=== PATIENT | female | born 1935 | race Caucasian/White ===

== ENCOUNTER → 2016-12-11 | Outpatient (CLI) | payer OTHER ==
[~2016-12-11] MED LIST: ASPI81TA28 PO; AZIT-57 PO; CALCCAP7 PO; CHOL100010 PO; CLOB-65 TOP; DTRSR2 PO; LACTCAP3 PO; LSN20 PO; OMEG10007 PO; PRT40 PO; RIVA1TAB4 PO; XRL15 PO
--- NOTE | 2016-12-11 14:43 | MAMMOGRAPHY REPORT ---
BILATERAL DIGITAL SCREENING MAMMOGRAM WITH CAD: 12/11/2016 CLINICAL HISTORY: Routine screening. Patient has no complaints. TECHNIQUE: Bilateral CC, MLO and left cleavage views were obtained. Current study was also evaluated with a Computer Aided Detection (CAD) system. COMPARISON: Comparison is made to exams dated: 12/09/2015 mammogram, 12/08/2014 mammogram, 12/07/2013 ma mmogram, 12/04/2011 mammogram, 11/22/2010 mammogram, and 11/21/2009 mammogram - [facility]. BREAST COMPOSITION: There are scattered areas of fibroglandular density in both breasts. FINDINGS: There are new patchy and vague asymmetries in each upper outer posterior breast, for which additional spot compression tomosynthesis views and possibly ultrasound are recommended. There are bilateral rodlike secretory calcifications and benign rim calcifications. No other suspici ous mass, architectural distortion or cluster of microcalcifications is seen. IMPRESSION: ACR BI-RADS CATEGORY 0: INCOMPLETE EVALUATION: NEED ADDITIONAL IMAGING EVALUATION The new patchy and vague asymmetries in each upper outer posterior breast need additional imaging ray luation. The patient will be called to schedule an appointment. Approximately 10% of breast cancers are not detected with mammography. A negative mammographic report should not delay biopsy if a clinically suggestive mass is present. Suzie Bai M.D. ay/:12/11/2016 11:15:52 Operator Maintainer: Lizeth DOE)(Sina), [facility] letter sent: Addl Imaging 0 BI-RADS Code: ACR BI-RADS Category 0: Incomplete Evaluation: Need Additional Imaging Evaluation
== END | disposition home or self-care (01) ==
LOC: C.MAMM 10:26
PROVIDERS: ATTEND Family Medicine
DX: Z12.31 Encounter for screening mammogram for malignant neoplasm of breast (principal); N64.89 Other specified disorders of breast

== ENCOUNTER → 2016-12-19 | Outpatient (CLI) | payer OTHER ==
--- NOTE | 2016-12-20 09:08 | MAMMOGRAPHY REPORT ---
BILATERAL DIGITAL DIAGNOSTIC MAMMOGRAM TOMOSYNTHESIS AND TARGETED BILATERAL ULTRASOUND: 12/19/2016 CLINICAL HISTORY: Callback from screening mammogram for bilateral asymmetries. The patient reports s he bruises easily as she has on Xarelto. She also reports she scratches her breasts routinely due to chronic itchiness from dry skin. TECHNIQUE: Breast tomosynthesis in addition to standard 2D mammography was performed. Spot compress ion bilateral CC and MLO 2-D and tomosynthesis images were obtained. COMPARISON: Comparison is made to exams dated: 12/11/2016 mammogram, 12/09/2015 mammogram, 12/08/2014 m ammogram, 12/07/2013 mammogram, 12/04/2012 mammogram, and 12/04/2011 mammogram - [facility]. BREAST COMPOSITION: There are scattered areas of fibroglandular density in both breasts. FINDINGS: Spot compression views demonstrate multiple new ill-defined patchy asymmetries seen within bilateral upper outer quadrants. The most prominent is an ovoid 15 mm asymmetry seen within the lef t upper outer quadrant. Targeted ultrasound was performed of bilateral upper outer quadrants in the region of the mammographi c asymmetries. There are multiple ill-defined mixed echogenicity masses seen within the left 1:00 br east, 14-15 cm from the nipple, which are predominantly hypoechoic centrally and have vague surroundi ng hyperechogenicity. One ovoid hypoechoic 8 x 5 mm mass is seen within the left 1:00 breast, 15 cm from the nipple, which likely corresponds with the ovoid asymmetry mammographically. There is also a similar mixed echogenicity mass in the right low axillary region, measuring 1.5 x 0.7 x 2.0 cm. The se areas correspond with the mammographic asymmetries and have mammographic and sonographic features of probable fat necrosis. The patient denies any known trauma to the area but does bruise easily as she is on Xarelto and does chronically scratch her breasts. IMPRESSION: ACR-BI-RADS CATEGORY 3: PROBABLY BENIGN, TARGETED ULTRASOUND ACR-BI-RADS CATEGORY 3: PRO BABLY BENIGN Patchy ill-defined asymmetries within bilateral upper outer quadrants, with corresponding mixed echog enicity ill-defined masses on ultrasound. Findings are probably benign and likely represent fat necr osis; the patient denies any known trauma to the area but does bruise easily as she is Xarelto and do es chronically scratch her breasts. Recommend short interval follow-up bilateral diagnostic tomosynt hesis mammograms and possible ultrasound in 6 months to ensure resolution. The patient has been verbally notified of the results. Approximately 10% of breast cancers are not detected with mammography. A negative mammographic report should not delay biopsy if a clinically suggestive mass is present. Padmini Wade M.D. ah/:12/19/2016 15:12:26 Traffic Recorder: Keyla HARRINGTON(Dayana)(M), [facility] letter sent: Follow Up Recommended 3 BI-RADS Code: ACR-BI-RADS Category 3: Probably Benign Ultrasound BI-RADS: ACR-BI-RADS Category 3: Pr obably Benign
== END | disposition home or self-care (01) ==
LOC: C.MAMM 13:49
PROVIDERS: ATTEND Family Medicine
DX: N64.89 Other specified disorders of breast (principal)

== ENCOUNTER → 2017-06-06 | Outpatient (CLI) | payer OTHER ==
--- NOTE | 2017-06-06 14:04 | DIAGNOSTIC IMAGING REPORT ---
PELVIS WITHOUT CONTRAST (MRI) CLINICAL HISTORY: LEFT COMPLEX LABIAL CYST COMPARISON STUDY: No previous studies for comparison. FINDINGS: The patient was very uncomfortable during the examination due to right hip and low back pain. The patient was unable to continue the examination, and no contrast images were acquired. There are no suspicious areas of marrow replacement. There is no pathologic adenopathy. There are multiple uterine fibroids, the largest of which measures 27 mm and is located within the left fundal portion of the uterus. Both ovaries appear normal. There is a complex multiloculated left labial cystic lesion containing multiple fluid fluid levels. The cyst measures 7 x 5 x 4 cm. A few tiny right labial cysts are also visualized. IMPRESSION: 1. Unusual complex multi loculated left labial cystic mass measuring 7 x 5 x 4 cm. This contains multiple septations and multiple fluid fluid levels. The appearance is atypical for a typical Bartholin's gland cyst. This could represent the sequela of prior infection, or could represent a different pathologic entity (labial hemangioma/lymphangioma, or cystic neoplasm). 2. Subcentimeter complex right labial cystic lesions with air-fluid levels are also visualized 3. Multiple uterine fibroids 4. No evidence of pathologic adenopathy 5. No evidence of pathologic marrow replacement Electronically signed by: Micah Mendez M.D. 06/06/2017 2:03 PM Dictated Date/Time: 06/06/2017 1:38 PM
== END | disposition home or self-care (01) ==
LOC: C.MRI 12:12
PROVIDERS: ATTEND Obstetrics & Gynecology Obstetrics
DX: N90.7 Vulvar cyst (principal); N90.89 Other specified noninflammatory disorders of vulva and perineum; D25.9 Leiomyoma of uterus, unspecified

== ENCOUNTER → 2017-06-20 | Outpatient (CLI) | payer OTHER ==
--- NOTE | 2017-06-20 15:16 | MAMMOGRAPHY REPORT ---
BILATERAL DIGITAL DIAGNOSTIC MAMMOGRAM TOMOSYNTHESIS WITH CAD AND TARGETED BILATERAL ULTRASOUND: 06/01 CLINICAL HISTORY: Short interval follow-up of bilateral breast findings. The patient denies any lump s or other breast complaints. TECHNIQUE: Breast tomosynthesis in addition to standard 2D mammography was performed. Current study was also evaluated with a Computer Aided Detection (CAD) system. Bilateral CC and MLO 2-D and tomosy nthesis images and bilateral XCCL 2-D views were obtained. COMPARISON: Comparison is made to exams dated: 12/19/2016 ultrasound, 12/19/2016 mammogram, 12/11/2016 mammogram, 12/09/2015 mammogram, 12/08/2014 mammogram, and 12/07/2013 mammogram - [facility]. BREAST COMPOSITION: There are scattered areas of fibroglandular density in both breasts. FINDINGS: Again noted are patchy ill-defined asymmetries within bilateral upper outer quadrants, not significantly changed on the left side but slightly more prominent on the right side. The asymmetri es are bilaterally symmetric. The remainder of both breasts are stable compared to prior exams, with out suspicious masses, calcifications, or areas of architectural distortion noted. Bilateral benign appearing calcifications are not significantly changed. Targeted ultrasound was performed of bilateral upper outer quadrants in the region of the patchy asym metries. There are numerous patchy ill-defined areas within the left upper outer quadrant on ultraso und. In the low left axilla, there is a hypoechoic 5 x 7 mm non-circumscribed mass with surrounding ill-defined hyperechoic tissue. Another hypoechoic 5 x 4 mm mass with surrounding hyperechoic tissue is seen within the left breast at 2:30 far laterally. Another patchy ill-defined 10 mm area of mixe d echogenicity tissue is seen within the left breast at 2:00, 12 m from the nipple. Other patchy ill -defined hyperechoic and hypoechoic areas are seen throughout the left upper outer quadrant, includin g a subtle area of hyperechoic tissue with central hypoechoic portion measuring 13 mm in the left red ast at 1:00, approximately 14 cm from the nipple. In the right lower axillary region, there is a mixed echogenicity mass which consist of a central ill -defined hypoechoic mass measuring 1.4 x 0.9 cm with surrounding hyperechoic tissue with the total ex tent of the finding measuring 1.9 x 2 cm. Another small hypoechoic 4 x 5 mm mass with surrounding hy perechoic tissue is seen within the right breast at 10:00 far laterally. Another mixed echogenicity mass is seen within the right breast at 9:00 far laterally approximately 15 cm from the nipple, with a central ill-defined hypoechoic 10 x 9 mm mass and surrounding hyperechoic tissue with total extent of the finding measuring 2.4 x 1.8 cm. Other ill-defined hyperechoic and mixed echogenicity areas ar e seen within the right upper outer quadrant, including ill-defined hyperechoic tissue measuring 11 m m in the right breast at 9:00, 12 cm from the nipple, and a 10 mm area of mixed echogenicity, predomi nantly hyperechoic, tissue measuring 10 mm in the right 9 o'clock far laterally. These areas correspond with the mammographic densities. Given that the densities have not resolved o n follow-up, they are indeterminate and ultrasound-guided core needle biopsy of one of the findings i s recommended for further evaluation. Given the bilaterally symmetric nature of the findings, breast cancer is felt to be unlikely. Considerations include an inflammatory process versus malignancy suc h as lymphoma. IMPRESSION: ACR BI-RADS CATEGORY 4: SUSPICIOUS, TARGETED ULTRASOUND ACR BI-RADS CATEGORY 4: SUSPICIO US Persistent ill-defined patchy asymmetries in bilateral upper outer quadrants mammographically, with c orresponding mixed echogenicity masses seen on ultrasound. Given the bilaterally symmetric nature of the findings, breast cancer is felt to be unlikely. However, the findings are indeterminant and ult rasound guided core needle biopsy is recommended for further evaluation. Considerations include an i nflammatory process versus malignancy such as lymphoma/metastases. A phone call was made to the physician's office to confirm faxed results were received. The patient has been verbally notified of the results. She tentatively scheduled the biopsy for 06/21/2017. Approximately 10% of breast cancers are not detected with mammography. A negative mammographic report should not delay biopsy if a clinically suggestive mass is present. Padmini Wade M.D. ah/:06/20/2017 14:44:27 Mainframe Systems Administrator: Afia HARRINGTON(Dayana)(Sina), [facility] letter sent: Abnormal 4/5 BI-RADS Code: ACR BI-RADS Category 4: Suspicious Ultrasound BI-RADS: ACR BI-RADS Category 4: Suspici ous
== END | disposition home or self-care (01) ==
LOC: C.MAMM 13:31
PROVIDERS: ATTEND Family Medicine
DX: N63.23 Unspecified lump in the left breast, lower outer quadrant (principal); N63.21 Unspecified lump in the left breast, upper outer quadrant

== ENCOUNTER → 2017-06-21 | Outpatient (CLI) | payer OTHER ==
--- NOTE | 2017-06-21 14:17 | Discharge Instructions ---
Discharge Instructions Procedure Procedure Date: Jun 21, 2017. Reason for visit: Right Mass. Discharge Discharge Date: Jun 21, 2017. Discharge Diagnosis: status post breast biopsy Instructions Activity Recommendations: Additional Limitations (see below) Return to School/Work: no limitations Recommended Home Diet: No Limitations Provider Instructions: ACTIVITY RECOMMENDATIONS: * No lifting, pushing, pulling or exercising the affected side for three days. RETURN TO SCHOOL/WORK: * You may return to work/school after the procedure, but do not perform any strenuous activities for 24 to 48 hours. MEDICATIONS: * Tylenol (two 325 mg) every four to six hours if needed for mild pain (if not allergic to Tylenol). DIET: * Resume previous diet. SPECIAL CARE INSTRUCTIONS: * Keep biopsy site dry for 24 hours. May shower after 24 hours, but do not soak (bathe) incision. * May remove Tegaderm (plastic patch) tomorrow AFTER showering. * Leave the steri-strips on for one week. Allow the steri-strips to fall off by themselves. If not off after one week, you may remove them. You may place a Bandaid crosswise over the strips, if desired. * Apply ice 10 minutes on and 10 minutes off as needed. * Wear a bra at bedtime to sleep more comfortably for 2-3 days. * Your referring physician should have the results after approximately 5 to 7 business days. * Call for unusual bleeding, fever, drainage, etc or if you have any questions call during normal business hours or after hours call Dr Wade, . FOLLOW UP VISIT: Follow-up with Referring Physician as scheduled. Allergies Coded Allergies: Morphine (Verified Adverse Reaction, Mild, N/V, 08/08/15) No Known Allergies (Verified , 07/16/12) Dominik Gilmore Recommendations: Call your doctor if: * Temperature above 101 degrees * Pain not relieved by pain medicine ordered * There is increased drainage or redness from any incision * You have any unanswered questions or concerns. Your Doctors Instructions noted above were prepared by provider Padmini Wade. Patient Signature Section: Patient Instructions Signature Page Tory Sagastume Patient (or Guardian) Signature/Date: I have read and understand the instructions given to me by my caregivers. Caregiver/RN/Doctor Signature/Date: The above-named patient and/or guardian has received patient instructions on this date. + Original Patient Signature Page (only) stays with chart. Please make copy for patient.
--- NOTE | 2017-06-21 15:32 | MAMMOGRAPHY REPORT ---
ULTRASOUND GUIDED BIOPSY RIGHT BREAST: 06/21/2017 CLINICAL HISTORY: Bilateral ill-defined masses in bilateral upper outer quadrant/axillary regions. D ominant mass is seen within the right axillary region. PATIENT CONSENT: The procedure, risks and benefits were discussed with the patient and informed writt en consent was obtained. A timeout was performed immediately prior to the procedure. PROCEDURE DESCRIPTION: With ultrasound guidance, aseptic technique, and lidocaine as the local anesth etic (1% lidocaine to anesthetize the skin and 1% lidocaine with epinephrine to anesthetize the deepe r tissues), one of the masses of concern in the right axillary region was sampled 5 times with a 14-g auge Achieve biopsy needle. Immediately thereafter, with ultrasound guidance, aseptic technique, an d lidocaine as the local anesthetic, a metallic localizer clip was placed centrally in the mass. Dir ect pressure was applied to the site immediately post procedure and hemostasis was achieved. Postpro cedure unilateral mammograms were performed to confirm clip placement. The patient tolerated the pr ocedure without complication. She was given wound care instructions. The specimens were sent in [facility] to pathology for analysis; the samples were placed in saline in case any additional tests such as flow cytometry needed to be performed. COMPARISON: Comparison is made to exams dated: 06/20/2017 ultrasound, 06/20/2017 mammogram, 7 ultrasound, 12/19/2016 mammogram, 12/11/2016 mammogram, and 12/09/2015 mammogram - [facility]. IMPRESSION: ULTRASOUND GUIDED BIOPSY Ultrasound-guided core needle biopsy of the mixed echogenicity mass in the right axillary region, wit h clip placement. The patient will receive pathology results from her referring provider. Padmini Wade M.D. ah/:06/21/2017 14:21:29 Attending Technologist: Miriam Tan, [facility] Account Executive Software Sales: Padmini Wade MD, [facility]
--- NOTE | 2017-06-21 15:34 | MAMMOGRAPHY REPORT ---
UNILATERAL RIGHT DIGITAL DIAGNOSTIC MAMMOGRAM TOMOSYNTHESIS: 06/21/2017 CLINICAL HISTORY: Status post right breast biopsy. TECHNIQUE: Breast tomosynthesis in addition to standard 2D mammography was performed. Postprocedura l right CC and MLO tomosynthesis images were obtained. COMPARISON: Comparison is made to exams dated: 06/20/2017 ultrasound, 06/20/2017 mammogram, 7 ultrasound, 12/19/2016 mammogram, 12/11/2016 mammogram, and 12/09/2015 mammogram - [facility]. BREAST COMPOSITION: There are scattered areas of fibroglandular density in the right breast. FINDINGS: A new ribbon-shaped biopsy marker clip is seen within the right axillary region at the sit e of the biopsied mass. No significant postbiopsy hematoma is seen. IMPRESSION: POST PROCEDURE IMAGING FOR MARKER PLACEMENT New biopsy marker clip status post biopsy of a right axillary region mass. Pathology results are pen ding. Approximately 10% of breast cancers are not detected with mammography. A negative mammographic report should not delay biopsy if a clinically suggestive mass is present. Padmini Wade M.D. /:06/21/2017 14:33:54 Last Code Striper: Miriam Tan, [facility] BI-RADS Code: Post Procedure Imaging For Marker Placement
== END | disposition home or self-care (01) ==
LOC: C.MAMM 13:39
PROVIDERS: ATTEND Family Medicine
DX: L98.6 Other infiltrative disorders of the skin and subcutaneous tissue (principal); N63.10 Unspecified lump in the right breast, unspecified quadrant

== ENCOUNTER → 2018-01-29 | Outpatient (CLI) | payer OTHER ==
[~2018-01-29] MED LIST changes: -ASPI81TA28 PO; +ATOR10TA82 PO; -AZIT-57 PO; -CLOB-65 TOP; +CYAN100020 PO; -DTRSR2 PO; +FOLI1TAB8 PO; -LACTCAP3 PO; +LISI-726 PO; -LSN20 PO; +LVQ750 PO; -OMEG10007 PO; -PRT40 PO; -RIVA1TAB4 PO; +SERT25TA PO; +TOLT4CAP PO; -XRL15 PO
--- NOTE | 2018-01-30 14:55 | MAMMOGRAPHY REPORT ---
BILATERAL DIGITAL DIAGNOSTIC MAMMOGRAM TOMOSYNTHESIS WITH CAD AND LEFT ULTRASOUND: 01/29/2018 CLINICAL HISTORY: 82-year-old woman with bilateral breast masses most numerous in the upper outer davida drant and axillary regions for which ultrasound-guided core biopsy performed June 21, 2017 yielde d pathology results suspicious for lymphoma. At that time the pathology report recommended a surgical excision of the biopsied mass for definitive characterization. The patient now presents for follow-u p in both breasts, and is unsure if she has met with an oncologist. She has not undergone surgical ex cisional biopsy. TECHNIQUE: Bilateral CC and MLO 2D and tomosynthesis images were obtained. Current study was also ev aluated with a Computer Aided Detection (CAD) system. COMPARISON: Comparison is made to exams dated: 06/21/2017 mammogram, 06/20/2017 mammogram, 12/19/2016 mammogram, 12/11/2016 mammogram, 12/09/2015 mammogram, and 12/08/2014 mammogram - [facility]. BREAST COMPOSITION: There are scattered areas of fibroglandular density in both breasts. FINDINGS: There are multiple bilateral irregular and ill-defined masses in the upper outer breasts an d axillary regions. A ribbon-shaped biopsy marker clip is seen within the biopsied mass in the super ior right axilla, representing the lesion suspicious for lymphoma. The masses appear increased in nu mber and some are increasingly prominent in size comparing to the mammograms performed on 06/20/2017. There is also a new large focal area of asymmetry versus trabecular density in the slightly lateral , middle to posterior left breast measuring 10 x 8 x 8 cm. Further evaluation with ultrasound was pe rformed for this new asymmetry. Otherwise there are stable benign rodlike secretory calcifications i n the breasts. Targeted ultrasound was performed in the lateral left breast to assess for the trabecular density. N o focal skin thickening or definitive abnormality is seen in the lateral left breast to explain the d ensity. Multiple ill-defined hypoechoic solid vascular masses are seen, the most prominent is in the left 1:00 axis, 11 cm from the nipple, measuring 6.2 x 5.0 x 7.7 mm. Another possible enlarged lymp h node measuring 1.5 cm is identified in the left axilla. IMPRESSION: ACR BI-RADS CATEGORY 4: SUSPICIOUS, ULTRASOUND ACR BI-RADS CATEGORY 4: SUSPICIOUS 1. There are multiple bilateral irregular and ill-defined masses in the upper outer quadrants of the breasts posteriorly, and both axillary regions, that are increased in number and increasingly promin ent comparing to prior mammograms. One event marketing representative biopsied mass in the right axilla yielded path ologic findings suspicious for lymphoma and surgical excision was recommended. Overall, the mammogra phic appearance is also suspicious for lymphoma and surgical excisional biopsy should be considered. 2. These results and recommendations were discussed with the patient's provider, Afia Baldwin, at 3:30 PM on 01/29/2018. She reported the patient is traveling to [place] in [place] for other proced ures and she will relay this information to the additional providers. Ultimately, excision of one re presentative mass for definitive characterization and oncologic consultation is recommended. Some breast cancers are not detected with mammography. A negative mammographic report should not prasad y biopsy if a clinically suggestive mass is present. Suzie Bai M.D. ay/:01/29/2018 15:46:47 Realty Specialist: RT Tatianna(Dayana)(M), [facility] letter sent: Abnormal 4/5 OVERALL STUDY BIRADS: 4 Suspicious abnormality
== END | disposition home or self-care (01) ==
LOC: C.MAMM 13:15
PROVIDERS: ATTEND Family Medicine
DX: N63.11 Unspecified lump in the right breast, upper outer quadrant (principal); N63.21 Unspecified lump in the left breast, upper outer quadrant; Z98.890 Other specified postprocedural states

== ENCOUNTER 2019-03-31 16:05 | Inpatient (IN) ==
--- OUTSIDE RECORDS SUMMARY | 2019-03-31 16:09 | External Medical Summary | Continuity of Care Document ---
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) Chronic kidney disease, stage III (moderate) (585.3) (N18.3) Hyperlipidemia (272.4) (E78.5) Osteoporosis (733.00) (M81.0) HTN (hypertension) (401.9) (I10) Esophageal reflux (530.81) (K21.9) Uterine leiomyoma (218.9) (D25.9) Cervical spondylosis (721.0) (M47.812) Allergies and Adverse Reactions No Known Drug Allergies (Allergy) Medications Glucosamine 750 MG Oral Tablet Start: Refills: 0 Calcium 500 + D3 500-600 MG-UNIT Oral Tablet; Take 1 tablet daily Start: 18-Apr-2018 Refills: 0 Vitamin D 2000 UNIT Oral Capsule; Take 1 tablet daily Start: 18-Apr-2018 Refills: 0 CVS B-12 1000 MCG TBCR; TAKE 1 TABLET DAILY DIRECTED. Start: 18-Apr-2018 Refills: 0 Sertraline HCl - 25 MG Oral Tablet; TAKE 1 TABLET DAILY. Start: 18-Apr-2018 Refills: 0 Tolterodine Tartrate ER 4 MG Oral Capsul e Extended Release 24 Hour; TAKE 1 CAPSULE Daily Start: 18-Apr-2018 Refills: 3 Folic Acid 1 MG Oral Tablet; TAKE 1 TABLET DAILY. Start: 18-Apr-2018 Refills: 0 Aspirin 81 MG Oral Tablet Delayed Release; TAKE 1 TABLET CONSTANTINE LY. Start: 18-Apr-2018 Refills: 0 Atorvastatin Calcium 10 MG Oral Tablet; TAKE 1 TABLET DAILY. Start: 18-Apr-2018 Refills: 0 90 Tablet Bottle Stevens-3 1000 MG Oral Capsule; TAKE 2 CAPSULES DAILY Start: 18-Apr-2018 Refills: 0 Lisinopril 20 MG Oral Tablet; TAKE 1 TABLET DAILY DIRECTE D. Start: 18-Apr-2018 Refills: 0 15 Tablet Bottle Procedures Procedures not documented Immunizations Immunizations not documented Family History Mother Family history of malignant neoplasm of breast (V16.3) (Z80. 3) Status: Active Social History - Smoking Status Never smoker Plan of Treatment Planned Observations Planned Goals not documented Results No Known Results Results not documented Encounters Appointment; Shankar Perez M.D. 12-May-2018 10:15 Encounter Diagnosis: Problem not documented Appointment; Shankar Perez M.D. 02-May-2018 13:15 Encounter Diagnosis: Problem not documented Appointment; Shankar Perez M.D. 21-Apr-2018 11:30 Encounter Diagnosis: Problem not documented
[2019-03-31] MEDS ORDERED: SODIUM CHLORIDE 0.9% 500 ML IV SCH (16:45)
--- NOTE | 2019-03-31 17:14 | XRay Report ---
XR chest 1V portable CLINICAL HISTORY: 83 years-old Female presenting with Chest Pain. TECHNIQUE: Portable upright AP view of the chest was obtained. COMPARISON: 05/02/2018. FINDINGS: Cardiac silhouette moderately enlarged. Minimal bibasilar opacities stable to slightly decreased from prior. No pleural effusion or pneumothorax. Degenerative changes of the thoracic spine. Upper abdome n normal. IMPRESSION: 1. Minimal bibasilar opacities, stable slightly decreased from prior, possibly atelectasis or focal infiltrate. 2. Cardiomegaly. Electronically signed by: Rodger Echeverria M.D. 03/31/2019 5:12 PM
[2019-03-31 17:23] LABS: Basophils # (auto) 0.03 K/uL (0-0.2); Basophils % (auto) 0.2 %; Eosinophils # (auto) 0.08 K/uL (0-0.5); Eosinophils % (auto) 0.5 %; Hematocrit (blood only) 29.6 % (37-47); Hemoglobin 9.6 g/dL (12.0-16.0); Immature Granulocytes # (auto) 0.05 K/uL (0.00-0.02); Immature Granulocytes % (auto) 0.3 %; Lymphocytes # (auto) 4.98 K/uL (1.2-3.4); Lymphocytes % (auto) 33.8 %; Mean Corpuscular Hgb Conc 32.4 g/dL (32-36); Mean Corpuscular Volume 83.1 fL (80-100); Mean Platelet Volume 8.8 fL (7.4-10.4); Monocytes # (auto) 1.39 K/uL (0.11-0.59); Monocytes % (auto) 9.4 %; Neutrophils # (auto) 8.22 K/uL (1.4-6.5); Neutrophils % (auto) 55.8 %; Platelet Count 509 K/uL (130-400); RDW Coefficient of Variation 16.1 % (11.5-14.5); RDW Standard Deviation 49.6 fL (36.4-46.3); Red Blood Count 3.56 M/uL (4.2-5.4); White Blood Count 14.75 K/uL (4.8-10.8)
[2019-03-31] MEDS ORDERED: OPTIRAY 320 125ml IV PRN (17:28)
[2019-03-31 17:33] LABS: Alanine Aminotransferase 12 U/L (12-78); Albumin Level 1.7 gm/dl (3.4-5.0); Aspartate Aminotransferase 17 U/L (15-37); BUN Creatinine Ratio 16.1 (10-20); Bilirubin Direct 0.2 mg/dl (0-0.2); Blood Urea Nitrogen 16 mg/dl (7-18); Calcium 9.2 mg/dl (8.5-10.1); Carbon Dioxide 24 mmol/L (21-32); Chloride 101 mmol/L (98-107); Creatinine Clr Calc Pharmacy 44.3 ml/min; Est GFR (African American) 60.8; Est GFR (Non-African American) 52.4; Glucose 89 mg/dl (70-99); Lipase 107 U/L (73-393); Magnesium 1.8 mg/dl (1.8-2.4); Potassium 3.5 mmol/L (3.5-5.1); Sodium 134 mmol/L (136-145)
[2019-03-31 17:42] LABS: Albumin Globulin Ratio 0.2 (0.9-2); Alkaline Phosphatase 97 U/L (45-117); Bilirubin,Total 0.5 mg/dl (0.2-1); Globulin 7.1 gm/dl (2.5-4.0); Phosphorus 2.3 mg/dl (2.5-4.9); Total Protein 8.8 gm/dl (6.4-8.2); Troponin I < 0.015 ng/ml (0-0.045)
--- NOTE | 2019-03-31 17:51 | CT Scan Report ---
CT abd pelvis IV con only CLINICAL HISTORY: 83 years-old Female presenting with Upper abd pain, nausea, h/o Lymphoma. TECHNIQUE: Multidetector CT of the abdomen and pelvis was performed after the administration of intra venous contrast. IV contrast: 119 mL of Optiray 320. One or more dose lowering techniques were used c onsistent with the principles of ALARA (as low as reasonably achievable), including automatic exposur e control, mA or kV adjustment to individual patient size, and/or use of iterative reconstruction. COMPARISON: 07/14/2018. CT DOSE (mGy.cm): The estimated cumulative dose is 1069.52 mGy.cm. FINDINGS: Grain Combiner topogram: Unremarkable. Lung bases: Normal heart size. No pericardial or pleural effusion. Redemonstration of the left lower lobe mass like consolidation in the medial basal segment. Underlying bronchiectasis and multiple cyst s. The appearance of cysts may relate to underlying emphysema. Extensive bibasilar reticular and grou ndglass opacities. Liver: Normal morphology. Vague hypoattenuation along the fissure for the ligamentum teres likely per fusional variation or focal fat. Patent hepatic vasculature. Biliary: No intrahepatic or extrahepatic biliary ductal dilatation. Normal gallbladder. Pancreas: Mild parenchymal atrophy. Spleen: Normal. Adrenal glands: Normal. Kidneys and ureters: Normal. No hydronephrosis. Bladder: Incompletely evaluated secondary to underdistention. Pelvic organs: Degenerated fibroid in the uterus. Endovascular coils along the course of the left jose orquidea vein. Soft tissue fullness in the region of the vulva stable to slight increased from prior exam . Bowel: Moderate stool burden in the mildly distended rectum. Diverticulosis of the proximal to mid si gmoid colon and distal descending colon without wall thickening or pericolonic inflammatory change. T he appendix is normal. No bowel obstruction. Peritoneal cavity: No free fluid or gas in the abdomen. Multifocal peritoneal nodules as well as retr operitoneal nodules have slightly increased in size from prior. An index nodule in the left posterior perirenal space measures 21 mm, previously 11 mm. Lymph nodes: No discrete pathologically enlarged lymph nodes. Vasculature: Atherosclerosis of the normal caliber abdominal aorta. IVC patent. Abdominal wall: Multifocal subcutaneous nodules, which are enhancing and have overall increased in si ze from prior exam. Musculoskeletal: Degenerative changes of the spine. No destructive osseous lesion. Advanced degenerat kaya changes of the right hip. Degenerative changes of the pubic symphysis and sacroiliac joints. IMPRESSION: 1. Interval increase in size of the numerous subcutaneous, peritoneal, retroperitoneal nodules shantelle rning for progression of known extranodal lymphoma. 2. Persistent left lower lobe mass and chronic changes at the lung bases. 3. No acute intra-abdominal pathology. 4. Diverticulosis coli. No diverticulitis. Electronically signed by: Rodger Echeverria M.D. 03/31/2019 5:50 PM
--- NOTE | 2019-03-31 17:54 | CT Scan Report ---
CT ANGIOGRAPHY OF THE CHEST, PULMONARY EMBOLUS PROTOCOL CLINICAL HISTORY: Chest pain. Lymphoma. COMPARISON STUDY: Chest CT July 14, 2018. TECHNIQUE: Following IV administration of 119 mL of Optiray-320, helical axial images of the chest we re obtained utilizing the pulmonary embolus protocol. Maximal intensity projections and sagittal and coronal reformats were viewed on an independent 3D workstation. IV contrast was administered withou t complication. Automated exposure control was utilized for the study. A dose lowering technique wa s utilized adhering to the principles of ALARA. FINDINGS: No pulmonary emboli are identified. The heart is moderately enlarged. There is no thoracic aortic dissection. There is no pericardial effusion. A mildly enlarged right lower paratracheal lymp h node measures 1.3 cm in short axis diameter. On CT of July 14, 2018, it measured 1 cm. Mildly en larged left axillary lymph nodes have increased in size since prior CT. Innumerable subcutaneous nodu les within the chest wall and breasts have mildly increased in size and number since CT of November. The central airways are patent. Cysts within the lungs are noted. There is no pneumothorax or pleural effusion. The dominant 4.1 x 3.8 cm left lower lobe mass has mildly decreased in size since C T of July 14, 2018 when it measured 4.8 x 3.8 cm. An additional 2.5 cm left lower lobe nodule on i mage 135 of 261 has significantly increased in size. Multiple additional ill-defined pulmonary nodule s have slightly decreased since prior CT. Ground glass opacities within the lungs are noted. No suspi cious osseous lesions are noted. The abdomen and pelvis will be reported separately. IMPRESSION: 1. No pulmonary emboli identified. 2. Findings suggestive of a mixed treatment response since CT of July 14, 2018 with regards to lym phoma. The dominant left lower lobe mass has mildly decreased in size while an additional 2.5 cm left lower lobe nodule has significantly increased in size. Innumerable subcutaneous nodules within the c hest wall and breasts have increased in size and number since prior exam. Lymphadenopathy has mildly progressed. 3. Moderate cardiomegaly. Electronically signed by: Greg Brush M.D. 03/31/2019 5:52 PM
[2019-03-31 18:57] LABS: Appearance Urine Turbid (Clear); Bacteria Urine Automated 4+ (Negative); Bilirubin Urine Negative (Negative); Blood Urine 1+ (Negative); Color Urine Yellow; Epithelial Cell Urine Auto >30 /lpf (0-5); Glucose Urine UA Negative (Negative); Ketones Urine Negative (Negative); Leukocyte Esterase Urine 2+ (Negative); Nitrite Urine Positive (Negative); Protein Urine 1+ (Negative); Specific Gravity Urine > 1.045 (1.000-1.030); Urobilinogen Urine Negative (Negative); WBC Urine Automated >30 /hpf (0-5)
[2019-03-31] MEDS ORDERED: cefTRIAXone SODIUM 2,000 MG/70 ML BAG IV STA (19:14)
--- NOTE | 2019-03-31 20:01 | Emergency Department Note ---
Entered by Driss Jernigan acting as a scribe for Wild Modi MD History of Present Illness General Chief complaint: Arrhythmia/Palpitations Stated complaint: SOB, CHEST PALPITATIONS, WEAKNESS Time Seen by Provider: 03/31/19 16:29 Source: patient History of Present Illness Provider complaint: heart fluttering Onset (ago): day(s) 1 Location: chest Radiation: non-radiation Pain Consistency: + intermittent Maximum Pain Intensity: 0 Quality: + other (fluttering) Associated symptoms: + denies other symptoms, + nausea/vomiting (no vomiting), + shortness of breath, + weakness and + other (dizziness); no cough The patient is an 83 y/o female who presents to the emergency department for evaluation of intermittent heart fluttering that began yesterday. The patients daughter states that they were at the doctors prior to arrival and came to ED because of dizziness and weakness that has been going on for months. She notes that the patients shortness of breath has gotten worse, which the patient says she has currently and it is leading to greater weakness. The patient notes she has also been nauseous. The daughter notes that there is a history of blood clots. The patient denies vomiting, cough, and any other symptoms. Home Medications Home Medications Medication Instructions Recorded Confirmed Type aspirin [Aspirin Low Dose] 81 mg PO QPM 04/25/18 03/31/19 History calcium carbonate [Calcium 600] 600 mg PO QPM 04/25/18 03/31/19 History cholecalciferol (vitamin D3) 1,000 unit PO QPM 04/25/18 03/31/19 History [Vitamin D3] omega [id number] oil [Fish Oil] 2 tab PO QPM 04/25/18 03/31/19 History tolterodine 4 mg PO QPM 04/25/18 03/31/19 History folic acid 1 mg PO QPM 03/31/19 03/31/19 History lisinopril 10 mg PO DAILY 03/31/19 03/31/19 History sertraline 100 mg PO QPM 03/31/19 03/31/19 History tramadol 50 mg PO Q8H PRN 03/31/19 03/31/19 History Allergies Allergy/AdvReac Type Severity Reaction Status Date / Time No Known Allergies Allergy Verified 03/31/19 16:47 Past Med/Surg History Medical History 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) Lupus anticoagulant disorder (Chronic) B-cell lymphoma (Chronic) Osteoarthritis (Chronic) Uterine leiomyoma (Chronic) 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) HLD (hyperlipidemia) (Chronic) GERD (gastroesophageal reflux disease) (Chronic) Anxiety (Chronic) CKD (chronic kidney disease), stage III (Chronic) Exertional dyspnea (Chronic) Chronic hip pain (Chronic) RIGHT Depression (Chronic) Hypertension (Chronic) Surgical History History of total knee arthroplasty (Chronic) x 3; Right x 2; L x 1 History of incision and drainage (Chronic) Tubal ligation status (Chronic) H/O colonoscopy (Chronic) "Diverticulosis 2010, repeat in 5 years " Hx of tooth extraction (Chronic) History of colonoscopy (Chronic) History of tonsillectomy (Chronic) History of cataract surgery (Chronic) LEFT Family History Father , 52 Pulmonary embolism Mother Breast cancer Social History Preferred Language: Surinamese Communication Ability: Effective Sample Book Maker Required: No Beliefs That Will Affect Care: None Current Living Situation: Spouse Other Information That Helps Us Care for You: No Feels Safe at Home: Yes Safety Concerns: Feels Safe At This Time Smoking Status: Never smoker Hx Alcohol Use: No Hx Substance Use: No Review of Systems See HPI for pertinent positives & negatives. and A total of 10 systems reviewed and were otherwise negative Physical Exam Vital Signs Vital Signs - 24 hr 03/31/19 16:12 03/31/19 16:32 03/31/19 16:39 Temperature 36.5 C Temperature Source Oral Sepsis Recent Fever Within 48 Hours No Sepsis Action Taken by Nursing No Action Required Pulse Rate 75 64 Pulse Rate [Finger] Pulse Rate from SpO2 Sensor Respiratory Rate 18 31 H Respiratory Effort / Characteristics Non-Labored Spontaneous Labored Respiratory Depth Normal Deep Respiratory Pattern Regular Regular Blood Pressure 103/63 Blood Pressure [Left Arm] Blood Pressure Mean 76 Blood Pressure Mean [Left Arm] Blood Pressure Position Sitting Pulse Oximetry 93 Oxygen Delivery Method Room Air Room Air Room Air 03/31/19 16:40 03/31/19 16:46 03/31/19 16:49 Temperature Temperature Source Sepsis Recent Fever Within 48 Hours Sepsis Action Taken by Nursing Pulse Rate 61 65 Pulse Rate [Finger] Pulse Rate from SpO2 Sensor 64 Respiratory Rate 30 H 22 Respiratory Effort / Characteristics Respiratory Depth Respiratory Pattern Blood Pressure 106/54 L Blood Pressure [Left Arm] Blood Pressure Mean 71 Blood Pressure Mean [Left Arm] Blood Pressure Position Pulse Oximetry 98 Oxygen Delivery Method Room Air Room Air Room Air 03/31/19 16:50 03/31/19 16:51 03/31/19 17:00 Temperature Temperature Source Sepsis Recent Fever Within 48 Hours Sepsis Action Taken by Nursing Pulse Rate 67 Pulse Rate [Finger] 62 Pulse Rate from SpO2 Sensor 64 70 Respiratory Rate 22 37 H 24 Respiratory Effort / Characteristics Respiratory Depth Respiratory Pattern Blood Pressure 113/65 Blood Pressure [Left Arm] 106/54 L Blood Pressure Mean 81 Blood Pressure Mean [Left Arm] 71 Blood Pressure Position Pulse Oximetry 98 96 97 Oxygen Delivery Method Room Air Room Air Room Air 03/31/19 17:10 03/31/19 17:20 03/31/19 17:37 Temperature Temperature Source Sepsis Recent Fever Within 48 Hours Sepsis Action Taken by Nursing Pulse Rate 66 67 Pulse Rate [Finger] Pulse Rate from SpO2 Sensor 66 70 Respiratory Rate 13 32 H 35 H Respiratory Effort / Characteristics Respiratory Depth Respiratory Pattern Blood Pressure Blood Pressure [Left Arm] Blood Pressure Mean Blood Pressure Mean [Left Arm] Blood Pressure Position Pulse Oximetry 97 Oxygen Delivery Method Room Air Room Air Room Air 03/31/19 17:40 03/31/19 17:50 03/31/19 18:00 Temperature Temperature Source Sepsis Recent Fever Within 48 Hours Sepsis Action Taken by Nursing Pulse Rate 74 72 75 Pulse Rate [Finger] Pulse Rate from SpO2 Sensor 74 72 75 Respiratory Rate 18 20 21 Respiratory Effort / Characteristics Respiratory Depth Respiratory Pattern Blood Pressure 125/62 Blood Pressure [Left Arm] Blood Pressure Mean 83 Blood Pressure Mean [Left Arm] Blood Pressure Position Pulse Oximetry 99 97 94 Oxygen Delivery Method Room Air Room Air Room Air 03/31/19 18:02 03/31/19 18:10 03/31/19 18:20 Temperature Temperature Source Sepsis Recent Fever Within 48 Hours Sepsis Action Taken by Nursing Pulse Rate 74 75 Pulse Rate [Finger] 74 Pulse Rate from SpO2 Sensor 74 74 Respiratory Rate 23 18 19 Respiratory Effort / Characteristics Respiratory Depth Respiratory Pattern Blood Pressure Blood Pressure [Left Arm] 125/62 Blood Pressure Mean Blood Pressure Mean [Left Arm] 83 Blood Pressure Position Pulse Oximetry 94 92 90 Oxygen Delivery Method Room Air Room Air Room Air 03/31/19 18:30 03/31/19 18:42 03/31/19 18:50 Temperature Temperature Source Sepsis Recent Fever Within 48 Hours Sepsis Action Taken by Nursing Pulse Rate 76 74 Pulse Rate [Finger] Pulse Rate from SpO2 Sensor 75 80 Respiratory Rate 30 H 12 28 H Respiratory Effort / Characteristics Respiratory Depth Respiratory Pattern Blood Pressure 113/68 Blood Pressure [Left Arm] Blood Pressure Mean 83 Blood Pressure Mean [Left Arm] Blood Pressure Position Pulse Oximetry 91 93 Oxygen Delivery Method Room Air Room Air Room Air 03/31/19 19:00 03/31/19 19:10 03/31/19 19:20 Temperature Temperature Source Sepsis Recent Fever Within 48 Hours Sepsis Action Taken by Nursing Pulse Rate 74 73 77 Pulse Rate [Finger] Pulse Rate from SpO2 Sensor 74 75 76 Respiratory Rate 26 H 29 H 25 H Respiratory Effort / Characteristics Respiratory Depth Respiratory Pattern Blood Pressure Blood Pressure [Left Arm] Blood Pressure Mean Blood Pressure Mean [Left Arm] Blood Pressure Position Pulse Oximetry 94 93 95 Oxygen Delivery Method Room Air Room Air Room Air 03/31/19 19:30 03/31/19 19:40 03/31/19 19:50 Temperature Temperature Source Sepsis Recent Fever Within 48 Hours Sepsis Action Taken by Nursing Pulse Rate 76 80 81 Pulse Rate [Finger] 74 Pulse Rate from SpO2 Sensor 77 78 88 Respiratory Rate 20 27 H 28 H Respiratory Effort / Characteristics Respiratory Depth Respiratory Pattern Blood Pressure Blood Pressure [Left Arm] 113/68 Blood Pressure Mean Blood Pressure Mean [Left Arm] 83 Blood Pressure Position Pulse Oximetry 96 94 94 Oxygen Delivery Method Room Air Room Air Room Air 03/31/19 20:00 Temperature Temperature Source Sepsis Recent Fever Within 48 Hours Sepsis Action Taken by Nursing Pulse Rate 76 Pulse Rate [Finger] Pulse Rate from SpO2 Sensor 77 Respiratory Rate 23 Respiratory Effort / Characteristics Respiratory Depth Respiratory Pattern Blood Pressure Blood Pressure [Left Arm] Blood Pressure Mean Blood Pressure Mean [Left Arm] Blood Pressure Position Pulse Oximetry 95 Oxygen Delivery Method Room Air GENERAL: Awake, alert, fatigued-appearing, in no distress HENT: Normocephalic, atraumatic. Oropharynx with dry mucous membranes and otherwise unremarkable. EYES: Normal conjunctiva. Sclera non-icteric. NECK: Supple. No nuchal rigidity. FROM. No JVD. RESPIRATORY: Clear to auscultation bilaterally CARDIAC: Regular rate, normal rhythm. Extremities warm and well perfused. Pulses equal. ABDOMEN: Soft, non-distended. No tenderness to palpation. No rebound or guarding. No masses. RECTAL: Deferred. MUSCULOSKELETAL: Chest examination reveals no tenderness. The back is symmetrical on inspection without obvious abnormality. There is no CVA tenderness to palpation. No joint edema. LOWER EXTREMITIES: Calves are equal size bilaterally and non-tender. No edema. No discoloration. NEURO: Normal sensorium. No sensory or motor deficits noted. Intact finger to nose. 5/5 strength and SILT x4 extremities. SKIN: No rash or jaundice noted. Course 1631: Past medical records reviewed. The patient was evaluated in room C07. A complete history and physical exam was performed. 1830: I checked on the patient and updated her on her results. Administered Medications Aspirin (Ecotrin Ectab) 81 mg PO QPM KALEN Stop: 04/30/19 21:59 Last Admin: 03/31/19 21:58 Dose: 81 mg Documented by: [id number] Fish Oil ([place]-3 (Purified Fish Oil)) 2 gm PO QPM KALEN Stop: 04/30/19 22:59 Last Admin: 03/31/19 21:58 Dose: 2 gm Documented by: [id number] Folic Acid (Folvite) 1 mg PO QPM KALEN Stop: 04/30/19 21:59 Last Admin: 03/31/19 21:57 Dose: 1 mg Documented by: [id number] Sodium Chloride (Nss 1000ml) 1,000 mls @ 60 mls/hr IV .[id number] KALEN Stop: 04/01/19 14:11 Last Admin: 03/31/19 21:33 Dose: 60 mls/hr Documented by: [id number] Sertraline HCl (Zoloft) 100 mg PO QPM KALEN Stop: 04/30/19 21:59 Last Admin: 03/31/19 21:58 Dose: 100 mg Documented by: [id number] Tolterodine Tartrate (Detrol La) 4 mg PO QPM KALEN Stop: 04/30/19 21:59 Last Admin: 03/31/19 21:58 Dose: 4 mg Documented by: [id number] Vitamin D (Vitamin D3) 1,000 units PO QPM KALEN Stop: 04/30/19 21:59 Last Admin: 03/31/19 21:57 Dose: 1,000 units Documented by: [id number] Discontinued Medications Sodium Chloride (Nss) 500 mls @ 999 mls/hr IV .[id number] KALEN Stop: 03/31/19 17:15 Last Infusion: 03/31/19 17:22 Dose: 0 mls/hr Documented by: [id number] Admin: 03/31/19 16:51 Dose: 999 mls/hr Documented by: [id number] Ceftriaxone Sodium (Rocephin) 2,000 mg in 70 mls @ 140 mls/hr IV NOW STA Stop: 03/31/19 19:43 Last Infusion: 03/31/19 20:03 Dose: 0 mls/hr Documented by: [id number] Admin: 03/31/19 19:28 Dose: 140 mls/hr Documented by: [id number] Ioversol (Optiray 320 125ml) 117 ml IV ONCE PRN PRN Reason: Interaction Checking Stop: 04/04/19 17:27 Last Admin: 03/31/19 17:28 Dose: 117 ml Documented by: [id number] Medical Decision Making Differential Diagnosis Differential diagnosis: Etiologies such as infections, reactive airway disease, COPD, pneumonia, pleural effusion, pulmonary edema, ARDS, pneumothorax, CHF, cardiac ischemia, cardiac tamponade, dysrhythmia, anemia, pulmonary embolism, musculoskeletal, gastrointestinal process, as well as others were entertained. Medical Records Attestation: I reviewed the patient's medical records. Home Medications Current Medication List: was personally reviewed by me Laboratory Data Attestation: I reviewed the patient's lab results. Result diagrams: 03/31/19 16:34 03/31/19 16:34 Lab Results 03/31/19 03/31/19 03/31/19 Range/Units 16:34 16:34 18:40 WBC 14.75 H (4.8-10.8) K/uL RBC 3.56 L (4.2-5.4) M/uL Hgb 9.6 L (12.0-16.0) g/dL Hct 29.6 L (37-47) % MCV 83.1 (80-100) fL MCH 27.0 (25-34) pg MCHC 32.4 (32-36) g/dL RDW Std Deviation 49.6 H (36.4-46.3) fL RDW Coeff of Marycruz 16.1 H (11.5-14.5) % Plt Count 509 H (130-400) K/uL MPV 8.8 (7.4-10.4) fL Immature Gran % (Auto) 0.3 % Neut % (Auto) 55.8 % Lymph % (Auto) 33.8 % [place] % (Auto) 9.4 % Eos % (Auto) 0.5 % Baso % (Auto) 0.2 % Immature Gran # (Auto) 0.05 H (0.00-0.02) K/uL Neut # (Auto) 8.22 H (1.4-6.5) K/uL Lymph # (Auto) 4.98 H (1.2-3.4) K/uL [place] # (Auto) 1.39 H (0.11-0.59) K/uL Eos # (Auto) 0.08 (0-0.5) K/uL Baso # (Auto) 0.03 (0-0.2) K/uL Sodium 134 L (136-145) mmol/L Potassium 3.5 (3.5-5.1) mmol/L Chloride 101 (98-107) mmol/L Carbon Dioxide 24 (21-32) mmol/L Anion Gap 9.0 (3-11) BUN 16 (7-18) mg/dl Creatinine 1.00 (0.6-1.2) mg/dl Est Cr Clr Drug Dosing 44.3 ml/min Est GFR ( Amer) 60.8 Est GFR (Non-Af Amer) 52.4 BUN/Creatinine Ratio 16.1 (10-20) Glucose 89 (70-99) mg/dl Calcium 9.2 (8.5-10.1) mg/dl Phosphorus 2.3 L (2.5-4.9) mg/dl Magnesium 1.8 (1.8-2.4) mg/dl Total Bilirubin 0.5 (0.2-1) mg/dl Direct Bilirubin 0.2 (0-0.2) mg/dl AST 17 (15-37) U/L ALT 12 (12-78) U/L Alkaline Phosphatase 97 (45-117) U/L Troponin I < 0.015 (0-0.045) ng/ml Total Protein 8.8 H (6.4-8.2) gm/dl Albumin 1.7 L (3.4-5.0) gm/dl Globulin 7.1 H (2.5-4.0) gm/dl Albumin/Globulin Ratio 0.2 L (0.9-2) Lipase 107 (73-393) U/L TSH 3.770 (0.300-4.500) uIu/ml Urine Color Yellow Urine Appearance Turbid A (Clear) Urine pH 7.0 (4.5-7.5) Ur Specific [place] > 1.045 H (1.000-1.030) Urine Protein 1+ H (Negative) Urine Glucose (UA) Negative (Negative) Urine Ketones Negative (Negative) Urine Blood 1+ H (Negative) Urine Nitrite Positive A (Negative) Urine Bilirubin Negative (Negative) Urine Urobilinogen Negative (Negative) Ur Leukocyte Esterase 2+ H (Negative) Urine WBC (Auto) >30 H (0-5) /hpf Urine RBC (Auto) 5-10 H (0-4) /hpf U Hyaline Cast (Auto) 1-5 (0-5) /lpf U Epithel Cells (Auto) >30 H (0-5) /lpf Urine Bacteria (Auto) 4+ H (Negative) Urine Yeast Not Reportable Imaging Data Radiologist's Impression: Radiology results as stated below per my review and the radiologist's interpretation: XR chest 1V portable CLINICAL HISTORY: 83 years-old Female presenting with Chest Pain. TECHNIQUE: Portable upright AP view of the chest was obtained. COMPARISON: 05/02/2018. FINDINGS: Cardiac silhouette moderately enlarged. Minimal bibasilar opacities stable to slightly decreased from prior. No pleural effusion or pneumothorax. Degenerative changes of the thoracic spine. Upper abdomen normal. IMPRESSION: 1. Minimal bibasilar opacities, stable slightly decreased from prior, possibly atelectasis or focal infiltrate. 2. Cardiomegaly. Electronically signed by: Rodger Echeverria M.D. 03/31/2019 5:12 PM ADDENDUM Additional impression: 5. Soft tissue fullness in the region of the vulva. Correlate with clinical exam as neoplasm in this region cannot be excluded. Electronically signed by: Rodger Echeverria M.D. 03/31/2019 5:[address] abd pelvis IV con only CLINICAL HISTORY: 83 years-old Female presenting with Upper abd pain, nausea, h/o Lymphoma. TECHNIQUE: Multidetector CT of the abdomen and pelvis was performed after the administration of intravenous contrast. IV contrast: 119 mL of Optiray 320. One or more dose lowering techniques were used consistent with the principles of ALARA (as low as reasonably achievable), including automatic exposure control, mA or kV adjustment to individual patient size, and/or use of iterative reconstruction. COMPARISON: 07/14/2018. CT DOSE (mGy.cm): The estimated cumulative dose is 1069.52 mGy.cm. FINDINGS: Salon/Spa Manager topogram: Unremarkable. Lung bases: Normal heart size. No pericardial or pleural effusion. Redemonstration of the left lower lobe mass like consolidation in the medial basal segment. Underlying bronchiectasis and multiple cysts. The appearance of cysts may relate to underlying emphysema. Extensive bibasilar reticular and groundglass opacities. Liver: Normal morphology. Vague hypoattenuation along the fissure for the ligamentum teres likely perfusional variation or focal fat. Patent hepatic vasculature. Biliary: No intrahepatic or extrahepatic biliary ductal dilatation. Normal gallbladder. Pancreas: Mild parenchymal atrophy. Spleen: Normal. Adrenal glands: Normal. Kidneys and ureters: Normal. No hydronephrosis. Bladder: Incompletely evaluated secondary to underdistention. Pelvic organs: Degenerated fibroid in the uterus. Endovascular coils along the course of the left gonadal vein. Soft tissue fullness in the region of the vulva stable to slight increased from prior exam. Bowel: Moderate stool burden in the mildly distended rectum. Diverticulosis of the proximal to mid sigmoid colon and distal descending colon without wall thickening or pericolonic inflammatory change. The appendix is normal. No bowel obstruction. Peritoneal cavity: No free fluid or gas in the abdomen. Multifocal peritoneal nodules as well as retroperitoneal nodules have slightly increased in size from prior. An index nodule in the left posterior perirenal space measures 21 mm, previously 11 mm. Lymph nodes: No discrete pathologically enlarged lymph nodes. Vasculature: Atherosclerosis of the normal caliber abdominal aorta. IVC patent. Abdominal wall: Multifocal subcutaneous nodules, which are enhancing and have overall increased in size from prior exam. Musculoskeletal: Degenerative changes of the spine. No destructive osseous lesion. Advanced degenerative changes of the right hip. Degenerative changes of the pubic symphysis and sacroiliac joints. IMPRESSION: 1. Interval increase in size of the numerous subcutaneous, peritoneal, retroperitoneal nodules concerning for progression of known extranodal lymphoma. 2. Persistent left lower lobe mass and chronic changes at the lung bases. 3. No acute intra-abdominal pathology. 4. Diverticulosis coli. No diverticulitis. Electronically signed by: Rodger Echeverria M.D. 03/31/2019 5:[address] ANGIOGRAPHY OF THE CHEST, PULMONARY EMBOLUS PROTOCOL CLINICAL HISTORY: Chest pain. Lymphoma. COMPARISON STUDY: Chest CT July 14, 2018. TECHNIQUE: Following IV administration of 119 mL of Optiray-320, helical axial images of the chest were obtained utilizing the pulmonary embolus protocol. Maximal intensity projections and sagittal and coronal reformats were viewed on an independent 3D workstation. IV contrast was administered without com plication. Automated exposure control was utilized for the study. A dose lowering technique was utilized adhering to the principles of ALARA. FINDINGS: No pulmonary emboli are identified. The heart is moderately enlarged. There is no thoracic aortic dissection. There is no pericardial effusion. A mildly enlarged right lower paratracheal lymph node measures 1.3 cm in short axis diameter. On CT of July 14, 2018, it measured 1 cm. Mildly enlarged left axillary lymph nodes have increased in size since prior CT. Innumerable subcutaneous nodules within the chest wall and breasts have mildly increased in size and number since CT of November. The central airways are patent. Cysts within the lungs are noted. There is no pneumothorax or pleural effusion. The dominant 4.1 x 3.8 cm left lower lobe mass has mildly decreased in size since CT of July 14, 2018 when it measured 4.8 x 3.8 cm. An additional 2.5 cm left lower lobe nodule on image 135 of 261 has significantly increased in size. Multiple additional ill-defined pulmonary nodules have slightly decreased since prior CT. Ground glass opacities within the lungs are noted. No suspicious osseous lesions are noted. The abdomen and pelvis will be reported separately. IMPRESSION: 1. No pulmonary emboli identified. 2. Findings suggestive of a mixed treatment response since CT of July 14, 2018 with regards to lymphoma. The dominant left lower lobe mass has mildly decreased in size while an additional 2.5 cm left lower lobe nodule has significantly increased in size. Innumerable subcutaneous nodules within the chest wall and breasts have increased in size and number since prior exam. Lymphadenopathy has mildly progressed. 3. Moderate cardiomegaly. Electronically signed by: Greg Brush M.D. 03/31/2019 5:52 PM ECG Data Attestation: I personally reviewed and interpreted this ECG as follows: Indication: palpitations Rate (beats per minute): 73 Rhythm: normal sinus Findings: no acute ischemic change and no ectopy Blood Pressure Blood Pressure Findings: Elevated blood pressure Blood Pressure Disposition: Referred to patients primary care provider MDM Narrative The patient is a pleasant 83-year-old woman with a past medical history of B- cell lymphoma, CKD, hypertension who presents emergency department with generalized weakness and shortness of breath over the past several weeks with decreased appetite per hpi. On arrival patient is fatigued appearing but no acute distress, afebrile stable vital signs. Patient appears clinically dry. She has no focal focal neuro deficits. EKG without overt acute ischemia. Chest x-ray demonstrates likely progressive pulmonary nodules which are further clarified on CT of the chest. WBC 14.7 possibly related to patient's UTI as well as component of lymphoma. H/H 9.6/29.6 approximate 2 prior range of values. Platelets 509, nonspecific. Chemistry without acidosis. LFTs unremarkable. Troponin negative. Albumin 1.7 suggestive of component failure to thrive. UA with nitrite positive and 2+ LE with WBCs > 30, and 4+ bacteria, albeit with epithelial cells> 30. CTA of chest and CT abd/pelvis performed. No PE. Over with "mixed treatment response" with some improved LAD but progressive areas as well. Patient was ambulated by the nurse and was unable to walk independently due to generalized weakness. Therefore reasonable to admit the patient for the management of UTI, dehydration and failure to thrive. Case was discussed with Norm Martin PA-C, who evaluate the patient for admission. Impression & Plan Acute UTI, Dehydration, Failure to thrive, Hypoalbuminemia, Lymphoma Discharge Plan Visit Data *Final* Discharge Date/Time: 03/31/19 21:02 Chief Complaint: Arrhythmia/Palpitations Stated Complaint: SOB, CHEST PALPITATIONS, WEAKNESS ED Provider: Wild Modi Discharge Problem: Acute UTI, Dehydration, Failure to thrive, Hypoalbuminemia, Lymphoma Patient Disposition: Admitted As Inpatient Discharge Instructions Interventions: ED Discharge Assessment Last Done: 03/31/19 21:02 The scribe's documentation has been prepared under my direction and personally reviewed by me in its entirety. I confirm that the note above accurately reflects all work, treatment, procedures, and medical decision making performed by me.
--- NOTE | 2019-03-31 20:38 | History & Physical Report ---
Date of Service March 31, 2019 Assessment & Plan (1) Generalized weakness: (2) UTI (urinary tract infection): This is an 83-year-old female who has significant past medical history of low- grade B-cell lymphoma, HTN, HLD, homozygous MTHFR gene mutation, lupus anticoagulant, CKD stage III, pulmonary hypertension, depression, chronic anemia who presents to [facility] ED secondary to weakness x4 weeks. In ED patient remained hemodynamically stable. Work-up revealed leukocytosis 14.75, chronic anemia stable at 9.6/29.6, platelet 509, sodium 134, BUN 16, creatinine 1.00, corrected calcium 11.2, albumin 1.7, TSH 2.77. Urinalysis consistent with infection, positive blood, nitrites, leukoesterase, WBC and bacteria. Chest CTA was negative for PE, Moderate cardiomegaly, findings suggestive of mixed treatment response with regards to lymphoma, dominant left lower lobe mass has mildly decreased in size while an additional 2.5 cm left lower lobe nodule is significantly increased in size. Lymphadenopathy has mildly progressed. Chest x-ray negative for acute abnormality. CT scan abdomen pelvis negative for acute abnormality, but does show interval increase in size of numerous subcutaneous, peritoneal intraperitoneal nodules concerning for progression of known extra nodular lymphoma. Received IV ceftriaxone and IVF in ED admit to telemetry continue IV ceftriaxone urine culture pending continue IVF 60cc/hr x 1 L PT/OT consulted echocardiogram ordered ionized ca, pth, vit d level repeat labs in am (3) Hypoalbuminemia: alb 1.7 obtain prealbumin in a.m. nutrition consult placed encourage ensure supplements (4) Exertional dyspnea: Patient reports exertional dyspnea, which is not new for her Appears to be progressing previous echo 2018, EF 60%, no audible murmur given c/o palpitations and ROWE obtain repeat echo to r/o valvular heart disease (5) Hypercalcemia: Corrected Ca 11.2 order ionized ca, PTH, vit D level hold calcium carb supplements for now repeat in a.m. (6) B-cell lymphoma: Follows Dr. Osorio oncology active surveillance, no current treatment CT scan chest abdomen pelvis revealed mild progression of disease May be related to increased generalized weakness Will need to follow-up with oncology as outpatient (7) Hypertension: blood pressure on lower side hold lisinopril for now, resume when able (8) Depression: continue zoloft mood stable (9) Osteoarthritis: tramadol prn (10) DVT prophylaxis: Lovenox, SCD/TEDS pt with hx of homozygous MTHFR gene mutation, lupus anticoagulant Disposition: admit to telemetry Follow up: PCP Dr. Baldwin upon discharge Patient was seen and examined in collaboration with Dr. Maharaj, please see addendum History of Present Illness Chief Complaint: Weakness x 4 weeks. Primary Care Provider: Afia Baldwin, This is an 83-year-old female who has significant past medical history of low- grade B-cell lymphoma, HTN, HLD, homozygous MTHFR gene mutation, lupus anticoagulant, CKD stage III, pulmonary hypertension, depression, chronic anemia who presents to [facility] ED secondary to weakness x4 weeks. Daughter is at bedside. She was seen by PCP today for regular follow-up. Due to concern for increasing generalized weakness and poor p.o. intake she was referred to ED. At baseline patient is mostly sedentary but is able to ambulate with cane. She has been becoming increasingly weak doing daily activities and ADLs, fatigue and malaise. Further complains of dysuria and increased frequency with urination. Over the past 2 days she has noticed dizziness, described as a spinning sensation with standing. Further complains of intermittent palpitations for the past 2 days, occurs at rest, last seconds to minutes. Over the past 4 weeks she has been also intermittently nauseated, decreased appetite and overall poor p.o. intake. Over the past 1 year she has had approximately 60 pound weight loss, since the diagnosis of B-cell lymphoma. She follows with [facility] oncology and is currently under surveillance, but no active treatment for B-cell lymphoma. She does use Ensure nutrition shakes daily. She denies any fever or sweats but is always cold. Denies any lightheadedness, syncope, change in hearing or vision, chest pain, shortness breath at rest, hemoptysis, cough, emesis, abdominal pain, diarrhea, hematuria, melena, hematochezia. In ED patient remained hemodynamically stable. Work-up revealed leukocytosis 14.75, chronic anemia stable at 9.6/29.6, platelet 509, sodium 134, BUN 16, creatinine 1.00, corrected calcium 11.2, albumin 1.7, T SH 2.77. Urinalysis consistent with infection, positive blood, nitrites, leukoesterase, WBC and bacteria. Chest CTA was negative for PE, Moderate cardiomegaly, findings suggestive of mixed treatment response with regards to lymphoma, dominant left lower lobe mass has mildly decreased in size while an additional 2.5 cm left lower lobe nodule is significantly increased in size. Lymphadenopathy has mildly progressed. Chest x-ray negative for acute abnormality. CT scan abdomen pelvis negative for acute abnormality, but does show interval increase in size of numerous subcutaneous, peritoneal intraperitoneal nodules concerning for progression of known extra nodular lymphoma. Allergies Allergy/AdvReac Type Severity Reaction Status Date / Time No Known Allergies Allergy Verified 03/31/19 16:47 Home Medications Home Medications Medication Instructions Recorded Confirmed Type aspirin [Aspirin Low Dose] 81 mg PO QPM 04/25/18 03/31/19 History calcium carbonate [Calcium 600] 600 mg PO QPM 04/25/18 03/31/19 History cholecalciferol (vitamin D3) 1,000 unit PO QPM 04/25/18 03/31/19 History [Vitamin D3] omega 4-[id number]-[id number]-fish oil [Fish Oil] 2 tab PO QPM 04/25/18 03/31/19 History tolterodine 4 mg PO QPM 04/25/18 03/31/19 History folic acid 1 mg PO QPM 03/31/19 03/31/19 History lisinopril 10 mg PO DAILY 03/31/19 03/31/19 History sertraline 100 mg PO QPM 03/31/19 03/31/19 History tramadol 50 mg PO Q8H PRN 03/31/19 03/31/19 History Past Med/Surg History Medical History 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) Lupus anticoagulant disorder (Chronic) B-cell lymphoma (Chronic) Osteoarthritis (Chronic) Uterine leiomyoma (Chronic) 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) HLD (hyperlipidemia) (Chronic) GERD (gastroesophageal reflux disease) (Chronic) Exertional dyspnea (Chronic) Chronic hip pain (Chronic) RIGHT Depression (Chronic) Hypertension (Chronic) Surgical History History of total knee arthroplasty (Chronic) x 3; Right x 2; L x 1 History of incision and drainage (Chronic) Tubal ligation status (Chronic) H/O colonoscopy (Chronic) "Diverticulosis 2010, repeat in 5 years " Hx of tooth extraction (Chronic) History of colonoscopy (Chronic) History of tonsillectomy (Chronic) History of cataract surgery (Chronic) LEFT Family History Father , 52 Pulmonary embolism Mother Breast cancer Social History Preferred Language: Slovenian Communication Ability: Effective Beliefs That Will Affect Care: None Current Living Situation: Spouse Feels Safe at Home: Yes Smoking Status: Never smoker Hx Alcohol Use: No Hx Substance Use: No Review of Systems Review of Systems: All systems reviewed & are unremarkable except as noted in HPI & below Physical Exam Physical Exam: Constitutional: WD/WN, elderly F, vitals as above, NAD, sitting up in bed, pleasant, conversing easily Head: Normocephalic, Atraumatic Eyes: PERRL, conjunctivae normal, anicteric sclerae ENMT: external ear and nose normal, oropharynx normal Neck: trachea midline, no thyromegaly normal visual inspection Respiratory: normal respiratory effort, lungs clear to auscultation, no wheeze, rales, rhonchi. Normal insp/exp effort, no accessory muscle use Cardiovascular: RRR, occasional ectopy, no murmur, no edema Vessels: no JVD or carotid bruit Chest: normal inspection of chest Abdomen: normal bowel sounds, soft, nontender, no hepatosplenomegaly Musculoskeletal: no cyanosis or clubbing, extremities motor strength 5/5 Skin: no rashes, warm and dry normal turgor Neurologic: PERRL, EOMI, accommodation nl, no face palsy, no dysarthria CN's II-XI intact bilaterally and moves all extremities Psychiatric: A+Ox3, euthymic affect Lymphatic: no cervical or axillary lymphadenopathy : deferred Results & Data Vital Signs (Past 12 Hours) Vital Signs Temp Pulse Pulse Resp BP BP Pulse Ox 03/31/19 20:00 76 23 95 03/31/19 19:50 81 28 H 94 03/31/19 19:40 80 27 H 94 03/31/19 19:30 76 74 20 113/68 96 03/31/19 19:20 77 25 H 95 03/31/19 19:10 73 29 H 93 03/31/19 19:00 74 26 H 94 03/31/19 18:50 74 28 H 93 03/31/19 18:42 12 03/31/19 18:30 76 30 H 113/68 91 03/31/19 18:20 75 19 90 03/31/19 18:10 74 18 92 03/31/19 18:02 74 23 125/62 94 03/31/19 18:00 75 21 125/62 94 03/31/19 17:50 72 20 97 03/31/19 17:40 74 18 99 03/31/19 17:37 35 H 03/31/19 17:20 67 32 H 03/31/19 17:10 66 13 97 03/31/19 17:00 67 24 113/65 97 03/31/19 16:51 37 H 96 03/31/19 16:50 62 22 106/54 L 98 03/31/19 16:49 65 22 106/54 L 98 03/31/19 16:40 61 30 H 03/31/19 16:32 64 31 H 03/31/19 16:12 36.5 C 75 18 103/63 93 Laboratory Results Short CBC 03/31/19 03/31/19 Range/Units 16:34 16:34 WBC 14.75 H (4.8-10.8) K/uL Hgb 9.6 L (12.0-16.0) g/dL Hct 29.6 L (37-47) % Plt Count 509 H (130-400) K/uL Creatinine 1.00 (0.6-1.2) mg/dl BMP 03/31/19 16:34 Sodium 134 L Potassium 3.5 Chloride 101 Carbon Dioxide 24 BUN 16 Creatinine 1.00 Glucose 89 Calcium 9.2 Cardiac Enzymes 03/31/19 Range/Units 16:34 Troponin I < 0.015 (0-0.045) ng/ml Liver Function 03/31/19 Range/Units 16:34 Total Bilirubin 0.5 (0.2-1) mg/dl Direct Bilirubin 0.2 (0-0.2) mg/dl AST 17 (15-37) U/L ALT 12 (12-78) U/L Alkaline Phosphatase 97 (45-117) U/L Albumin 1.7 L (3.4-5.0) gm/dl Urine 03/31/19 Range/Units 18:40 Urine Color Yellow Urine Appearance Turbid A (Clear) Urine pH 7.0 (4.5-7.5) Ur Specific [place] > 1.045 H (1.000-1.030) Urine Protein 1+ H (Negative) Urine Glucose (UA) Negative (Negative) Diagnostic Findings Chest CTA; IMPRESSION: 1. No pulmonary emboli identified. 2. Findings suggestive of a mixed treatment response since CT of July 14, 2018 with regards to lymphoma. The dominant left lower lobe mass has mildly decreased in size while an additional 2.5 cm left lower lobe nodule has significantly increased in size. Innumerable subcutaneous nodules within the chest wall and breasts have increased in size and number since prior exam. Lymphadenopathy has mildly progressed. 3. Moderate cardiomegaly Abd/Pelvis CT: 1. Interval increase in size of the numerous subcutaneous, peritoneal, retroperitoneal nodules concerning for progression of known extranodal lymphoma. 2. Persistent left lower lobe mass and chronic changes at the lung bases. 3. No acute intra-abdominal pathology. 4. Diverticulosis coli. No diverticulitis. CXR IMPRESSION: 1. Minimal bibasilar opacities, stable slightly decreased from prior, possibly atelectasis or focal infiltrate. 2. Cardiomegaly. Medications Administered Ioversol (Optiray 320 125ml) 117 ml IV ONCE PRN PRN Reason: Interaction Checking Stop: 04/04/19 17:27 Last Admin: 03/31/19 17:28 Dose: 117 ml Documented by: [id number] Discontinued Medications Sodium Chloride (Nss) 500 mls @ 999 mls/hr IV .Q31M KALEN Stop: 03/31/19 17:15 Last Infusion: 03/31/19 17:22 Dose: 0 mls/hr Documented by: [id number] Admin: 03/31/19 16:51 Dose: 999 mls/hr Documented by: [id number] Ceftriaxone Sodium (Rocephin) 2,000 mg in 70 mls @ 140 mls/hr IV NOW STA Stop: 03/31/19 19:43 Last Infusion: 03/31/19 20:03 Dose: 0 mls/hr Documented by: [id number] Admin: 03/31/19 19:28 Dose: 140 mls/hr Documented by: [id number] Code Status & VTE Plan Code Status Full Code VTE Prophylaxis Plan VTE Prophylaxis will be ordered: Yes Supervising Physician Co-Signing Physician Notes I, Dr. Jose De Jesus Maharaj, have seen and examined the physician operations and intelligence assistant and comment that This is a 83 year old female with B cell lymphoma with sedentary activity at home, who reports of dyspnea on exertion and generalized weakness On exam General: no acute distress Psych: alert and oriented to person, time, and place Heart: regular rate, regular rhythm Lungs: clear to auscultation bilaterally Abdomen: soft, nontender, positive bowel sounds Skin/Extremities: no acute findings B cell lymphoma -agree that radiology impressions shows some progression of disease -has outpatient follow with oncology with [facility] Hypoalbuminemia Hypercalcemia -corrected calcium is elevated when calculating in context to low albumin -give IV fluids, nutrition consult, check ionized calcium, vitamin D levels, PTH -monitor on telemetry Dyspnea on exertion -CT lung imaging reviewed -obtain echocardiogram Urinary tract infection _Iv antibiotics agree with other assessment and plans as documented by physician operations and intelligence assistant My colleague Dr. Woo will be taking the patient as hospitalist starting on 04/01/19
[2019-03-31] MEDS ORDERED: POLYETHYLENE (MIRALAX) 17 GM PACK PO PRN (21:32)
[2019-03-31] MEDS ORDERED: ONDANSETRON INJ 2 MG/ML 2 ML VIAL IV PRN (21:32)
[2019-03-31] MEDS ORDERED: SODIUM CHLORIDE 0.9% 1000ML 1,000 ML IV SCH (21:32)
[2019-03-31] MEDS ORDERED: ACETAMINOPHEN 325 MG TAB PO PRN (21:32)
[2019-03-31] MEDS ORDERED: MAGNESIUM HYDROXIDE SUSP 30 ML UDC PO PRN (21:32)
[2019-03-31] MEDS ORDERED: ALUMINUM/MAGNESIUM SUSP 30 ML UDC PO PRN (21:32)
[2019-03-31] MEDS: FOLIC ACID 1 MG TAB PO SCH (21:57)
[2019-03-31] MEDS: CHOLECALCIFEROL 1,000 UNITS TAB PO SCH (21:57)
[2019-03-31] MEDS: OMEGA-3 (PURIFIED FISH OIL) 1 GM CAP PO SCH (21:58)
[2019-03-31] MEDS: TOLTERODINE TARTRATE LA 4 MG CAPCR PO SCH (21:58)
[2019-03-31] MEDS: SERTRALINE HCL 100 MG TABLET PO SCH (21:58)
[2019-03-31] MEDS: ASPIRIN 81 MG ECTAB PO SCH (21:58)
[2019-04-01 08:03] LABS: Hematocrit (blood only) 26.3 % (37-47); Hemoglobin 8.2 g/dL (12.0-16.0); Mean Corpuscular Hgb Conc 31.2 g/dL (32-36); Mean Corpuscular Volume 83.5 fL (80-100); Mean Platelet Volume 8.7 fL (7.4-10.4); Platelet Count 391 K/uL (130-400); RDW Coefficient of Variation 16.3 % (11.5-14.5); RDW Standard Deviation 49.1 fL (36.4-46.3); Red Blood Count 3.15 M/uL (4.2-5.4); White Blood Count 8.46 K/uL (4.8-10.8)
[2019-04-01] MEDS: ENOXAPARIN INJ 40 MG/0.4 ML SYR SQ SCH (08:31)
[2019-04-01] MEDS: cefTRIAXone SODIUM 1,000 MG in DEXTROSE 5% 50 ML IV SCH (08:34)
[2019-04-01 08:35] LABS: BUN Creatinine Ratio 16.2 (10-20); Calcium 8.3 mg/dl (8.5-10.1); Creatinine Clr Calc Pharmacy 52.9 ml/min; Est GFR (Non-African American) 64.7; Potassium 3.7 mmol/L (3.5-5.1)
[2019-04-01 08:39] LABS: Prealbumin 7.7 mg/dl (20-40)
[2019-04-01 08:58] LABS: iSTAT Creatinine 0.9 mg/dl (0.6-1.3); iSTAT Hemoglobin 10.5 g/dl (12.0-16.0); iSTAT Ionized Calcium 1.09 mmol/l (1.12-1.32); iSTAT Potassium 3.5 mEq/L (3.3-5.0)
[2019-04-01] MEDS: ASPIRIN 81 MG ECTAB PO SCH (20:45)
[2019-04-01] MEDS: TOLTERODINE TARTRATE LA 4 MG CAPCR PO SCH (20:47)
[2019-04-01] MEDS: FOLIC ACID 1 MG TAB PO SCH (20:47)
[2019-04-01] MEDS: SERTRALINE HCL 100 MG TABLET PO SCH (20:48)
[2019-04-01] MEDS: OMEGA-3 (PURIFIED FISH OIL) 1 GM CAP PO SCH (20:50)
--- NOTE | 2019-04-01 23:37 | Hospitalist Progress Note ---
Date of Service delayed entry date of service noted above April 01, 2019 Assessment & Plan (1) Generalized weakness: (2) UTI (urinary tract infection): per admitting team: This is an 83-year-old female who has significant past medical history of low- grade B-cell lymphoma, HTN, HLD, homozygous MTHFR gene mutation, lupus anticoagulant, CKD stage III, pulmonary hypertension, depression, chronic anemia who presents to [facility] ED secondary to weakness x4 weeks. In ED patient remained hemodynamically stable. Work-up revealed leukocytosis 14.75, chronic anemia stable at 9.6/29.6, platelet 509, sodium 134, BUN 16, creatinine 1.00, corrected calcium 11.2, albumin 1.7, TSH 2.77. Urinalysis consistent with infection, positive blood, nitrites, leukoesterase, WBC and bacteria. Chest CTA was negative for PE, Moderate cardiomegaly, findings suggestive of mixed treatment response with regards to lymphoma, dominant left lower lobe mass has mildly decreased in size while an additional 2.5 cm left lower lobe nodule is significantly increased in size. Lymphadenopathy has mildly progressed. Chest x-ray negative for acute abnormality. CT scan abdomen pelvis negative for acute abnormality, but does show interval increase in size of numerous subcutaneous, peritoneal intraperitoneal nodules concerning for progression of known extra nodular lymphoma. afebrile, oriented x 3 WBC improved cultures pending continue Ceftri IV PT/OT eval (3) Hypoalbuminemia: nutrition consult placed encourage ensure supplements (4) Exertional dyspnea: per admit team: Patient reports exertional dyspnea, which is not new for her Appears to be progressing previous echo 2018, EF 60%, no audible murmur given c/o palpitations and ROWE -- ff up echo consider two step exercise test (5) Hypercalcemia: Corrected Ca 11.2 PTH, Vit D normal monitor (6) B-cell lymphoma: Follows Dr. Osorio oncology active surveillance, no current treatment CT scan chest abdomen pelvis revealed increase in size of nodule, lymph nodes May be related to increased generalized weakness -- discussed with Dr. Osroio- needs to ff up in his office next week, please schedule appointment (7) Hypertension: blood pressure on lower side hold lisinopril for now monitor (8) Depression: continue zoloft mood stable (9) Osteoarthritis: tramadol prn (10) DVT prophylaxis: Lovenox, SCD/TEDS pt with hx of homozygous MTHFR gene mutation, lupus anticoagulant Disposition: admit to telemetry Follow up: PCP Dr. Baldwin upon discharge lives with PT/OT eval, may need short stay at Rehab/SNF Subjective ff up for UTI, weaknes for the past few weeksn seen resting in bed, comfortable states she feels improved compared to previous day no urinary symptoms, abdominal pain, nausea, fever/chills denies cough, shortness of breath, sputum/hemoptysis no other symptoms Review of Systems Review of Systems: All systems reviewed & are unremarkable except as noted in HPI & below Physical Exam Physical Exam: General- oriented x 3, not in distress, speaks in sentences with no effort or accessory muscle use Head- atraumatic Eyes- PERRL, EOMI, anicteric ENT- oropharynx clear Neck- supple, no JVD, no adenopathy, no thyromegaly; carotids +2/2, no bruits appreciated Lungs- clear to auscultation bilaterally, no rales/wheezes Heart- normal rate, regular rhythm; no murmur, no gallop, no rub appreciated Abdomen- normal bowel sounds, nondistended, soft, nontender, no masses or hepatosplenomegaly Extremities- no pretibial edema, no calf tenderness; peripheral pulses intact Neuro- alert, oriented x 3; CN 2-12 grossly intact; motor 5/5 bilaterally;sensation 100% on all extremities; no other gross focal neurologic deficits Skin- warm & dry Results & Data Vital Signs (Past 12 Hours) Vital Signs Temp Pulse Pulse Resp BP Pulse Ox 04/01/19 23:28 36.4 C L 78 20 114/72 93 04/01/19 19:35 36.8 C 72 18 108/67 96 04/01/19 15:44 95 04/01/19 15:40 65 04/01/19 15:27 36.3 C L 67 18 111/74 93 Laboratory Results all noted and reviewed
[2019-04-02] MEDS: TRAMADOL HCL 50 MG TABLET PO PRN ×2 (00:17→21:40)
[2019-04-02 08:24] LABS: Basophils # (auto) 0.01 K/uL (0-0.2); Basophils % (auto) 0.1 %; Eosinophils # (auto) 0.26 K/uL (0-0.5); Eosinophils % (auto) 2.6 %; Hematocrit (blood only) 26.6 % (37-47); Hemoglobin 8.3 g/dL (12.0-16.0); Immature Granulocytes # (auto) 0.02 K/uL (0.00-0.02); Immature Granulocytes % (auto) 0.2 %; Lymphocytes # (auto) 3.07 K/uL (1.2-3.4); Lymphocytes % (auto) 30.4 %; Mean Corpuscular Hemoglobin 26.3 pg (25-34); Mean Corpuscular Hgb Conc 31.2 g/dL (32-36); Mean Corpuscular Volume 84.4 fL (80-100); Mean Platelet Volume 8.7 fL (7.4-10.4); Monocytes # (auto) 1.09 K/uL (0.11-0.59); Monocytes % (auto) 10.8 %; Neutrophils # (auto) 5.65 K/uL (1.4-6.5); Neutrophils % (auto) 55.9 %; Platelet Count 393 K/uL (130-400); RDW Coefficient of Variation 16.3 % (11.5-14.5); RDW Standard Deviation 50.4 fL (36.4-46.3); Red Blood Count 3.15 M/uL (4.2-5.4)
[2019-04-02] MEDS: cefTRIAXone SODIUM 1,000 MG in DEXTROSE 5% 50 ML IV SCH (08:33)
[2019-04-02] MEDS: ENOXAPARIN INJ 40 MG/0.4 ML SYR SQ SCH (08:33)
[2019-04-02 08:38] LABS: BUN Creatinine Ratio 12.1 (10-20); Calcium 8.2 mg/dl (8.5-10.1); Creatinine Clr Calc Pharmacy 54.9 ml/min; Est GFR (African American) 78.4; Est GFR (Non-African American) 67.6; Potassium 3.6 mmol/L (3.5-5.1)
--- NOTE | 2019-04-02 16:08 | Hospitalist Progress Note ---
Date of Service April 02, 2019 Assessment & Plan (1) Generalized weakness: (2) UTI (urinary tract infection): per admitting team: This is an 83-year-old female who has significant past medical history of low- grade B-cell lymphoma, HTN, HLD, homozygous MTHFR gene mutation, lupus anticoagulant, CKD stage III, pulmonary hypertension, depression, chronic anemia who presents to [facility] ED secondary to weakness x4 weeks. Urine culture: Enterobacter /antibiotic adjusted to p.o. ciprofloxacin as per sensitivity Chest CTA was negative for PE, Moderate cardiomegaly, findings suggestive of mixed treatment response with regards to lymphoma, dominant left lower lobe mass has mildly decreased in size while an additional 2.5 cm left lower lobe nodule is significantly increased in size. Lymphadenopathy has mildly progressed. Chest x-ray negative for acute abnormality. CT scan abdomen pelvis negative for acute abnormality, but does show interval increase in size of numerous subcutaneous, peritoneal intraperitoneal nodules concerning for progression of known extra nodular lymphoma. Continue outpatient follow-up with hematology oncology for B-cell lymphoma (3) Hypoalbuminemia: nutrition consult placed encourage ensure supplements (4) Exertional dyspnea: per admit team: Patient reports exertional dyspnea, which is not new for her Appears to be progressing previous echo 2018, EF 60%, no audible murmur given c/o palpitations and ROWE Symptom has improved so far, Will have a two-step exercise prior to discharge (5) Hypercalcemia: Corrected Ca 11.2 PTH, Vit D normal monitor (6) B-cell lymphoma: Follows Dr. Osorio oncology active surveillance, no current treatment CT scan chest abdomen pelvis revealed increase in size of nodule, lymph nodes May be related to increased generalized weakness --Patient was discussed with Dr. Osorio- needs to ff up in his office next week, please schedule appointment (7) Hypertension: Blood pressure remains stable, resume lisinopril (8) Depression: continue zoloft mood stable (9) Osteoarthritis: tramadol prn (10) DVT prophylaxis: Lovenox pt with hx of homozygous MTHFR gene mutation, lupus anticoagulant-high risk for DVT Disposition: PT OT evaluation appreciated, patient will need rehab/SNF Referral made for SNF, awaiting insurance authorization Follow up: PCP Dr. Baldwin Subjective Appears to be comfortable, no complaint of pain or discomfort afebrile vital stable Complaint of shortness of breath, no cough no, no fever or chills Physical Exam Constitutional: WD/WN, vitals as above no acute distress Eyes: PERRL, conjunctivae normal, anicteric sclerae ENMT: external ear and nose normal, oropharynx normal Neck: trachea midline, no thyromegaly Respiratory: + prolonged expiratory phase; no respiratory distress and no cough Auscultation: + crackles and + wheezes Cardiovascular: RRR, no murmur, no edema Gastrointestinal (Abdomen): normal bowel sounds, soft, nontender, no hepatosplenomegaly Neurologic: PERRL, EOMI, accommodation nl, no face palsy, no dysarthria Psychiatric: A+Ox3, euthymic affect Results & Data Vital Signs (Past 12 Hours) Vital Signs Temp Pulse Pulse Resp BP Pulse Ox 04/02/19 15:39 71 04/02/19 15:21 36.7 C 88 19 103/71 93 04/02/19 11:15 36.4 C L 76 18 109/55 L 93 04/02/19 08:00 86 04/02/19 06:54 36.5 C 66 16 107/70 96
[2019-04-02] MEDS: FOLIC ACID 1 MG TAB PO SCH (20:28)
[2019-04-02] MEDS: ASPIRIN 81 MG ECTAB PO SCH (20:28)
[2019-04-02] MEDS: OMEGA-3 (PURIFIED FISH OIL) 1 GM CAP PO SCH (20:28)
[2019-04-02] MEDS: TOLTERODINE TARTRATE LA 4 MG CAPCR PO SCH (20:28)
[2019-04-02] MEDS: SERTRALINE HCL 100 MG TABLET PO SCH (20:28)
[2019-04-02] MEDS: CIPROFLOXACIN 250 MG TAB PO SCH (20:29)
[2019-04-02] MEDS ORDERED: CALCIUM 600MG + VIT D 400 IU TAB PO SCH ×2 (21:00→22:00)
[2019-04-02] MEDS ORDERED: cephALEXin 250 MG CAP PO SCH (21:00)
[2019-04-02] MEDS: CHOLECALCIFEROL 1,000 UNITS TAB PO SCH (21:09)
[2019-04-03 07:08] VITALS: BP 108/66; PULSE 89; TEMP 97.7; O2SAT 95
[2019-04-03] MEDS: ENOXAPARIN INJ 40 MG/0.4 ML SYR SQ SCH (08:25)
[2019-04-03] MEDS: CIPROFLOXACIN 250 MG TAB PO SCH (08:28)
[2019-04-03] MEDS ORDERED: lisinopriL 10 MG TAB PO SCH (09:00)
--- NOTE | 2019-04-03 16:53 | Discharge Summary ---
Date of Service April 03, 2019 Admission HPI Per Admitting Provider This is an 83-year-old female who has significant past medical history of low- grade B-cell lymphoma, HTN, HLD, homozygous MTHFR gene mutation, lupus anticoagulant, CKD stage III, pulmonary hypertension, depression, chronic anemia who presents to [facility] ED secondary to weakness x4 weeks. Daughter is at bedside. She was seen by PCP today for regular follow-up. Due to concern for increasing generalized weakness and poor p.o. intake she was referred to ED. At baseline patient is mostly sedentary but is able to ambulate with cane. She has been becoming increasingly weak doing daily activities and ADLs, fatigue and malaise. Further complains of dysuria and increased frequency with urination. Over the past 2 days she has noticed dizziness, described as a spinning sensation with standing. Further complains of intermittent palpitations for the past 2 days, occurs at rest, last seconds to minutes. Over the past 4 weeks she has been also intermittently nauseated, decreased appetite and overall poor p.o. intake. Over the past 1 year she has had approximately 60 pound weight loss, since the diagnosis of B-cell lymphoma. She follows with [facility] oncology and is currently under surveillance, but no active treatment for B-cell lymphoma. She does use Ensure nutrition shakes daily. She denies any fever or sweats but is always cold. Denies any lightheadedness, syncope, change in hearing or vision, chest pain, shortness breath at rest, hemoptysis, cough, emesis, abdominal pain, diarrhea, hematuria, melena, hematochezia. In ED patient remained hemodynamically stable. Work-up revealed leukocytosis 14.75, chronic anemia stable at 9.6/29.6, platelet 509, sodium 134, BUN 16, creatinine 1.00, corrected calcium 11.2, albumin 1.7, TSH 2.77. Urinalysis consistent with infection, positive blood, nitrites, leukoesterase, WBC and bacteria. Chest CTA was negative for PE, Moderate cardiomegaly, findings suggestive of mixed treatment response with regards to lymphoma, dominant left lower lobe mass has mildly decreased in size while an additional 2.5 cm left lower lobe nodule is significantly increased in size. Lymphadenopathy has mildly progressed. Chest x-ray negative for acute abnormality. CT scan abdomen pelvis negative for acute abnormality, but does show interval increase in size of numerous subcutaneous, peritoneal intraperitoneal nodules concerning for progression of known extra nodular lymphoma. Principal Diagnosis URINARY TRACT INFECTION /GENERALIZED WEAKNESS / B CELL LYMPHOMA Discharge Exam Constitutional WD/WN, vitals as above no acute distress Eyes PERRL, conjunctivae normal, anicteric sclerae ENMT external ear and nose normal, oropharynx normal Neck trachea midline, no thyromegaly Respiratory normal respiratory effort, lungs clear to auscultation Cardiovascular RRR, no murmur, no edema Gastrointestinal (Abdomen) normal bowel sounds, soft, nontender, no hepatosplenomegaly Musculoskeletal no cyanosis or clubbing, extremities motor strength 5/5 Skin no rashes, warm and dry Neurologic PERRL, EOMI, accommodation nl, no face palsy, no dysarthria Psychiatric A+Ox3, euthymic affect Discharge Data Allergies Allergy/AdvReac Type Severity Reaction Status Date / Time No Known Allergies Allergy Verified 03/31/19 16:47 Consultations 03/31/19 19:14 ED Decision to Admit Stat 03/31/19 21:32 Consult Case Management - Discharge Planning Routine Ordered Studies 03/31/19 16:43 CT abd pelvis IV con only Stat CT angio chest PE protocol Stat Hospital Course (1) Generalized weakness: (2) UTI (urinary tract infection): per admitting team: This is an 83-year-old female who has significant past medical history of low- grade B-cell lymphoma, HTN, HLD, homozygous MTHFR gene mutation, lupus anticoagulant, CKD stage III, pulmonary hypertension, depression, chronic anemia who presents to [facility] ED secondary to weakness x4 weeks. Urine culture: Enterobacter /antibiotic adjusted to p.o. ciprofloxacin as per sensitivity Will need 3 more days of treatment, Clinically much improved no complaint of urinary symptoms no increased frequency of dysuria no fever Chest CTA was negative for PE, Moderate cardiomegaly, findings suggestive of mixed treatment response with regards to lymphoma, dominant left lower lobe mass has mildly decreased in size while an additional 2.5 cm left lower lobe nodule is significantly increased in size. Lymphadenopathy has mildly progressed. She will continue to follow-up with outpatient medical hematology oncology in clinic Chest x-ray negative for acute abnormality. CT scan abdomen pelvis negative for acute abnormality, but does show interval increase in size of numerous subcutaneous, peritoneal intraperitoneal nodules concerning for progression of known extra nodular lymphoma. Continue outpatient follow-up with hematology oncology for B-cell lymphoma (3) Hypoalbuminemia: nutrition consult placed encourage ensure supplements (4) Exertional dyspnea: Symptom has completely resolved today Hypoxia, ambulated on the hallway with physical therapy 160 feet with no hypoxia noted per admit team: Patient reports exertional dyspnea, which is not new for her Appears to be progressing previous echo 2018, EF 60%, no audible murmur (5) Hypercalcemia: Corrected Ca 11.2 PTH, Vit D normal monitor (6) B-cell lymphoma: Follows Dr. Osorio oncology active surveillance, no current treatment CT scan chest abdomen pelvis revealed increase in size of nodule, lymph nodes May be related to increased generalized weakness --Patient was discussed with Dr. Osorio- needs to ff up in his office next week, please schedule appointment (7) Hypertension: Blood pressure remains stable, resume lisinopril (8) Depression: continue zoloft mood stable (9) Osteoarthritis: tramadol prn (10) DVT prophylaxis: Lovenox pt with hx of homozygous MTHFR gene mutation, lupus anticoagulant-high risk for DVT Disposition: PT OT evaluation appreciated, patient will need rehab/SNF Referral made for SNF, awaiting insurance authorization Per case management, no available skilled rehab bed till end of next week Patient does not want to wait in the hospital for that long Patient present at bedside, feels she is almost back to her baseline Willing for home physical therapy referral Discussed with case management, home physical therapy [facility] referral made, but physical therapist will see patient over the weekend Stable to be discharged home today Hospital follow up scheduled: PCP Dr. Baldwin on 04/08/2019 Total Time Total Time Spent Total Time Spent (In Minutes): Proximate 40 minutes Total Time Includes: Examination of the Patient, Discharge Planning and Medication Reconciliation Discharge Plan Discharge Items Patient Disposition: Home - Home Health Services Reason For Visit: UTI,WEAKNESS,AFTT Discharge Diagnosis: URINARY TRACT INFECTION /GENERALIZED WEAKNESS / B CELL LYMPHOMA Activity: Resume your previous activity Non-emergency contact: Primary Care Provider Call non-emergency contact if: you have any medication questions Follow-up/Referrals: Afia Baldwin DO [Primary Care Provider] - 04/08/19 12:45 pm Diet: Heart Healthy Addtl Attending Provider Instructions: Follow-up with Dr. Afia De Luna check on 04/08/2019 at 12:45 PM You are set up with HOME physical therapy with [facility], home physical therapy will start on Saturday04/05/2019 Pending Studies at Discharge: No Stand-Alone Forms: My [facility] Medications and DC Order Prescriptions: New ciprofloxacin HCl 250 mg Tablet 250 mg PO BID 3 Days Qty: 6 RF: 0 Continued aspirin [Aspirin Low Dose] 81 mg Tablet,Delayed Release (Dr/Ec) 81 mg PO QPM RF: 0 calcium carbonate [Calcium 600] 600 mg calcium (1,500 mg) Tablet 600 mg PO QPM RF: 0 cholecalciferol (vitamin D3) [Vitamin D3] 1,000 unit Capsule 1,000 unit PO QPM RF: 0 omega 8-tob-jdx-fish oil [Fish Oil] 1,000 mg (120 mg-180 mg) Capsule 2 tab PO QPM RF: 0 tolterodine 4 mg Capsule,Extended Release 24hr 4 mg PO QPM RF: 0 sertraline 100 mg tablet 100 mg PO QPM RF: 0 tramadol 50 mg tablet 50 mg PO Q8H PRN (Reason: Pain) RF: 0 folic acid 1 mg tablet 1 mg PO QPM RF: 0 lisinopril 10 mg tablet 10 mg PO DAILY RF: 0 Discharge Orders: Discharge Order (Routine); Ordered 04/03/19 Ordered By: Mariah Hawk Admission Data Admit Date/Time: 04/02/19 17:23 Attending Provider: Mariah Hawk Admit Provider: Jose De Jesus Maharaj Primary Care Provider: Afia Baldwin Other Providers: Kan Woo ; Jose De Jesus Maharaj ; [employer] Other Interventions: Discharge Summary Assessment (RN) Last Done: 04/03/19 15:17 DC Date/Time DO NOT enter until pt leaves facility: 04/03/19 16:15
== END 2019-04-03 16:15 | disposition home health service (06) | DRG 690 ==
LOC: 2W 16:05 → ED 16:05 → SUATTDRO 20:18 → 2W 21:02

== ENCOUNTER 2019-04-08 14:34 | Inpatient (IN) ==
[2019-04-08] MEDS ORDERED: SODIUM CHLORIDE 0.9% 1000ML 1,000 ML IV SCH (15:30)
--- NOTE | 2019-04-08 15:57 | XRay Report ---
XR chest 1V portable HISTORY: 83 years-old Female weakness acute weakness COMPARISON: Chest radiograph and CT chest, abdomen and pelvis 03/31/2019 TECHNIQUE: Portable AP view of the chest FINDINGS: Cardiomediastinal and hilar silhouettes are unchanged. Persistent patchy bibasilar opacities with pre viously described left lung base mass better seen on comparison CT study. No pneumothorax, large pleu ral effusion or overt pulmonary edema. Degenerative changes of the shoulders and spine. IMPRESSION: 1. Cardiomegaly without acute process. 2. Chronic findings of the lung bases, better described and evaluated on comparison CTA of the chest from 03/31/2019. The above report was generated using voice recognition software. It may contain grammatical, syntax o r spelling errors. Electronically signed by: Hermann Gurrola M.D. 04/08/2019 3:55 PM
[2019-04-08 16:15] LABS: Basophils # (auto) 0.01 K/uL (0-0.2); Basophils % (auto) 0.1 %; Eosinophils # (auto) 0.12 K/uL (0-0.5); Eosinophils % (auto) 0.8 %; Hematocrit (blood only) 30.5 % (37-47); Hemoglobin 9.9 g/dL (12.0-16.0); Immature Granulocytes # (auto) 0.07 K/uL (0.00-0.02); Immature Granulocytes % (auto) 0.5 %; Lymphocytes # (auto) 4.97 K/uL (1.2-3.4); Lymphocytes % (auto) 34.2 %; Mean Corpuscular Hgb Conc 32.5 g/dL (32-36); Mean Corpuscular Volume 83.1 fL (80-100); Mean Platelet Volume 8.8 fL (7.4-10.4); Monocytes # (auto) 1.26 K/uL (0.11-0.59); Monocytes % (auto) 8.7 %; Neutrophils # (auto) 8.11 K/uL (1.4-6.5); Neutrophils % (auto) 55.7 %; Platelet Count 463 K/uL (130-400); RDW Coefficient of Variation 16.3 % (11.5-14.5); Red Blood Count 3.67 M/uL (4.2-5.4); White Blood Count 14.54 K/uL (4.8-10.8)
[2019-04-08 16:31] LABS: Appearance Urine Cloudy (Clear); Bacteria Urine Automated Negative (Negative); Bilirubin Urine Negative (Negative); Blood Urine Negative (Negative); Color Urine Dark Yellow; Epithelial Cell Urine Auto >30 /lpf (0-5); Glucose Urine UA Negative (Negative); Ketones Urine Negative (Negative); Leukocyte Esterase Urine Negative (Negative); Nitrite Urine Negative (Negative); Protein Urine 2+ (Negative); RBC Urine Automated 0-4 /hpf (0-4); Specific Gravity Urine 1.018 (1.000-1.030); Urobilinogen Urine Negative (Negative); pH Urine 8.5 (4.5-7.5)
[2019-04-08 16:33] LABS: Sulfosalicylic Acid Urine Positive (Negative)
[2019-04-08 16:35] LABS: Alanine Aminotransferase 25 U/L (12-78); Albumin Level 1.7 gm/dl (3.4-5.0); Aspartate Aminotransferase 29 U/L (15-37); BUN Creatinine Ratio 14.2 (10-20); Blood Urea Nitrogen 15 mg/dl (7-18); Calcium 8.9 mg/dl (8.5-10.1); Carbon Dioxide 25 mmol/L (21-32); Chloride 99 mmol/L (98-107); Est GFR (African American) 56.6; Est GFR (Non-African American) 48.9; Glucose 87 mg/dl (70-99); Magnesium 1.9 mg/dl (1.8-2.4); Potassium 3.7 mmol/L (3.5-5.1); Sodium 134 mmol/L (136-145)
[2019-04-08] MEDS ORDERED: IOVERSOL 100ml IV PRN (16:41)
[2019-04-08 16:46] LABS: Albumin Globulin Ratio 0.2 (0.9-2); Alkaline Phosphatase 92 U/L (45-117); Bilirubin,Total 0.5 mg/dl (0.2-1); Globulin 7.4 gm/dl (2.5-4.0); Total Protein 9.1 gm/dl (6.4-8.2); Troponin I < 0.015 ng/ml (0-0.045)
[2019-04-08 16:59] LABS: T4 Free Thyroxine 1.44 ng/dl (0.8-1.6)
--- NOTE | 2019-04-08 17:08 | CT Scan Report ---
CT head/brain wo/w con HISTORY: dizziness, headache, lymphoma TECHNIQUE: Multiaxial CT images of the head were performed both before and after the intravenous admi nistration of contrast. COMPARISON STUDY: None. FINDINGS: There is no mass, hematoma, midline shift, acute infarct. The calvarium and skull base are intact. Paranasal sinuses and mastoid air cells are clear. Mild atrophy and microvascular ischemic ch anges are noted. No abnormal enhancement. IMPRESSION: No acute intracranial abnormality. No abnormal enhancement. Electronically signed by: Nickolas Barfield M.D. 04/08/2019 5:06 PM
--- NOTE | 2019-04-08 19:31 | History & Physical Report ---
Date of Service April 08, 2019 Assessment & Plan (1) Failure to thrive: (2) Generalized weakness: -Admit to [facility] with telemetry -Patient presenting from home with reports of generalized weakness, dizziness, poor appetite and nausea -Recently admitted to [facility] 03/31 - 04/03 for Enterobacter UTI; will take last dose of Cipro this evening; SNF was recommended however there was no bed availability and patient preferred to go home rather than wait -WBC 14K; no signs of infection -Noted to have low albumin at 1.7, dietitian consulted -Other labs and imaging unremarkable -Recheck urine culture -BP borderline low at times, will hold lisinopril -Monitor orthostatic BPs -Supportive care with IVF -PT/OT, case management evaluations (3) Junctional rhythm: -Seems to be paroxysmal, accelerated at times -Monitor in telemetry -If persistent, consider cardiology consult (4) Hypertension: -Holding lisinopril as above (5) B-cell lymphoma: -Low-grade, currently under surveillance only, no active treatment (6) HLD (hyperlipidemia): -Continue statin (7) Depression: (8) Anxiety: -Continue sertraline (9) DVT prophylaxis: -SQ Lovenox History of Present Illness Chief Complaint: Generalized weakness Primary Care Provider: Afia Baldwin, 83-year-old female who presents to the ED with generalized weakness. Patient was recently admitted to [facility] 03/31 through 04/03 for generalized weakness and was found to have Enterobacter UTI. Patient was discharged on Cipro and she is finishing her last dose today. PT/OT evaluated patient and SNF was recommended however there was no bed availability therefore patient was discharged home with home health services. Patient reports she has been doing well up until today. She reports today she felt very weak, dizzy, and lightheaded with standing. No syncopal event. She continues to have poor appetite and nausea. Denies vomi ting, abdominal pain, diarrhea. No fevers or chills. Denies chest pain and shortness of breath. Denies urinary symptoms. Patient was seen by her PCP today for follow-up and given these complaints and hypotension, she was sent back to the ER for further evaluation. In the ED, patient seems to have a paroxysmal junctional tachycardia. BPs have been borderline low/stable. Labs show leukocytosis with WBC 14 K, otherwise unremarkable. She was given IVF. Allergies Allergy/AdvReac Type Severity Reaction Status Date / Time No Known Allergies Allergy Verified 04/08/19 16:11 Home Medications Home Medications Medication Instructions Recorded Confirmed Type aspirin [Aspirin Low Dose] 81 mg PO QPM 04/25/18 04/08/19 History calcium carbonate [Calcium 600] 600 mg PO QPM 04/25/18 04/08/19 History cholecalciferol (vitamin D3) 1,000 unit PO QPM 04/25/18 04/08/19 History [Vitamin D3] omega 4-haf-tja-fish oil [Fish Oil] 2 tab PO QPM 04/25/18 04/08/19 History tolterodine 4 mg PO QPM 04/25/18 04/08/19 History folic acid 1 mg PO QPM 03/31/19 04/08/19 History lisinopril 10 mg PO DAILY 03/31/19 04/08/19 History sertraline 100 mg PO QPM 03/31/19 04/08/19 History tramadol 50 mg PO Q8H PRN 03/31/19 04/08/19 History ciprofloxacin HCl 250 mg PO BID 04/08/19 04/08/19 History Past Med/Surg History Medical History 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) Lupus anticoagulant disorder (Chronic) B-cell lymphoma (Chronic) Osteoarthritis (Chronic) Uterine leiomyoma (Chronic) 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) HLD (hyperlipidemia) (Chronic) GERD (gastroesophageal reflux disease) (Chronic) Anxiety (Chronic) CKD (chronic kidney disease), stage III (Chronic) Exertional dyspnea (Chronic) Chronic hip pain (Chronic) RIGHT Depression (Chronic) Hypertension (Chronic) Surgical History History of total knee arthroplasty (Chronic) x 3; Right x 2; L x 1 History of incision and drainage (Chronic) Tubal ligation status (Chronic) H/O colonoscopy (Chronic) "Diverticulosis 2010, repeat in 5 years " S/P cataract surgery (Chronic) Hx of tooth extraction (Chronic) History of colonoscopy (Chronic) History of tonsillectomy (Chronic) History of cataract surgery (Chronic) LEFT Family History Father , 52 Pulmonary embolism Mother Breast cancer Social History Preferred Language: Grenadian Communication Ability: Effective Vocational Rehabilitation Consultant Required: No Beliefs That Will Affect Care: None marital status: Current Living Situation: Spouse Feels Safe at Home: Yes Smoking Status: Never smoker Hx Alcohol Use: No Hx Substance Use: No Review of Systems Review of Systems: ROS per HPI, all other systems reviewed and negative Physical Exam Constitutional: WD/WN, vitals as above Eyes: PERRL, conjunctivae normal, anicteric sclerae ENMT: external ear and nose normal, oropharynx normal Respiratory: normal respiratory effort, lungs clear to auscultation Cardiovascular: Rate/Rhythm: regular rate and regular rhythm Vessels: normal peripheral pulses Extremities: no edema Gastrointestinal (Abdomen): normal bowel sounds, soft, nontender, no hepatosplenomegaly Musculoskeletal: no cyanosis or clubbing, extremities motor strength 5/5 Skin: no rashes, warm and dry Neurologic: PERRL, EOMI, accommodation nl, no face palsy, no dysarthria Psychiatric: A+Ox3, euthymic affect Results & Data Vital Signs (Past 12 Hours) Vital Signs Temp Pulse Pulse Resp BP BP Pulse Ox 04/08/19 19:12 119 H 18 107/41 L 95 04/08/19 18:30 77 13 91/54 L 04/08/19 18:26 18 96 04/08/19 18:00 81 21 118/55 L 04/08/19 17:30 74 16 121/57 L 04/08/19 17:00 101 H 21 91/44 L 04/08/19 16:54 74 18 98 04/08/19 16:32 20 102/76 04/08/19 16:12 97 04/08/19 16:11 97 04/08/19 14:41 36.5 C 108 H 22 100/66 94 Laboratory Results Short CBC 04/08/19 Range/Units 15:55 WBC 14.54 H (4.8-10.8) K/uL Hgb 9.9 L (12.0-16.0) g/dL Hct 30.5 L (37-47) % Plt Count 463 H (130-400) K/uL BMP 04/08/19 15:55 Sodium 134 L Potassium 3.7 Chloride 99 Carbon Dioxide 25 BUN 15 Creatinine 1.06 Glucose 87 Calcium 8.9 Cardiac Enzymes 04/08/19 Range/Units 15:55 Troponin I < 0.015 (0-0.045) ng/ml Liver Function 04/08/19 Range/Units 15:55 Total Bilirubin 0.5 (0.2-1) mg/dl AST 29 (15-37) U/L ALT 25 (12-78) U/L Alkaline Phosphatase 92 (45-117) U/L Albumin 1.7 L (3.4-5.0) gm/dl Urine 04/08/19 Range/Units 16:15 Urine Color Dark Yellow Urine Appearance Cloudy A (Clear) Urine pH 8.5 H (4.5-7.5) Ur Specific [place] 1.018 (1.000-1.030) Urine Protein 2+ H (Negative) Urine Glucose (UA) Negative (Negative) Diagnostic Findings CXR IMPRESSION: 1. Cardiomegaly without acute process. 2. Chronic findings of the lung bases, better described and evaluated on comparison CTA of the chest from 03/31/2019. HEAD CT IMPRESSION: No acute intracranial abnormality. No abnormal enhancement. Code Status & VTE Plan Code Status Patient is a full code as per my discussion with her. VTE Prophylaxis Plan VTE Prophylaxis will be ordered: Yes Supervising Physician Co-Signing Physician Notes Attending addendum The patient was seen and examined in emergency room She was just recently discharged from the hospital following attack of Enterobacter UTI and she has been still taking the antibiotic with Cipro Has been complaining of more weakness, tiredness and dizziness when ambulate He denies any fever and/or chills or any problem with urine and about Noted to have elevated white count in the emergency room and otherwise hemodynamically stable On examination No apparent distress at rest Chest-clear to auscultate bilateral Heart-S1, S2, no murmur Abdomen-benign Extremities-negative for any edema 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
[2019-04-08] MEDS ORDERED: ACETAMINOPHEN 325 MG TAB PO PRN (19:58)
[2019-04-08] MEDS ORDERED: TRAMADOL HCL 50 MG TABLET PO PRN (19:58)
[2019-04-08] MEDS: TOLTERODINE TARTRATE LA 4 MG CAPCR PO SCH (20:57)
[2019-04-08] MEDS: SERTRALINE HCL 100 MG TABLET PO SCH (20:57)
[2019-04-08] MEDS: SODIUM CHLORIDE 0.9% 1000ML 1,000 ML IV SCH (20:57)
[2019-04-08] MEDS: ENOXAPARIN INJ 40 MG/0.4 ML SYR SQ SCH (20:57)
[2019-04-08] MEDS: OMEGA-3 (PURIFIED FISH OIL) 1 GM CAP PO SCH (20:58)
[2019-04-08] MEDS: CHOLECALCIFEROL 1,000 UNITS TAB PO SCH (20:58)
[2019-04-08] MEDS: FOLIC ACID 1 MG TAB PO SCH (20:58)
[2019-04-08] MEDS: CALCIUM CARBONATE 1250MG TAB PO SCH (20:58)
[2019-04-08] MEDS: ASPIRIN 81 MG ECTAB PO SCH (20:58)
[2019-04-08] MEDS ORDERED: CIPROFLOXACIN 250 MG TAB PO SCH (21:00)
[2019-04-08] MEDS ORDERED: CALCIUM CARBONATE 500 MG CHEWABLE TAB PO PRN (22:14)
--- NOTE | 2019-04-08 23:00 | Emergency Department Note ---
Entered by Maria Elena Matta acting as a scribe for Catrachito June MD ED Provider Note CHIEF COMPLAINT: Dizziness HISTORY OF PRESENT ILLNESS: The patient is a 83 year old female presenting to the Emergency Department complaining of constant dizziness starting 3 days ago. The patient reports that she is dizzy and short of breath. She states that she is weak and has no appetite. She explains that she has experienced these symptoms before as she was recently admitted to the hospital for these symptoms. She notes that she was referred to the ED from her PCP who stated that he thought the patient wasnt doing well and needed to come back into the hospital. She adds that when she was last discharged from the hospital she was feeling okay. The patient reports that she experiences intermittent neck pain. Pt denies LOC, fevers, chills, diaphoresis, visual changes, chest pain, nausea, vomiting, abdominal pain, back pain, melena, hematochezia, lymphadenopathy, rash, or other complaints. REVIEW OF SYSTEMS: See HPI for pertinent positives and negatives. A total of ten systems were reviewed and were otherwise negative. PMHx/PSHx: See past medical and surgical history lists. SOCIAL HISTORY: Patient lives at home. Lives at home with spouse. Never a smoker. PHYSICAL EXAM: GENERAL: Awake, alert, tired-appearing, in no distress HENT: Normocephalic, atraumatic. Oropharynx unremarkable. EYES: PERRL. Normal conjunctiva. Sclera non-icteric. NECK: Inspection normal. Non-tender. Supple. No nuchal rigidity. FROM. No masses. RESPIRATORY: Clear to auscultation. No wheezes. No rales. Normal respiratory effort. CARDIAC: Borderline tachycardic rate. Normal rhythm. No murmurs. No rubs. Extremities warm and well perfused. Pulses equal. No JVD. GI: Soft, non-distended. No tenderness to palpation. No rebound or guarding. No masses. RECTAL: Deferred. MUSCULOSKELETAL: Atraumatic. Chest examination reveals no tenderness. The back is symmetrical on inspection without obvious abnormality. There is no CVA tenderness to palpation. No joint edema. LOWER EXTREMITIES: Trace lower extremity edema. Calves are equal size bilaterally and non-tender. No discoloration. NEURO: Normal sensorium. No sensory or motor deficits noted. SKIN: No rash or jaundice noted. EMERGENCY DEPARTMENT COURSE: 110: Past medical records reviewed. The patient was evaluated in room B5, and a complete history and physical examination were performed. 1548: EMR reviewed. Norm discharged the patient on April 03. She was slightly anemia and was thought to have a urinary infection. She has lymphoma. Her urine culture grew out an enterobacter. 174: I reevaluated the patient at this time. I updated her on her results. 175: I discussed the patients case with Roya AN. Dr. Joaquim Zheng hospitalist will evaluate the patient for further management. 1821: I reevaluated the patient at this time who reports that she feels better. MEDICAL DECISION MAKING: Prior records/ancillary studies reviewed. Nursing notes reviewed and agree them. Additional history obtained from patient's .. The patient's history was concerning for weakness. Differential diagnosis: Etiologies such as metabolic, infection, hypo/hyperglycemia, electrolyte abnormalities, cardiac sources, intracerebral event, toxicologic, neurologic, as well as others were entertained. Physical examination: As above. ER treatment provided: IV Lock Normal saline hydration On reassessment the patient felt about the same. Diagnostics interpretation by me: ECG: Concerning for an accelerated junctional rhythm. The labs revealed an unremarkable urinalysis, chemistry panel, LFTs, troponin. Mild anemia on CBC. White count of 14.5. The patient does have lymphoma. Not significantly different from the prior. Imaging studies: CT negative. Patient has episodes of mild tachycardia which appeared to be junctional type rhythm on the monitor as well as occasional periods of sinus rhythm given the symptoms and difficulty functioning at home she will need further management in the hospital. Consultation: A consultation was placed with the hospitalist. The case was discussed and diagnostics were reviewed. The patient was evaluated in the ER for further treatment. IMPRESSION: Weakness, Dizziness, Junctional tachycardia, Leukocytosis PLAN: Being Evaluated by Hospitalist The scribe's documentation has been prepared under my direction and personally reviewed by me in its entirety. I confirm that the note above accurately reflects all work, treatment, procedures, and medical decision making performed by me. 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) HLD (hyperlipidemia) (Chronic) GERD (gastroesophageal reflux disease) (Chronic) Anxiety (Chronic) CKD (chronic kidney disease), stage III (Chronic) Exertional dyspnea (Chronic) Chronic hip pain (Chronic) RIGHT Depression (Chronic) Hypertension (Chronic) Surgical History History of total knee arthroplasty (Chronic) x 3; Right x 2; L x 1 History of incision and drainage (Chronic) Tubal ligation status (Chronic) H/O colonoscopy (Chronic) "Diverticulosis 2010, repeat in 5 years " S/P cataract surgery (Chronic) Hx of tooth extraction (Chronic) History of colonoscopy (Chronic) History of tonsillectomy (Chronic) History of cataract surgery (Chronic) LEFT Family History Father , 52 Pulmonary embolism Mother Breast cancer Social History Preferred Language: Icelandic Communication Ability: Effective 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 Beliefs That Will Affect Care: None marital status: Current Living Situation: Spouse Other Information That Helps Us Care for You: No Feels Safe at Home: Yes Safety Concerns: Feels Safe At This Time Smoking Status: Never smoker Hx Alcohol Use: No Hx Substance Use: No Results & Data Vital Signs Vital Signs - 24 hr 04/08/19 14:41 04/08/19 16:07 04/08/19 16:11 Temperature 36.5 C Temperature Source Oral Sepsis Recent Fever Within 48 Hours No Sepsis New/Unexplained Change in Mental Status No Sepsis Action Taken by Nursing No Action Required Pulse Rate - Lying 105 H Pulse Rate - Sitting 99 H Pulse Rate - Standing 120 H Pulse Rate 108 H Pulse Rate [Apical] Pulse Rhythm [Apical] Respiratory Rate 22 Respiratory Effort / Characteristics Non-Labored Respiratory Depth Normal Blood Pressure - Lying 139/81 Blood Pressure - Sitting 113/70 Blood Pressure- Standing 105/59 L Blood Pressure 100/66 Blood Pressure Mean 77 Pulse Oximetry 94 97 Oxygen Delivery Method Room Air Room Air 04/08/19 16:12 04/08/19 16:32 04/08/19 16:54 Temperature Temperature Source Sepsis Recent Fever Within 48 Hours Sepsis New/Unexplained Change in Mental Status Sepsis Action Taken by Nursing Pulse Rate - Lying Pulse Rate - Sitting Pulse Rate - Standing Pulse Rate Pulse Rate [Apical] 74 Pulse Rhythm [Apical] Irregular Respiratory Rate 20 18 Respiratory Effort / Characteristics Respiratory Depth Blood Pressure - Lying Blood Pressure - Sitting Blood Pressure- Standing Blood Pressure 102/76 Blood Pressure Mean 84 Pulse Oximetry 97 98 Oxygen Delivery Method Room Air Room Air 04/08/19 17:00 04/08/19 17:30 04/08/19 18:00 Temperature Temperature Source Sepsis Recent Fever Within 48 Hours Sepsis New/Unexplained Change in Mental Status Sepsis Action Taken by Nursing Pulse Rate - Lying Pulse Rate - Sitting Pulse Rate - Standing Pulse Rate 101 H 74 81 Pulse Rate [Apical] Pulse Rhythm [Apical] Respiratory Rate 21 16 21 Respiratory Effort / Characteristics Respiratory Depth Blood Pressure - Lying Blood Pressure - Sitting Blood Pressure- Standing Blood Pressure 91/44 L 121/57 L 118/55 L Blood Pressure Mean 59 78 76 Pulse Oximetry Oxygen Delivery Method Home Medications Current Medication List: was personally reviewed by me Laboratory Data Attestation: I reviewed the patient's lab results. Result diagrams: 04/08/19 15:55 04/08/19 15:55 Lab Results 04/08/19 04/08/19 04/08/19 Range/Units 15:55 15:55 16:15 WBC 14.54 H (4.8-10.8) K/uL RBC 3.67 L (4.2-5.4) M/uL Hgb 9.9 L (12.0-16.0) g/dL Hct 30.5 L (37-47) % MCV 83.1 (80-100) fL MCH 27.0 (25-34) pg MCHC 32.5 (32-36) g/dL RDW Std Deviation 50.0 H (36.4-46.3) fL RDW Coeff of Marycruz 16.3 H (11.5-14.5) % Plt Count 463 H (130-400) K/uL MPV 8.8 (7.4-10.4) fL Immature Gran % (Auto) 0.5 % Neut % (Auto) 55.7 % Lymph % (Auto) 34.2 % [place] % (Auto) 8.7 % Eos % (Auto) 0.8 % Baso % (Auto) 0.1 % Immature Gran # (Auto) 0.07 H (0.00-0.02) K/uL Neut # (Auto) 8.11 H (1.4-6.5) K/uL Lymph # (Auto) 4.97 H (1.2-3.4) K/uL [place] # (Auto) 1.26 H (0.11-0.59) K/uL Eos # (Auto) 0.12 (0-0.5) K/uL Baso # (Auto) 0.01 (0-0.2) K/uL Sodium 134 L (136-145) mmol/L Potassium 3.7 (3.5-5.1) mmol/L Chloride 99 (98-107) mmol/L Carbon Dioxide 25 (21-32) mmol/L Anion Gap 10.0 (3-11) BUN 15 (7-18) mg/dl Creatinine 1.06 (0.6-1.2) mg/dl Est Cr Clr Drug Dosing Not Reportable Est GFR ( Amer) 56.6 Est GFR (Non-Af Amer) 48.9 BUN/Creatinine Ratio 14.2 (10-20) Glucose 87 (70-99) mg/dl Calcium 8.9 (8.5-10.1) mg/dl Magnesium 1.9 (1.8-2.4) mg/dl Total Bilirubin 0.5 (0.2-1) mg/dl AST 29 (15-37) U/L ALT 25 (12-78) U/L Alkaline Phosphatase 92 (45-117) U/L Troponin I < 0.015 (0-0.045) ng/ml Total Protein 9.1 H (6.4-8.2) gm/dl Albumin 1.7 L (3.4-5.0) gm/dl Globulin 7.4 H (2.5-4.0) gm/dl Albumin/Globulin Ratio 0.2 L (0.9-2) TSH 6.200 H (0.300-4.500) uIu/ml Free T4 1.44 (0.8-1.6) ng/dl Urine Color Dark Yellow Urine Appearance Cloudy A (Clear) Urine pH 8.5 H (4.5-7.5) Ur Specific [place] 1.018 (1.000-1.030) Urine Protein 2+ H (Negative) Urine Glucose (UA) Negative (Negative) Urine Ketones Negative (Negative) Urine Blood Negative (Negative) Urine Nitrite Negative (Negative) Urine Bilirubin Negative (Negative) Urine Urobilinogen Negative (Negative) Ur Leukocyte Esterase Negative (Negative) Urine WBC (Auto) 5-10 H (0-5) /hpf Urine RBC (Auto) 0-4 (0-4) /hpf U Hyaline Cast (Auto) 10-30 H (0-5) /lpf U Epithel Cells (Auto) >30 H (0-5) /lpf Urine Bacteria (Auto) Negative (Negative) Ur Renal Epithelial Cell 5-10 H (0-5) /lpf Granular Casts 1-5 H (0) /lpf Administered Medications Aspirin (Ecotrin Ectab) 81 mg PO QPM KALEN Stop: 05/08/19 20:59 Last Admin: 04/08/19 20:58 Dose: 81 mg Documented by: [id number] Calcium Carbonate (Os-Kristopher 500) 1,250 mg PO QPM KALEN Stop: 05/08/19 20:59 Last Admin: 04/08/19 20:58 Dose: 1,250 mg Documented by: [id number] Enoxaparin Sodium (Lovenox) 40 mg SQ QPM KALEN Stop: 05/08/19 20:59 Last Admin: 04/08/19 20:57 Dose: 40 mg Documented by: [id number] Fish Oil ([place]-3 (Purified Fish Oil)) 2 gm PO QPM KALEN Stop: 05/08/19 20:59 Last Admin: 04/08/19 20:58 Dose: 2 gm Documented by: [id number] Folic Acid (Folvite) 1 mg PO QPM KALEN Stop: 05/08/19 20:59 Last Admin: 04/08/19 20:58 Dose: 1 mg Documented by: [id number] Sodium Chloride (Nss 1000ml) 1,000 mls @ 80 mls/hr IV .[id number] KALEN Stop: 05/08/19 19:57 Last Admin: 04/08/19 20:57 Dose: 80 mls/hr Documented by: [id number] Sertraline HCl (Zoloft) 100 mg PO QPM KALEN Stop: 05/08/19 20:59 Last Admin: 04/08/19 20:57 Dose: 100 mg Documented by: [id number] Tolterodine Tartrate (Detrol La) 4 mg PO QPM KALEN Stop: 05/08/19 20:59 Last Admin: 04/08/19 20:57 Dose: 4 mg Documented by: [id number] Vitamin D (Vitamin D3) 1,000 units PO QPM KALEN Stop: 05/08/19 20:59 Last Admin: 04/08/19 20:58 Dose: 1,000 units Documented by: [id number] Discontinued Medications Ciprofloxacin (Cipro) 250 mg PO BID KALEN Stop: 04/08/19 21:01 Last Admin: 04/08/19 20:57 Dose: 250 mg Documented by: [id number] Sodium Chloride (Nss 1000ml) 1,000 mls @ 125 mls/hr IV .Q8H KALEN Stop: 04/08/19 23:29 Last Infusion: 04/08/19 19:59 Dose: 0 mls/hr Documented by: [id number] Admin: 04/08/19 16:13 Dose: 125 mls/hr Documented by: [id number] Ioversol (Optiray 320 100ml) 94 ml IV ONCE PRN PRN Reason: Interaction Checking Stop: 04/12/19 16:40 Last Admin: 04/08/19 16:42 Dose: 94 ml Documented by: [id number] Imaging Data Radiologist's Impression: Radiology results as stated below per my review and the radiologist's interpretation: CT head/brain wo/w con HISTORY: dizziness, headache, lymphoma TECHNIQUE: Multiaxial CT images of the head were performed both before and after the intravenous administration of contrast. COMPARISON STUDY: None. FINDINGS: There is no mass, hematoma, midline shift, acute infarct. The calv arium and skull base are intact. Paranasal sinuses and mastoid air cells are clear. Mild atrophy and microvascular ischemic changes are noted. No abnormal enhancement. IMPRESSION: No acute intracranial abnormality. No abnormal enhancement. Electronically signed by: Nickolas Barfield M.D. 04/08/2019 5:06 PM XR chest 1V portable HISTORY: 83 years-old Female weakness acute weakness COMPARISON: Chest radiograph and CT chest, abdomen and pelvis 03/31/2019 TECHNIQUE: Portable AP view of the chest FINDINGS: Cardiomediastinal and hilar silhouettes are unchanged. Persistent patchy bibasilar opacities with previously described left lung base mass better seen on comparison CT study. No pneumothorax, large pleural effusion or overt pulmonary edema. Degenerative changes of the shoulders and spine. IMPRESSION: 1. Cardiomegaly without acute process. 2. Chronic findings of the lung bases, better described and evaluated on comparison CTA of the chest from 03/31/2019. The above report was generated using voice recognition software. It may contain grammatical, syntax or spelling errors. Electronically signed by: Hermann Gurrola M.D. 04/08/2019 3:55 PM ECG Data Attestation: I personally reviewed and interpreted this ECG as follows: Indication: SOB/dyspnea Rate (beats per minute): 125 Rhythm: junctional (Accelerated junctional rhythm. ) Findings: + other (Low voltage QRS. QRS normal. ), + nonspecific-ST abn and + left axis deviation; no ST elevation Blood Pressure Blood Pressure Findings: Normal blood pressure Blood Pressure Disposition: further management by hospitalist The scribe's documentation has been prepared under my direction and personally reviewed by me in its entirety. I confirm that the note above accurately reflects all work, treatment, procedures, and medical decision making performed by me.
[2019-04-09 04:03] LABS: Appearance Urine Clear (Clear); Bacteria Urine Automated Negative (Negative); Bilirubin Urine Negative (Negative); Blood Urine Trace (Negative); Color Urine Yellow; Epithelial Cell Urine Auto >30 /lpf (0-5); Glucose Urine UA Negative (Negative); Ketones Urine Negative (Negative); Leukocyte Esterase Urine Negative (Negative); Nitrite Urine Negative (Negative); Protein Urine 2+ (Negative); RBC Urine Automated 0-4 /hpf (0-4); Specific Gravity Urine > 1.045 (1.000-1.030); Urobilinogen Urine Negative (Negative)
[2019-04-09 07:03] LABS: Hematocrit (blood only) 24.5 % (37-47); Hemoglobin 7.7 g/dL (12.0-16.0); Mean Corpuscular Hemoglobin 25.8 pg (25-34); Mean Corpuscular Hgb Conc 31.4 g/dL (32-36); Mean Corpuscular Volume 82.2 fL (80-100); Mean Platelet Volume 8.3 fL (7.4-10.4); Platelet Count 349 K/uL (130-400); RDW Coefficient of Variation 16.4 % (11.5-14.5); RDW Standard Deviation 49.3 fL (36.4-46.3); Red Blood Count 2.98 M/uL (4.2-5.4); White Blood Count 7.81 K/uL (4.8-10.8)
[2019-04-09 07:43] LABS: BUN Creatinine Ratio 17.6 (10-20); Calcium 8.1 mg/dl (8.5-10.1); Creatinine Clr Calc Pharmacy 52.9 ml/min; Est GFR (Non-African American) 63.8; Potassium 3.9 mmol/L (3.5-5.1)
[2019-04-09] MEDS: SODIUM CHLORIDE 0.9% 1000ML 1,000 ML IV SCH (09:28)
--- NOTE | 2019-04-09 13:51 | Hospitalist Progress Note ---
Date of Service April 09, 2019 Assessment & Plan (1) Generalized weakness: Generalized weakness/deconditioning likely secondary to B-cell lymphoma with possible progression of lymph nodes in the peritoneal and retroperitoneal cavities. Contacted her oncologist to discuss this further who will see her in the office next week. Outside of this there is no obvious cause. She will be discharged to [facility] to undergo rehabilitation, which would be beneficial if the need for chemotherapy arises. (2) B-cell lymphoma: Currently has axillary lymph node that was resected and known B-cell lymphoma in the lung. Questionable progression of disease on recent CT scan discussed with her oncologist, Dr. Osorio by phone. He will see her in the office next week to review treatment options with her. This is likely the reason for her generalized weakness and clinical decline. 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 (3) Hypertension: Relative hypotension coming in. Patient likely slightly dehydrated. Continue holding lisinopril. (4) HLD (hyperlipidemia): -Continue statin (5) Depression: Continue sertraline per home regimen. (6) Anemia: Likely multifactorial in setting of chronic disease and IV fluids given overnight that may have caused dilution. No indication for transfusion at this time. Trend CBC in a.m. (7) DVT prophylaxis: -SQ Lovenox Full code Disposition-to [facility] in a.m. Claudine Gandara DO [facility] Hospitalist Subjective Feeling improved after IV fluids overnight. Denies any nausea or dizziness. Worked with physical therapy today and SNF recommended. She is currently set up for [facility]. As she could not give me an accurate history regarding her B-cell lymphoma I discussed the case with her oncologist, Dr. Lawler. I updated him on the new CT scan from 03/31 revealing increased lymphadenopathy or any fracture lymphoma in the peritoneal and retroperitoneal area. We also discussed the vulvar lesion that was shantelle rning for extranodal lymphoma. I discussed with the patient, her , and her daughter that we will be getting a and gynecology exam to assess that area for further. The patient denies any B symptoms at this time including no night sweats, fevers, chills. She does have weight loss that is objectively documented on vital signs reviewed over the last year, somewhere between 40 and 60 pounds. Review of Systems Review of Systems: All systems reviewed & are unremarkable except as noted in HPI & below Physical Exam Physical Exam: CONSTITUTIONAL: WNWD, vitals as above, generally well- appearing EYES: normal conjunctivae, no scleral icterus ENT: MMM RESPIRATORY: clear to auscultation bilaterally, no crackles, rales or wheezes, normal respiratory effort CARDIOVASCULAR: regular rate and rhythm, S1 and 2 heard without murmurs, gallops or rubs, no JVD, no peripheral edema GASTROINTESTINAL: normal bowel sounds, soft, nontender, nondistended MUSCULOSKELETAL: strength 5/5 throughout, head is normocephalic and atraumatic SKIN: warm and dry, Stag II ulceration on buttock NEUROLOGIC: CN 2-12 grossly intact, no sensory deficit, normal cognition, normal speech, no gross focal deficits. PSYCHIATRIC: alert cooperative and oriented to person, place and time. Results & Data Vital Signs (Past 12 Hours) Vital Signs Temp Pulse Pulse Resp BP Pulse Ox 04/09/19 11:00 36.7 C 65 18 99/63 L 95 04/09/19 08:00 63 04/09/19 07:37 36.6 C 66 17 98/61 L 95 04/09/19 03:36 36.8 C 66 18 100/54 L 92 04/09/19 02:53 64 Laboratory Results Short CBC 04/08/19 04/09/19 Range/Units 15:55 06:25 WBC 14.54 H 7.81 (4.8-10.8) K/uL Hgb 9.9 L 7.7 L (12.0-16.0) g/dL Hct 30.5 L 24.5 L (37-47) % Plt Count 463 H 349 (130-400) K/uL BMP 04/08/19 04/09/19 15:55 06:25 Sodium 134 L 135 L Potassium 3.7 3.9 Chloride 99 103 Carbon Dioxide 25 25 BUN 15 15 Creatinine 1.06 0.85 Glucose 87 92 Calcium 8.9 8.1 L Cardiac Enzymes 04/08/19 Range/Units 15:55 Troponin I < 0.015 (0-0.045) ng/ml Liver Function 04/08/19 Range/Units 15:55 Total Bilirubin 0.5 (0.2-1) mg/dl AST 29 (15-37) U/L ALT 25 (12-78) U/L Alkaline Phosphatase 92 (45-117) U/L Albumin 1.7 L (3.4-5.0) gm/dl Urine 04/08/19 04/09/19 Range/Units 16:15 03:50 Urine Color Dark Yellow Yellow Urine Appearance Cloudy A Clear (Clear) Urine pH 8.5 H 5.0 (4.5-7.5) Ur Specific [place] 1.018 > 1.045 H (1.000-1.030) Urine Protein 2+ H 2+ H (Negative) Urine Glucose (UA) Negative Negative (Negative) Medications Administered Current Inpatient Medications Acetaminophen (Tylenol) 650 mg PO Q4H PRN PRN Reason: pain/fever Stop: 05/08/19 19:57 Aspirin (Ecotrin Ectab) 81 mg PO QPM [facility] Stop: 05/08/19 20:59 Last Admin: 04/08/19 20:58 Dose: 81 mg Documented by: Calcium Carbonate (Os-Kristopher 500) 1,250 mg PO QPM KALEN Stop: 05/08/19 20:59 Last Admin: 04/08/19 20:58 Dose: 1,250 mg Documented by: Calcium Carbonate (Tums) 500 mg PO Q6H PRN PRN Reason: Heartburn Stop: 05/08/19 22:13 Enoxaparin Sodium (Lovenox) 40 mg SQ QPM [facility] Stop: 05/08/19 20:59 Last Admin: 04/08/19 20:57 Dose: 40 mg Documented by: Fish Oil ([place]-3 (Purified Fish Oil)) 2 gm PO QPM KALEN Stop: 05/08/19 20:59 Last Admin: 04/08/19 20:58 Dose: 2 gm Documented by: Folic Acid (Folvite) 1 mg PO QPM KALEN Stop: 05/08/19 20:59 Last Admin: 04/08/19 20:58 Dose: 1 mg Documented by: Sodium Chloride (Nss 1000ml) 1,000 mls @ 80 mls/hr IV .[id number] [facility] Stop: 05/08/19 19:57 Last Infusion: 04/09/19 11:58 Dose: Infused Documented by: Sertraline HCl (Zoloft) 100 mg PO QPM KALEN Stop: 05/08/19 20:59 Last Admin: 04/08/19 20:57 Dose: 100 mg Documented by: Tolterodine Tartrate (Detrol La) 4 mg PO QPM KALEN Stop: 05/08/19 20:59 Last Admin: 04/08/19 20:57 Dose: 4 mg Documented by: Tramadol HCl (Ultram) 50 mg PO Q8H PRN PRN Reason: Pain Stop: 05/08/19 19:57 Vitamin D (Vitamin D3) 1,000 units PO QPM KALEN Stop: 05/08/19 20:59 Last Admin: 04/08/19 20:58 Dose: 1,000 units Documented by:
[2019-04-09] MEDS: CALCIUM CARBONATE 1250MG TAB PO SCH (19:37)
[2019-04-09] MEDS: ASPIRIN 81 MG ECTAB PO SCH (19:38)
[2019-04-09] MEDS: OMEGA-3 (PURIFIED FISH OIL) 1 GM CAP PO SCH (19:38)
[2019-04-09] MEDS: FOLIC ACID 1 MG TAB PO SCH (19:38)
[2019-04-09] MEDS: CHOLECALCIFEROL 1,000 UNITS TAB PO SCH (19:39)
[2019-04-09] MEDS: TOLTERODINE TARTRATE LA 4 MG CAPCR PO SCH (19:39)
[2019-04-09] MEDS: ENOXAPARIN INJ 40 MG/0.4 ML SYR SQ SCH (19:39)
[2019-04-09] MEDS: SERTRALINE HCL 100 MG TABLET PO SCH (19:39)
[2019-04-10 07:27] LABS: Hematocrit (blood only) 27.9 % (37-47); Hemoglobin 8.6 g/dL (12.0-16.0); Mean Corpuscular Hemoglobin 25.7 pg (25-34); Mean Corpuscular Hgb Conc 30.8 g/dL (32-36); Mean Corpuscular Volume 83.5 fL (80-100); Mean Platelet Volume 8.6 fL (7.4-10.4); Platelet Count 389 K/uL (130-400); RDW Coefficient of Variation 16.2 % (11.5-14.5); RDW Standard Deviation 49.5 fL (36.4-46.3); Red Blood Count 3.34 M/uL (4.2-5.4); White Blood Count 10.31 K/uL (4.8-10.8)
[2019-04-10 07:48] LABS: INR 1.1 (0.9-1.1); Prothrombin Time 11.4 Seconds (9.0-12.0)
[2019-04-10 07:55] LABS: BUN Creatinine Ratio 14.4 (10-20); Est GFR (Non-African American) 59.5; Magnesium 1.8 mg/dl (1.8-2.4); Phosphorus 3.5 mg/dl (2.5-4.9); Potassium 3.8 mmol/L (3.5-5.1)
--- NOTE | 2019-04-10 12:04 | Discharge Summary ---
Date of Service April 10, 2019 Admission HPI Per Admitting Provider 83-year-old female who presents to the ED with generalized weakness. Patient was recently admitted to [facility] 03/31 through 04/03 for generalized weakness and was found to have Enterobacter UTI. Patient was discharged on Cipro and she is finishing her last dose today. PT/OT evaluated patient and SNF was recommended however there was no bed availability therefore patient was discharged home with home health services. Patient reports she has been doing well up until today. She reports today she felt very weak, dizzy, and lightheaded with standing. No syncopal event. She continues to have poor appetite and nausea. Denies vomiting, abdominal pain, diarrhea. No fevers or chills. Denies chest pain and shortness of breath. Denies urinary symptoms. Patient was seen by her PCP today for follow-up and given these complaints and hypotension, she was sent back to the ER for further evaluation. In the ED, patient seems to have a paroxysmal junctional tachycardia. BPs have been borderline low/stable. Labs show leukocytosis with WBC 14 K, otherwise unremarkable. She was given IVF. Admission Exam Per Admitting Provider Constitutional: WD/WN, vitals as above Eyes: PERRL, conjunctivae normal, anicteric sclerae ENMT: external ear and nose normal, oropharynx normal Respiratory: normal respiratory effort, lungs clear to auscultation Cardiovascular: Rate/Rhythm: regular rate and regular rhythm Vessels: normal peripheral pulses Extremities: no edema Gastrointestinal (Abdomen): normal bowel sounds, soft, nontender, no he patosplenomegaly Musculoskeletal: no cyanosis or clubbing, extremities motor strength 5/5 Skin: no rashes, warm and dry Neurologic: PERRL, EOMI, accommodation nl, no face palsy, no dysarthria Psychiatric: A+Ox3, euthymic affect Principal Diagnosis B cell lymphoma Weakness/Deconditioning Weight loss Stage II decubitus ulcer Discharge Data Allergies Allergy/AdvReac Type Severity Reaction Status Date / Time No Known Allergies Allergy Verified 04/08/19 16:11 Consultations 04/08/19 18:17 ED Decision to Admit Stat 04/08/19 19:58 Consult Case Management - Discharge Planning Routine 04/09/19 17:19 Consult Gynecology Routine Ordered Studies 04/08/19 15:50 CT head/brain wo/w con Stat Hospital Course (1) Generalized weakness: (2) B-cell lymphoma: (3) Anemia: 83-year-old female admitted to the Hospitalist service and improved overnight with IV fluids. She recently finished treatment with ciprofloxacin for an Enterobacter UTI but did not feel this was contributing to her symptoms of weakness, dizziness and poor appetite. All symptoms were improved and she was tolerating p.o. without issue the following day. She denied any B symptoms including no fevers, chills, night sweats. However she did report a 60 pound weight loss over the past year. She has become very sedentary at home and has developed a pressure ulcer on her buttock. She is apathetic to food. She is physically deconditioned and recommendation has been made for her to go to a [facility] for [facility]. I discussed the recent CT scan of the abdomen pelvis showing new abnormalities of retroperitoneal and intraperitoneal lymph nodes concerning for extranodal lymphoma with her oncologist, Dr. Osorio. He will see her in the office within the next 2 weeks. They will discuss treatment options again at that time. There was an addendum made to the CT scan of the abdomen pelvis including a vulvar lesion that was of concern for extranodal disease. JEWELRY INSPECTOR was consulted and examined the patient while she was admitted. They felt this was not consistent with lymphoma and was more consistent with a sebaceous cyst and would not need to be biopsied or worked up further. At time of discharge she was hemodynamically stable and afebrile tolerating p.o. without issue. She was mentating at baseline and physically deconditioned. Heart exam was normal revealing a normal S1 and S2 with no evidence of murmurs gallops or rubs. She had no edema peripherally. Lungs were clear to auscultation bilaterally. Abdomen soft nontender nondistended. Skin was warm and dry with the exception of a stage II decubitus ulcer, likely present on admission. She was discharged in stable condition with close primary care follow-up recommended. Of note, during admission she received IV fluids, and on hospital day 2, H&H dropped to 7.7/24.5. Without any intervention this rebounded to 8.6/28 the following day. The anemia was likely secondary to dilution from IV fluids, and she was asymptomatic. Also of note, blood pressure was on the low side and lisinopril was held. This was discontinued at time of discharge as blood pressure was 103/57 at time of discharge. Primary care to follow this up. Total Time Total Time Spent Total Time Spent (In Minutes): 60 Total Time Includes: Examination of the Patient, Discharge Planning, Medication Reconciliation and Communication With Other Providers Discharge Plan Discharge Items Patient Disposition: Transfer Penitentiary Fac Reason For Visit: FAILURE TO THRIVE, WEAKNESS Discharge Diagnosis: B cell lymphoma Weakness/Deconditioning Weight loss Stage II decubitus ulcer Condition on Discharge: [facility] Concerns: understand status of B cell lymphoma Goals: Followup with Oncology at appointment listed below. Activity: As commented below Activity Comment: per therapists at [facility] Non-emergency contact: Primary Care Provider Call non-emergency contact if: you have any medication questions, your symptoms worsen, your pain is not controlled, your pain is worsening, your pain is unusual for you, your pain is concerning for you and you have a fever Follow-up/Referrals: Afia Baldwin DO [Primary Care Provider] - Shreyas Osorio MD [Hospitalist] - Diet: Regular Addtl Attending Provider Instructions: Please take all medications as instructed on discharge list below. It is recommended that you follow-up with your primary care provider within one week of discharge from the rehab facility. Please follow-up closely with your Oncologist to understand if your lymphoma has progressed, causing your symptoms. 04/24/2019 11:15 AM Shreyas Osorio MD Hematology/Oncology [facility] Please have [facility] order a nutrition consult to follow calorie counts and make recommendations. Please follow-up with the local wound care clinic regarding your buttock wound. Staff will need to provide daily wound care based on discharge wound care instructions from here, but you may also need outpatient follow-up for this. Your PCP may need to provide you with a referral for this. It was a pleasure taking care of you! Please call if you have any questions or problems. You can reach a [facility] hospitalist on duty at [facility] 24 hours a day by calling [phone]. Take care of yourself. DO Jones [facility] jackson streetkimberly Careyist Pending Studies at Discharge: Yes Studies:: Urine culture Stand-Alone Forms: My [facility] Skilled Items Patient informed of condition?: Yes DNR: No Discharge Level of Care: Skilled Communicable Disease: No Discharge Prognosis: Stable Lines: None Urinary Catheter: No Medications and DC Order Prescriptions: Continued aspirin [Aspirin Low Dose] 81 mg Tablet,Delayed Release (Dr/Ec) 81 mg PO QPM RF: 0 calcium carbonate [Calcium 600] 600 mg calcium (1,500 mg) Tablet 600 mg PO QPM RF: 0 cholecalciferol (vitamin D3) [Vitamin D3] 1,000 unit Capsule 1,000 unit PO QPM RF: 0 omega 8-shu-hfa-fish oil [Fish Oil] 1,000 mg (120 mg-180 mg) Capsule 2 tab PO QPM RF: 0 tolterodine 4 mg Capsule,Extended Release 24hr 4 mg PO QPM RF: 0 sertraline 100 mg tablet 100 mg PO QPM RF: 0 tramadol 50 mg tablet 50 mg PO Q8H PRN (Reason: Pain) RF: 0 folic acid 1 mg tablet 1 mg PO QPM RF: 0 Discontinued ciprofloxacin HCl 250 mg tablet 250 mg PO BID RF: 0 lisinopril 10 mg tablet 10 mg PO DAILY RF: 0 Discharge Orders: Discharge Order (Routine); Ordered 04/10/19 Ordered By: Claudine Gandara Admission Data Admit Date/Time: 04/09/19 16:19 Attending Provider: Claudine Gandara Admit Provider: Isauro March Primary Care Provider: Afia Baldwin Other Providers: Isauro March ; Esequiel Rossi
--- NOTE | 2019-04-11 02:31 | Consultation Report ---
DATE OF CONSULTATION: 04/10/2019 REASON FOR CONSULTATION: Vulvar lesion. HISTORY OF PRESENT ILLNESS: The patient is an 83-year-old female, para 4-0-0-4, who presents to the hospital for workup for failure to thrive. She is currently being noted to have a B-cell lymphoma, low grade with no active treatment at the current time. She is being seen and evaluated for a lump on her labia. CURRENT MEDICATIONS: Include aspirin, calcium, vitamin D, omega-3, tolterodine, folic acid, lisinopril, sertraline, tramadol and Cipro. PAST MEDICAL AND SURGICAL HISTORY: Includes total knee replacement x3, tubal ligation, colonoscopy with diverticulosis, cataract surgery, tooth extraction, tonsillectomy. FAMILY HISTORY: Noncontributory. SOCIAL HISTORY: Denies smoking, alcohol or drug use. PHYSICAL EXAMINATION: HEENT: Within normal limits. VAGINAL: Her labia were inspected. There was apparently a left sebaceous cyst, mid portion of the labia majora with pointing and no drainage. The labia was slightly erythematous, probably due to chronic urine and leakage from the bladder. No bleeding noted. No further treatment is indicated at this point. ASSESSMENT: Sebaceous cyst of the left labia. PLAN: Observation and conservative management at this time. Thank you for the consult.
== END 2019-04-10 13:56 | DRG 309 ==
LOC: ED 14:34 → 2W 14:34 → SUATTDRO 18:16 → 2W 19:23

== ENCOUNTER 2019-11-02 16:32 | Inpatient (IN) ==
[2019-11-02] MEDS ORDERED: SODIUM CHLORIDE 0.9% 250 ML IV PRN ×2 (17:23→21:56)
[2019-11-02 17:30] LABS: iSTAT Hemoglobin 5.1 g/dl (12.0-16.0); iSTAT Ionized Calcium 1.15 mmol/l (1.12-1.32); iSTAT Potassium 3.9 mmol/L (3.3-5.0)
[2019-11-02 17:49] LABS: Alanine Aminotransferase 13 U/L (12-78); Albumin Level 2.1 gm/dl (3.4-5.0); Aspartate Aminotransferase 27 U/L (15-37); BUN Creatinine Ratio 19.1 (10-20); Blood Urea Nitrogen 20 mg/dl (7-18); Calcium 8.2 mg/dl (8.5-10.1); Carbon Dioxide 22 mmol/L (21-32); Chloride 107 mmol/L (98-107); Est GFR (African American) 57.5; Est GFR (Non-African American) 49.6; Glucose 149 mg/dl (70-99); Magnesium 2.1 mg/dl (1.8-2.4); Potassium 3.9 mmol/L (3.5-5.1); Sodium 138 mmol/L (136-145)
[2019-11-02 17:57] LABS: Hematocrit (blood only) 16.8 % (37-47); Hemoglobin 5.2 g/dL (12.0-16.0); Mean Corpuscular Volume 109.8 fL (80-100); Platelet Count 516 K/uL (130-400); RDW Coefficient of Variation 29.2 % (11.5-14.5); RDW Standard Deviation 114.2 fL (36.4-46.3); Red Blood Count 1.53 M/uL (4.2-5.4); White Blood Count 11.02 K/uL (4.8-10.8)
[2019-11-02 17:59] LABS: Albumin Globulin Ratio 0.4 (0.9-2); Alkaline Phosphatase 83 U/L (45-117); Bilirubin,Total 2.4 mg/dl (0.2-1); Globulin 5.7 gm/dl (2.5-4.0); Total Protein 7.8 gm/dl (6.4-8.2); Troponin I < 0.015 ng/ml (0-0.045)
[2019-11-02 18:08] LABS: Anisocytosis Present; Basophilic Stippling Occasional; Basophils # (auto) 0.03 K/uL (0-0.2); Basophils % (auto) 0.3 %; Eosinophils # (auto) 0.29 K/uL (0-0.5); Eosinophils % (auto) 2.6 %; Immature Granulocytes # (auto) 0.05 K/uL (0.00-0.02); Immature Granulocytes % (auto) 0.5 %; Lymphocytes # (auto) 1.41 K/uL (1.2-3.4); Lymphocytes % (auto) 12.8 %; Macrocytosis Present; Monocytes # (auto) 0.94 K/uL (0.11-0.59); Monocytes % (auto) 8.5 %; Neutrophils % (auto) 75.3 %
[2019-11-02 18:12] LABS: T4 Free Thyroxine 1.26 ng/dl (0.8-1.6)
--- NOTE | 2019-11-02 18:16 | XRay Report ---
XR chest 1V portable CLINICAL HISTORY: weakness dyspnea COMPARISON STUDY: 04/08/2019 FINDINGS: Moderate increase in cardiac size. Small left pleural effusion. Increased pulmonary vascula ture IMPRESSION: . Components of congestive heart failure with a potential superimposed infiltrative proc ess left base. ACT 112: Negative or not required by law. The above report was generated using voice recognition software. It may contain grammatical, syntax or spelling errors. Electronically signed by: Devon Dickerson M.D. 11/02/2019 6:15 PM
[2019-11-02] MEDS ORDERED: FUROSEMIDE 40 MG/4 ML VIAL IV STA (18:32)
--- NOTE | 2019-11-02 20:16 | History & Physical Report ---
Date of Service November 02, 2019 Assessment & Plan (1) Symptomatic anemia: Pt is 84 y/o F with PMH low grade non-Hodgkins lymphoma currently being treated clinically, HTN, HLD, depression, CKD III presented to ER for abnormal labs with Hgb: 4.9 outpatient today and was referred to ER. Patient reports past couple weeks has been having fatigue and exertional shortness of breath. Also reports his been feeling lightheaded with standing. Denies syncope, chest pain, melena, hematochezia, epistaxis, hematuria. In ER pt afebrile, P: 69, R: 18, BP: 103/53, initial pulse ox: 97% on RA WBC: 11 (baseline 12-13), Hgb: 5.2 (was 9 on 07/28/19, prior baseline in the 8's), Plt: 516 (bsaeline in the 600's -Type and cross PRBCs, 2 units ordered however pt with antibodies and blood will need to come from [facility] -Lasix between units 1 & 2 of PRBCs -Repeat H&H (2) Shortness of breath: Probable secondary to anemia. Possible fluid overload. Possible pneumonia Pt with exertional SOB for couple of weeks. Denies CP. In ER initial pulse ox 97% on RA and had one reading of 86% on RA and O2 at 2L via NC applied with sats up to 100%. Current pulse oximeter to pt's forehead. Reported RR up in the 20's. CXR: Moderate increase in cardiac size. Small left pleural effusion. Increased pulmonary vasculature. potential superimposed infiltrative process left base. -In ER pt given 40mg Lasix IV. Had reported 500ml urine output in ER after Lasix -Pt currently comfortable on supplemental oxygen with O2 sats 100% on 2L, R: 20 -Transfuse as above -Supplemental oxygen prn -Rocephin and doxy for now to cover for possible pneumonia -Monitor Is & Os, daily weight, low sodium diet -If worsening hypoxia consider further workup (3) Non-Hodgkin lymphoma: Follows with Dr Quijano. Was treated with rituximab, currently clinical treatment (4) CKD (chronic kidney disease), stage III: Cr: 1.0. Baseline Cr: 1.0 -Monitor renal functions -Avoid nephrotoxic agents when possible (5) Depression: -Continue sertraline DVT Prophylaxis -SCDs secondary to anemia DNR/DNI as per discussion with pt Follows with Dr Baldwin for routine care Pt was seen and care coordinated with Dr Kennedy. See addendum History of Present Illness Chief Complaint: Abnormal labs - Low Hgb Primary Care Provider: Afia Baldwin DO Pt is 84 y/o F with PMH low grade non-Hodgkins lymphoma currently being treated clinically, HTN, HLD, depression, CKD III presented to ER for abnormal labs with Hgb: 4.9 outpatient today and was referred to ER. Patient reports past couple weeks has been having fatigue and exertional shortness of breath. Also reports his been feeling lightheaded with standing. Denies syncope, chest pain, melena, hematochezia, epistaxis, hematuria. Pt denies h/o blood transfusion in past. Patient denies fever, chills. She reports for couple months has been intermittent coughing after eating but is productive of mucus. Uses cane to ambulate, denies falls. Denies fever/chills, diaphoresis, N/V/D/C, MOORE, vision changes, neck pain, CP, orthopnea, palpitations, sore throat, choking, otalgia, rhinorrhea, abdominal pain, paresthesias, extremity weakness, extremity edema, rashes, urinary symptoms. Allergies Allergy/AdvReac Type Severity Reaction Status Date / Time No Known Allergies Allergy Verified 11/02/19 18:49 Home Medications Home Medications Medication Instructions Recorded Confirmed Type aspirin [Aspirin Low Dose] 81 mg PO QPM 04/25/18 11/02/19 History calcium carbonate [Calcium 600] 600 mg PO QPM 04/25/18 11/02/19 History cholecalciferol (vitamin D3) 1,000 unit PO QPM 04/25/18 11/02/19 History [Vitamin D3] omega 3-ukw-mxe-fish oil [Fish Oil] 2 tab PO QPM 04/25/18 11/02/19 History folic acid 1 mg PO QPM 03/31/19 11/02/19 History sertraline 100 mg PO QPM 03/31/19 11/02/19 History acetaminophen [Tylenol Extra 1,000 mg PO BID PRN 11/02/19 11/02/19 History Strength] oxybutynin chloride 10 mg PO DAILY 11/02/19 11/02/19 History Past Med/Surg History Medical History Anxiety (Chronic) B-cell lymphoma (Chronic) Chronic hip pain (Chronic) RIGHT CKD (chronic kidney disease), stage III (Chronic) Depression (Chronic) Exertional dyspnea (Chronic) GERD (gastroesophageal reflux disease) (Chronic) HLD (hyperlipidemia) (Chronic) 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) Hypertension (Chronic) Lupus anticoagulant disorder (Chronic) Osteoarthritis (Chronic) 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 leiomyoma (Chronic) Surgical History H/O colonoscopy (Chronic) "Diverticulosis 2010, repeat in 5 years " History of cataract surgery (Chronic) LEFT History of colonoscopy (Chronic) History of incision and drainage (Chronic) History of tonsillectomy (Chronic) History of total knee arthroplasty (Chronic) x 3; Right x 2; L x 1 Hx of tooth extraction (Chronic) S/P cataract surgery (Chronic) Tubal ligation status (Chronic) Family History Father , 52 Pulmonary embolism Mother Breast cancer Social History Preferred Language: Chadian Communication Ability: Effective Primary Montessori Teacher Required: No Beliefs That Will Affect Care: None marital status: Current Living Situation: Spouse Other Information That Helps Us Care for You: No Feels Safe at Home: Yes Safety Concerns: Feels Safe At This Time Smoking Status: Never smoker Hx Alcohol Use: No Hx Substance Use: No Review of Systems Review of Systems: All systems reviewed & are unremarkable except as noted in HPI & below Physical Exam Physical Exam: General: no distress, WDWN Head: normocephalic, atraumatic Eyes: PERRL, EOM's intact, conjunctiva pale, anicteric ENT: normal inspection external ears, nose, mucous membranes moist Neck: supple, trachea midline Lungs: R: 20, able to speak in sentence, no accessory muscle use, 100% on 2L oxygen via NC, mildly diminished breath sounds, no wheezing/rhonchi/rales CV: RRR, no murmur, no JVD, no pretibial edema Abd: normal BS, soft, non-tender Ext: no cyanosis, no calf tenderness Neuro: A&O x 3, no focal deficits noted, normal affect Skin: pale, warm, dry Results & Data Results & Data ([facility]) Vital Signs (Past 12 Hours) Vital Signs Temp Pulse Resp BP Pulse Ox 11/02/19 19:00 79 28 H 107/48 L 100 11/02/19 18:50 79 30 H 101/58 L 99 11/02/19 18:48 80 28 H 99/60 L 11/02/19 18:40 78 25 H 100 11/02/19 18:30 78 27 H 100 11/02/19 18:20 79 26 H 100 11/02/19 18:10 85 23 11/02/19 18:00 77 22 98 11/02/19 17:50 24 98 11/02/19 17:40 28 H 95 11/02/19 17:39 85 27 H 86 L 11/02/19 17:35 31 H 107/56 L 93 11/02/19 17:34 96 11/02/19 16:44 36.4 C L 69 18 103/53 L 97 Laboratory Results Short CBC 11/02/19 Range/Units 17:05 WBC 11.02 H (4.8-10.8) K/uL Hgb 5.2 L* (12.0-16.0) g/dL Hct 16.8 L* (37-47) % Plt Count 516 H (130-400) K/uL BMP 11/02/19 17:05 Sodium 138 Potassium 3.9 Chloride 107 Carbon Dioxide 22 BUN 20 H Creatinine 1.04 Glucose 149 H Calcium 8.2 L Cardiac Enzymes 11/02/19 Range/Units 17:05 Troponin I < 0.015 (0-0.045) ng/ml Liver Function 11/02/19 Range/Units 17:05 Total Bilirubin 2.4 H (0.2-1) mg/dl AST 27 (15-37) U/L ALT 13 (12-78) U/L Alkaline Phosphatase 83 (45-117) U/L Albumin 2.1 L (3.4-5.0) gm/dl Diagnostic Findings CXR: IMPRESSION: . Components of congestive heart failure with a potential superimposed infiltrative process left base. Code Status & VTE Plan VTE Prophylaxis Plan VTE Prophylaxis will be ordered: Yes Supervising Physician Co-Signing Physician Notes Care coordinated with Viky Simpson PA-C. Agree with above note. Patient seen and examined. Please refer to her notes for full details. Vital signs reviewed. Physical exam: General exam: Alert and oriented. Not in acute distress. CVS: S1 and S2 heard, regular rate and rhythm, no murmurs. RS: Clear to auscultation, no wheezing or crackles. ABD: Soft, bowel sounds present, nontender, no distention. ELECTRICIAN MARINE: Nonfocal. EXT: No edema, no erythema. Labs: Reviewed. Assessment and plan: 84 F with hx of low grade Non Hodgkins Lymphoma monitored by heme/onco, HTN CKD stage 3 presents with sob on exertion, cough with sputum for several weeks and oout patinet labs showed profounf anemia of hb 4.9 Profound Anemia Hb 5.2 in ER Hemodynamics stable ordered two units- getting from [facility] because of antibodies. follow h and h no obvious signs of bleeding stool for hemeoccult consult heme/onco and GI. iv protonix. monitor in tele SOb Congestion on cxr-possibly volume overload from anemia received a dose of lasix in ER started on iv rocephin and doxy for possible pneumonia on cxr and patient has cough with sputum. Other diagnosis and plan of care as per []. Rolly barry MD.
[2019-11-02] MEDS ORDERED: ASPIRIN 81 MG ECTAB PO SCH (21:56)
[2019-11-02] MEDS ORDERED: FUROSEMIDE 40 MG/4 ML VIAL IV ONE (21:56)
[2019-11-02] MEDS ORDERED: cefTRIAXone SODIUM 1,000 MG in DEXTROSE 5% 50 ML IV SCH (21:56)
[2019-11-02] MEDS ORDERED: OMEGA-3 (PURIFIED FISH OIL) 1 GM CAP PO SCH (22:00)
--- NOTE | 2019-11-02 22:41 | Emergency Department Note ---
History of Present Illness General Chief complaint: Referred by Doctor Stated complaint: BLOOD TRANSFUSION Source: patient, old records reviewed and other (Call in from hematology/oncology) Mode of arrival: ambulatory Limitations: no limitations History of Present Illness Provider complaint: Anemia This patient is an 84-year-old female with a history of lymphoma who presents to the emergency department after being notified by her oncology office that her hemoglobin is less than 5. Patient states she has been somewhat short of breath recently but denies any chest pain, syncope or dizziness. Patient states she has been at home for the last several months in her recliner watching TV. Home Medications Home Medications Medication Instructions Recorded Confirmed Type aspirin [Aspirin Low Dose] 81 mg PO QPM 04/25/18 11/02/19 History calcium carbonate [Calcium 600] 600 mg PO QPM 04/25/18 11/02/19 History cholecalciferol (vitamin D3) 1,000 unit PO QPM 04/25/18 11/02/19 History [Vitamin D3] omega [id number] oil [Fish Oil] 2 tab PO QPM 04/25/18 11/02/19 History folic acid 1 mg PO QPM 03/31/19 11/02/19 History sertraline 100 mg PO QPM 03/31/19 11/02/19 History acetaminophen [Tylenol Extra 1,000 mg PO BID PRN 11/02/19 11/02/19 History Strength] oxybutynin chloride 10 mg PO DAILY 11/02/19 11/02/19 History Allergies Allergy/AdvReac Type Severity Reaction Status Date / Time No Known Allergies Allergy Verified 11/02/19 18:49 Past Med/Surg History Medical History Anxiety (Chronic) B-cell lymphoma (Chronic) Chronic hip pain (Chronic) RIGHT CKD (chronic kidney disease), stage III (Chronic) Depression (Chronic) Exertional dyspnea (Chronic) GERD (gastroesophageal reflux disease) (Chronic) HLD (hyperlipidemia) (Chronic) 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) Hypertension (Chronic) Lupus anticoagulant disorder (Chronic) Osteoarthritis (Chronic) 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 leiomyoma (Chronic) Surgical History H/O colonoscopy (Chronic) "Diverticulosis 2010, repeat in 5 years " History of cataract surgery (Chronic) LEFT History of colonoscopy (Chronic) History of incision and drainage (Chronic) History of tonsillectomy (Chronic) History of total knee arthroplasty (Chronic) x 3; Right x 2; L x 1 Hx of tooth extraction (Chronic) S/P cataract surgery (Chronic) Tubal ligation status (Chronic) Family History Father , 52 Pulmonary embolism Mother Breast cancer Social History Preferred Language: Kinyarwanda Communication Ability: Effective 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 and A total of 10 systems reviewed and were otherwise negative Physical Exam Vital Signs Vital Signs - 24 hr 11/02/19 16:44 11/02/19 17:34 11/02/19 17:35 Temperature 36.4 C L Temperature Source Oral Pulse Rate - Lying 84 Pulse Rate - Sitting 87 Pulse Rate 69 Pulse Rate from SpO2 Sensor Respiratory Rate 18 31 H Respiratory Effort / Characteristics Non-Labored Spontaneous Respiratory Depth Normal Blood Pressure - Lying 96/53 L Blood Pressure - Sitting 107/56 L Blood Pressure 103/53 L 107/56 L Blood Pressure Mean 69 72 Blood Pressure Position Sitting Pulse Oximetry 97 96 93 Oxygen Delivery Method Room Air Room Air Room Air Oxygen Flow Rate Sepsis Recent Fever Within 48 Hours No Sepsis New/Unexplained Change in Mental Status No Sepsis Action Taken by Nursing No Action Required 11/02/19 17:39 11/02/19 17:40 11/02/19 17:50 Temperature Temperature Source Pulse Rate - Lying Pulse Rate - Sitting Pulse Rate 85 Pulse Rate from SpO2 Sensor 83 81 Respiratory Rate 27 H 28 H 24 Respiratory Effort / Characteristics Respiratory Depth Blood Pressure - Lying Blood Pressure - Sitting Blood Pressure Blood Pressure Mean Blood Pressure Position Pulse Oximetry 86 L 95 98 Oxygen Delivery Method Room Air Nasal Cannula Nasal Cannula Oxygen Flow Rate 2 2 Sepsis Recent Fever Within 48 Hours Sepsis New/Unexplained Change in Mental Status Sepsis Action Taken by Nursing 11/02/19 18:00 11/02/19 18:10 11/02/19 18:20 Temperature Temperature Source Pulse Rate - Lying Pulse Rate - Sitting Pulse Rate 77 85 79 Pulse Rate from SpO2 Sensor 78 75 Respiratory Rate 22 23 26 H Respiratory Effort / Characteristics Respiratory Depth Blood Pressure - Lying Blood Pressure - Sitting Blood Pressure Blood Pressure Mean Blood Pressure Position Pulse Oximetry 98 100 Oxygen Delivery Method Nasal Cannula Nasal Cannula Oxygen Flow Rate 2 2 Sepsis Recent Fever Within 48 Hours Sepsis New/Unexplained Change in Mental Status Sepsis Action Taken by Nursing 11/02/19 18:30 11/02/19 18:40 11/02/19 18:48 Temperature Temperature Source Pulse Rate - Lying Pulse Rate - Sitting Pulse Rate 78 78 80 Pulse Rate from SpO2 Sensor 73 68 Respiratory Rate 27 H 25 H 28 H Respiratory Effort / Characteristics Respiratory Depth Blood Pressure - Lying Blood Pressure - Sitting Blood Pressure 99/60 L Blood Pressure Mean 82 Blood Pressure Position Pulse Oximetry 100 100 Oxygen Delivery Method Nasal Cannula Nasal Cannula Oxygen Flow Rate 2 2 Sepsis Recent Fever Within 48 Hours Sepsis New/Unexplained Change in Mental Status Sepsis Action Taken by Nursing 11/02/19 18:50 11/02/19 19:00 Temperature Temperature Source Pulse Rate - Lying Pulse Rate - Sitting Pulse Rate 79 79 Pulse Rate from SpO2 Sensor 74 72 Respiratory Rate 30 H 28 H Respiratory Effort / Characteristics Respiratory Depth Blood Pressure - Lying Blood Pressure - Sitting Blood Pressure 101/58 L 107/48 L Blood Pressure Mean 74 64 Blood Pressure Position Pulse Oximetry 99 100 Oxygen Delivery Method Oxygen Flow Rate Sepsis Recent Fever Within 48 Hours Sepsis New/Unexplained Change in Mental Status Sepsis Action Taken by Nursing Vital signs reviewed. General: Chronically ill-appearing, pale 84-year-old female, in no significant distress. HEENT: Pale conjunctiva, moist mucous membranes Cardiovascular: Regular rate and rhythm, no extra sounds. Pulmonary: Clear to auscultation bilaterally, normal work of breathing. Abdomen: Soft, nontender, nondistended, positive bowel sounds. Musculoskeletal: Atraumatic, no peripheral edema. Neurologic: Patient awake alert and oriented x 3 Skin: Warm, dry, no rash Course Administered Medications Discontinued Medications Furosemide (Lasix) 40 mg IV NOW STA Stop: 11/02/19 18:33 Last Admin: 11/02/19 18:50 Dose: 40 mg Documented by: [id number] Medical Decision Making Differential Diagnosis Differential includes anemia, infection, poor nutrition, dehydration, electrolyte disturbance,hypoglycemia. Medical Records Attestation: I reviewed the patient's medical records. Home Medications Current Medication List: was personally reviewed by me Laboratory Data Attestation: I reviewed the patient's lab results. Result diagrams: 11/02/19 17:05 11/02/19 17:05 Lab Results 11/02/19 11/02/19 11/02/19 Range/Units 17:04 17:05 17:05 WBC 11.02 H (4.8-10.8) K/uL RBC 1.53 L (4.2-5.4) M/uL Hgb 5.2 L* (12.0-16.0) g/dL POC Hgb (12.0-16.0) g/dl Hct 16.8 L* (37-47) % POC Hct (37-47) % MCV 109.8 H (80-100) fL MCH 34.0 (25-34) pg MCHC 31.0 L (32-36) g/dL RDW Std Deviation 114.2 H (36.4-46.3) fL RDW Coeff of Marycruz 29.2 H (11.5-14.5) % Plt Count 516 H (130-400) K/uL MPV 8.0 (7.4-10.4) fL Immature Gran % (Auto) 0.5 % Neut % (Auto) 75.3 % Lymph % (Auto) 12.8 % [place] % (Auto) 8.5 % Eos % (Auto) 2.6 % Baso % (Auto) 0.3 % Immature Gran # (Auto) 0.05 H (0.00-0.02) K/uL Neut # (Auto) 8.30 H (1.4-6.5) K/uL Lymph # (Auto) 1.41 (1.2-3.4) K/uL [place] # (Auto) 0.94 H (0.11-0.59) K/uL Eos # (Auto) 0.29 (0-0.5) K/uL Baso # (Auto) 0.03 (0-0.2) K/uL Basophilic Stippling Occasional Anisocytosis Present Macrocytosis Present POC Sodium (135-144) mmol/L Sodium 138 (136-145) mmol/L POC Potassium (3.3-5.0) mmol/L Potassium 3.9 (3.5-5.1) mmol/L POC Chloride (101-112) mmol/L Chloride 107 (98-107) mmol/L Carbon Dioxide 22 (21-32) mmol/L POC Total CO2 (24-31) mEq/l Anion Gap 10.0 (3-11) POC Anion Gap (16-25) mmol/L POC BUN (7-18) mg/dl BUN 20 H (7-18) mg/dl Creatinine 1.04 (0.6-1.2) mg/dl POC Creatinine (0.6-1.3) mg/dl Est Cr Clr Drug Dosing Not Reportable Est GFR ( Amer) 57.5 Est GFR (Non-Af Amer) 49.6 BUN/Creatinine Ratio 19.1 (10-20) Glucose 149 H (70-99) mg/dl POC Glucose (other) (70-99) mg/dl Calcium 8.2 L (8.5-10.1) mg/dl POC Ioniz Calcium [place] Anthony (1.12-1.32) mmol/l Magnesium 2.1 (1.8-2.4) mg/dl Total Bilirubin 2.4 H (0.2-1) mg/dl AST 27 (15-37) U/L ALT 13 (12-78) U/L Alkaline Phosphatase 83 (45-117) U/L Troponin I < 0.015 (0-0.045) ng/ml Total Protein 7.8 (6.4-8.2) gm/dl Albumin 2.1 L (3.4-5.0) gm/dl Globulin 5.7 H (2.5-4.0) gm/dl Albumin/Globulin Ratio 0.4 L (0.9-2) TSH 5.300 H (0.300-4.500) uIu/ml Free T4 1.26 (0.8-1.6) ng/dl Blood Type A Positive Antibody Screen POSITIVE A Crossmatch See Detail 11/02/19 Range/Units 17:16 WBC (4.8-10.8) K/uL RBC (4.2-5.4) M/uL Hgb (12.0-16.0) g/dL POC Hgb 5.1 L* (12.0-16.0) g/dl Hct (37-47) % POC Hct 15 L* (37-47) % MCV (80-100) fL MCH (25-34) pg MCHC (32-36) g/dL RDW Std Deviation (36.4-46.3) fL RDW Coeff of Marycruz (11.5-14.5) % Plt Count (130-400) K/uL MPV (7.4-10.4) fL Immature Gran % (Auto) % Neut % (Auto) % Lymph % (Auto) % [place] % (Auto) % Eos % (Auto) % Baso % (Auto) % Immature Gran # (Auto) (0.00-0.02) K/uL Neut # (Auto) (1.4-6.5) K/uL Lymph # (Auto) (1.2-3.4) K/uL [place] # (Auto) (0.11-0.59) K/uL Eos # (Auto) (0-0.5) K/uL Baso # (Auto) (0-0.2) K/uL Basophilic Stippling Anisocytosis Macrocytosis POC Sodium 139 (135-144) mmol/L Sodium (136-145) mmol/L POC Potassium 3.9 (3.3-5.0) mmol/L Potassium (3.5-5.1) mmol/L POC Chloride 104 (101-112) mmol/L Chloride (98-107) mmol/L Carbon Dioxide (21-32) mmol/L POC Total CO2 21 L (24-31) mEq/l Anion Gap (3-11) POC Anion Gap 19.0 (16-25) mmol/L POC BUN 19 H (7-18) mg/dl BUN (7-18) mg/dl Creatinine (0.6-1.2) mg/dl POC Creatinine 1.0 (0.6-1.3) mg/dl Est Cr Clr Drug Dosing Est GFR ( Amer) Est GFR (Non-Af Amer) BUN/Creatinine Ratio (10-20) Glucose (70-99) mg/dl POC Glucose (other) 153 H (70-99) mg/dl Calcium (8.5-10.1) mg/dl POC Ioniz Calcium Mark Anthony 1.15 (1.12-1.32) mmol/l Magnesium (1.8-2.4) mg/dl Total Bilirubin (0.2-1) mg/dl AST (15-37) U/L ALT (12-78) U/L Alkaline Phosphatase (45-117) U/L Troponin I (0-0.045) ng/ml Total Protein (6.4-8.2) gm/dl Albumin (3.4-5.0) gm/dl Globulin (2.5-4.0) gm/dl Albumin/Globulin Ratio (0.9-2) TSH (0.300-4.500) uIu/ml Free T4 (0.8-1.6) ng/dl Blood Type Antibody Screen Crossmatch Imaging Data Radiologist's Impression: XR chest 1V portable CLINICAL HISTORY: weakness dyspnea COMPARISON STUDY: 04/08/2019 FINDINGS: Moderate increase in cardiac size. Small left pleural effusion. Increased pulmonary vasculature IMPRESSION: . Components of congestive heart failure with a potential superimposed infiltrative process left base. ACT 112: Negative or not required by law. The above report was generated using voice recognition software. It may contain grammatical, syntax or spelling errors. Electronically signed by: Devon Dickerson M.D. 11/02/2019 6:15 PM Dictated: 11/02/191814 Transcribed: 11/02/191814 ECG Data Attestation: I personally reviewed and interpreted this ECG as follows: Indication: + SOB/dyspnea Rate (beats per minute): 84 Rhythm: + normal sinus ECG [place]: + Left axis deviation ECG ST segments: + Nonspecific ST abnormalities ECG Findings: + Q waves (Inferior) and + Other (Low voltage); no PACs and no PVCs Blood Pressure Blood Pressure Findings: Normal blood pressure Blood Pressure Disposition: did not require urgent referral MDM Narrative An order for cardiac monitoring was placed and the patient is found to be in a sinus rhythm at 69 bpm. This patient was evaluated and appeared to be in no significant distress. IV access was obtained and laboratory work was drawn. The patient was placed on e cylinder worker. Patient's previous records were reviewed and patient's hemoglobin is confirmed to be at 5.2. Patient was consented for blood transfusion. Patient was typed and crossed for 2 units of PRBCs. IV fluids were started initially however patient's chest x-ray reveals CHF and the wolf ent's oxygen saturations dropped to 86%. Patient was given 40 mg of IV Lasix and placed on nasal cannula oxygen. She did remain stable. Patient was found to have antibodies in her blood and therefore there was a delay in obtaining the blood for transfusion. Patient's case was discussed with the hospitalist service who will evaluate the patient for further management. Impression & Plan Anemia, Lymphoma Discharge Plan Visit Data *Final* Discharge Date/Time: 11/02/19 21:21 Chief Complaint: Referred by Doctor Stated Complaint: BLOOD TRANSFUSION ED Provider: Kylah Hollis Discharge Problem: Anemia, Lymphoma Patient Disposition: Admitted As Inpatient Discharge Instructions Interventions: ED Discharge Assessment Last Done: 11/02/19 21:21 Discharge Problem: Anemia Qualifiers: Anemia type: unspecified type Qualified Code(s): D64.9 - Anemia, unspecified Lymphoma Qualifiers: Lymphoma type: unspecified type Lymphoma site: unspecified region Qualified Code(s): C85.90 - Non-Hodgkin lymphoma, unspecified, unspecified site
[2019-11-02] MEDS: cefTRIAXone SODIUM 2,000 MG in DEXTROSE 5% 50 ML IV SCH (22:47)
[2019-11-02] MEDS: FOLIC ACID 1 MG TAB PO SCH (22:50)
[2019-11-02] MEDS: CHOLECALCIFEROL 1,000 UNITS 25 MCG TAB PO SCH (22:51)
[2019-11-02] MEDS: DOXYCYCLINE HYCLATE 100 MG CAP PO SCH (22:51)
[2019-11-02] MEDS: CALCIUM CARBONATE 1250MG TAB PO SCH (22:51)
[2019-11-02] MEDS: SERTRALINE HCL 100 MG TABLET PO SCH (22:51)
[2019-11-03 06:17] LABS: Hematocrit (blood only) 12.8 % (37-47); Hemoglobin 4.1 g/dL (12.0-16.0); Mean Corpuscular Hemoglobin 34.7 pg (25-34); Mean Corpuscular Volume 108.5 fL (80-100); Platelet Count 412 K/uL (130-400); Red Blood Count 1.18 M/uL (4.2-5.4); White Blood Count 9.81 K/uL (4.8-10.8)
[2019-11-03 06:36] LABS: Albumin Level 1.7 gm/dl (3.4-5.0); BUN Creatinine Ratio 21.2 (10-20); Creatinine Clr Calc Pharmacy 44.6 ml/min; Est GFR (African American) 61.8; Est GFR (Non-African American) 53.3; Potassium 3.8 mmol/L (3.5-5.1)
--- NOTE | 2019-11-03 06:40 | Hospitalist Progress Note ---
Date of Service November 03, 2019 Assessment & Plan (1) Symptomatic anemia: Pt is 84 y/o F with PMH low grade non-Hodgkins lymphoma currently being treated clinically, HTN, HLD, depression, CKD III presented to ER for abnormal labs with Hgb: 4.9 outpatient today and was referred to ER. Patient reports past couple weeks has been having fatigue and exertional shortness of breath. Also reports his been feeling lightheaded with standing. Denies syncope, chest pain, melena, hematochezia, epistaxis, hematuria. In ER pt afebrile, P: 69, R: 18, BP: 103/53, initial pulse ox: 97% on RA WBC: 11 (baseline 12-13), Hgb: 5.2 (was 9 on 07/28/19, prior baseline in the 8's), Plt: 516 (bsaeline in the 600's -Type and cross PRBCs, 2 units, pt with antibodies and blood came from [facility] between units 1 & 2 of PRBCs Blood just received and hanging now (2) Shortness of breath: Secondary to anemia. Possible fluid overload. Possible pneumonia Pt with exertional SOB for couple of weeks. Denies CP. In ER initial pulse ox 97% on RA and had one reading of 86% on RA and O2 at 2L via NC applied with sats up to 100%. Current pulse oximeter to pt's forehead. Reported RR up in the 20's. CXR: Moderate increase in cardiac size. Small left pleural effusion. Increased pulmonary vasculature. potential superimposed infiltrative process left base. -In ER pt given 40mg Lasix IV. Had reported 500ml urine output in ER after Lasix -Pt currently comfortable on supplemental oxygen with O2 sats 100% on 2L, R: 20 -Transfuse as above -Supplemental oxygen prn -Rocephin and Doxy for now to cover for possible pneumonia -Monitor Is & Os, daily weight, low sodium diet -If worsening hypoxia consider further workup (3) Non-Hodgkin lymphoma: Follows with Dr Quijano. Was treated with rituximab, currently clinical treatment (4) CKD (chronic kidney disease), stage III: Baseline Cr: 1.0 -Monitor renal functions -Avoid nephrotoxic agents when possible (5) Depression: -Continue sertraline DVT Prophylaxis -SCDs secondary to anemia DNR/DNI as per discussion with pt Follows with Dr Baldwin for routine care Labs checked ROS-No Headache, No Visual Changes, No Nausea, No Vomiting, No Fever, No Chills, No Neck Pain or Stiffness, No Chest Pain, No Palpitations, No SOB, No ROWE, No Cough, No Sputum, No Wheezing, No Abdominal Pain, No Diarrhea, No Hematemesis, No Hemoptysis, No Unexpected Weight Loss, No Flank pain, No Melena, No Hematochezia, No Frequency, No Urgency, No Burning, No Hematuria, No Rashes, No Diaphoresis. Appetite is Normal Physical Exam Gen-AAO x 3, NAD, Afebrile, Pale Head-NCAT, EOMI, PERRLA, Anicteric Sclera, No Posterior Pharyngeal Erythema Neck-Supple, No JVD, No Thyromegaly, No Masses, No LAD, No Bruits Lungs-Clear to Auscultation Bilaterally, No Rales, No Rhonchi, No Wheezing, No Crepitus Chest-No S4, +S1, +S2, No S3, No Murmurs, No Rubs, No Gallops, No Ectopy Abdomen-Soft, Bowel Sounds Present, Tender, Non Distended, No Hepatomegaly, No Splenomegaly, No Palpable Masses, No Rebound, No Rigidity, No Guarding Musculoskeletal-Full Range of Motion Bilaterally, No CVAT Extremities-No Cyanosis, No Clubbing, No Edema Nuero-Cranial Nerves II-XII grossly intact, Motor WNL, DTRs WNL, Strength WNL, Non Focal Psych-Normal Mood Admission and Anticipated Discharge Date Admission Date: November 02, 2019 Results & Data Results & Data ([facility]) Vital Signs (Past 12 Hours) Vital Signs Temp Pulse Pulse Pulse Resp BP BP 11/03/19 06:25 36.3 C L 92 H 18 117/55 L 11/03/19 06:07 36.7 C 80 18 95/53 L 11/03/19 04:44 36.7 C 72 18 94/54 L 11/03/19 02:00 83 11/02/19 23:17 79 11/02/19 23:08 36.5 C 78 18 11/02/19 21:40 36.7 C 87 22 118/71 11/02/19 21:00 27 H 114/54 L 11/02/19 20:31 25 H 119/58 L 11/02/19 20:00 30 H 117/67 11/02/19 19:45 25 H 117/55 L 11/02/19 19:00 79 28 H 107/48 L 11/02/19 18:50 79 30 H 101/58 L 11/02/19 18:48 80 28 H 99/60 L 11/02/19 18:40 78 25 H BP Pulse Ox 11/03/19 06:25 96 11/03/19 06:07 96 11/03/19 04:44 96 11/03/19 02:00 94/53 L 11/02/19 23:17 11/02/19 23:08 105/63 100 11/02/19 21:40 99 11/02/19 21:00 100 11/02/19 20:31 94 11/02/19 20:00 100 11/02/19 19:45 98 11/02/19 19:00 100 11/02/19 18:50 99 11/02/19 18:48 11/02/19 18:40 100
[2019-11-03 06:42] LABS: Albumin Globulin Ratio 0.4 (0.9-2); Bilirubin,Total 1.5 mg/dl (0.2-1); Globulin 4.6 gm/dl (2.5-4.0); Total Protein 6.3 gm/dl (6.4-8.2)
[2019-11-03] MEDS: OXYBUTYNIN CHLORIDE XL 5 MG TABCR PO SCH (08:07)
[2019-11-03] MEDS: DOXYCYCLINE HYCLATE 100 MG CAP PO SCH ×2 (08:08→21:03)
--- NOTE | 2019-11-03 08:18 | Electrocardiogram Report ---
Test Reason : Blood Pressure : / mmHG Vent. Rate : 084 BPM Atrial Rate : 079 BPM P-R Int : 000 ms QRS Dur : 074 ms QT Int : 404 ms P-R-T Axes : 000 -31 000 degrees QTc Int : 477 ms Sinus rhythm Left axis deviation Low voltage QRS Nonspecific T wave abnormality Inferior leads Abnormal ECG When compared with ECG of 08-APR-2019 20:49, Nonspecific T wave abnormality now evident in Inferior leads Confirmed by Jeffrey Page ([id number]) on 11/03/2019 8:18:29 AM Referred By: Afia Baldwin Confirmed By:Jeffrey Page
[2019-11-03] MEDS: PANTOprazole 40 MG in SYRINGE 0 ML IV SCH ×2 (08:48→21:04)
--- NOTE | 2019-11-03 11:10 | Gastrointestinal Consultation ---
Date of Consultation November 03, 2019 Assessment & Plan (1) Anemia: (2) Non-Hodgkin lymphoma: Pt is a 84 y/o female w hx of Non Hodgkin's lymphoma, currently admitted w acute on chronic anemia w/o chandrakant s/s of GI//NON [employer]ITLES bleeding. - Repeat & Monitor H/H after PRBC transfusions, additional transfusions prn - Anemia workup: obtain iron profile, Vit B12, FA - Would defer endoscopic evals at this time until pt is more stabilized from anemia standpoint, and also since she's not having chandrakant signs of GI bleeding. Supervising Physician Co-Signing Physician Notes Attending attestation I have seen, examined this patient, and agree with the findings and above by our mid-level provider JUVE Davenport, with the following additions: -Anemia without bleeding, possible infiltrate PNA -agree with transfusion, patient would like to avoid endoscopies. will reevalaute after transfusion. History of Present Illness Reason for Consultation: Anemia Requesting Physician: Dr. Jose De Jesus Aguilar Attending Physician: Dr. Filiberto Zaragoza History of Present Illness Pt is a 84 y/o female who was referred to ED yesterday for acute on chronic anemia. She has hx of Non Hodgkin's lymphoma currently followed by Dr. Burk. She's been c/o weakness and having exertional SOB for week. Outpt labs showed severe anemia w H/H 10/14, confirmed by admission labs. Baseline H/H around 03/28. MCV 100s. She has antibody +, today just receiving 2U PRBC transfusion as blood had to be transported from [place]. She denies any fever, chills, light headedness, dizziness, CP, abd pain, n/v. Denies any hematuria, vaginal bleeding, open wounds. Admits to some constipation w/o signs of black tarry stools or rectal bleeding. Last colonoscopy 2016 - int hemorrhoids, diverticulosis. Last EGD 2003 - hiatal hernia, gastritis. CXR: Components of congestive heart failure with a potential superimposed infiltrative process left base. Outpt CT abd/pelvis showed signs multiple lung & subcutaneous nodules and enlarging nodules in peritoneal areas Allergies Allergy/AdvReac Type Severity Reaction Status Date / Time No Known Allergies Allergy Verified 11/02/19 18:49 Home Medications Home Medications Medication Instructions Recorded Confirmed Type aspirin [Aspirin Low Dose] 81 mg PO QPM 04/25/18 11/02/19 History calcium carbonate [Calcium 600] 600 mg PO QPM 04/25/18 11/02/19 History cholecalciferol (vitamin D3) 1,000 unit PO QPM 04/25/18 11/02/19 History [Vitamin D3] omega 0-orq-zmp-fish oil [Fish Oil] 2 tab PO QPM 04/25/18 11/02/19 History folic acid 1 mg PO QPM 03/31/19 11/02/19 History sertraline 100 mg PO QPM 03/31/19 11/02/19 History acetaminophen [Tylenol Extra 1,000 mg PO BID PRN 11/02/19 11/02/19 History Strength] oxybutynin chloride 10 mg PO DAILY 11/02/19 11/02/19 History Patient History Medical History Anxiety (Chronic) B-cell lymphoma (Chronic) Chronic hip pain (Chronic) RIGHT CKD (chronic kidney disease), stage III (Chronic) Depression (Chronic) Exertional dyspnea (Chronic) GERD (gastroesophageal reflux disease) (Chronic) HLD (hyperlipidemia) (Chronic) 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) Hypertension (Chronic) Lupus anticoagulant disorder (Chronic) Osteoarthritis (Chronic) 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 leiomyoma (Chronic) Surgical History H/O colonoscopy (Chronic) "Diverticulosis 2010, repeat in 5 years " History of cataract surgery (Chronic) LEFT History of colonoscopy (Chronic) History of incision and drainage (Chronic) History of tonsillectomy (Chronic) History of total knee arthroplasty (Chronic) x 3; Right x 2; L x 1 Hx of tooth extraction (Chronic) S/P cataract surgery (Chronic) Tubal ligation status (Chronic) Family History Father , 52 Pulmonary embolism Mother Breast cancer Social History Preferred Language: Dutch Communication Ability: Effective Filer Metal Patterns Required: No Beliefs That Will Affect Care: None marital status: Current Living Situation: Spouse Other Information That Helps Us Care for You: No Feels Safe at Home: Yes Safety Concerns: Feels Safe At This Time Smoking Status: Never smoker Hx Alcohol Use: No Hx Substance Use: No Review of Systems Review of Systems: All systems reviewed & are unremarkable except as noted in HPI & below Physical Exam Constitutional: WD/WN, vitals as above well groomed, cooperative and comfortable Eyes: PERRL, conjunctivae normal, anicteric sclerae ENMT: external ear and nose normal, oropharynx normal Respiratory: normal respiratory effort, lungs clear to auscultation Cardiovascular: RRR, no murmur, no edema Gastrointestinal (Abdomen): normal bowel sounds, soft, nontender, no hepatosplenomegaly Skin: no rashes, warm and dry no jaundice Psychiatric: A+Ox3, euthymic affect Lymphatic: no lymphedema Results & Data ([facility]) Vital Signs (Past 12 Hours) Vital Signs Temp Pulse Pulse Pulse Resp BP BP 11/03/19 10:05 36.5 C 71 14 93/56 L 11/03/19 09:35 36.5 C 73 14 104/50 L 11/03/19 09:20 36.5 C 68 14 121/51 L 11/03/19 08:59 36.5 C 76 18 93/50 L 11/03/19 08:56 36.4 C L 72 14 96/48 L 11/03/19 08:50 36.4 C L 72 14 11/03/19 08:10 36.6 C 75 19 95/49 L 11/03/19 07:21 36.4 C L 74 18 11/03/19 07:10 36.8 C 85 18 92/47 L 11/03/19 06:40 36.5 C 73 18 93/43 L 11/03/19 06:25 36.3 C L 92 H 18 117/55 L 11/03/19 06:07 36.7 C 80 18 95/53 L 11/03/19 04:44 36.7 C 72 18 94/54 L 11/03/19 02:00 83 11/02/19 23:17 79 11/02/19 23:08 36.5 C 78 18 BP Pulse Ox 11/03/19 10:05 96 11/03/19 09:35 96 11/03/19 09:20 96 11/03/19 08:59 97 11/03/19 08:56 97 11/03/19 08:50 96/48 L 97 11/03/19 08:10 98 11/03/19 07:21 96/54 L 97 11/03/19 07:10 98 11/03/19 06:40 99 11/03/19 06:25 96 11/03/19 06:07 96 11/03/19 04:44 96 11/03/19 02:00 94/53 L 11/02/19 23:17 11/02/19 23:08 105/63 100 (1) Anemia Anemia type: unspecified type Qualified Code(s): D64.9 - Anemia, unspecified
[2019-11-03 16:15] LABS: Hematocrit (blood only) 20.5 % (37-47); Hemoglobin 6.7 g/dL (12.0-16.0)
[2019-11-03 16:31] LABS: Ferritin 447.9 ng/ml (8-388)
[2019-11-03] MEDS ORDERED: NYSTATIN POWDER 15GM BTL EXT PRN (16:38)
[2019-11-03] MEDS ORDERED: SODIUM CHLORIDE 0.9% 250 ML IV PRN (16:40)
[2019-11-03 17:29] LABS: Folate (Folic Acid) 23.54 ng/ml (>5.38)
[2019-11-03 20:04] LABS: Hematocrit (blood only) 22.4 % (37-47); Hemoglobin 7.3 g/dL (12.0-16.0)
[2019-11-03] MEDS: SERTRALINE HCL 100 MG TABLET PO SCH (21:04)
[2019-11-03] MEDS: CHOLECALCIFEROL 1,000 UNITS 25 MCG TAB PO SCH (21:04)
[2019-11-03] MEDS: FOLIC ACID 1 MG TAB PO SCH (21:04)
[2019-11-03] MEDS: CALCIUM CARBONATE 1250MG TAB PO SCH (21:04)
[2019-11-03] MEDS: ACETAMINOPHEN 325 MG TAB PO PRN (21:09)
[2019-11-03] MEDS: cefTRIAXone SODIUM 2,000 MG in DEXTROSE 5% 50 ML IV SCH (22:26)
[2019-11-04] MEDS ORDERED: FUROSEMIDE 40 MG in SYRINGE 0 ML IV ONE (01:00)
[2019-11-04 05:35] LABS: Basophils # (auto) 0.02 K/uL (0-0.2); Basophils % (auto) 0.2 %; Eosinophils # (auto) 0.36 K/uL (0-0.5); Eosinophils % (auto) 3.8 %; Hematocrit (blood only) 26.9 % (37-47); Hemoglobin 8.8 g/dL (12.0-16.0); Immature Granulocytes # (auto) 0.02 K/uL (0.00-0.02); Immature Granulocytes % (auto) 0.2 %; Lymphocytes # (auto) 2.16 K/uL (1.2-3.4); Lymphocytes % (auto) 23.1 %; Mean Corpuscular Hemoglobin 31.5 pg (25-34); Mean Corpuscular Hgb Conc 32.7 g/dL (32-36); Mean Corpuscular Volume 96.4 fL (80-100); Monocytes # (auto) 0.67 K/uL (0.11-0.59); Monocytes % (auto) 7.2 %; Neutrophils # (auto) 6.13 K/uL (1.4-6.5); Neutrophils % (auto) 65.5 %; Platelet Count 326 K/uL (130-400); RDW Coefficient of Variation 22.6 % (11.5-14.5); RDW Standard Deviation 65.8 fL (36.4-46.3); Red Blood Count 2.79 M/uL (4.2-5.4); White Blood Count 9.36 K/uL (4.8-10.8)
[2019-11-04 06:00] LABS: Anisocytosis Present; Macrocytosis Present; Polychromasia 2+
[2019-11-04 06:06] LABS: Albumin Level 1.8 gm/dl (3.4-5.0); BUN Creatinine Ratio 16.8 (10-20); Calcium 7.4 mg/dl (8.5-10.1); Creatinine Clr Calc Pharmacy 33.4 ml/min; Est GFR (African American) 43.5; Est GFR (Non-African American) 37.6; Magnesium 1.7 mg/dl (1.8-2.4); Potassium 4.2 mmol/L (3.5-5.1)
[2019-11-04 06:09] LABS: Albumin Globulin Ratio 0.4 (0.9-2); Bilirubin,Total 1.3 mg/dl (0.2-1); Total Protein 6.8 gm/dl (6.4-8.2)
[2019-11-04 06:24] LABS: Hematocrit (blood only) 28.1 % (37-47); Hemoglobin 9.2 g/dL (12.0-16.0)
[2019-11-04 07:00] LABS: Spherocytes 2+
--- NOTE | 2019-11-04 07:00 | Hospitalist Progress Note ---
Date of Service November 04, 2019 Assessment & Plan Admission and Anticipated Discharge Date Admission Date: November 02, 2019 Subjective epsiode of blood in stool last night.Getting prbc. Will follow h and h. Results & Data Results & Data ([facility]) Vital Signs (Past 12 Hours) Vital Signs Temp Pulse Pulse Resp BP BP Pulse Ox 11/04/19 04:56 36.3 C L 72 20 109/65 97 11/04/19 04:14 36.5 C 63 18 108/60 95 11/04/19 03:14 36.3 C L 79 20 115/63 98 11/04/19 02:44 36.2 C L 64 18 106/70 98 11/04/19 02:29 36.4 C L 70 20 100/60 96 11/04/19 02:10 36.3 C L 73 20 99/60 L 96 11/04/19 01:33 36.3 C L 71 20 124/65 97 11/04/19 00:55 36.5 C 73 20 101/61 96 11/03/19 23:55 36.3 C L 74 18 100/46 L 96 11/03/19 23:25 36.2 C L 70 18 106/62 98 11/03/19 23:10 36.3 C L 74 18 100/58 L 97 11/03/19 22:53 36.6 C 80 18 114/56 L 98 11/03/19 19:46 36.7 C 67 16 103/56 L 95
[2019-11-04] MEDS: OXYBUTYNIN CHLORIDE XL 5 MG TABCR PO SCH (07:35)
[2019-11-04] MEDS: DOXYCYCLINE HYCLATE 100 MG CAP PO SCH ×2 (07:35→21:15)
[2019-11-04] MEDS: ACETAMINOPHEN 325 MG TAB PO PRN ×2 (08:18→21:57)
[2019-11-04] MEDS: PANTOprazole 40 MG in SYRINGE 0 ML IV SCH ×2 (08:20→21:15)
[2019-11-04] MEDS ORDERED: MAGNESIUM SULFATE / D5W 1 GM/100 ML BAG IV ONE (09:45)
--- NOTE | 2019-11-04 10:41 | Gastroenterology Progress Note ---
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 Blood ct improved after 4U PRBC transfusion. She did have bloody stools overnight. Denies abd pain, n/v symptoms. - Monitor H/H and transfuse prn - She is agreeable to endoscopic evaluations to r/o GI bleeding source for her anemia. Tenatively will plan for EGD/Colonoscopy trevor w Dr. Zaragoza 11/04. CL diet remainder of today, NPO after midnight. Golytely prep ordered. Admission and Anticipated Discharge Date Admission Date: November 02, 2019 Supervising Physician Co-Signing Physician Notes Attending attestation I have seen, examined this patient, and agree with the findings and above by our mid-level provider JUVE Davenport, with the following additions: - Hb stable, will plan on EGD/Colonscopy tomorrow Subjective Pt received total of 4U PRBC tranfusion yesterday. H/H up to 03/28. Pt reports having bloody stools overnight. None this AM, and denies any abd pain, n/v. Review of Systems Review of Systems: All systems reviewed & are unremarkable except as noted in HPI & below Physical Exam Constitutional: WD/WN, vitals as above well groomed, cooperative and comfortable Eyes: PERRL, conjunctivae normal, anicteric sclerae ENMT: external ear and nose normal, oropharynx normal Respiratory: normal respiratory effort, lungs clear to auscultation Cardiovascular: RRR, no murmur, no edema Gastrointestinal (Abdomen): normal bowel sounds, soft, nontender, no hepatosplenomegaly Skin: no rashes, warm and dry no jaundice Psychiatric: A+Ox3, euthymic affect Lymphatic: no lymphedema Results & Data ([facility]) Vital Signs (Past 12 Hours) Vital Signs Temp Pulse Pulse Resp BP BP Pulse Ox 11/04/19 07:13 75 11/04/19 07:09 36.8 C 70 18 110/69 98 11/04/19 04:56 36.3 C L 72 20 109/65 97 11/04/19 04:14 36.5 C 63 18 108/60 95 11/04/19 03:14 36.3 C L 79 20 115/63 98 11/04/19 02:44 36.2 C L 64 18 106/70 98 11/04/19 02:29 36.4 C L 70 20 100/60 96 11/04/19 02:10 36.3 C L 73 20 99/60 L 96 11/04/19 01:33 36.3 C L 71 20 124/65 97 11/04/19 00:55 36.5 C 73 20 101/61 96 11/03/19 23:55 36.3 C L 74 18 100/46 L 96 11/03/19 23:25 36.2 C L 70 18 106/62 98 11/03/19 23:10 36.3 C L 74 18 100/58 L 97 11/03/19 22:53 36.6 C 80 18 114/56 L 98 (1) Anemia Anemia type: unspecified type Qualified Code(s): D64.9 - Anemia, unspecified
[2019-11-04 16:07] LABS: Hematocrit (blood only) 27.1 % (37-47)
[2019-11-04] MEDS ORDERED: LAVAGE SOLUTION 4000ML PO SCH (17:00)
--- NOTE | 2019-11-04 18:30 | Hospitalist Progress Note ---
Date of Service November 04, 2019 Assessment & Plan (1) Symptomatic anemia: Patient is an 84 yr female with H/O low grade non-Hodgkins lymphoma, HTN, HLD, depression, CKD III presented to ER for abnormal labs with Hgb: 4.9, and also complained of fatigue, SOB, dizziness. Symptomatic Anemia Likely acute blood loss due to GI bleed Non-Hodgkin's lymphoma, CKD likely contributing to anemia Folate, Vit B12, Iron: normal S/P 4 units PRBCs Planned for EGD/Colonoscopy in AM Appreciate GI Input Hold Aspirin, Fish oil for now Monitor H&H and transfuse as needed (2) Shortness of breath: Secondary to anemia. Possible pneumonia Hypoxia CXR: Moderate increase in cardiac size. Small left pleural effusion. Increased pulmonary vasculature. potential superimposed infiltrative process left base. Empirically continue antibiotics Continue supplemental oxygen as needed (3) Non-Hodgkin lymphoma: Follows with Dr Quijano. Was treated with rituximab (4) CKD (chronic kidney disease), stage III: LILY on CKD III Baseline Cr: 1.0 Monitor renal functions Avoid nephrotoxic agents when possible Hypomagnesemia Replace electrolytes as needed (5) Depression: Continue sertraline DVT Px: SCDs Re: Anemia/GI bleed Code Status DNR/DNI Admission and Anticipated Discharge Date Admission Date: November 02, 2019 Subjective Patient is seen and examined at bedside Had Bloody BM overnight Denies any chest pain, SOB, dizziness, nausea, abd pain Planned for EGD/Colonoscopy tmw Review of Systems Review of Systems: All systems reviewed & are unremarkable except as noted in HPI & below Physical Exam Physical Exam: Physical Exam: Vitals signs as noted above General Appearance:Moderately built and nourished, no apparent distress Head: normocephalic, Atraumatic Eyes: normal inspection, EOMI Neck: supple, Trachea midline Respiratory/Chest: Normal breath sounds, +basal crackles Cardiovascular: S1, S2, No murmur Abdomen/GI:Soft, Non tender, Bowel sounds present Extremities/Musculoskelatal:normal inspection, no edema Neurologic/Psych:AAOX3, grossly no focal neurological deficits Skin: normal color, warm Results & Data Results & Data ([facility]) Vital Signs (Past 12 Hours) Vital Signs Temp Pulse Pulse Resp BP BP Pulse Ox 11/04/19 16:00 78 11/04/19 15:33 36.2 C L 65 20 113/70 99 11/04/19 11:30 36.7 C 62 20 96/59 L 97 11/04/19 07:13 75 11/04/19 07:09 36.8 C 70 18 110/69 98 Laboratory Results Short CBC 11/03/19 11/04/19 11/04/19 Range/Units 19:54 05:25 06:14 WBC 9.36 (4.8-10.8) K/uL Hgb 7.3 L 8.8 L 9.2 L (12.0-16.0) g/dL Hct 22.4 L 26.9 L 28.1 L (37-47) % Plt Count 326 (130-400) K/uL 11/04/19 Range/Units 15:50 WBC (4.8-10.8) K/uL Hgb 9.0 L (12.0-16.0) g/dL Hct 27.1 L (37-47) % Plt Count (130-400) K/uL BMP 11/04/19 05:25 Sodium 139 Potassium 4.2 Chloride 108 H Carbon Dioxide 26 BUN 22 H Creatinine 1.31 H D Glucose 134 H Calcium 7.4 L Liver Function 11/04/19 Range/Units 05:25 Total Bilirubin 1.3 H (0.2-1) mg/dl AST 23 (15-37) U/L ALT 10 L (12-78) U/L Alkaline Phosphatase 69 (45-117) U/L Albumin 1.8 L (3.4-5.0) gm/dl
[2019-11-04] MEDS: SERTRALINE HCL 100 MG TABLET PO SCH (21:14)
[2019-11-04] MEDS: FOLIC ACID 1 MG TAB PO SCH (21:15)
[2019-11-04] MEDS: CALCIUM CARBONATE 1250MG TAB PO SCH (21:15)
[2019-11-04] MEDS: CHOLECALCIFEROL 1,000 UNITS 25 MCG TAB PO SCH (21:16)
[2019-11-04] MEDS: cefTRIAXone SODIUM 2,000 MG in DEXTROSE 5% 50 ML IV SCH (23:51)
[2019-11-05] MEDS: ACETAMINOPHEN 325 MG TAB PO PRN ×2 (02:41→20:42)
[2019-11-05 07:11] LABS: Hematocrit (blood only) 26.9 % (37-47)
[2019-11-05 07:53] LABS: BUN Creatinine Ratio 19.3 (10-20); Calcium 7.4 mg/dl (8.5-10.1); Creatinine Clr Calc Pharmacy 51.2 ml/min; Est GFR (African American) 72.4; Est GFR (Non-African American) 62.5; Magnesium 1.8 mg/dl (1.8-2.4); Potassium 3.7 mmol/L (3.5-5.1)
[2019-11-05] MEDS ORDERED: ACETAMINOPHEN 1,000 MG/100 ML VIAL IV ONE (09:05)
[2019-11-05] MEDS: OXYBUTYNIN CHLORIDE XL 5 MG TABCR PO SCH (09:58)
[2019-11-05] MEDS: PANTOprazole 40 MG in SYRINGE 0 ML IV SCH ×2 (09:59→20:43)
[2019-11-05] MEDS: DOXYCYCLINE HYCLATE 100 MG CAP PO SCH ×2 (09:59→20:43)
--- NOTE | 2019-11-05 10:26 | Gastroenterology Progress Note ---
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 Blood ct improved after 4U PRBC transfusion and remained stable. She did have bloody stools yesterday. Initially planned for EGD and colonoscopy eval today however stools aren't clearing with Golytely prep. Thus we will care giver her an additional day to complete 1/2 bowel prep today and postpone her EGD/Colonoscopy eval to tomorrow instead. - Monitor H/H and transfuse prn - Bowel prep ordered - CL diet today, NPO after midnight. EGD/Colonoscopy on 11/05 Admission and Anticipated Discharge Date Admission Date: November 02, 2019 Supervising Physician Co-Signing Physician Notes Attending attestation I have seen, examined this patient, and agree with the findings and above by our mid-level provider JUVE Davenport, with the following additions: -Plan for EGD/Colon tomorrow with additional preparation given prep results today Subjective Pt drank Golytely prep. Still having black liquid stools output. RN reports bloody red stools last evening. Pt denies abd pain, n/v, SOB, CP. H/H stable from yesterday Review of Systems Review of Systems: All systems reviewed & are unremarkable except as noted in HPI & below Physical Exam Constitutional: WD/WN, vitals as above well groomed, cooperative and comfortable Eyes: PERRL, conjunctivae normal, anicteric sclerae ENMT: external ear and nose normal, oropharynx normal Respiratory: normal respiratory effort, lungs clear to auscultation Cardiovascular: RRR, no murmur, no edema Gastrointestinal (Abdomen): normal bowel sounds, soft, nontender, no hepatosplenomegaly Skin: no rashes, warm and dry no jaundice Psychiatric: A+Ox3, euthymic affect Lymphatic: no lymphedema Results & Data ([facility]) Vital Signs (Past 12 Hours) Vital Signs Temp Pulse Pulse Resp BP BP Pulse Ox 11/05/19 08:00 61 11/05/19 07:54 37.1 C 60 18 103/64 95 11/05/19 03:58 36.5 C 72 18 107/61 94 11/05/19 00:23 69 11/04/19 23:07 36.6 C 73 18 117/52 L 96 (1) Anemia Anemia type: unspecified type Qualified Code(s): D64.9 - Anemia, unspecified
--- NOTE | 2019-11-05 12:14 | Anesthesiology Consultation ---
Date of Service November 05, 2019 Assessment & Plan (1) Encounter for pre-operative examination: Chart Review Chart Review: Acceptable Risk for Surgery (necessary surgery) and Patient NOT seen in Pre Admission Testing Consults Requested none History Surgery Operation Date: 11/06/19 11:05 Proposed Procedures p Colonoscopy EGD Dr Nik Zaragoza Height/Weight Height: 5 ft 4 in Weight: 81.6 kg Allergies Allergy/AdvReac Type Severity Reaction Status Date / Time No Known Allergies Allergy Verified 11/02/19 18:49 Medications Home Medications Medication Instructions Recorded Confirmed Last Taken aspirin [Aspirin Low Dose] 81 mg PO QPM 04/25/18 11/02/19 03/30/19 calcium carbonate [Calcium 600] 600 mg PO QPM 04/25/18 11/02/19 03/30/19 cholecalciferol (vitamin D3) 1,000 unit PO QPM 04/25/18 11/02/19 03/30/19 [Vitamin D3] omega 6-foz-vbd-fish oil [Fish Oil] 2 tab PO QPM 04/25/18 11/02/19 03/30/19 folic acid 1 mg PO QPM 03/31/19 11/02/19 03/30/19 sertraline 100 mg PO QPM 03/31/19 11/02/19 03/30/19 acetaminophen [Tylenol Extra 1,000 mg PO BID PRN 11/02/19 11/02/19 Unknown Strength] oxybutynin chloride 10 mg PO DAILY 11/02/19 11/02/19 Unknown Active Medications Generic Name Dose Route Start Last Admin Trade Name Freq PRN Reason Stop Dose Admin Acetaminophen 650 mg 11/02/19 21:56 11/05/19 02:41 Tylenol PO 12/02/19 21:55 650 mg Q4H PRN Administration Pain or Fever Aspirin 81 mg 11/02/19 21:56 11/02/19 22:50 Ecotrin Ectab PO 12/02/19 21:55 81 mg QPM KALEN Administration Calcium Carbonate 1,250 mg 11/02/19 22:00 11/04/19 21:15 Os-Kristopher 500 PO 12/02/19 21:59 1,250 mg QPM KALEN Administration Doxycycline Hyclate 100 mg 11/02/19 21:56 11/05/19 09:59 Vibramycin PO 11/09/19 21:55 100 mg BID KALEN Administration Fish Oil 2 gm 11/02/19 22:00 11/02/19 22:50 [place]-3 (Purified Fish Oil) PO 12/02/19 21:59 2 gm QPM KALEN Administration Folic Acid 1 mg 11/02/19 21:56 11/04/19 21:15 Folvite PO 12/02/19 21:55 1 mg QPM KALEN Administration Ceftriaxone Sodium 2,000 mg/ 70 mls @ 140 mls/hr 11/02/19 23:00 11/05/19 00:33 Dextrose IV 11/09/19 22:59 Infused Q24H KALEN Infusion Pantoprazole Sodium 40 mg/ 10 mls @ 5 mls/min 11/03/19 09:00 11/05/19 09:59 Syringe IV 12/03/19 08:59 5 mls/min BID KALEN Administration Nystatin 1 appln 11/03/19 16:38 11/03/19 21:03 Mycostatin EXT 12/03/19 16:37 1 appln TID PRN Administration Affected Skin Folds Oxybutynin Chloride 10 mg 11/03/19 09:00 11/05/19 09:58 Ditropan Xl PO 12/03/19 08:59 10 mg DAILY KALEN Administration Sertraline HCl 100 mg 11/02/19 21:56 11/04/19 21:14 Zoloft PO 12/02/19 21:55 100 mg QPM KALEN Administration Vitamin D 1,000 units 11/02/19 21:56 11/04/19 21:16 Vitamin D3 PO 12/02/19 21:55 1,000 units QPM KALEN Administration Past Medical History Medical History Anemia Anxiety (Chronic) B-cell lymphoma (Chronic) Chronic hip pain (Chronic) RIGHT CKD (chronic kidney disease), stage III (Chronic) Depression (Chronic) Exertional dyspnea (Chronic) GERD (gastroesophageal reflux disease) (Chronic) HLD (hyperlipidemia) (Chronic) 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) Hypertension (Chronic) Lupus anticoagulant disorder (Chronic) Osteoarthritis (Chronic) 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 leiomyoma (Chronic) Past Family History Family History Father , 52 Pulmonary embolism Mother Breast cancer Past Surgical History Surgical History H/O colonoscopy (Chronic) "Diverticulosis 2010, repeat in 5 years " History of cataract surgery (Chronic) LEFT History of colonoscopy (Chronic) History of incision and drainage (Chronic) History of tonsillectomy (Chronic) History of total knee arthroplasty (Chronic) x 3; Right x 2; L x 1 Hx of tooth extraction (Chronic) S/P cataract surgery (Chronic) Tubal ligation status (Chronic) Social History Smoking Status: Never smoker Hx Alcohol Use: No Hx Substance Use: No substance use type: does not use Physical Exam Vital Signs Last Vital Signs Temp 36.8 C 11/05/19 11:47 Pulse 73 11/05/19 11:47 Resp 18 11/05/19 11:47 BP 112/68 11/05/19 11:47 Pulse Ox 95 11/05/19 11:47 Testing Laboratory Results 11/05/19 06:52 11/05/19 06:52 Blood Type A Positive 11/02/19 17:04 Antibody Screen POSITIVE A 11/02/19 17:04 Electrocardiogram Date: 11/02/19 Findings: + NSR @ (84) and + NSST changes (inferior leads) L axis deviation Chest X-Ray Date: 11/02/19 XR chest 1V portable CLINICAL HISTORY: weakness dyspnea COMPARISON STUDY: 04/08/2019 FINDINGS: Moderate increase in cardiac size. Small left pleural effusion. Increased pulmonary vasculature IMPRESSION: . Components of congestive heart failure with a potential superimposed infiltrative process left base. ACT 112: Negative or not required by law. The above report was generated using voice recognition software. It may contain grammatical, syntax or spelling errors. Electronically signed by: Devon Dickerson M.D. 11/02/2019 6:15 PM Dictated: 11/02/191814 Transcribed: 11/02/191814 Echocardiogram Date: 04/01/19 EF: 65-70 LV Function: normal Valvular Disease: + MR (mild) mild TR, mild pulmonary HTN
[2019-11-05] MEDS ORDERED: bisacodyL 5 MG TABEC PO ONE ×2 (15:48→17:00)
[2019-11-05] MEDS ORDERED: POLYETHYLENE (MIRALAX) 17 GM PACK PO ONE (17:00)
--- NOTE | 2019-11-05 17:20 | Hospitalist Progress Note ---
Date of Service November 05, 2019 Assessment & Plan (1) Symptomatic anemia: Patient is an 84 yr female with H/O low grade non-Hodgkins lymphoma, HTN, HLD, depression, CKD III presented to ER for abnormal labs with Hgb: 4.9, and also complained of fatigue, SOB, dizziness. Symptomatic Anemia Likely acute blood loss due to GI bleed Non-Hodgkin's lymphoma, CKD likely contributing to anemia Folate, Vit B12, Iron: normal S/P 4 units PRBCs Appreciate GI Input Hold Aspirin, Fish oil for now Monitor H&H and transfuse as needed Hb:9.0 today Planned for EGD/Colonoscopy tomorrow Continue PPI IV BID (2) Shortness of breath: Secondary to anemia. Possible pneumonia Hypoxia CXR: Moderate increase in cardiac size. Small left pleural effusion. Increased pulmonary vasculature. potential superimposed infiltrative process left base. Empirically continue antibiotics--On Ceftriaxone, Doxy Saturating well on room air (3) Non-Hodgkin lymphoma: Follows with Dr Quijano. Was treated with rituximab (4) CKD (chronic kidney disease), stage III: LILY on CKD III Baseline Cr: 1.0 Monitor renal functions Avoid nephrotoxic agents when possible Cr back to baseline Hypomagnesemia Replace electrolytes as needed (5) Depression: Continue sertraline DVT Px: SCDs Re: Anemia/GI bleed Code Status DNR/DNI Admission and Anticipated Discharge Date Admission Date: November 02, 2019 Subjective Patient is seen and examined at bedside Complains of chronic shoulder pain Patient had bloody BM at around 5pm yesterday No events overnight Hb stable Initially planned for EGD/Colonoscopy today but could not clear stools with Golytely prep Denies any chest pain, SOB, dizziness, nausea, abd pain Review of Systems Review of Systems: All systems reviewed & are unremarkable except as noted in HPI & below Physical Exam Physical Exam: Physical Exam: Vitals signs as noted above General Appearance:Moderately built and nourished, no apparent distress Head: normocephalic, Atraumatic Eyes: normal inspection, EOMI Neck: supple, Trachea midline Respiratory/Chest: Normal breath sounds, +basal crackles Cardiovascular: S1, S2, No murmur Abdomen/GI:Soft, Non tender, Bowel sounds present Extremities/Musculoskelatal:normal inspection, no edema Neurologic/Psych:AAOX3, grossly no focal neurological deficits Skin: normal color, warm Results & Data Results & Data ([facility]) Vital Signs (Past 12 Hours) Vital Signs Temp Pulse Pulse Resp BP BP Pulse Ox 11/05/19 16:00 61 11/05/19 15:40 36.6 C 57 L 20 123/71 96 11/05/19 11:47 36.8 C 73 18 112/68 95 11/05/19 08:00 61 11/05/19 07:54 37.1 C 60 18 103/64 95 Laboratory Results Short CBC 11/05/19 Range/Units 06:52 Hgb 9.0 L (12.0-16.0) g/dL Hct 26.9 L (37-47) % BMP 11/05/19 06:52 Sodium 139 Potassium 3.7 Chloride 110 H Carbon Dioxide 24 BUN 17 Creatinine 0.86 D Glucose 90 Calcium 7.4 L
[2019-11-05] MEDS: FOLIC ACID 1 MG TAB PO SCH (20:43)
[2019-11-05] MEDS: SERTRALINE HCL 100 MG TABLET PO SCH (20:43)
[2019-11-05] MEDS: CALCIUM CARBONATE 1250MG TAB PO SCH (20:43)
[2019-11-05] MEDS: CHOLECALCIFEROL 1,000 UNITS 25 MCG TAB PO SCH (20:43)
[2019-11-05] MEDS ORDERED: TRAMADOL HCL 50 MG TABLET PO PRN (22:42)
[2019-11-05] MEDS ORDERED: MoRPHine SULFATE 2 MG/ML CARP IV PRN (22:42)
[2019-11-05] MEDS: cefTRIAXone SODIUM 2,000 MG in DEXTROSE 5% 50 ML IV SCH (23:02)
[2019-11-06 06:24] LABS: Hematocrit (blood only) 26.5 % (37-47); Hemoglobin 8.9 g/dL (12.0-16.0)
[2019-11-06 06:51] LABS: BUN Creatinine Ratio 18.3 (10-20); Calcium 7.8 mg/dl (8.5-10.1); Creatinine Clr Calc Pharmacy 54.2 ml/min; Est GFR (African American) 77.8; Est GFR (Non-African American) 67.2; Magnesium 1.9 mg/dl (1.8-2.4); Potassium 3.6 mmol/L (3.5-5.1)
[2019-11-06] MEDS: PANTOprazole 40 MG in SYRINGE 0 ML IV SCH (08:28)
[2019-11-06] MEDS: DOXYCYCLINE HYCLATE 100 MG CAP PO SCH ×2 (08:28→20:34)
[2019-11-06] MEDS: OXYBUTYNIN CHLORIDE XL 5 MG TABCR PO SCH (08:28)
--- NOTE | 2019-11-06 08:57 | Communication Note ---
Date of Service: November 06, 2019 Pt is a 84 y/o female admitted w symptomatic anemia, rectal bleeding. EGD/Colonoscopy evals postponed till today due to poor prep results yesterday. She had been NPO since midnight, denies CP, SOB, fever, chills, abd pain, n/v. H/H & hemodynamically stable. GI will give further recs after EGD/Colonoscopy are completed today
[2019-11-06] MEDS ORDERED: LIDOCAINE HCL 2% 2 ML VIAL/AMP(20MG/ML) INFIL ONE (10:51)
[2019-11-06] MEDS ORDERED: PROPOFOL IV EMULSION 10 MG/ML 20 ML VIAL IV ONE (10:51)
--- NOTE | 2019-11-06 12:11 | GI REPORT ---
Patient Name: Tory Sagastume Procedure Date: 11/06/2019 10:51 AM Date of : 1935 Admit Type: Inpatient Age: 84 Gender: Female Attending MD: Filiberto Zaragoza MD Procedure: Colonoscopy Providers: Filiberto Zaragoza MD Referring MD: Afia Baldwin, Shreyas Osorio Md Indications: Anemia Medicines: Monitored Anesthesia Care Complications: No immediate complications. Estimated blood loss: None. Estimated Blood Loss: Estimated blood loss: none. Procedure: Pre-Anesthesia Assessment: - Pre-Anesthesia Assessment: - Prior to the procedure, a History and Physical was performed, and patient medications, allergies and sensitivities were reviewed. The patient's tolerance of previous anesthesia was reviewed. Please see [employer] for complete details. - The risks and benefits of the procedure and the sedation options and risks were discussed with the patient. All questions were answered and informed consent was obtained. - Patient identification and proposed procedure were verified prior to the procedure by the physician and the nurse. The procedure was verified in the pre-procedure area in the procedure room. After obtaining informed consent, the endoscope was passed carefully and meticuously under direct vision and only advanced when the lumen was clearly identified, C02 insuflation was utilized throughout the entirity of the procedure. Throughout the procedure, the patient's blood pressure, pulse, and oxygen saturations were monitored continuously. After I obtained informed consent, the scope was passed under direct vision. Throughout the procedure, the patient's blood pressure, pulse, and oxygen saturations were monitored continuously. The Colonoscope was introduced through the anus and advanced to the terminal ileum, with identification of the appendiceal orifice and IC valve. The colonoscopy was performed without difficulty. The patient tolerated the procedure well. The quality of the bowel preparation was fair. Findings: The terminal ileum appeared normal. Two sessile polyps were found in the descending colon. The polyps were 3 to 5 mm in size. These polyps were removed with a cold snare. Resection and retrieval were complete. Multiple small-mouthed diverticula were found in the sigmoid colon. Internal hemorrhoids were found during retroflexion. The exam was otherwise without abnormality on direct and retroflexion views. Impression: - Preparation of the colon was fair. - The examined portion of the ileum was normal. - Two 3 to 5 mm polyps in the descending colon, removed with a cold snare. Resected and retrieved. - Diverticulosis in the sigmoid colon. - Internal hemorrhoids. - The examination was otherwise normal on direct and retroflexion views. Recommendation: - [facility] for possible discharge same day. - Continue Supportive Care. No signs of bleeding - Follow up with Hematology, can discuss if desire Video capsule endoscopy, however, she is not iron deficient and may be related to hematologic malignancy. Filiberto Zaragoza MD 11/06/2019 12:11:18 PM This report has been signed electronically. Note Initiated On: 11/06/2019 10:51 AM Number of Addenda: 0 I attest to the content of the Intraoperative Record and orders documented therein, exceptions below {[id number]}
--- NOTE | 2019-11-06 12:13 | GI REPORT ---
Patient Name: Tory Sagastume Procedure Date: 11/06/2019 10:52 AM Date of : 1935 Admit Type: Inpatient Age: 84 Gender: Female Attending MD: Filiberto Zaragoza MD Procedure: Upper GI endoscopy Providers: Filiebrto Zaragoza MD Referring MD: Afia Baldwin, Shreyas Osorio Md Indications: Anemia Medicines: Monitored Anesthesia Care Complications: No immediate complications. Estimated blood loss: None. Estimated Blood Loss: Estimated blood loss: none. Procedure: Pre-Anesthesia Assessment: - Pre-Anesthesia Assessment: - Prior to the procedure, a History and Physical was performed, and patient medications, allergies and sensitivities were reviewed. The patient's tolerance of previous anesthesia was reviewed. Please see [employer] for complete details. - The risks and benefits of the procedure and the sedation options and risks were discussed with the patient. All questions were answered and informed consent was obtained. - Patient identification and proposed procedure were verified prior to the procedure by the physician and the nurse. The procedure was verified in the pre-procedure area in the procedure room. After obtaining informed consent, the endoscope was passed carefully and meticuously under direct vision and only advanced when the lumen was clearly identified, C02 insuflation was utilized throughout the entirity of the procedure. Throughout the procedure, the patient's blood pressure, pulse, and oxygen saturations were monitored continuously. After obtaining informed consent, the endoscope was passed under direct vision. Throughout the procedure, the patient's blood pressure, pulse, and oxygen saturations were monitored continuously. The Endoscope was introduced through the mouth, and advanced to the second part of duodenum. The upper GI endoscopy was accomplished without difficulty. The patient tolerated the procedure well. Findings: Non-severe esophagitis with no bleeding was found. Biopsies were taken with a cold forceps for histology. Diffuse moderate inflammation was found in the entire examined stomach. Biopsies were taken with a cold forceps for histology. The examined duodenum was normal. Biopsies were taken with a cold forceps for histology. Impression: - Non-severe esophagitis. Biopsied. - Atrophic gastritis. Biopsied. - Normal examined duodenum. Biopsied. Recommendation: - Await pathology results. - Return patient to [facility] for possible discharge same day. - Perform a colonoscopy today. Filiberto Zaragoza MD 11/06/2019 12:13:12 PM This report has been signed electronically. Note Initiated On: 11/06/2019 10:52 AM Number of Addenda: 0 I attest to the content of the Intraoperative Record and orders documented therein, exceptions below {[id number]}
--- NOTE | 2019-11-06 13:32 | Hospitalist Progress Note ---
Date of Service November 06, 2019 Assessment & Plan (1) Symptomatic anemia: Patient is an 84 yr female with H/O low grade non-Hodgkins lymphoma, HTN, HLD, depression, CKD III presented to ER for abnormal labs with Hgb: 4.9, and also complained of fatigue, SOB, dizziness. Symptomatic Anemia Likely acute blood loss due to GI bleed Non-Hodgkin's lymphoma, CKD likely contributing to anemia Folate, Vit B12, Iron: normal S/P 4 units PRBCs --Colonoscopy:The examined portion of the ileum was normal. Two 3 to 5 mm polyps in the descending colon, removed with a cold snare. Resected and retrieved. Diverticulosis in the sigmoid colon. Internal hemorrhoids. The examination was otherwise normal on direct and retroflexion views. --EGD:Non-severe esophagitis. Biopsied. Atrophic gastritis. Biopsied. Normal examined duodenum. Biopsied. --Follow up Pathology results --Appreciate GI Input --Continue PO Protonix BID for 2 weeks and then once daily --Resume Aspirin as able--Ok with GI --Monitor H&H and transfuse as needed --Hb stable --May need Video capsule endoscopy and Hematology follow up as outpatient (2) Shortness of breath: Secondary to anemia. Possible pneumonia Hypoxia: Resolved CXR: Moderate increase in cardiac size. Small left pleural effusion. Increased pulmonary vasculature. potential superimposed infiltrative process left base. Empirically continue antibiotics--On Ceftriaxone, Doxy Saturating well on room air (3) Non-Hodgkin lymphoma: Follows with Dr Quijano. Was treated with rituximab (4) CKD (chronic kidney disease), stage III: LILY on CKD III Baseline Cr: 1.0 Monitor renal functions Avoid nephrotoxic agents when possible Cr back to baseline Hypomagnesemia Replace electrolytes as needed (5) Depression: Continue sertraline DVT Px: SCDs Re: Anemia/GI bleed Code Status DNR/DNI Disposition: PT/OT prior to discharge Admission and Anticipated Discharge Date Admission Date: November 02, 2019 Subjective Patient is seen and examined at bedside Chronic shoulder pain is improved Had EGD/Colonoscopy today Cough much improved No bleeding issues overnight Hb remains stable Denies any chest pain, SOB, dizziness, nausea, abd pain Review of Systems Review of Systems: All systems reviewed & are unremarkable except as noted in HPI & below Physical Exam Physical Exam: Physical Exam: Vitals signs as noted above General Appearance:Moderately built and nourished, no apparent distress Head: normocephalic, Atraumatic Eyes: normal inspection, EOMI Neck: supple, Trachea midline Respiratory/Chest: Normal breath sounds, CTA Cardiovascular: S1, S2, No murmur Abdomen/GI:Soft, Non tender, Bowel sounds present Extremities/Musculoskelatal:normal inspection, no edema Neurologic/Psych:AAOX3, grossly no focal neurological deficits Skin: normal color, warm Results & Data Results & Data ([facility]) Vital Signs (Past 12 Hours) Vital Signs Temp Pulse Pulse Resp BP BP Pulse Ox 11/06/19 12:36 72 18 121/64 96 11/06/19 12:21 64 20 121/59 L 96 11/06/19 12:06 68 16 130/50 L 99 11/06/19 10:59 36.6 C 75 18 117/62 95 11/06/19 08:00 72 11/06/19 07:04 36.7 C 77 19 98/59 L 97 11/06/19 05:13 37.0 C 64 18 113/60 95 Laboratory Results Short CBC 11/06/19 Range/Units 06:02 Hgb 8.9 L (12.0-16.0) g/dL Hct 26.5 L (37-47) % BMP 11/06/19 06:02 Sodium 137 Potassium 3.6 Chloride 108 H Carbon Dioxide 24 BUN 15 Creatinine 0.81 Glucose 93 Calcium 7.8 L
--- NOTE | 2019-11-06 13:33 | Anesthesiology Progress Note ---
Date of Service November 06, 2019 Anesthesia Post Procedure Vital Signs Vital Signs: Temp Pulse Pulse Resp BP BP Pulse Ox 11/06/19 13:27 36.8 C 78 20 113/69 95 11/06/19 12:36 72 18 121/64 96 11/06/19 12:21 64 20 121/59 L 96 11/06/19 12:06 68 16 130/50 L 99 11/06/19 10:59 36.6 C 75 18 117/62 95 11/06/19 08:00 72 11/06/19 07:04 36.7 C 77 19 98/59 L 97 11/06/19 05:13 37.0 C 64 18 113/60 95 11/05/19 23:14 36.8 C 72 18 110/58 L 97 11/05/19 19:18 37.1 C 74 22 117/67 96 11/05/19 16:00 61 11/05/19 15:40 36.6 C 57 L 20 123/71 96 Pain Intensity Right Shoulder: Pain Intensity: 0 Transfer of Care Handoff Completed per policy Notes Mental Status: alert / awake / arousable Patient Amnestic to Procedure: Yes Nausea / Vomiting: adequately controlled Pain: adequately controlled Airway Patency, RR, SpO2: stable & adequate BP & HR: stable & adequate Hydration State: stable & adequate Anesthetic Complications: no major complications apparent
[2019-11-06 16:02] LABS: Hematocrit (blood only) 27.5 % (37-47)
[2019-11-06] MEDS: CALCIUM CARBONATE 1250MG TAB PO SCH (20:33)
[2019-11-06] MEDS: CHOLECALCIFEROL 1,000 UNITS 25 MCG TAB PO SCH (20:33)
[2019-11-06] MEDS: PANTOprazole 40 MG TAB PO SCH (20:34)
[2019-11-06] MEDS: SERTRALINE HCL 100 MG TABLET PO SCH (20:34)
[2019-11-06] MEDS: FOLIC ACID 1 MG TAB PO SCH (20:34)
[2019-11-06] MEDS: cefTRIAXone SODIUM 2,000 MG in DEXTROSE 5% 50 ML IV SCH (22:31)
[2019-11-07] MEDS ORDERED: CEFDINIR 300 MG CAP PO SCH
[2019-11-07 07:13] LABS: BUN Creatinine Ratio 16.4 (10-20); Calcium 7.6 mg/dl (8.5-10.1); Creatinine Clr Calc Pharmacy 45.4 ml/min; Est GFR (African American) 62.6; Magnesium 1.9 mg/dl (1.8-2.4); Potassium 4.1 mmol/L (3.5-5.1)
[2019-11-07] MEDS: DOXYCYCLINE HYCLATE 100 MG CAP PO SCH (07:54)
[2019-11-07] MEDS: PANTOprazole 40 MG TAB PO SCH (07:54)
[2019-11-07] MEDS: OXYBUTYNIN CHLORIDE XL 5 MG TABCR PO SCH (07:54)
--- NOTE | 2019-11-07 12:46 | Hospitalist Progress Note ---
Date of Service November 07, 2019 Assessment & Plan (1) Symptomatic anemia: Patient is an 84 yr female with H/O low grade non-Hodgkins lymphoma, HTN, HLD, depression, CKD III presented to ER for abnormal labs with Hgb: 4.9, and also complained of fatigue, SOB, dizziness. Symptomatic Anemia Likely acute blood loss due to GI bleed Non-Hodgkin's lymphoma, CKD likely contributing to anemia Folate, Vit B12, Iron: normal S/P 4 units PRBCs --Colonoscopy:The examined portion of the ileum was normal. Two 3 to 5 mm polyps in the descending colon, removed with a cold snare. Resected and retrieved. Diverticulosis in the sigmoid colon. Internal hemorrhoids. The examination was otherwise normal on direct and retroflexion views. --EGD:Non-severe esophagitis. Biopsied. Atrophic gastritis. Biopsied. Normal examined duodenum. Biopsied. --Follow up Pathology results --Appreciate GI Input --Continue PO Protonix BID for 2 weeks and then once daily --Resume Aspirin --Ok with GI --No recurrence of bleeding --Monitor H&H and transfuse as needed --May need Video capsule endoscopy and Hematology follow up as outpatient (2) Shortness of breath: Secondary to anemia. Possible pneumonia Hypoxia: Resolved CXR: Moderate increase in cardiac size. Small left pleural effusion. Increased pulmonary vasculature. potential superimposed infiltrative process left base. Empirically continue antibiotics--On Ceftriaxone, Doxy Saturating well on room air Plan to discharge on p.o. antibiotics to complete the course. (3) Non-Hodgkin lymphoma: Follows with Dr Quijano. Was treated with rituximab (4) CKD (chronic kidney disease), stage III: LILY on CKD III Baseline Cr: 1.0 Monitor renal functions Avoid nephrotoxic agents when possible Cr back to baseline Hypomagnesemia Replace electrolytes as needed (5) Depression: Continue sertraline DVT Px: SCDs Re: Anemia/GI bleed Code Status DNR/DNI Disposition: PT/OT: Home with Home Health Plan to discharge home today Admission and Anticipated Discharge Date Admission Date: November 02, 2019 Subjective Patient is seen and examined at bedside No new complaints No bleeding issues overnight Minimal Cough Denies any chest pain, SOB, dizziness, nausea, abd pain Review of Systems Review of Systems: All systems reviewed & are unremarkable except as noted in HPI & below Physical Exam Physical Exam: Physical Exam: Vitals signs as noted above General Appearance:Moderately built and nourished, no apparent distress Head: normocephalic, Atraumatic Eyes: normal inspection, EOMI Neck: supple, Trachea midline Respiratory/Chest: Normal breath sounds, CTA Cardiovascular: S1, S2, No murmur Abdomen/GI:Soft, Non tender, Bowel sounds present Extremities/Musculoskelatal:normal inspection, no edema Neurologic/Psych:AAOX3, grossly no focal neurological deficits Skin: normal color, warm Results & Data Results & Data ([facility]) Vital Signs (Past 12 Hours) Vital Signs Temp Pulse Pulse Resp BP BP Pulse Ox 11/07/19 12:00 36.4 C L 69 20 110/62 95 11/07/19 10:55 93 11/07/19 08:56 36.5 C 75 18 103/50 L 94 11/07/19 08:00 74 11/07/19 07:04 36.5 C 73 18 104/50 L 95 11/07/19 02:48 36.7 C 74 18 108/68 96 Laboratory Results Short CBC 11/06/19 11/07/19 Range/Units 15:51 05:57 Hgb 9.0 L 9.0 L (12.0-16.0) g/dL Hct 27.5 L 27.0 L (37-47) % BMP 11/07/19 05:57 Sodium 138 Potassium 4.1 Chloride 109 H Carbon Dioxide 25 BUN 16 Creatinine 0.97 Glucose 97 Calcium 7.6 L
--- NOTE | 2019-11-07 13:49 | Discharge Summary ---
Date of Service November 07, 2019 Admission HPI Per Admitting Provider Pt is 84 y/o F with PMH low grade non-Hodgkins lymphoma currently being treated clinically, HTN, HLD, depression, CKD III presented to ER for abnormal labs with Hgb: 4.9 outpatient today and was referred to ER. Patient reports past couple weeks has been having fatigue and exertional shortness of breath. Also reports his been feeling lightheaded with standing. Denies syncope, chest pain, melena, hematochezia, epistaxis, hematuria. Pt denies h/o blood transfusion in past. Patient denies fever, chills. She reports for couple months has been intermittent coughing after eating but is productive of mucus. Uses cane to ambulate, denies falls. Denies fever/chills, diaphoresis, N/V/D/C, MOORE, vision changes, neck pain, CP, orthopnea, palpitations, sore throat, choking, otalgia, rhinorrhea, abdominal pain, paresthesias, extremity weakness, extremity edema, rashes, urinary symptoms. Admission Exam Per Admitting Provider Physical Exam Physical Exam: General: no distress, WDWN Head: normocephalic, atraumatic Eyes: PERRL, EOM's intact, conjunctiva pale, anicteric ENT: normal inspection external ears, nose, mucous membranes moist Neck: supple, trachea midline Lungs: R: 20, able to speak in sentence, no accessory muscle use, 100% on 2L oxygen via NC, mildly diminished breath sounds, no wheezing/rhonchi/rales CV: RRR, no murmur, no JVD, no pretibial edema Abd: normal BS, soft, non-tender Ext: no cyanosis, no calf tenderness Neuro: A&O x 3, no focal deficits noted, normal affect Skin: pale, warm, dry Principal Diagnosis Symptomatic Anemia Pneumonia Acute Kidney Injury Discharge Data Allergies Allergy/AdvReac Type Severity Reaction Status Date / Time No Known Allergies Allergy Verified 11/02/19 18:49 Consultations 11/02/19 18:33 ED Decision to Admit Stat 11/02/19 21:56 Consult Case Management - Discharge Planning Routine 11/03/19 08:00 Consult Gastroenterology Routine Consult Oncology Routine Procedures Performed Operation Date: 11/06/19 11:05 Actual Procedures p EGD Biopsy Cytology - Filiberto M. Craft s Colonoscopy Polypectomy - Filiberto Zaragoza --Colonoscopy:The examined portion of the ileum was normal. Two 3 to 5 mm polyps in the descending colon, removed with a cold snare. Resected and retrieved. Diverticulosis in the sigmoid colon. Internal hemorrhoids. The examination was otherwise normal on direct and retroflexion views. --EGD:Non-severe esophagitis. Biopsied. Atrophic gastritis. Biopsied. Normal examined duodenum. Biopsied. Hospital Course (1) Symptomatic anemia: Patient is an 84 yr female with H/O low grade non-Hodgkins lymphoma, HTN, HLD, depression, CKD III presented to ER for abnormal labs with Hgb: 4.9, and also complained of fatigue, SOB, dizziness. Symptomatic Anemia Likely acute blood loss due to GI bleed Non-Hodgkin's lymphoma, CKD likely contributing to anemia Folate, Vit B12, Iron: normal S/P 4 units PRBCs --Colonoscopy:The examined portion of the ileum was normal. Two 3 to 5 mm polyps in the descending colon, removed with a cold snare. Resected and retrieved. Diverticulosis in the sigmoid colon. Internal hemorrhoids. The examination was otherwise normal on direct and retroflexion views. --EGD:Non-severe esophagitis. Biopsied. Atrophic gastritis. Biopsied. Normal examined duodenum. Biopsied. --Follow up Pathology results --Appreciate GI Input --Continue PO Protonix BID for 2 weeks and then once daily --Resume Aspirin --Ok with GI --No recurrence of bleeding --Monitor H&H and transfuse as needed --May need Video capsule endoscopy and Hematology follow up as outpatient (2) Shortness of breath: Secondary to anemia. Possible pneumonia Hypoxia: Resolved CXR: Moderate increase in cardiac size. Small left pleural effusion. Increased pulmonary vasculature. potential superimposed infiltrative process left base. Empirically continue antibiotics--On Ceftriaxone, Doxy Saturating well on room air Plan to discharge on p.o. antibiotics to complete the course. (3) Non-Hodgkin lymphoma: Follows with Dr Quijano. Was treated with rituximab (4) CKD (chronic kidney disease), stage III: LILY on CKD III Baseline Cr: 1.0 Monitor renal functions Avoid nephrotoxic agents when possible Cr back to baseline Hypomagnesemia Replace electrolytes as needed (5) Depression: Continue sertraline DVT Px: SCDs Re: Anemia/GI bleed Code Status DNR/DNI Disposition: PT/OT: Home with Home Health Plan to discharge home today Total Time Total Time Spent Total Time Spent (In Minutes): 39 minutes Total Time Includes: Examination of the Patient, Discharge Planning, Medication Reconciliation, Communication With Other Providers and Other Discharge Plan Discharge Items Patient Disposition: Home - Home Health Services Reason For Visit: ANEMIA Discharge Diagnosis: Symptomatic Anemia Pneumonia Acute Kidney Injury Activity: Resume your previous activity Exercise/Sports: Gradually increase as tolerated Non-emergency contact: Primary Care Provider Call non-emergency contact if: you have any medication questions, your symptoms worsen, your pain is not controlled, your pain is worsening, your pain is unusual for you, your pain is concerning for you and you have a fever Follow-up/Referrals: Afia Baldwin DO [Primary Care Provider] - Diet: Heart Healthy Addtl Attending Provider Instructions: Follow up with your Primary Care Physician on November 10, 2019 at 10:25AM at [facility] office ([address], [place] [address]) Follow-up with your carrier packer for further work-up of anemia as outpatient. Consider following with your heating and ventilating tender Dr. Filiberto aZragoza if you have r ecurrence of gastrointestinal bleeding. Take Protonix 40mg twice a day for 2 weeks and then once a day as recommended by your Sports Umpire Complete the antibiotic course as prescribed for pneumonia Consider getting a video capsule endoscopy if needed for further work-up of anemia if suggested by your heating and ventilating tender or carrier packer. Seek immediate medical attention if your symptoms reoccur or worsen Pending Studies at Discharge: No Stand-Alone Forms: [facility] Moya Okruga, Smoking Cessation Medications and DC Order Prescriptions: New doxycycline hyclate 100 mg Capsule 100 mg PO BID Qty: 5 RF: 0 pantoprazole 40 mg Tablet,Delayed Release (Dr/Ec) 40 mg PO BID Qty: 60 RF: 1 cefdinir 300 mg capsule 300 mg PO BID Qty: 5 RF: 0 Continued aspirin [Aspirin Low Dose] 81 mg Tablet,Delayed Release (Dr/Ec) 81 mg PO QPM RF: 0 calcium carbonate [Calcium 600] 600 mg calcium (1,500 mg) Tablet 600 mg PO QPM RF: 0 cholecalciferol (vitamin D3) [Vitamin D3] 1,000 unit Capsule 1,000 unit PO QPM RF: 0 omega 3-xak-snf-fish oil [Fish Oil] 1,000 mg (120 mg-180 mg) Capsule 2 tab PO QPM RF: 0 sertraline 100 mg tablet 100 mg PO QPM RF: 0 folic acid 1 mg tablet 1 mg PO QPM RF: 0 acetaminophen [Tylenol Extra Strength] 500 mg Tablet 1,000 mg PO BID PRN (Reason: Pain) RF: 0 oxybutynin chloride 10 mg tablet extended release 24hr 10 mg PO DAILY RF: 0 Discharge Orders: Discharge Order (Routine); Ordered 11/07/19 Ordered By: Trey Gunter/Other Patient Handouts: Anemia, Shortness of Breath Coping, Pantoprazole tablets, Cefdinir capsules, Doxycycline tablets or capsules Admission Data Admit Date/Time: 11/02/19 19:34 Attending Provider: Trey [place] Admit Provider: Rolly Kennedy Primary Care Provider: Afia Baldwin Other Providers: Rolly Kennedy ; Oly Colunga ; Keisha Lema ; Tramaine Jorgensen ; Alanna Avila ; Filiberto Zaragoza ; Manuelito Lafleur ; Miguel Angel Stratton ; Juli Grimm ; Dionte Wiley ; Dev Jacobson ; Prisca Tucker ; Evon Graves ; Maura Johnston ; Elli Santos ; Kayla Olmos ; Shreyas Osorio Other Interventions: Discharge Summary Assessment (RN) Last Done: 11/07/19 15:09 DC Date/Time DO NOT enter until pt leaves facility: 11/07/19 16:44
[2019-11-07] MEDS ORDERED: DOXYCYCLINE HYCLATE 100 MG CAP PO SCH (15:45)
[2019-11-07] MEDS ORDERED: PANTOprazole 40 MG TAB PO SCH (15:45)
== END 2019-11-07 16:44 | disposition home health service (06) | DRG 377 ==
LOC: ED 16:32 → 2S 19:34 → SUATTDRO 19:34 → 2S 21:21

== ENCOUNTER 2019-11-17 14:26 | Inpatient (IN) ==
--- NOTE | 2019-11-17 15:00 | Emergency Department Note ---
Impression & Plan Symptomatic anemia, NHL (non-Hodgkin's lymphoma), Light-headed ED Provider Note NAME: HENRIK LIMON AGE: 84 SEX: F : 1935 ARRIVES VIA: Walk-In INFORMANT: Patient, ED PROVIDER(S): Yony Baca MD Chief Complaint: Dr. referral, anemia with hemoglobin less than 7. HPI: Recently seen last month and discharge her hemoglobin was 5 and was transfused 1 time. There was concern for GI bleed as there were polyps seen on colonoscopy status post cauterization with a negative EGD. Today she was referred as her hemoglobin is 6.7. Patient did have some dyspnea on exertion with associated lightheadedness and dizziness with sitting or standing. Patient also does complain of fatigue but this is chronic. Patient discharged in terms of last chemo. Patient denies chest pains, metaphysis, hematochezia, hematuria, fever, nausea, vomiting, diarrhea, or abdominal pain. Patient is on baby aspirin. See Dr. Quijano with oncology. Patient was referred by 1 of the oncology nurses with regards to her blood work. ROS: See HPI for pertinent positives and negatives. A total of 10 systems were reviewed and otherwise negative. Past medical history: See below Surgical history: See below Social history: See below Physical Exam: GENERAL: Mildly pale in appearance. Wearing a mask. EYE EXAM: Normal conjunctiva. PERRL, no anisocoria and EOM's grossly intact w/o pain. NECK: Supple, no nuchal rigidity, no adenopathy, non-tender. No signs of meningismus. LUNGS: Clear to auscultation. Normal chest wall mechanics. HEART: NSR, no MRG. ABDOMEN: Abdomen soft, non-tender, normo-active bowel sounds, no masses, no rebound or guarding. BACK: No CVA TTP. SKIN: No rashes and no bruising. Rectal: No bright red blood. Heme-negative stool. UPPER EXTREMITIES: Upper extremities are grossly normal. LOWER EXTREMITIES: Grossly normal, no edema. NEURO EXAM: A&O x3, cranial nerves II-XII grossly intact, normal speech, moves all 4 extremities on command w/o issue. Differential diagnoses: Reactive airway disease, pneumonia, pneumothorax, COPD, CHF, infections, cardiac ischemia, pulmonary embolism, musculoskeletal, gastrointestinal, as well as other pathologies. Course: Patient was seen and evaluated the bedside. Full history physical exam was performed. EKG: None Imaging Studies: Radiology results as stated below per my review in the radiologist's interpretation: XR chest 1V portable HISTORY: 84 years-old Female weakness acute weakness COMPARISON: Chest radiograph 11/02/2019, CTA chest 03/31/2019 TECHNIQUE: Portable AP view of the chest FINDINGS: Cardiac silhouette is enlarged, unchanged. There is pulmonary vascular congestion with bilateral interstitial opacities. Additionally, there are patchy midlung and bibasilar predominant alveolar opacities. The pattern of disease appears generally stable from comparison. Small left and trace right pleural effusions. No pneumothorax. Degenerative changes of the shoulders and spine. IMPRESSION: 1. Cardiomegaly and pulmonary vascular congestion with bilateral mixed interstitial and alveolar opacities suggestive of pulmonary edema. A superimpose d pneumonia would be difficult to exclude. 2. Small left and trace right pleural effusions. ACT 112: Negative or not required by law. The above report was generated using voice recognition software. It may contain grammatical, syntax or spelling errors. Electronically signed by: Hermann Gurrola M.D. 11/17/2019 4:08 PM Dictated: 11/17/19 1606 Transcribed: 11/17/19 1606 Cardiac monitoring: An order was placed for continuous cardiac monitoring. The monitor shows a rate of 80 with sinus rhythm. MDM: Patient does present with concern for anemia. Patient was recently seen and scoped and had a colonoscopy for GI bleed. The patient is still on a baby aspirin. Patient's blood counts were said to be low today and the patient was referred here by oncology. Patient has had some symptoms including fatigue dyspnea on exertion and lightheadedness. Patient denies hematochezia or hemat emesis. Blood work was obtained. Patient apparently has an antibody concern for immediate transfusion to her blood products are not currently available. Do not believe the patient requires any emergent transfusion given the patient is relatively asymptomatic at rest and has a negative Hemoccult. There is a plan for blood to be transported for her to receive a transfusion by tomorrow morning. I believe that this is reasonable given her stable vital signs at this time at rest. Patient does have a mild white count of 12. Hemoglobin is 6.4. Most recent was 7.6. Thrombocytosis noted. Patient does have some mild hypocalcemia. I did speak with the on-call hospitalist who agreed to further evaluate treat the patient. Patient was admitted to [facility] service under Dr. Maharaj. Patient does have mixed findings seen on her chest x-ray. I believe her shortness of breath complaints are more related to her anemia. Patient does not appear to be volume overloaded. 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 leiomyoma (Chronic) Surgical History H/O colonoscopy (Chronic) "Diverticulosis 2010, repeat in 5 years " History of cataract surgery (Chronic) LEFT History of colonoscopy (Chronic) History of incision and drainage (Chronic) History of tonsillectomy (Chronic) History of total knee arthroplasty (Chronic) x 3; Right x 2; L x 1 Hx of tooth extraction (Chronic) S/P cataract surgery (Chronic) Tubal ligation status (Chronic) Family History Father , 52 Pulmonary embolism Mother Breast cancer Social History Preferred Language: Maori Communication Ability: Effective 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 Office Required: No Beliefs That Will Affect Care: None marital status: Current Living Situation: Spouse Other Information That Helps Us Care for You: No Feels Safe at Home: Yes Safety Concerns: Feels Safe At This Time Smoking Status: Former smoker Hx Alcohol Use: No Hx Substance Use: No Allergies Allergies Allergy/AdvReac Type Severity Reaction Status Date / Time No Known Allergies Allergy Verified 11/17/19 15:47 Home Meds Home Medications Medication Instructions Recorded Confirmed aspirin [Aspirin Low Dose] 81 mg PO QPM 04/25/18 11/17/19 cholecalciferol (vitamin D3) 2,000 unit PO QPM 04/25/18 11/17/19 [Vitamin D3] omega 6-arv-sys-fish oil [Fish Oil] 2 tab PO QPM 04/25/18 11/17/19 folic acid 1 mg PO QPM 03/31/19 11/17/19 sertraline 100 mg PO QPM 03/31/19 11/17/19 acetaminophen [Tylenol Extra 1,000 mg PO BID PRN 11/02/19 11/17/19 Strength] oxybutynin chloride 10 mg PO DAILY 11/02/19 11/17/19 ascorbic acid (vitamin C) [Vitamin 500 mg PO BID 11/17/19 11/17/19 C] calcium carbonate-vitamin D3 1 tab PO DAILY 11/17/19 11/17/19 [Calcium 500 + D] melatonin 3 mg PO HS 11/17/19 11/17/19 multivitamin 1 tab PO DAILY 11/17/19 11/17/19 Previous Rx's Medication Instructions Recorded doxycycline hyclate 100 mg PO BID #5 cap 11/07/19 pantoprazole 40 mg PO BID #60 tab 11/07/19 Results & Data (ED) Vital Signs Vital Signs - 24 hr 11/17/19 14:28 11/17/19 16:05 11/17/19 16:09 Temperature 36.6 C Temperature Source Oral Pulse Rate 80 104 H Pulse Rate from SpO2 Sensor 100 H Respiratory Rate 16 20 Respiratory Effort / Characteristics Non-Labored Spontaneous Respiratory Depth Normal Respiratory Pattern Regular Blood Pressure 110/50 L Blood Pressure Mean 70 Blood Pressure Position Sitting Pulse Oximetry 95 96 Oxygen Delivery Method Room Air Sepsis Recent Fever Within 48 Hours No Sepsis New/Unexplained Change in Mental Status No Sepsis Action Taken by Nursing No Action Required 11/17/19 16:11 11/17/19 16:30 11/17/19 17:00 Temperature Temperature Source Pulse Rate 90 85 81 Pulse Rate from SpO2 Sensor 100 H 82 84 Respiratory Rate 23 23 20 Respiratory Effort / Characteristics Respiratory Depth Respiratory Pattern Blood Pressure 134/60 116/61 117/55 L Blood Pressure Mean 82 79 63 Blood Pressure Position Pulse Oximetry 90 96 Oxygen Delivery Method Sepsis Recent Fever Within 48 Hours Sepsis New/Unexplained Change in Mental Status Sepsis Action Taken by Nursing 11/17/19 17:30 11/17/19 18:00 Temperature Temperature Source Pulse Rate 76 82 Pulse Rate from SpO2 Sensor 76 82 Respiratory Rate Respiratory Effort / Characteristics Respiratory Depth Respiratory Pattern Blood Pressure 131/61 138/71 Blood Pressure Mean 90 92 Blood Pressure Position Pulse Oximetry 94 94 Oxygen Delivery Method Sepsis Recent Fever Within 48 Hours Sepsis New/Unexplained Change in Mental Status Sepsis Action Taken by Alf Medications Current Medication List: was personally reviewed by me Laboratory Data Attestation: I reviewed the patient's lab results. Result diagrams: 11/17/19 15:43 11/17/19 15:43 Lab Results 11/17/19 11/17/19 11/17/19 Range/Units 15:43 15:43 15:43 WBC 12.26 H (4.8-10.8) K/uL RBC 2.10 L (4.2-5.4) M/uL Hgb 6.4 L* (12.0-16.0) g/dL Hct 18.7 L* (37-47) % MCV 89.0 (80-100) fL MCH 30.5 (25-34) pg MCHC 34.2 (32-36) g/dL RDW Std Deviation 57.4 H (36.4-46.3) fL RDW Coeff of Marycruz 21.2 H (11.5-14.5) % Plt Count 677 H (130-400) K/uL MPV 7.8 (7.4-10.4) fL Immature Gran % (Auto) 0.4 % Neut % (Auto) 65.9 % Lymph % (Auto) 21.7 % Kendall % (Auto) 7.9 % Eos % (Auto) 3.6 % Baso % (Auto) 0.5 % Reticulocyte % (Auto) (0.5-2.0) % Immature Gran # (Auto) 0.05 H (0.00-0.02) K/uL Neut # (Auto) 8.08 H (1.4-6.5) K/uL Lymph # (Auto) 2.66 (1.2-3.4) K/uL Kendall # (Auto) 0.97 H (0.11-0.59) K/uL Eos # (Auto) 0.44 (0-0.5) K/uL Baso # (Auto) 0.06 (0-0.2) K/uL Reticulocyte # (0.02-0.10) 10^6/uL Anisocytosis Present Spherocytes 2+ PT 11.5 (9.0-12.0) Seconds INR 1.1 (0.9-1.1) APTT 30.8 (21.0-31.0) Seconds PTT Ratio 1.1 Sodium (136-145) mmol/L Potassium (3.5-5.1) mmol/L Chloride (98-107) mmol/L Carbon Dioxide (21-32) mmol/L Anion Gap (3-11) BUN (7-18) mg/dl Creatinine (0.6-1.2) mg/dl Est Cr Clr Drug Dosing Est GFR ( Amer) Est GFR (Non-Af Amer) BUN/Creatinine Ratio (10-20) Glucose (70-99) mg/dl Calcium (8.5-10.1) mg/dl Ferritin (8-388) ng/ml Total Bilirubin (0.2-1) mg/dl Direct Bilirubin (0-0.2) mg/dl AST (15-37) U/L ALT (12-78) U/L Alkaline Phosphatase (45-117) U/L NT-Pro-B Natriuret Pep (0-1800) pg/ml Total Protein (6.4-8.2) gm/dl Albumin (3.4-5.0) gm/dl Globulin (2.5-4.0) gm/dl Albumin/Globulin Ratio (0.9-2) TSH (0.300-4.500) uIu/ml Free T4 (0.8-1.6) ng/dl Blood Type A Positive Antibody Screen POSITIVE A Crossmatch See Detail 11/17/19 11/17/19 11/17/19 Range/Units 15:43 15:45 15:45 WBC (4.8-10.8) K/uL RBC (4.2-5.4) M/uL Hgb (12.0-16.0) g/dL Hct (37-47) % MCV (80-100) fL MCH (25-34) pg MCHC (32-36) g/dL RDW Std Deviation (36.4-46.3) fL RDW Coeff of Marycruz (11.5-14.5) % Plt Count (130-400) K/uL MPV (7.4-10.4) fL Immature Gran % (Auto) % Neut % (Auto) % Lymph % (Auto) % Kendall % (Auto) % Eos % (Auto) % Baso % (Auto) % Reticulocyte % (Auto) 15.6 H (0.5-2.0) % Immature Gran # (Auto) (0.00-0.02) K/uL Neut # (Auto) (1.4-6.5) K/uL Lymph # (Auto) (1.2-3.4) K/uL Kendall # (Auto) (0.11-0.59) K/uL Eos # (Auto) (0-0.5) K/uL Baso # (Auto) (0-0.2) K/uL Reticulocyte # 0.32 H (0.02-0.10) 10^6/uL Anisocytosis Spherocytes PT (9.0-12.0) Seconds INR (0.9-1.1) APTT (21.0-31.0) Seconds PTT Ratio Sodium 141 (136-145) mmol/L Potassium 3.5 (3.5-5.1) mmol/L Chloride 109 H (98-107) mmol/L Carbon Dioxide 26 (21-32) mmol/L Anion Gap 6.0 (3-11) BUN 20 H (7-18) mg/dl Creatinine 0.96 (0.6-1.2) mg/dl Est Cr Clr Drug Dosing Not Reportable Est GFR ( Amer) 63.4 Est GFR (Non-Af Amer) 54.7 BUN/Creatinine Ratio 20.4 H (10-20) Glucose 118 H (70-99) mg/dl Calcium 8.2 L (8.5-10.1) mg/dl Ferritin (8-388) ng/ml Total Bilirubin 2.0 H (0.2-1) mg/dl Direct Bilirubin (0-0.2) mg/dl AST 26 (15-37) U/L ALT 17 (12-78) U/L Alkaline Phosphatase 77 (45-117) U/L NT-Pro-B Natriuret Pep (0-1800) pg/ml Total Protein 7.5 (6.4-8.2) gm/dl Albumin 1.9 L (3.4-5.0) gm/dl Globulin 5.6 H (2.5-4.0) gm/dl Albumin/Globulin Ratio 0.3 L (0.9-2) TSH 5.440 H (0.300-4.500) uIu/ml Free T4 1.05 (0.8-1.6) ng/dl Blood Type Antibody Screen Crossmatch See Detail 11/17/19 Range/Units 15:45 WBC (4.8-10.8) K/uL RBC (4.2-5.4) M/uL Hgb (12.0-16.0) g/dL Hct (37-47) % MCV (80-100) fL MCH (25-34) pg MCHC (32-36) g/dL RDW Std Deviation (36.4-46.3) fL RDW Coeff of Marycruz (11.5-14.5) % Plt Count (130-400) K/uL MPV (7.4-10.4) fL Immature Gran % (Auto) % Neut % (Auto) % Lymph % (Auto) % Kendall % (Auto) % Eos % (Auto) % Baso % (Auto) % Reticulocyte % (Auto) (0.5-2.0) % Immature Gran # (Auto) (0.00-0.02) K/uL Neut # (Auto) (1.4-6.5) K/uL Lymph # (Auto) (1.2-3.4) K/uL Kendall # (Auto) (0.11-0.59) K/uL Eos # (Auto) (0-0.5) K/uL Baso # (Auto) (0-0.2) K/uL Reticulocyte # (0.02-0.10) 10^6/uL Anisocytosis Spherocytes PT (9.0-12.0) Seconds INR (0.9-1.1) APTT (21.0-31.0) Seconds PTT Ratio Sodium (136-145) mmol/L Potassium (3.5-5.1) mmol/L Chloride (98-107) mmol/L Carbon Dioxide (21-32) mmol/L Anion Gap (3-11) BUN (7-18) mg/dl Creatinine (0.6-1.2) mg/dl Est Cr Clr Drug Dosing Est GFR ( Amer) Est GFR (Non-Af Amer) BUN/Creatinine Ratio (10-20) Glucose (70-99) mg/dl Calcium (8.5-10.1) mg/dl Ferritin 1020.4 H (8-388) ng/ml Total Bilirubin (0.2-1) mg/dl Direct Bilirubin 0.7 H (0-0.2) mg/dl AST (15-37) U/L ALT (12-78) U/L Alkaline Phosphatase (45-117) U/L NT-Pro-B Natriuret Pep 981 (0-1800) pg/ml Total Protein (6.4-8.2) gm/dl Albumin (3.4-5.0) gm/dl Globulin (2.5-4.0) gm/dl Albumin/Globulin Ratio (0.9-2) TSH (0.300-4.500) uIu/ml Free T4 (0.8-1.6) ng/dl Blood Type Antibody Screen Crossmatch Blood Pressure Blood Pressure Findings: Low blood pressure Blood Pressure Disposition: further management by hospitalist Discharge Plan Visit Data Chief Complaint: Referred by Doctor Stated Complaint: ABNORMAL LABS,BLOOD COUNT LOW,DOC REF ED Provider: Yony Baca ED Midlevel Provider: Jose Quijano Discharge Problem: Symptomatic anemia, NHL (non-Hodgkin's lymphoma), Light-headed Forms Stand Alone Forms: [facility] Prescriptions Prescriptions: No Action aspirin [Aspirin Low Dose] 81 mg Tablet,Delayed Release (Dr/Ec) 81 mg PO QPM RF: 0 cholecalciferol (vitamin D3) [Vitamin D3] 1,000 unit Capsule 2,000 unit PO QPM RF: 0 omega 9-pbo-cnd-fish oil [Fish Oil] 1,000 mg (120 mg-180 mg) Capsule 2 tab PO QPM RF: 0 multivitamin Tablet 1 tab PO DAILY RF: 0 ascorbic acid (vitamin C) [Vitamin C] 500 mg Tablet 500 mg PO BID RF: 0 melatonin 1 mg Tablet 3 mg PO HS RF: 0 calcium carbonate-vitamin D3 [Calcium 500 + D] 500 mg(1,250mg) -400 unit Tablet 1 tab PO DAILY RF: 0 sertraline 100 mg tablet 100 mg PO QPM RF: 0 folic acid 1 mg tablet 1 mg PO QPM RF: 0 acetaminophen [Tylenol Extra Strength] 500 mg Tablet 1,000 mg PO BID PRN (Reason: Pain) RF: 0 oxybutynin chloride 10 mg tablet extended release 24hr 10 mg PO DAILY RF: 0 doxycycline hyclate 100 mg Capsule 100 mg PO BID Qty: 5 RF: 0 pantoprazole 40 mg Tablet,Delayed Release (Dr/Ec) 40 mg PO BID Qty: 60 RF: 1 Discharge Problem: NHL (non-Hodgkin's lymphoma) Qualifiers: Non-Hodgkin lymphoma type: unspecified type Lymphoma site: unspecified region Qualified Code(s): C85.90 - Non-Hodgkin lymphoma, unspecified, unspecified site
[2019-11-17] MEDS ORDERED: SODIUM CHLORIDE 0.9% 250 ML IV PRN ×2 (15:20→19:08)
--- NOTE | 2019-11-17 15:29 | Emergency Department Note ---
ED Visit Note I assisted Dr. Baca in the care of this patient. Please see attending attestation. Jose Quijano DO Resident, Family & Community Medicine, [facility] . Resident Activity Tracking Resident Involvement: Resident Care Provided Care Provided: Adult ED
[2019-11-17 15:59] LABS: Hematocrit (blood only) 18.7 % (37-47); Hemoglobin 6.4 g/dL (12.0-16.0); Mean Corpuscular Hemoglobin 30.5 pg (25-34); Mean Corpuscular Hgb Conc 34.2 g/dL (32-36); Mean Platelet Volume 7.8 fL (7.4-10.4); Platelet Count 677 K/uL (130-400); RDW Coefficient of Variation 21.2 % (11.5-14.5); RDW Standard Deviation 57.4 fL (36.4-46.3); White Blood Count 12.26 K/uL (4.8-10.8)
[2019-11-17 16:09] LABS: INR 1.1 (0.9-1.1); Partial Thromboplastin Ratio 1.1; Partial Thromboplastin Time 30.8 Seconds (21.0-31.0); Prothrombin Time 11.5 Seconds (9.0-12.0)
--- NOTE | 2019-11-17 16:10 | XRay Report ---
XR chest 1V portable HISTORY: 84 years-old Female weakness acute weakness COMPARISON: Chest radiograph 11/02/2019, CTA chest 03/31/2019 TECHNIQUE: Portable AP view of the chest FINDINGS: Cardiac silhouette is enlarged, unchanged. There is pulmonary vascular congestion with bilateral inte rstitial opacities. Additionally, there are patchy midlung and bibasilar predominant alveolar opaciti es. The pattern of disease appears generally stable from comparison. Small left and trace right pleur al effusions. No pneumothorax. Degenerative changes of the shoulders and spine. IMPRESSION: 1. Cardiomegaly and pulmonary vascular congestion with bilateral mixed interstitial and alveolar opac ities suggestive of pulmonary edema. A superimposed pneumonia would be difficult to exclude. 2. Small left and trace right pleural effusions. ACT 112: Negative or not required by law. The above report was generated using voice recognition software. It may contain grammatical, syntax o r spelling errors. Electronically signed by: Hermann Gurrola M.D. 11/17/2019 4:08 PM
[2019-11-17 16:21] LABS: Alanine Aminotransferase 17 U/L (12-78); Albumin Level 1.9 gm/dl (3.4-5.0); Aspartate Aminotransferase 26 U/L (15-37); BUN Creatinine Ratio 20.4 (10-20); Blood Urea Nitrogen 20 mg/dl (7-18); Calcium 8.2 mg/dl (8.5-10.1); Carbon Dioxide 26 mmol/L (21-32); Chloride 109 mmol/L (98-107); Est GFR (African American) 63.4; Est GFR (Non-African American) 54.7; Glucose 118 mg/dl (70-99); Potassium 3.5 mmol/L (3.5-5.1); Sodium 141 mmol/L (136-145)
[2019-11-17 16:31] LABS: Albumin Globulin Ratio 0.3 (0.9-2); Alkaline Phosphatase 77 U/L (45-117); Globulin 5.6 gm/dl (2.5-4.0); Total Protein 7.5 gm/dl (6.4-8.2)
[2019-11-17 16:38] LABS: Anisocytosis Present; Basophils # (auto) 0.06 K/uL (0-0.2); Basophils % (auto) 0.5 %; Eosinophils # (auto) 0.44 K/uL (0-0.5); Eosinophils % (auto) 3.6 %; Immature Granulocytes # (auto) 0.05 K/uL (0.00-0.02); Immature Granulocytes % (auto) 0.4 %; Lymphocytes # (auto) 2.66 K/uL (1.2-3.4); Lymphocytes % (auto) 21.7 %; Monocytes # (auto) 0.97 K/uL (0.11-0.59); Monocytes % (auto) 7.9 %; Neutrophils # (auto) 8.08 K/uL (1.4-6.5); Neutrophils % (auto) 65.9 %; Spherocytes 2+
[2019-11-17 16:44] LABS: T4 Free Thyroxine 1.05 ng/dl (0.8-1.6)
--- NOTE | 2019-11-17 17:25 | History & Physical Report ---
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 Osorio, CKD stage III, HTN, HLD, depression, osteoporosis, MTHFR mutation, hypertension who presents to ED at the request of her oncologist due to anemia. Had work up in outpt hematology/oncology office yesterday which revealed elevated ferritin 1,501, B12 781, Haptoglobin 25, LDH 339, retic elevated 12.5%, +Direct comb and +iGG Peripheral smear Revealed normocytic anemia with an no cytosis, leukocytosis with absolute neutrophilia, marked thrombocytosis with platelet counts present. These findings along with increased LDH, increase bilirubin, low haptoglobin and positive direct Devi to do support possibility of hemolysis. admit to PCU Type and cross for 4 units Transfuse 1 unit when arrives - will not arrive til tomorrow -will need additional unit ordered to be transfused once assessed by a.m. provider and like lasix between units Attending to speak to Dr. Quijano oncologist/claims adjudicator alterations tailor Pt with Direct Langston positive hemolytic anemia in setting of low grade B cell lymphoma Dr. Quijano recommends prednisone 1 mg/kg/day along with folic acid supplementation They may consider Rituxan as outpatient treatment Will likely need ongoing discussion with hematology throughout admission obtain A1C, and add low dose sliding scale due to anticipated hyperglycemia with prednisone use (4) Lower extremity edema: new per pt, R > L reported weight gain, but weight at d/c 11/06 was 81.5kg and today 81kg obtain b/l lower ext venous doppler CXR with ? pulm vasc congestion, LLL pleural effusion - r/o CHF - obtain echo, probnp (last echo 03/2019 EF 65 to 70%, AV sclerosis, mild pulmonary hypertension) hypoalbuminemia likely contributing TEDS (5) Chronic gastritis: Recent admission pt underwent EGD Colonoscopy due to profound anemia -Colonoscopy:The examined portion of the ileum was normal. Two 3 to 5 mm polyps in the descending colon, removed with a cold snare. Resected and retrieved. Diverticulosis in the sigmoid colon. Internal hemorrhoids. The examination was otherwise normal on direct and retroflexion views. --EGD:Non-severe esophagitis. Biopsied. Atrophic gastritis. Biopsied. Normal examined duodenum. Biopsied. Recommended PPI BID continue PPI, no s/sx of overt bleeding check FOBT (6) Hypoalbuminemia: low albumin in setting of malignancy alb 1.9, could be cause of peripheral edema consider lasix with albumin once volume resuscitated with PRBC (7) B-cell lymphoma: Follows Dr. Osorio, S/P Rituximab x 4 finished on 05/27/2019 (8) CKD (chronic kidney disease), stage III: Bun/Cr 20 and 0.96 stable, monitor (9) Depression: continue zoloft mood stable (10) DVT prophylaxis: TEDS, if US lower ext negative add SCD Disposition: admit to PCU Follow up: PCP Dr. Trejo upon discharge Pt was seen and examined in collaboration with Dr. Maharaj, please see addendum History of Present Illness Chief Complaint: Referred by Oncologist due to Anemia. Primary Care Provider: Afia Baldwin, DO This this is an 84-year-old female who has significant past medical history of low-grade B-cell lymphoma s/p rituximab x 4 last dose 05/27/[address] Osorio, CKD stage III, HTN, HLD, depression, osteoporosis, MTHFR mutation, hypertension who presents to ED at the request of her oncologist due to anemia. She was seen and evaluated by Dr. Osorio for follow-up secondary to low-grade lymphoma and hospitalization on 11/15 . On 11/01 lab work noted severe anemia at 4.9, low albumin and high LDH. She was hospitalized until 11/06. At that time she underwent 4 unit PRBC transfusion. Also was treated empirically with IV Rocephin and doxycycline for questionable infiltrative process on chest x-ray. She was discharged in stable condition and follow-up lab work revealed a decrease in hemoglobin from 9 at discharge to 7.6 on 11/12. She had repeat CBC yesterday which revealed hemoglobin of 6.9. Due to this she was referred to ED. Patient complains of increasing fatigue, shortness with with exertion and weight gain. She is unsure approximate amount but has noted increased lower extremity swelling over the past few days. She also complains of an occasional productive cough of clear sputum for the past 3 weeks. She denies fever, chills, sweats, lightheadedness, dizziness, syncope, chest pain, shortness breath at rest, palpitations, hemoptysis, nausea, vomiting, abdominal pain, diarrhea, melena, hematochezia, hematuria, dysuria, epistaxis. She does take aspirin on a regular basis but is not on any anticoagulation. She denies any known exposure to patient with positive COVID-19 or symptoms. She denies any loss of taste or smell. In ED patient remained hemodynamically stable with blood pressure 110/50 and heart rate of 80. She did not require any supplemental oxygen. Lab work notable for anemia with hemoglobin of 6.4 and hematocrit 18.7, WBC 12.26, platelet 677, K3.5, BUN 20, creatinine 0.96, glucose 118, total bili 2.0, AST/ALT WNL, albumin 1.9, TSH 5.4, free T4 1.05. CXR: IMPRESSION: 1. Cardiomegaly and pulmonary vascular congestion with bilateral mixed interstitial and alveolar opacities suggestive of pulmonary edema. A superimposed pneumonia would be difficult to exclude. 2. Small left and trace right pleural effusions. She was type and crossed in ED and unfortunately requires irradiated blood which is not available in house and will require a delivery, likely tomorrow. Allergies Allergy/AdvReac Type Severity Reaction Status Date / Time No Known Allergies Allergy Verified 11/17/19 15:47 Home Medications Home Medications Medication Instructions Recorded Confirmed Type aspirin [Aspirin Low Dose] 81 mg PO QPM 04/25/18 11/17/19 History cholecalciferol (vitamin D3) 2,000 unit PO QPM 04/25/18 11/17/19 History [Vitamin D3] omega 0-yud-izo-fish oil [Fish Oil] 2 tab PO QPM 04/25/18 11/17/19 History folic acid 1 mg PO QPM 03/31/19 11/17/19 History sertraline 100 mg PO QPM 03/31/19 11/17/19 History acetaminophen [Tylenol Extra 1,000 mg PO BID PRN 11/02/19 11/17/19 History Strength] oxybutynin chloride 10 mg PO DAILY 11/02/19 11/17/19 History doxycycline hyclate 100 mg PO BID #5 cap 11/07/19 11/17/19 Rx pantoprazole 40 mg PO BID #60 tab 11/07/19 11/17/19 Rx ascorbic acid (vitamin C) [Vitamin 500 mg PO BID 11/17/19 11/17/19 History C] calcium carbonate-vitamin D3 1 tab PO DAILY 11/17/19 11/17/19 History [Calcium 500 + D] melatonin 3 mg PO HS 11/17/19 11/17/19 History multivitamin 1 tab PO DAILY 11/17/19 11/17/19 History 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 leiomyoma (Chronic) Surgical History H/O colonoscopy (Chronic) "Diverticulosis 2010, repeat in 5 years " History of cataract surgery (Chronic) LEFT History of colonoscopy (Chronic) History of incision and drainage (Chronic) History of tonsillectomy (Chronic) History of total knee arthroplasty (Chronic) x 3; Right x 2; L x 1 Hx of tooth extraction (Chronic) S/P cataract surgery (Chronic) Tubal ligation status (Chronic) Family History Father , 52 Pulmonary embolism Mother Breast cancer Social History Preferred Language: Kiswahili Communication Ability: Effective 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 Beliefs That Will Affect Care: None marital status: Current Living Situation: Spouse Other Information That Helps Us Care for You: No Feels Safe at Home: Yes Safety Concerns: Feels Safe At This Time Smoking Status: Former smoker Hx Alcohol Use: No Hx Substance Use: No Review of Systems Review of Systems: All systems reviewed & are unremarkable except as noted in HPI & below Physical Exam Physical Exam: Constitutional: WD/WN, elderly, female, pale, vitals as above, NAD, sitting up in bed, pleasant, conversing easily Head: Normocephalic, Atraumatic Eyes: PERRL, conjunctivae normal, anicteric sclerae ENMT: external ear and nose normal, oropharynx normal Neck: trachea midline, no thyromegaly normal visual inspection Respiratory: normal respiratory effort, lungs clear to auscultation, no wheeze, rales, rhonchi. Normal insp/exp effort, no accessory muscle use Cardiovascular: RRR, occasional ectopy, no murmur, +1 lower extremity edema bilaterally, right greater than left, no erythema, negative Homans Vessels: no JVD or carotid bruit Chest: normal inspection of chest Abdomen: normal bowel sounds, soft, nontender, no hepatosplenomegaly Musculoskeletal: no cyanosis or clubbing, extremities motor strength 5/5 Skin: no rashes, warm and dry normal turgor , cap refill > 2sec Neurologic: PERRL, EOMI, accommodation nl, no face palsy, no dysarthria CN's II-XI intact bilaterally and moves all extremities Psychiatric: A+Ox3, euthymic affect Lymphatic: no cervical or axillary lymphadenopathy : deferred Results & Data Results & Data ([facility]) Vital Signs (Past 12 Hours) Vital Signs Temp Pulse Resp BP Pulse Ox 11/17/19 16:05 96 11/17/19 14:28 36.6 C 80 16 110/50 L 95 Laboratory Results Short CBC 11/17/19 Range/Units 15:43 WBC 12.26 H (4.8-10.8) K/uL Hgb 6.4 L* (12.0-16.0) g/dL Hct 18.7 L* (37-47) % Plt Count 677 H (130-400) K/uL BMP 11/17/19 15:43 Sodium 141 Potassium 3.5 Chloride 109 H Carbon Dioxide 26 BUN 20 H Creatinine 0.96 Glucose 118 H Calcium 8.2 L Liver Function 11/17/19 Range/Units 15:43 Total Bilirubin 2.0 H (0.2-1) mg/dl AST 26 (15-37) U/L ALT 17 (12-78) U/L Alkaline Phosphatase 77 (45-117) U/L Albumin 1.9 L (3.4-5.0) gm/dl Diagnostic Findings CXR: IMPRESSION: 1. Cardiomegaly and pulmonary vascular congestion with bilateral mixed interstitial and alveolar opacities suggestive of pulmonary edema. A superimposed pneumonia would be difficult to exclude. 2. Small left and trace right pleural effusions. ECG Rate (beats per minute): 87 Rhythm: normal sinus Findings: + 1st degree AV block and + PAC Code Status & VTE Plan Code Status Full Code VTE Prophylaxis Plan VTE Prophylaxis will be ordered: Yes Supervising Physician Co-Signing Physician Notes I, Dr. Jose De Jesus Maharaj, have seen and examined the patient Zoya Sagastume with physician assistant cook and would like to comment that On physical exam in the ED General: no acute distress Lungs: no wheezing, generally clear lung exam Heart: regular rate Abdomen: soft, nontender, positive bowel sounds Extremities: bilateral lower extremity edema Neuro/Psych: patient is verbal, awake and alert, pleasant, responds to questions appropriately ASSESSMENT AND PLAN CANCER B cell Lymphoma RECURRENT ANEMIA, ACUTE ON CHRONIC ANEMIA secondary to HEMOLYSIS THROMBOCYOSIS BILATERAL EDEMA OF LOWER EXTREMITIES HYPOALBUMINEMIA -This is a patient with recurrent anemia. Cancer history suggests that the anemia is from lack of hemoglobin production versus lysis of hemolysis. -Recent peripheral smear: Revealed normocytic anemia with an no cytosis, leukocytosis with absolute neutrophilia, marked thrombocytosis with platelet counts present. These findings along with increased LDH, increase bilirubin, low haptoglobin and positive direct Devi to do support possibility of hemolysi s. -Discussed with [facility] [address] hematology at [facility] about starting prednisone 1 mg/kg daily and folic acid for the hemolysis -Patient needs blood transfusions on this admission but because of antibodies which take time for screening and appropriate PRBCs to be delivered to this hospital, patient not likely to get blood transfusions until 11/18/2019. Lower extremity swelling likely from hypoalbuminemia with low serum albumin of 1.9 and likely can benefit from Lasix with albumin when she does get the blood transfusions. Check echocardiogram and BNP, lower extremity dopplers to rule out DVTs. Until ultrasound results return, will place patient on TEDs rather than SCDs. Avoid pharmacological anticoagulation. -agree with other plans as documented by physician assistant cook for other health is sues -Full Code Status as per my discussion with patient -My colleague will be taking over the care of the patient as consult service hospitalist starting on 11/18/2019
[2019-11-17 17:59] LABS: Reticulocyte % 15.6 % (0.5-2.0); Reticulocytes # 0.32 10^6/uL (0.02-0.10)
[2019-11-17 18:05] LABS: Bilirubin Direct 0.7 mg/dl (0-0.2); Ferritin 1020.4 ng/ml (8-388)
[2019-11-17] MEDS ORDERED: DEXTROSE 50% 50 ML SYRINGE IV PRN (19:08)
[2019-11-17] MEDS ORDERED: GLUCOSE 10 TABS/TUBE PO PRN (19:08)
[2019-11-17] MEDS ORDERED: ALUMINUM/MAGNESIUM SUSP 30 ML UDC PO PRN (19:08)
[2019-11-17] MEDS ORDERED: CARBOHYDRATES FOR HYPOGLYCEMIA PO PRN (19:08)
[2019-11-17] MEDS ORDERED: POLYETHYLENE (MIRALAX) 17 GM PACK PO PRN (19:08)
[2019-11-17] MEDS ORDERED: GLUCOSE 40% GEL 15 GM TUBE PO PRN (19:08)
[2019-11-17] MEDS ORDERED: GLUCAGON FOR INJ 1 MG VIAL SQ PRN (19:08)
[2019-11-17] MEDS ORDERED: ACETAMINOPHEN 325 MG TAB PO PRN (19:08)
[2019-11-17] MEDS ORDERED: ONDANSETRON INJ 2 MG/ML 2 ML VIAL IV PRN (19:08)
--- NOTE | 2019-11-17 20:09 | Ultrasound Report ---
BILATERAL LOWER EXTREMITY VENOUS DOPPLER HISTORY: Acute pain and swelling of the bilateral lower extremities edema COMPARISON STUDY: Duplex venous Doppler study 08/09/2015. FINDINGS: There is normal compressibility, flow, and augmentation within the bilateral lower extremit y deep venous systems. IMPRESSION: No DVT within the right or left lower extremity. ACT 112: Negative or not required by law. Electronically signed by: Hermann Gurrola M.D. 11/17/2019 8:08 PM
[2019-11-17] MEDS: INSULIN ASPART 100 UNITS/ML 3 ML PEN SC SCH (21:12)
[2019-11-17] MEDS: PANTOprazole 40 MG TAB PO SCH (21:25)
[2019-11-17] MEDS: SERTRALINE HCL 100 MG TABLET PO SCH (21:25)
[2019-11-17] MEDS: predniSONE 20 MG TAB PO SCH (21:25)
[2019-11-17] MEDS: FOLIC ACID 1 MG TAB PO SCH (21:26)
[2019-11-18 07:15] LABS: Basophils # (auto) 0.02 K/uL (0-0.2); Basophils % (auto) 0.2 %; Eosinophils # (auto) 0.01 K/uL (0-0.5); Eosinophils % (auto) 0.1 %; Hematocrit (blood only) 21.1 % (37-47); Hemoglobin 7.2 g/dL (12.0-16.0); Immature Granulocytes % (auto) 0.8 %; Lymphocytes # (auto) 1.74 K/uL (1.2-3.4); Lymphocytes % (auto) 14.5 %; Mean Corpuscular Hemoglobin 30.6 pg (25-34); Mean Corpuscular Hgb Conc 34.1 g/dL (32-36); Mean Corpuscular Volume 89.8 fL (80-100); Monocytes # (auto) 0.11 K/uL (0.11-0.59); Monocytes % (auto) 0.9 %; Neutrophils # (auto) 10.04 K/uL (1.4-6.5); Neutrophils % (auto) 83.5 %; Nucleated RBC # (auto) 0.02 K/uL (0-0); Nucleated RBC % (auto) 0.2 %; Platelet Count 708 K/uL (130-400); RDW Coefficient of Variation 22.3 % (11.5-14.5); RDW Standard Deviation 60.8 fL (36.4-46.3); Red Blood Count 2.35 M/uL (4.2-5.4); White Blood Count 12.02 K/uL (4.8-10.8)
[2019-11-18] MEDS ORDERED: SODIUM CHLORIDE 0.9% 250 ML IV PRN (07:43)
[2019-11-18 07:44] LABS: Anisocytosis Present; Polychromasia 1+; Spherocytes 2+
[2019-11-18 07:48] LABS: Albumin Globulin Ratio 0.3 (0.9-2); Albumin Level 1.9 gm/dl (3.4-5.0); BUN Creatinine Ratio 19.7 (10-20); Bilirubin,Total 2.2 mg/dl (0.2-1); Calcium 7.8 mg/dl (8.5-10.1); Creatinine Clr Calc Pharmacy 46.5 ml/min; Est GFR (African American) 64.2; Est GFR (Non-African American) 55.4; Globulin 5.6 gm/dl (2.5-4.0); Potassium 4.1 mmol/L (3.5-5.1); Total Protein 7.5 gm/dl (6.4-8.2)
[2019-11-18] MEDS: OXYBUTYNIN CHLORIDE XL 5 MG TABCR PO SCH (07:54)
[2019-11-18] MEDS: PANTOprazole 40 MG TAB PO SCH ×2 (07:55→21:51)
[2019-11-18] MEDS: predniSONE 20 MG TAB PO SCH (07:56)
[2019-11-18] MEDS: INSULIN ASPART 100 UNITS/ML 3 ML PEN SC SCH ×4 (07:58→21:50)
[2019-11-18 08:35] LABS: Estimated Average Glucose 85 mg/dl; Hemoglobin A1C 4.6 % (4.5-5.6)
--- NOTE | 2019-11-18 14:30 | Electrocardiogram Report ---
Test Reason : Blood Pressure : / mmHG Vent. Rate : 087 BPM Atrial Rate : 087 BPM P-R Int : 216 ms QRS Dur : 080 ms QT Int : 390 ms P-R-T Axes : 061 -27 026 degrees QTc Int : 469 ms Sinus rhythm with 1st degree A-V block with Premature atrial complexes Low voltage QRS Abnormal ECG When compared with ECG of 02-NOV-2019 17:28, Premature atrial complexes are now Present MO interval has increased Confirmed by Michael Ramos ([id number]) on 11/18/2019 2:30:51 PM Referred By: Afia Baldwin Confirmed By:Jonathan Ramos
[2019-11-18 18:09] LABS: Hematocrit (blood only) 26.7 % (37-47); Hemoglobin 9.2 g/dL (12.0-16.0)
--- NOTE | 2019-11-18 19:14 | Hospitalist Progress Note ---
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 Osorio, CKD stage III, HTN, HLD, depression, osteoporosis, MTHFR mutation, hypertension who presents to ED at the request of her oncologist due to anemia. Hemolytic anemia/lymphoproliferative disorder Symptomatic anemia Thrombocytosis Work up in outpt hematology/oncology office:elevated ferritin 1,501; B12 781, Haptoglobin 25, LDH 339, retic elevated 12.5%, +Direct comb and +IGG Peripheral smear Revealed normocytic anemia with an no cytosis, leukocytosis with absolute neutrophilia, marked thrombocytosis with platelet counts present. S/P 2 units PRBCs Continue Prednisone, folic acid Monitor CBC Plan to discuss with Oncology Dr. Quijano oncologist Likely to consider Rituxan as outpatient treatment Hyperglycemia Likely due to steroids Hb A1C:4.6 Monitor blood glucose levels Continue insulin therapy for now (4) Lower extremity edema: Venous Doppler:No DVT within the right or left lower extremity. ECHO: Mild concentric LVH. Left ventricular systolic function is normal. Ejection fraction 60 to 65%. The right ventricle systolic function is normal. Left atrial size is normal. Right atrial size is normal. There is mild mitral regurgitation. There is moderate tricuspid regurgitation. CXR: Pulm congestion Normal procalcitonin level Patient denies any respiratory symptoms Monitor volume status (5) Chronic gastritis: Recent admission pt underwent EGD Colonoscopy due to profound anemia -Colonoscopy:The examined portion of the ileum was normal. Two 3 to 5 mm polyps in the descending colon, removed with a cold snare. Resected and retrieved. Diverticulosis in the sigmoid colon. Internal hemorrhoids. The examination was otherwise normal on direct and retroflexion views. --EGD:Non-severe esophagitis. Biopsied. Atrophic gastritis. Biopsied. Normal examined duodenum. Biopsied. --continue PPI BID (6) Hypoalbuminemia: low albumin in setting of malignancy alb 1.9, could be cause of peripheral edema consider lasix PRN (7) B-cell lymphoma: Follows Dr. Osorio, S/P Rituximab x 4 finished on 05/27/2019 (8) CKD (chronic kidney disease), stage III: Bun/Cr 20 and 0.96 stable, monitor (9) Depression: continue zoloft mood stable (10) DVT prophylaxis: SCDs Re; Anemia Disposition: PT/OT prior to discharge Admission and Anticipated Discharge Date Admission Date: November 17, 2019 Subjective Patient is seen and examined at bedside Offers no complaints Got PRBCs this morning Denies any chest pain, shortness of breath, dizziness, nausea, abdominal pain No bleeding issues Review of Systems Review of Systems: All systems reviewed & are unremarkable except as noted in HPI & below Physical Exam Physical Exam: Physical Exam: Vitals signs as noted above General Appearance:Obese, no apparent distress Head: normocephalic, Atraumatic Eyes: normal inspection, EOMI Neck: supple, Trachea midline Respiratory/Chest: Normal breath sounds, CTA, No accessory muscle use Cardiovascular: S1, S2, No murmur Abdomen/GI:Soft, Non tender, Bowel sounds present Extremities/Musculoskelatal:normal inspection, Trace edema Neurologic/Psych:AAOX3, grossly no focal neurological deficits Skin: normal color, warm Results & Data Results & Data ([facility]) Vital Signs (Past 12 Hours) Vital Signs Temp Pulse Pulse Resp BP BP Pulse Ox 11/18/19 18:42 75 11/18/19 15:48 36.3 C L 99 H 16 104/72 96 11/18/19 15:18 36.8 C 88 16 126/72 98 11/18/19 14:18 36.7 C 82 16 126/72 94 11/18/19 13:48 36.7 C 79 16 111/65 95 11/18/19 13:33 36.6 C 78 16 108/65 95 11/18/19 13:08 36.3 C L 95 H 16 109/55 L 94 11/18/19 12:04 36.6 C 86 16 107/66 96 11/18/19 11:41 36.4 C L 88 16 117/67 94 11/18/19 10:41 36.4 C L 91 H 16 100/65 91 11/18/19 10:11 36.3 C L 74 16 105/62 93 11/18/19 09:56 36.4 C L 82 16 105/62 92 11/18/19 09:27 36.4 C L 84 16 102/61 94 11/18/19 07:48 36.9 C 90 66 16 115/63 96 Laboratory Results Short CBC 05/20/20 05/20/20 Range/Units 06:38 18:01 WBC 12.02 H (4.8-10.8) K/uL Hgb 7.2 L 9.2 L (12.0-16.0) g/dL Hct 21.1 L 26.7 L (37-47) % Plt Count 708 H (130-400) K/uL BMP 11/18/19 06:38 Sodium 141 Potassium 4.1 D Chloride 109 H Carbon Dioxide 24 BUN 19 H Creatinine 0.95 Glucose 191 H Calcium 7.8 L Liver Function 11/18/19 Range/Units 06:38 Total Bilirubin 2.2 H (0.2-1) mg/dl AST 24 (15-37) U/L ALT 17 (12-78) U/L Alkaline Phosphatase 84 (45-117) U/L Albumin 1.9 L (3.4-5.0) gm/dl
[2019-11-18] MEDS ORDERED: INSULIN GLARGINE SOLOSTAR 100 UNITS/ML 3 ML PEN SC SCH (21:00)
[2019-11-18] MEDS: SERTRALINE HCL 100 MG TABLET PO SCH (21:21)
[2019-11-18] MEDS: FOLIC ACID 1 MG TAB PO SCH (21:21)
[2019-11-18] MEDS: INSULIN GLARGINE SOLOSTAR 100 UNITS/ML 3 ML PEN SC SCH (21:51)
[2019-11-19 07:40] LABS: Hematocrit (blood only) 25.6 % (37-47); Hemoglobin 8.9 g/dL (12.0-16.0); Mean Corpuscular Hgb Conc 34.8 g/dL (32-36); Mean Corpuscular Volume 89.2 fL (80-100); Mean Platelet Volume 8.1 fL (7.4-10.4); Nucleated RBC # (auto) 0.06 K/uL (0-0); Nucleated RBC % (auto) 0.4 %; Platelet Count 599 K/uL (130-400); RDW Coefficient of Variation 20.7 % (11.5-14.5); RDW Standard Deviation 51.7 fL (36.4-46.3); Red Blood Count 2.87 M/uL (4.2-5.4); White Blood Count 15.75 K/uL (4.8-10.8)
[2019-11-19] MEDS: INSULIN ASPART 100 UNITS/ML 3 ML PEN SC SCH ×4 (08:00→21:36)
[2019-11-19 08:01] LABS: BUN Creatinine Ratio 24.9 (10-20); Calcium 8.1 mg/dl (8.5-10.1); Creatinine Clr Calc Pharmacy 48.2 ml/min; Est GFR (African American) 65.9; Est GFR (Non-African American) 56.8; Potassium 3.5 mmol/L (3.5-5.1)
[2019-11-19] MEDS: predniSONE 20 MG TAB PO SCH (08:01)
[2019-11-19] MEDS: OXYBUTYNIN CHLORIDE XL 5 MG TABCR PO SCH (08:01)
[2019-11-19] MEDS: PANTOprazole 40 MG TAB PO SCH ×2 (08:01→21:38)
--- NOTE | 2019-11-19 17:59 | Hospitalist Progress Note ---
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 Osorio, CKD stage III, HTN, HLD, depression, osteoporosis, MTHFR mutation, hypertension who presents to ED at the request of her oncologist due to anemia. Hemolytic anemia/lymphoproliferative disorder Symptomatic anemia Thrombocytosis Work up in outpt hematology/oncology office:elevated ferritin 1,501; B12 781, Haptoglobin 25, LDH 339, retic elevated 12.5%, +Direct comb and +IGG Peripheral smear Revealed normocytic anemia with an no cytosis, leukocytosis with absolute neutrophilia, marked thrombocytosis with platelet counts present. S/P 2 units PRBCs Continue Prednisone, folic acid Monitor CBC Discussed with Oncology Dr. Quijano on 11/19/19 Likely to consider Rituxan as outpatient treatment Plan to continue prednisone 80 mg daily--needs tapering as outpatient Leukocytosis secondary to steroids Needs follow-up with oncology upon discharge Hyperglycemia Likely due to steroids Patient admits to eating a lot of sweets Hb A1C:4.6 Monitor blood glucose levels Continue insulin therapy for now (4) Lower extremity edema: Venous Doppler:No DVT within the right or left lower extremity. ECHO: Mild concentric LVH. Left ventricular systolic function is normal. Ejection fraction 60 to 65%. The right ventricle systolic function is normal. Left atrial size is normal. Right atrial size is normal. There is mild mitral regurgitation. There is moderate tricuspid regurgitation. CXR: Pulm congestion Normal procalcitonin level Patient denies any respiratory symptoms Monitor volume status (5) Chronic gastritis: Recent admission pt underwent EGD Colonoscopy due to profound anemia -Colonoscopy:The examined portion of the ileum was normal. Two 3 to 5 mm polyps in the descending colon, removed with a cold snare. Resected and retrieved. Diverticulosis in the sigmoid colon. Internal hemorrhoids. The examination was otherwise normal on direct and retroflexion views. --EGD:Non-severe esophagitis. Biopsied. Atrophic gastritis. Biopsied. Normal examined duodenum. Biopsied. --continue PPI BID (6) Hypoalbuminemia: low albumin in setting of malignancy alb 1.9, could be cause of peripheral edema consider lasix PRN (7) B-cell lymphoma: Follows Dr. Osorio, S/P Rituximab x 4 finished on 05/27/2019 (8) CKD (chronic kidney disease), stage III: Bun/Cr 20 and 0.96 stable, monitor (9) Depression: continue zoloft mood stable (10) DVT prophylaxis: SCDs Re; Anemia Disposition: Plan to discharge home with home health services likely tomorrow if Hb remains stable Admission and Anticipated Discharge Date Admission Date: November 17, 2019 Subjective Patient is seen and examined at bedside No new complaints Hb stable Denies any chest pain, shortness of breath, dizziness, nausea, abdominal pain No bleeding issues Discussed with Oncology today Review of Systems Review of Systems: All systems reviewed & are unremarkable except as noted in HPI & below Physical Exam Physical Exam: Physical Exam: Vitals signs as noted above General Appearance:Obese, no apparent distress Head: normocephalic, Atraumatic Eyes: normal inspection, EOMI Neck: supple, Trachea midline Respiratory/Chest: Normal breath sounds, CTA, No accessory muscle use Cardiovascular: S1, S2, No murmur Abdomen/GI:Soft, Non tender, Bowel sounds present Extremities/Musculoskelatal:normal inspection, Trace edema Neurologic/Psych:AAOX3, grossly no focal neurological deficits Skin: normal color, warm Results & Data Results & Data ([facility]) Vital Signs (Past 12 Hours) Vital Signs Temp Pulse Resp BP BP Pulse Ox 11/19/19 15:12 36.9 C 97 H 18 112/73 95 11/19/19 07:45 36.5 C 85 20 121/79 93 Laboratory Results Short CBC 11/18/19 11/19/19 Range/Units 18:01 06:45 WBC 15.75 H (4.8-10.8) K/uL Hgb 9.2 L 8.9 L (12.0-16.0) g/dL Hct 26.7 L 25.6 L (37-47) % Plt Count 599 H (130-400) K/uL BMP 11/19/19 06:45 Sodium 141 Potassium 3.5 Chloride 109 H Carbon Dioxide 23 BUN 23 H Creatinine 0.93 Glucose 129 H Calcium 8.1 L
[2019-11-19] MEDS ORDERED: MELATONIN 3 MG TAB PO SCH (21:00)
[2019-11-19] MEDS: INSULIN GLARGINE SOLOSTAR 100 UNITS/ML 3 ML PEN SC SCH (21:35)
[2019-11-19] MEDS: FOLIC ACID 1 MG TAB PO SCH (21:38)
[2019-11-19] MEDS: SERTRALINE HCL 100 MG TABLET PO SCH (21:38)
[2019-11-20 07:16] LABS: Hematocrit (blood only) 24.6 % (37-47); Hemoglobin 8.4 g/dL (12.0-16.0)
[2019-11-20 07:48] LABS: BUN Creatinine Ratio 31.4 (10-20); Calcium 8.2 mg/dl (8.5-10.1); Creatinine Clr Calc Pharmacy 46.7 ml/min; Est GFR (African American) 63.4; Est GFR (Non-African American) 54.7; Potassium 3.6 mmol/L (3.5-5.1)
[2019-11-20] MEDS: OXYBUTYNIN CHLORIDE XL 5 MG TABCR PO SCH (09:16)
[2019-11-20] MEDS: PANTOprazole 40 MG TAB PO SCH (09:16)
[2019-11-20] MEDS: predniSONE 20 MG TAB PO SCH (09:17)
[2019-11-20] MEDS: INSULIN ASPART 100 UNITS/ML 3 ML PEN SC SCH ×2 (09:17→12:52)
--- NOTE | 2019-11-20 15:30 | Hospitalist Progress Note ---
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 Osorio, CKD stage III, HTN, HLD, depression, osteoporosis, MTHFR mutation, hypertension who presents to ED at the request of her oncologist due to anemia. Hemolytic anemia/lymphoproliferative disorder Symptomatic anemia Thrombocytosis Work up in outpt hematology/oncology office:elevated ferritin 1,501; B12 781, Haptoglobin 25, LDH 339, retic elevated 12.5%, +Direct comb and +IGG Peripheral smear Revealed normocytic anemia with an no cytosis, leukocytosis with absolute neutrophilia, marked thrombocytosis with platelet counts present. S/P 2 units PRBCs Continue Prednisone, folic acid Monitor CBC Discussed with Oncology Dr. Quijano on 11/19/19 and 11/20/19 Likely to consider Rituxan as outpatient treatment Continue prednisone 80 mg daily--needs tapering as outpatient Leukocytosis secondary to steroids Needs follow-up with oncology upon discharge Hb: 8.4 today No obvious bleeding issues Hyperglycemia Likely due to steroids Patient admits to eating a lot of sweets Hb A1C:4.6 Monitor blood glucose levels Continue insulin therapy while hospitalized BGs improved (4) Lower extremity edema: Venous Doppler:No DVT within the right or left lower extremity. ECHO: Mild concentric LVH. Left ventricular systolic function is normal. Ejection fraction 60 to 65%. The right ventricle systolic function is normal. Left atrial size is normal. Right atrial size is normal. There is mild mitral regurgitation. There is moderate tricuspid regurgitation. CXR: Pulm congestion Normal procalcitonin level Patient denies any respiratory symptoms Monitor volume status (5) Chronic gastritis: Recent admission pt underwent EGD Colonoscopy due to profound anemia -Colonoscopy:The examined portion of the ileum was normal. Two 3 to 5 mm polyps in the descending colon, removed with a cold snare. Resected and retrieved. Diverticulosis in the sigmoid colon. Internal hemorrhoids. The examination was otherwise normal on direct and retroflexion views. --EGD:Non-severe esophagitis. Biopsied. Atrophic gastritis. Biopsied. Normal examined duodenum. Biopsied. --continue PPI BID (6) Hypoalbuminemia: low albumin in setting of malignancy alb 1.9, could be cause of peripheral edema consider lasix PRN for edema (7) B-cell lymphoma: Follows Dr. Osorio, S/P Rituximab x 4 finished on 05/27/2019 (8) CKD (chronic kidney disease), stage III: Bun/Cr 20 and 0.96 stable, monitor (9) Depression: continue zoloft mood stable (10) DVT prophylaxis: SCDs Re; Anemia Disposition: Plan to discharge home with home health services today Admission and Anticipated Discharge Date Admission Date: November 17, 2019 Subjective Patient is seen and examined at bedside Doing well today Hb:8.4 Discussed with Oncology today Denies any chest pain, shortness of breath, dizziness, nausea, abdominal pain, bleeding issues Review of Systems Review of Systems: All systems reviewed & are unremarkable except as noted in HPI & below Physical Exam Physical Exam: Physical Exam: Vitals signs as noted above General Appearance:Obese, no apparent distress Head: normocephalic, Atraumatic Eyes: normal inspection, EOMI Neck: supple, Trachea midline Respiratory/Chest: Normal breath sounds, CTA, No accessory muscle use Cardiovascular: S1, S2, No murmur Abdomen/GI:Soft, Non tender, Bowel sounds present Extremities/Musculoskelatal:normal inspection, Trace edema Neurologic/Psych:AAOX3, grossly no focal neurological deficits Skin: normal color, warm Results & Data Results & Data ([facility]) Vital Signs (Past 12 Hours) Vital Signs Temp Pulse Resp BP Pulse Ox 11/20/19 15:10 36.5 C 82 18 127/76 93 11/20/19 07:38 36.6 C 74 18 119/76 94 Laboratory Results Short CBC 11/20/19 Range/Units 06:49 Hgb 8.4 L (12.0-16.0) g/dL Hct 24.6 L (37-47) % BMP 11/20/19 06:49 Sodium 140 Potassium 3.6 Chloride 109 H Carbon Dioxide 24 BUN 30 H Creatinine 0.96 Glucose 115 H Calcium 8.2 L
--- NOTE | 2019-11-20 15:40 | Discharge Summary ---
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 Osorio, CKD stage III, HTN, HLD, depression, osteoporosis, MTHFR mutation, hypertension who presents to ED at the request of her oncologist due to anemia. She was seen and evaluated by Dr. Osorio for follow-up secondary to low-grade lymphoma and hospitalization on 11/15 . On 11/01 lab work noted severe anemia at 4.9, low albumin and high LDH. She was hospitalized until 11/06. At that time she underwent 4 unit PRBC transfusion. Also was treated empirically with IV Rocephin and doxycycline for questionable infiltrative process on chest x-ray. She was discharged in stable condition and follow-up lab work revealed a decrease in hemoglobin from 9 at discharge to 7.6 on 11/12. She had repeat CBC yesterday which revealed hemoglobin of 6.9. Due to this she was referred to ED. Patient complains of increasing fatigue, shortness with with exertion and weight gain. She is unsure approximate amount but has noted increased lower extremity swelling over the past few days. She also complains of an occasional productive cough of clear sputum for the past 3 weeks. She denies fever, chills, sweats, lightheadedness, dizziness, syncope, chest pain, shortness breath at rest, palpitations, hemoptysis, nausea, vomiting, abdominal pain, diarrhea, melena, hematochezia, hematuria, dysuria, epistaxis. She does take aspirin on a regular basis but is not on any anticoagulation. She denies any known exposure to patient with positive COVID-19 or symptoms. She denies any loss of taste or smell. In ED patient remained hemodynamically stable with blood pressure 110/50 and heart rate of 80. She did not require any supplemental oxygen. Lab work notable for anemia with hemoglobin of 6.4 and hematocrit 18.7, WBC 12.26, platelet 677, K3.5, BUN 20, creatinine 0.96, glucose 118, total bili 2.0, AST/ALT WNL, albumin 1.9, TSH 5.4, free T4 1.05. CXR: IMPRESSION: 1. Cardiomegaly and pulmonary vascular congestion with bilateral mixed interstitial and alveolar opacities suggestive of pulmonary edema. A superimposed pneumonia would be difficult to exclude. 2. Small left and trace right pleural effusions. She was type and crossed in ED and unfortunately requires irradiated blood which is not available in house and will require a delivery, likely tomorrow. Admission Exam Per Admitting Provider Physical Exam Physical Exam: Constitutional: WD/WN, elderly, female, pale, vitals as above, NAD, sitting up in bed, pleasant, conversing easily Head: Normocephalic, Atraumatic Eyes: PERRL, conjunctivae normal, anicteric sclerae ENMT: external ear and nose normal, oropharynx normal Neck: trachea midline, no thyromegaly normal visual inspection Respiratory: normal respiratory effort, lungs clear to auscultation, no wheeze, rales, rhonchi. Normal insp/exp effort, no accessory muscle use Cardiovascular: RRR, occasional ectopy, no murmur, +1 lower extremity edema bilaterally, right greater than left, no erythema, negative Homans Vessels: no JVD or carotid bruit Chest: normal inspection of chest Abdomen: normal bowel sounds, soft, nontender, no hepatosplenomegaly Musculoskeletal: no cyanosis or clubbing, extremities motor strength 5/5 Skin: no rashes, warm and dry normal turgor , cap refill > 2sec Neurologic: PERRL, EOMI, accommodation nl, no face palsy, no dysarthria CN's II-XI intact bilaterally and moves all extremities Psychiatric: A+Ox3, euthymic affect Lymphatic: no cervical or axillary lymphadenopathy : deferred Principal Diagnosis Hemolytic anemia Discharge Data Allergies Allergy/AdvReac Type Severity Reaction Status Date / Time No Known Allergies Allergy Verified 11/17/19 15:47 Consultations 11/17/19 16:33 ED Decision to Admit Stat 11/17/19 19:08 Consult Case Management - Discharge Planning Routine Ordered Studies 11/17/19 17:15 US venous doppler LE Routine Hospital Course (1) 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 Osorio, CKD stage III, HTN, HLD, depression, osteoporosis, MTHFR mutation, hypertension who presents to ED at the request of her oncologist due to anemia. Hemolytic anemia/lymphoproliferative disorder Symptomatic anemia Thrombocytosis Work up in outpt hematology/oncology office:elevated ferritin 1,501; B12 781, Haptoglobin 25, LDH 339, retic elevated 12.5%, +Direct comb and +IGG Peripheral smear Revealed normocytic anemia with an no cytosis, leukocytosis with absolute neutrophilia, marked thrombocytosis with platelet counts present. S/P 2 units PRBCs Continue Prednisone, folic acid Monitor CBC Discussed with Oncology Dr. Quijano on 11/19/19 and 11/20/19 Likely to consider Rituxan as outpatient treatment Continue prednisone 80 mg daily--needs tapering as outpatient Leukocytosis secondary to steroids Needs follow-up with oncology upon discharge Hb: 8.4 today No obvious bleeding issues Hyperglycemia Likely due to steroids Patient admits to eating a lot of sweets Hb A1C:4.6 Monitor blood glucose levels Continue insulin therapy while hospitalized BGs improved (4) Lower extremity edema: Venous Doppler:No DVT within the right or left lower extremity. ECHO: Mild concentric LVH. Left ventricular systolic function is normal. Ejection fraction 60 to 65%. The right ventricle systolic function is normal. Left atrial size is normal. Right atrial size is normal. There is mild mitral regurgitation. There is moderate tricuspid regurgitation. CXR: Pulm congestion Normal procalcitonin level Patient denies any respiratory symptoms Monitor volume status (5) Chronic gastritis: Recent admission pt underwent EGD Colonoscopy due to profound anemia -Colonoscopy:The examined portion of the ileum was normal. Two 3 to 5 mm polyps in the descending colon, removed with a cold snare. Resected and retrieved. Diverticulosis in the sigmoid colon. Internal hemorrhoids. The examination was otherwise normal on direct and retroflexion views. --EGD:Non-severe esophagitis. Biopsied. Atrophic gastritis. Biopsied. Normal examined duodenum. Biopsied. --continue PPI BID (6) Hypoalbuminemia: low albumin in setting of malignancy alb 1.9, could be cause of peripheral edema consider lasix PRN for edema (7) B-cell lymphoma: Follows Dr. Osorio, S/P Rituximab x 4 finished on 05/27/2019 (8) CKD (chronic kidney disease), stage III: Bun/Cr 20 and 0.96 stable, monitor (9) Depression: continue zoloft mood stable (10) DVT prophylaxis: SCDs Re; Anemia Disposition: Plan to discharge home with home health services today Total Time Total Time Spent Total Time Spent (In Minutes): 40 minutes Total Time Includes: Examination of the Patient, Discharge Planning, Medication Reconciliation, Communication With Other Providers and Other Discharge Plan Discharge Items Patient Disposition: Home - Home Health Services Reason For Visit: SYMPTOMATIC ANEMIA Discharge Diagnosis: Hemolytic anemia Activity: Resume your previous activity Exercise/Sports: Gradually increase as tolerated Non-emergency contact: Primary Care Provider and Oncologist Call non-emergency contact if: you have any medication questions, your symptoms worsen, your pain is not controlled, your pain is worsening, your pain is unusual for you, your pain is concerning for you and you have a fever Follow-up/Referrals: Afia Baldwin DO [Primary Care Provider] - 11/27/19 12:00 pm (11/27/2019 12:00 PM Provider Amber Hendrickson DO Department [facility] ) Diet: Carb Consistent or DM2 and Heart Healthy Addtl Attending Provider Instructions: Follow-up with your primary care physician on November 27, 2019 at 12:00PM Follow up with your Oncologist on November 24, 2019 at 11:00 AM as sc heduled Continue Prednisone 80mg daily as advised by your oncologist. Further titration as per your oncologist. Get blood work on November 24, 2019 and follow-up with your oncologist with results for further recommendations. Monitor your blood sugar levels regularly as advised. If remains elevated, discussed with your physician for further management. Seek immediate medical attention if your symptoms reoccur or worsen Pending Studies at Discharge: No Stand-Alone Forms: [employer], Smoking Cessation Medications and DC Order Prescriptions: New prednisone 20 mg Tablet 80 mg PO DAILY 30 Days Qty: 120 RF: 0 Continued aspirin [Aspirin Low Dose] 81 mg Tablet,Delayed Release (Dr/Ec) 81 mg PO QPM RF: 0 cholecalciferol (vitamin D3) [Vitamin D3] 1,000 unit Capsule 2,000 unit PO QPM RF: 0 omega [id number] [Fish Oil] 1,000 mg (120 mg-180 mg) Capsule 2 tab PO QPM RF: 0 multivitamin Tablet 1 tab PO DAILY RF: 0 ascorbic acid (vitamin C) [Vitamin C] 500 mg Tablet 500 mg PO BID RF: 0 melatonin 1 mg Tablet 3 mg PO HS RF: 0 calcium carbonate-vitamin D3 [Calcium 500 + D] 500 mg(1,250mg) -400 unit Tablet 1 tab PO DAILY RF: 0 folic acid 1 mg tablet 1 mg PO QPM Qty: 30 RF: 0 sertraline 100 mg tablet 100 mg PO QPM RF: 0 acetaminophen [Tylenol Extra Strength] 500 mg Tablet 1,000 mg PO BID PRN (Reason: Pain) RF: 0 oxybutynin chloride 10 mg tablet extended release 24hr 10 mg PO DAILY RF: 0 pantoprazole 40 mg Tablet,Delayed Release (Dr/Ec) 40 mg PO BID Qty: 60 RF: 1 Discontinued doxycycline hyclate 100 mg Capsule 100 mg PO BID Qty: 5 RF: 0 Discharge Orders: Discharge Order (Routine); Ordered 11/20/19 Ordered By: Trey Dallas Admission Data Admit Date/Time: 11/17/19 16:50 Attending Provider: Trey Dallas Admit Provider: Jose De Jesus Maharaj Primary Care Provider: Afia Baldwin Other Providers: [place] ; Jose De Jesus Maharaj Other Interventions: Discharge Summary Assessment (RN) Last Done: 11/20/19 15:54 DC Date/Time DO NOT enter until pt leaves facility: 11/20/19 17:30
[2019-11-23] MEDS ORDERED: PANTOprazole 40 MG TAB PO SCH (09:00)
== END 2019-11-20 17:30 | disposition home health service (06) | DRG 809 ==
LOC: ED 14:26 → 2S 16:50 → SUATTDRO 16:50 → 2S 18:46 → 3N 11-19 12:14

== ENCOUNTER 2020-01-14 15:41 | Inpatient (IN) ==
--- NOTE | 2020-01-14 16:27 | Emergency Department Note ---
History of Present Illness General Chief complaint: Referred by Doctor Stated complaint: LOW OXYGEN LEVELS, SWOLLEN LEGS, CHEST PAIN Time Seen by Provider: 01/14/20 15:58 Source: patient Mode of arrival: ambulatory Limitations: no limitations History of Present Illness Provider complaint: Lower extremity swelling, shortness of breath and doctor's office Onset (ago): week(s) 1 Radiation: non-radiation Severity: moderate Relieved By: + rest Exacerbated By: + movement Associated symptoms: + chest pain; no fever/chills and no syncope Treatments prior to arrival: none This is an 84-year-old female sent in from her doctor's office after an episode of increased shortness of breath, chest pain and exertional hypoxia as measured in the office today. Patient states that at least over the course of the last week she has had increased lower extremity edema. She attributed it to the recent course of steroids that she had been taking. Patient states when she followed up in the office, she also reported to them that she had had intermittent chest discomfort, felt more short of breath with exertion. The staff in the office measured an ambulatory pulse ox and found her to drop initially to 80% and then down to 73%. Patient's family member who is at bedside states back in the spring she did have an episode of congestive heart failure, however denies any significant cardiac history, did not need to follow- up with cardiology. Patient denies any other recent dietary change. Patient denies any known exposure to any coronavirus positive individual. Other than the addition of steroids she denies any recent change in medications. Patient states at rest she has no shortness of breath. She states the episodes of chest discomfort seem random and are not related to exertion or position. Patient denies fevers or other URI symptoms. No nausea vomiting, no commenting dizziness, no change in bowel or bladder function. Pt seen during a time of high acuity and national emergency pandemic while wearing PPE. Home Medications Home Medications Medication Instructions Recorded Confirmed Type aspirin [Aspirin Low Dose] 81 mg PO QPM 04/25/18 01/14/20 History omega 5-vfp-cop-fish oil [Fish Oil] 2 cap PO QPM 04/25/18 01/14/20 History sertraline 100 mg PO QPM 03/31/19 01/14/20 History oxybutynin chloride 10 mg PO DAILY 11/02/19 01/14/20 History ascorbic acid (vitamin C) [Vitamin 500 mg PO BID 11/17/19 01/14/20 History C] calcium carbonate-vitamin D3 1 tab PO DAILY 11/17/19 01/14/20 History [Calcium 500 + D] melatonin 3 mg PO HS 11/17/19 01/14/20 History multivitamin 1 tab PO DAILY 11/17/19 01/14/20 History folic acid 1 mg PO QPM #30 tab 11/20/19 01/14/20 Rx cholecalciferol (vitamin D3) 2,000 unit PO DAILY 01/14/20 01/14/20 History [Vitamin D3] pantoprazole 40 mg PO QAM 01/14/20 01/14/20 History prednisone See Rx Instructions .ROUTE .COMPLEX 01/14/20 01/14/20 History Allergies Allergy/AdvReac Type Severity Reaction Status Date / Time No Known Allergies Allergy Verified 01/14/20 17:29 Past Med/Surg History Medical History Anemia (Acute) Anxiety (Chronic) B-cell lymphoma (Chronic) Chronic hip pain (Chronic) RIGHT CKD (chronic kidney disease), stage III (Chronic) Depression (Chronic) Exertional dyspnea (Chronic) GERD (gastroesophageal reflux disease) (Chronic) HLD (hyperlipidemia) (Chronic) 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) Hypertension (Chronic) Lupus anticoagulant disorder (Chronic) Osteoarthritis (Chronic) 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 leiomyoma (Chronic) Surgical History H/O colonoscopy (Chronic) "Diverticulosis 2010, repeat in 5 years " History of cataract surgery (Chronic) LEFT History of colonoscopy (Chronic) History of incision and drainage (Chronic) History of tonsillectomy (Chronic) History of total knee arthroplasty (Chronic) x 3; Right x 2; L x 1 Hx of tooth extraction (Chronic) S/P cataract surgery (Chronic) Tubal ligation status (Chronic) Family History Father , 52 Pulmonary embolism Mother Breast cancer Social History Preferred Language: Chinese Communication Ability: Effective Anchor Tacker Required: No Beliefs That Will Affect Care: None marital status: Current Living Situation: Spouse Other Information That Helps Us Care for You: No Feels Safe at Home: Yes Safety Concerns: Feels Safe At This Time Smoking Status: Former smoker Hx Alcohol Use: No Hx Substance Use: No Review of Systems See HPI for pertinent positives & negatives. and A total of 10 systems reviewed and were otherwise negative Physical Exam Vital Signs Vital Signs - 24 hr 01/14/20 15:46 01/14/20 16:05 01/14/20 16:17 Temperature 36.7 C Temperature Source Oral Pulse Rate 81 70 75 Pulse Rate from SpO2 Sensor 68 75 Respiratory Rate 20 20 24 Respiratory Effort / Characteristics Non-Labored Respiratory Depth Normal Blood Pressure 121/65 130/55 L Blood Pressure Mean 83 81 Pulse Oximetry 93 92 91 Oxygen Delivery Method Room Air Room Air Sepsis Recent Fever Within 48 Hours No Sepsis New/Unexplained Change in Mental Status No Sepsis Action Taken by Nursing No Action Required 01/14/20 16:30 01/14/20 17:00 Temperature Temperature Source Pulse Rate 63 77 Pulse Rate from SpO2 Sensor 73 74 Respiratory Rate 20 20 Respiratory Effort / Characteristics Respiratory Depth Blood Pressure 121/57 L Blood Pressure Mean 78 Pulse Oximetry 93 94 Oxygen Delivery Method Sepsis Recent Fever Within 48 Hours Sepsis New/Unexplained Change in Mental Status Sepsis Action Taken by Nursing GENERAL: alert, well appearing, well nourished, no distress, non-toxic, obese EYE EXAM: normal conjunctiva, PERRL and EOM's grossly intact OROPHARYNX: no exudate, no erythema, lips, buccal mucosa, and tongue normal and mucous membranes are moist NECK: supple, no nuchal rigidity, no adenopathy, non-tender LUNGS: Clear to auscultation. Normal chest wall mechanics, no w/r/r HEART: no murmurs, S1 normal and S2 normal ABDOMEN: abdomen soft, non-tender, normo-active bowel sounds, no masses, no rebound or guarding. BACK: Back is symmetrical on inspection and there is no deformity, no midline tenderness, no CVA tenderness. SKIN: no rashes and no bruising, no petechiae, no bullae UPPER EXTREMITIES: upper extremities are grossly normal. FROM, nml pulses b/l. LOWER EXTREMITIES: 3+ pitting edema. FROM, nml pulses b/l. Well-healed vertical midline scar over the right knee consistent with prior knee replacement. NEURO EXAM: Normal sensorium, cranial nerves II-XII grossly intact, normal speech, no gross weakness of arms, no gross weakness of legs. Gross sensation intact. Course Administered Medications Fish Oil ([place]-3 (Purified Fish Oil)) 2 gm PO QPM [facility]EN Stop: 02/13/20 20:59 Last Admin: 01/16/20 21:14 Dose: 2 gm Documented by: [id number] Admin: 01/15/20 20:51 Dose: 2 gm Documented by: [id number] Admin: 01/14/20 22:52 Dose: 2 gm Documented by: [id number] Folic Acid (Folvite) 1 mg PO QPM KALEN Stop: 02/13/20 20:59 Last Admin: 01/16/20 21:15 Dose: 1 mg Documented by: [id number] Admin: 01/15/20 20:50 Dose: 1 mg Documented by: [id number] Admin: 01/14/20 22:52 Dose: 1 mg Documented by: [id number] Furosemide 40 mg/ Syringe 4 mls @ 4 mls/min IV DAILY [facility] Stop: 02/15/20 11:29 Last Admin: 01/16/20 12:23 Dose: 4 mls/min Documented by: [id number] Ioversol (Optiray 320 125ml) 119 ml IV ONCE PRN PRN Reason: Interaction Checking Stop: 01/18/20 21:01 Last Admin: 01/14/20 21:14 Dose: 119 ml Documented by: [id number] Ipratropium [place] (Atrovent 0.02% 0.5mg/2.5ml) 0.5 mg INH Q6R KAL[facility] Stop: 02/14/20 12:59 Last Admin: 01/16/20 19:14 Dose: 0.5 mg Documented by: [id number] Admin: 01/16/20 13:15 Dose: 0.5 mg Documented by: [id number] Admin: 01/16/20 07:07 Dose: 0.5 mg Documented by: [id number] Admin: 01/16/20 01:20 Dose: 0.5 mg Documented by: [id number] Admin: 01/15/20 19:14 Dose: 0.5 mg Documented by: [id number] Admin: 01/15/20 13:33 Dose: 0.5 mg Documented by: [id number] Levalbuterol HCl (Xopenex 1.25mg/0.5ml Neb) 1.25 mg INH Q6R KALEN Stop: 02/14/20 12:59 Last Admin: 01/16/20 19:14 Dose: 1.25 mg Documented by: [id number] Admin: 01/16/20 13:15 Dose: 1.25 mg Documented by: [id number] Admin: 01/16/20 07:07 Dose: 1.25 mg Documented by: [id number] Admin: 01/16/20 01:20 Dose: 1.25 mg Documented by: [id number] Admin: 01/15/20 19:14 Dose: 1.25 mg Documented by: [id number] Admin: 01/15/20 13:33 Dose: 1.25 mg Documented by: [id number] Melatonin (Melatonin) 3 mg PO HS [facility] Stop: 02/13/20 20:59 Last Admin: 01/16/20 21:20 Dose: 3 mg Documented by: [id number] Admin: 01/15/20 21:01 Dose: 3 mg Documented by: [id number] Admin: 01/15/20 02:23 Dose: Not Given Documented by: [id number] Metoprolol Succinate (Toprol Xl) 12.5 mg PO QAM [facility] Stop: 02/14/20 11:29 Last Admin: 01/16/20 09:22 Dose: 12.5 mg Documented by: [id number] Admin: 01/15/20 11:47 Dose: 12.5 mg Documented by: [id number] Oxybutynin Chloride (Ditropan Xl) 10 mg PO DAILY [facility]EN Stop: 02/14/20 08:59 Last Admin: 01/16/20 09:23 Dose: 10 mg Documented by: [id number] Admin: 01/15/20 07:38 Dose: 10 mg Documented by: [id number] Pantoprazole Sodium (Protonix) 40 mg PO QAM [facility]EN Stop: 02/14/20 08:59 Last Admin: 01/16/20 09:23 Dose: 40 mg Documented by: [id number] Admin: 01/15/20 07:38 Dose: 40 mg Documented by: [id number] Prednisone (Prednisone) 30 mg PO DAILY [facility] Stop: 02/14/20 08:59 Last Admin: 01/16/20 09:23 Dose: 30 mg Documented by: [id number] Admin: 01/15/20 07:38 Dose: 30 mg Documented by: [id number] Sertraline HCl (Zoloft) 100 mg PO QPM [facility] Stop: 02/13/20 20:59 Last Admin: 01/16/20 21:14 Dose: 100 mg Documented by: [id number] Admin: 01/15/20 20:53 Dose: 100 mg Documented by: [id number] Admin: 01/14/20 22:52 Dose: 100 mg Documented by: [id number] Discontinued Medications Doxycycline Hyclate (Vibramycin) 100 mg PO BID KALEN Stop: 01/21/20 20:59 Last Admin: 01/16/20 09:23 Dose: 100 mg Documented by: [id number] Admin: 01/15/20 20:52 Dose: 100 mg Documented by: [id number] Admin: 01/15/20 07:38 Dose: 100 mg Documented by: [id number] Admin: 01/14/20 22:52 Dose: 100 mg Documented by: [id number] Sodium Chloride (Nss 1000ml) 1,000 mls @ 125 mls/hr IV .Q8H [facility] Stop: 02/13/20 17:29 Last Infusion: 01/15/20 07:25 Dose: 0 mls/hr Documented by: [id number] Infusion: 01/14/20 19:20 Dose: 0 mls/hr Documented by: [id number] Admin: 01/14/20 18:34 Dose: 125 mls/hr Documented by: [id number] Ceftriaxone Sodium (Rocephin) 1,000 mg in 50 mls @ 100 mls/hr IV NOW STA Stop: 01/14/20 18:13 Last Infusion: 01/14/20 19:39 Dose: 0 mls/hr Documented by: [id number] Admin: 01/14/20 18:34 Dose: 100 mls/hr Documented by: [id number] Ceftriaxone Sodium 2,000 mg/ (Dextrose) 70 mls @ 100 mls/hr IV Q24H KALEN; Protocol Stop: 01/21/20 15:59 Last Infusion: 01/15/20 16:34 Dose: 0 mls/hr Documented by: [id number] Admin: 01/15/20 15:18 Dose: 100 mls/hr Documented by: [id number] Heparin Sodium/Dextrose (Heparin Sodium/Dextrose) 25,000 units in 500 mls @ 19 mls/hr IV .Q24H KALEN; Protocol Stop: 02/13/20 19:49 Last Titration: 07/17/20 09:25 Dose: 0 units/hr, 0 mls/hr Documented by: [id number] Cosigned by: [id number] Titration: 01/15/20 06:57 Dose: 950 units/hr, 19 mls/hr Documented by: [id number] Cosigned by: [id number] Titration: 01/15/20 05:30 Dose: 950 units/hr, 19 mls/hr Documented by: [id number] Cosigned by: [id number] Admin: 01/14/20 21:40 Dose: 800 units/hr, 16 mls/hr Documented by: [id number] Cosigned by: [id number] Heparin Sodium (Porcine) 4,500 (units/ Syringe) 4.5 mls @ 10 mls/min IV ONE ONE Stop: 01/15/20 04:51 Last Admin: 01/15/20 05:30 Dose: 10 mls/min Documented by: [id number] Cosigned by: [id number] Furosemide 20 mg/ Syringe 2 mls @ 4 mls/min IV ONE ONE Stop: 01/15/20 09:16 Last Admin: 01/15/20 09:27 Dose: 4 mls/min Documented by: [id number] Furosemide 20 mg/ Syringe 2 mls @ 4 mls/min IV ONE ONE Stop: 01/16/20 18:31 Last Admin: 01/16/20 18:45 Dose: 4 mls/min Documented by: [id number] Medical Decision Making Differential Diagnosis Differential diagnoses includes but is not limited to pneumonia, bronchitis, COPD/Asthma exacerbation, pneumothorax, pulmonary embolism, congestive heart failure, acute coronary syndrome Medical Records Attestation: I reviewed the patient's medical records. Home Medications Current Medication List: was personally reviewed by nd Laboratory Data Attestation: I reviewed the patient's lab results. Result diagrams: 01/16/20 04:50 01/16/20 04:50 Lab Results 01/14/20 01/14/20 01/14/20 Range/Units 16:45 16:45 16:45 WBC 11.28 H (4.8-10.8) K/uL RBC 2.93 L (4.2-5.4) M/uL Hgb 9.6 L (12.0-16.0) g/dL Hct 27.3 L (37-47) % MCV 93.2 (80-100) fL MCH 32.8 (25-34) pg MCHC 35.2 (32-36) g/dL RDW Std Deviation 62.7 H (36.4-46.3) fL RDW Coeff of Marycruz 18.7 H (11.5-14.5) % Plt Count 369 (130-400) K/uL MPV 8.4 (7.4-10.4) fL Immature Gran % (Auto) 0.4 % Neut % (Auto) 74.3 % Lymph % (Auto) 21.8 % [place] % (Auto) 3.4 % Eos % (Auto) 0.0 % Baso % (Auto) 0.1 % Neut # (Auto) 8.39 H (1.4-6.5) K/uL Lymph # (Auto) 2.46 (1.2-3.4) K/uL [place] # (Auto) 0.38 (0.11-0.59) K/uL Eos # (Auto) 0.00 (0-0.5) K/uL Baso # (Auto) 0.01 (0-0.2) K/uL Immature Gran # (Auto) 0.04 H (0.00-0.02) K/uL APTT (21.0-31.0) Seconds PTT Ratio D-Dimer (0-500) ug/L FEU Sodium 140 (136-145) mmol/L Potassium 4.5 (3.5-5.1) mmol/L Chloride 107 (98-107) mmol/L Carbon Dioxide 28 (21-32) mmol/L Anion Gap 5.0 (3-11) BUN 23 H (7-18) mg/dl Creatinine 0.97 (0.6-1.2) mg/dl Est Cr Clr Drug Dosing Not Reportable Est GFR ( Amer) 62.6 Est GFR (Non-Af Amer) 54.0 BUN/Creatinine Ratio 24.1 H (10-20) Glucose 153 H (70-99) mg/dl Calcium 8.0 L (8.5-10.1) mg/dl Magnesium 2.0 (1.8-2.4) mg/dl Total Bilirubin 1.5 H (0.2-1) mg/dl AST 28 (15-37) U/L ALT 28 (12-78) U/L Alkaline Phosphatase 80 (45-117) U/L Troponin I < 0.015 (0-0.045) ng/ml NT-Pro-B Natriuret Pep 298 (0-1800) pg/ml Total Protein 6.5 (6.4-8.2) gm/dl Albumin 2.0 L (3.4-5.0) gm/dl Globulin 4.5 H (2.5-4.0) gm/dl Albumin/Globulin Ratio 0.4 L (0.9-2) Procalcitonin 0.07 (0-0.5) ng/ml TSH 2.280 (0.300-4.500) uIu/ml 01/14/20 01/14/20 Range/Units 16:45 16:45 WBC (4.8-10.8) K/uL RBC (4.2-5.4) M/uL Hgb (12.0-16.0) g/dL Hct (37-47) % MCV (80-100) fL MCH (25-34) pg MCHC (32-36) g/dL RDW Std Deviation (36.4-46.3) fL RDW Coeff of Marycruz (11.5-14.5) % Plt Count (130-400) K/uL MPV (7.4-10.4) fL Immature Gran % (Auto) % Neut % (Auto) % Lymph % (Auto) % [place] % (Auto) % Eos % (Auto) % Baso % (Auto) % Neut # (Auto) (1.4-6.5) K/uL Lymph # (Auto) (1.2-3.4) K/uL [place] # (Auto) (0.11-0.59) K/uL Eos # (Auto) (0-0.5) K/uL Baso # (Auto) (0-0.2) K/uL Immature Gran # (Auto) (0.00-0.02) K/uL APTT 27.5 (21.0-31.0) Seconds PTT Ratio 1.0 D-Dimer 8910 H* (0-500) ug/L FEU Sodium (136-145) mmol/L Potassium (3.5-5.1) mmol/L Chloride (98-107) mmol/L Carbon Dioxide (21-32) mmol/L Anion Gap (3-11) BUN (7-18) mg/dl Creatinine (0.6-1.2) mg/dl Est Cr Clr Drug Dosing Est GFR ( Amer) Est GFR (Non-Af Amer) BUN/Creatinine Ratio (10-20) Glucose (70-99) mg/dl Calcium (8.5-10.1) mg/dl Magnesium (1.8-2.4) mg/dl Total Bilirubin (0.2-1) mg/dl AST (15-37) U/L ALT (12-78) U/L Alkaline Phosphatase (45-117) U/L Troponin I (0-0.045) ng/ml NT-Pro-B Natriuret Pep (0-1800) pg/ml Total Protein (6.4-8.2) gm/dl Albumin (3.4-5.0) gm/dl Globulin (2.5-4.0) gm/dl Albumin/Globulin Ratio (0.9-2) Procalcitonin (0-0.5) ng/ml TSH (0.300-4.500) uIu/ml Imaging Data Radiologist's Impression: XR chest 1V portable CLINICAL HISTORY: sob dyspnea COMPARISON STUDY: 11/17/2019 FINDINGS: Findings consistent with left and to a lesser extent right basilar parenchymal infiltrates. Probable small left effusion. Pulmonary apices are clear. IMPRESSION: Bibasilar parenchymal infiltrates with a small superimposed left pleural effusion. ACT 112: Negative or not required by law. The above report was generated using voice recognition software. It may contain grammatical, syntax or spelling errors. Electronically signed by: Devon Dickerson M.D. 01/14/2020 4:44 PM ECG Data Attestation: I personally reviewed and interpreted this ECG as follows: Indication: + SOB/dyspnea Rate (beats per minute): 77 Rhythm: + atrial fibrillation ECG Intervals/blocks: + Normal QRS and + Prolonged QT ECG [place]: + Left axis deviation ECG ST segments: + Nonspecific ST abnormalities Blood Pressure Blood Pressure Findings: Elevated blood pressure Blood Pressure Disposition: further management by hospitalist LISSETH Narrative Pt here after being seen by her PCP due to increased LE edema over the last 1-2 weeks, increased SOB, and had been found to have exertional hypoxia. Pt asymptomatic at rest. Pt states she has had swelling prior with CHF. Labs drawn in sent and CXR performed. Pt found to have b/l pneumonia. VS stable at rest in the ER. No evidence of ACS. I do not suspect ACS. No findings of CHF on cxr, bnp normal. Pt and family aware of all results and in agreement with the plan. No evidence of bacteremia/sepsis. Anemia stable compared to baseline. An order was placed for continuous cardiac monitoring. The monitor shows a rate of 64 with normal sinus rhythm. Impression & Plan Dyspnea, Pneumonia, Chest pain, Bilateral edema of lower extremity, Anemia Discharge Plan Visit Data *Final* Discharge Date/Time: 01/14/20 18:45 Chief Complaint: Referred by Doctor Stated Complaint: LOW OXYGEN LEVELS, SWOLLEN LEGS, CHEST PAIN ED Provider: Mili Dumont Discharge Problem: Dyspnea, Pneumonia, Chest pain, Bilateral edema of lower extremity, Anemia Patient Disposition: Admitted As Inpatient Discharge Instructions Interventions: ED Discharge Assessment Last Done: 01/14/20 18:45 Discharge Problem: Dyspnea Qualifiers: Dyspnea type: dyspnea on exertion Qualified Code(s): R06.00 - Dyspnea, unspecified Pneumonia Qualifiers: Pneumonia type: due to unspecified organism Laterality: bilateral Lung location: lower lobe of lung Qualified Code(s): J18.9 - Pneumonia, unspecified organism Chest pain Qualifiers: Chest pain type: unspecified Qualified Code(s): R07.9 - Chest pain, unspecified Anemia Qualifiers: Anemia type: unspecified type Qualified Code(s): D64.9 - Anemia, unspecified
--- NOTE | 2020-01-14 16:45 | XRay Report ---
XR chest 1V portable CLINICAL HISTORY: sob dyspnea COMPARISON STUDY: 11/17/2019 FINDINGS: Findings consistent with left and to a lesser extent right basilar parenchymal infiltrates. Probable small left effusion. Pulmonary apices are clear. IMPRESSION: Bibasilar parenchymal infiltrates with a small superimposed left pleural effusion. ACT 112: Negative or not required by law. The above report was generated using voice recognition software. It may contain grammatical, syntax or spelling errors. Electronically signed by: Devon Dickerson M.D. 01/14/2020 4:44 PM
[2020-01-14 16:55] LABS: Basophils # (auto) 0.01 K/uL (0-0.2); Basophils % (auto) 0.1 %; Hematocrit (blood only) 27.3 % (37-47); Hemoglobin 9.6 g/dL (12.0-16.0); Immature Granulocytes # (auto) 0.04 K/uL (0.00-0.02); Immature Granulocytes % (auto) 0.4 %; Lymphocytes # (auto) 2.46 K/uL (1.2-3.4); Lymphocytes % (auto) 21.8 %; Mean Corpuscular Hemoglobin 32.8 pg (25-34); Mean Corpuscular Hgb Conc 35.2 g/dL (32-36); Mean Corpuscular Volume 93.2 fL (80-100); Mean Platelet Volume 8.4 fL (7.4-10.4); Monocytes # (auto) 0.38 K/uL (0.11-0.59); Monocytes % (auto) 3.4 %; Neutrophils # (auto) 8.39 K/uL (1.4-6.5); Neutrophils % (auto) 74.3 %; Platelet Count 369 K/uL (130-400); RDW Coefficient of Variation 18.7 % (11.5-14.5); RDW Standard Deviation 62.7 fL (36.4-46.3); Red Blood Count 2.93 M/uL (4.2-5.4); White Blood Count 11.28 K/uL (4.8-10.8)
[2020-01-14 17:11] LABS: Alanine Aminotransferase 28 U/L (12-78); BUN Creatinine Ratio 24.1 (10-20); Blood Urea Nitrogen 23 mg/dl (7-18); Carbon Dioxide 28 mmol/L (21-32); Chloride 107 mmol/L (98-107); Est GFR (African American) 62.6; Glucose 153 mg/dl (70-99); Potassium 4.5 mmol/L (3.5-5.1); Sodium 140 mmol/L (136-145)
[2020-01-14 17:22] LABS: Albumin Globulin Ratio 0.4 (0.9-2); Alkaline Phosphatase 80 U/L (45-117); Aspartate Aminotransferase 28 U/L (15-37); Bilirubin,Total 1.5 mg/dl (0.2-1); Globulin 4.5 gm/dl (2.5-4.0); NT Pro B Type Natriuretic Pept 298 pg/ml (0-1800); Total Protein 6.5 gm/dl (6.4-8.2); Troponin I < 0.015 ng/ml (0-0.045)
[2020-01-14] MEDS ORDERED: SODIUM CHLORIDE 0.9% 1000ML 1,000 ML IV SCH (17:30)
[2020-01-14] MEDS ORDERED: cefTRIAXone SODIUM 1,000 MG/50 ML BAG IV STA (17:44)
--- NOTE | 2020-01-14 19:30 | History & Physical Report ---
Date of Service January 14, 2020 Assessment & Plan (1) Shortness of breath: 84-year-old female with history of non-Hodgkin's lymphoma, hemolytic anemia on prednisone taper, Lupus anticoagulant disorder, hypertension, CKD stage III, other problems noted below presenting with shortness of breath times few weeks. Shortness of breath, with hypoxia possible etiologies: Possible community-acquired pneumonia -Check CT chest without contrast sputum and blood cultures Start ceftriaxone plus doxycycline Rule out pulmonary embolism -Start with d-dimer if, Positive will need CT angiogram Rule out COVID -COVID test pending Rule out pleural effusion Rule out pulmonary involvement of lymphoma -Check CT chest Leg edema -Check d-dimer If positive will need Doppler studies of the legs -Check echocardiogram New onset atrial fibrillation, rate controlled -Could be secondary to #1 -Echocardiogram ordered -Chads vasc score at least 4, start heparin low-dose with no bolus Non-Hodgkin's lymphoma Hemolytic anemia on prednisone taper --Follows with [facility] oncologist Dr. Osorio According to oncologist, patient's hemoglobin has been improving with the prednisone taper, currently stable around 10 --Continue prednisone 30 mg daily Monitor hemoglobin History of hypertension Not on any medications, BP stable CKD stage III Stable Monitor creatinine History of lupus anticoagulant disorder CODE STATUS Full code as per patient Disposition Lives with her Dissipate discharge home medically stable Admission and Anticipated Discharge Date Admission Date: January 14, 2020 History of Present Illness 84-year-old female with history of non-Hodgkin's lymphoma with hemolytic anemia, currently on prednisone taper, lupus anticoagulant disorder Hypertension, CKD stage III, dyslipidemia, pulmonary hypertension, other problems noted below presented with shortness of breath and leg swelling times few weeks. Patient follows with [facility] oncology and is currently on a prednisone taper secondary to hemolytic anemia in the setting of non-Hodgkin's lymphoma. Hemoglobin has been stable around 10 since last month. Patient reports about 1 month history of progressive shortness of breath, with intermittent dry cough, no fevers, or chills. She has intermittent chest discomfort associated with coughing as well. She denies having any palpitations, dizziness, syncope or presyncope. No known exposure with sick contacts, patient only stays at home and never goes outside since the pandemic started. Patient also reports increasing leg swelling since starting the prednisone taper at the end of November. She was sent in from primary care physician's office today the patient was noted to have an O2 saturation of 70 to 80%. At the ER, the patient was received with stable blood pressure and heart rate. She is 94% on room air while at rest, however when she walks to the bathroom her oxygen saturation drops to the 70s. Chest x-ray showed by basilar parenchymal infiltrates. She was started on ceftriaxone IV. EKG also showed atrial fibrillation, rate controlled. On exam, the patient is sitting up in bed, comfortable, alert, oriented x3, answers all questions appropriately, not in distress. Denies having any active shortness of breath, chest pain, dizziness, palpitations, abdominal pain, nausea or vomiting, during my interview. Primary Care Provider: Afia Baldwin DO Allergies Allergy/AdvReac Type Severity Reaction Status Date / Time No Known Allergies Allergy Verified 01/14/20 17:29 Home Medications Home Medications Medication Instructions Recorded Confirmed Type aspirin [Aspirin Low Dose] 81 mg PO QPM 04/25/18 01/14/20 History omega 4-kif-fik-fish oil [Fish Oil] 2 cap PO QPM 04/25/18 01/14/20 History sertraline 100 mg PO QPM 03/31/19 01/14/20 History oxybutynin chloride 10 mg PO DAILY 11/02/19 01/14/20 History ascorbic acid (vitamin C) [Vitamin 500 mg PO BID 11/17/19 01/14/20 History C] calcium carbonate-vitamin D3 1 tab PO DAILY 11/17/19 01/14/20 History [Calcium 500 + D] melatonin 3 mg PO HS 11/17/19 01/14/20 History multivitamin 1 tab PO DAILY 11/17/19 01/14/20 History folic acid 1 mg PO QPM #30 tab 11/20/19 01/14/20 Rx cholecalciferol (vitamin D3) 2,000 unit PO DAILY 01/14/20 01/14/20 History [Vitamin D3] pantoprazole 40 mg PO QAM 01/14/20 01/14/20 History prednisone See Rx Instructions .ROUTE .COMPLEX 01/14/20 01/14/20 History Past Med/Surg History Medical History Anemia (Acute) Anxiety (Chronic) B-cell lymphoma (Chronic) Chronic hip pain (Chronic) RIGHT CKD (chronic kidney disease), stage III (Chronic) Depression (Chronic) Exertional dyspnea (Chronic) GERD (gastroesophageal reflux disease) (Chronic) HLD (hyperlipidemia) (Chronic) 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) Hypertension (Chronic) Lupus anticoagulant disorder (Chronic) Osteoarthritis (Chronic) 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 leiomyoma (Chronic) Surgical History H/O colonoscopy (Chronic) "Diverticulosis 2010, repeat in 5 years " History of cataract surgery (Chronic) LEFT History of colonoscopy (Chronic) History of incision and drainage (Chronic) History of tonsillectomy (Chronic) History of total knee arthroplasty (Chronic) x 3; Right x 2; L x 1 Hx of tooth extraction (Chronic) S/P cataract surgery (Chronic) Tubal ligation status (Chronic) Family History Father , 52 Pulmonary embolism Mother Breast cancer Social History Preferred Language: Indonesian Communication Ability: Effective Ostrich Farmer Required: No Beliefs That Will Affect Care: None marital status: Current Living Situation: Spouse Other Information That Helps Us Care for You: No Feels Safe at Home: Yes Safety Concerns: Feels Safe At This Time Smoking Status: Former smoker Hx Alcohol Use: No Hx Substance Use: No Review of Systems Review of Systems: All systems reviewed & are unremarkable except as noted in HPI & below Physical Exam Physical Exam: General- oriented x 3, not in distress, speaks in sentences with no effort or accessory muscle use Head- atraumatic Eyes- PERRL, EOMI, anicteric ENT- oropharynx clear Neck- supple, no JVD, no adenopathy, no thyromegaly; carotids +2/2, no bruits appreciated Lungs-mild rales at the bases, no wheezing, good air entry bilaterally Heart- normal rate, irregularly irregular rhythm; no murmur, no gallop, no rub appreciated Abdomen- normal bowel sounds, nondistended, soft, nontender, no masses or hepatosplenomegaly Extremities-grade 2 lower leg edema, no calf tenderness; peripheral pulses intact Neuro- alert, oriented x 3; CN 2-12 grossly intact; motor 5/5 bilaterally;sensation 100% on all extremities; no other gross focal neurologic deficits Skin- warm & dry Results & Data Results & Data ([facility]) Vital Signs (Past 12 Hours) Vital Signs Temp Pulse Resp BP Pulse Ox 01/14/20 18:30 81 20 146/73 H 94 01/14/20 18:01 82 94 01/14/20 18:00 80 19 148/73 H 92 01/14/20 17:31 84 22 93 01/14/20 17:30 81 22 125/58 L 93 01/14/20 17:25 65 20 121/57 L 94 01/14/20 17:00 77 20 121/57 L 94 01/14/20 16:30 63 20 93 01/14/20 16:17 75 24 91 01/14/20 16:05 70 20 130/55 L 92 01/14/20 15:46 36.7 C 81 20 121/65 93 Laboratory Results Laboratory Results - last 24 hr 01/14/20 01/14/20 01/14/20 16:45 16:45 16:45 WBC 11.28 H RBC 2.93 L Hgb 9.6 L Hct 27.3 L MCV 93.2 MCH 32.8 MCHC 35.2 RDW Std Deviation 62.7 H RDW Coeff of Marycruz 18.7 H Plt Count 369 MPV 8.4 Immature Gran % (Auto) 0.4 Neut % (Auto) 74.3 Lymph % (Auto) 21.8 [place] % (Auto) 3.4 Eos % (Auto) 0.0 Baso % (Auto) 0.1 Neut # (Auto) 8.39 H Lymph # (Auto) 2.46 [place] # (Auto) 0.38 Eos # (Auto) 0.00 Baso # (Auto) 0.01 Immature Gran # (Auto) 0.04 H Sodium 140 Potassium 4.5 Chloride 107 Carbon Dioxide 28 Anion Gap 5.0 BUN 23 H Creatinine 0.97 Est Cr Clr Drug Dosing Not Reportable Est GFR ( Amer) 62.6 Est GFR (Non-Af Amer) 54.0 BUN/Creatinine Ratio 24.1 H Glucose 153 H Calcium 8.0 L Magnesium 2.0 Total Bilirubin 1.5 H AST 28 ALT 28 Alkaline Phosphatase 80 Troponin I < 0.015 NT-Pro-B Natriuret Pep 298 Total Protein 6.5 Albumin 2.0 L Globulin 4.5 H Albumin/Globulin Ratio 0.4 L Procalcitonin 0.07 TSH 2.280 Code Status & VTE Plan Code Status Full code as per patient VTE Prophylaxis Plan VTE Prophylaxis will be ordered: Yes
[2020-01-14] MEDS ORDERED: ACETAMINOPHEN 325 MG TAB PO PRN (19:37)
[2020-01-14] MEDS ORDERED: Heparin IV Low Dose *NO* Bolus IV ONE (19:50)
[2020-01-14] MEDS ORDERED: HEPARIN SODIUM/DEXTROSE 25,000 UNITS/500 ML BAG IV SCH (19:50)
[2020-01-14 20:20] LABS: Partial Thromboplastin Time 27.5 Seconds (21.0-31.0)
[2020-01-14 20:32] LABS: D Dimer 8910 ug/L FEU (0-500)
[2020-01-14] MEDS ORDERED: OPTIRAY 320 125ml IV PRN (21:02)
[2020-01-14] MEDS: SERTRALINE HCL 100 MG TABLET PO SCH (22:52)
[2020-01-14] MEDS: OMEGA-3 (PURIFIED FISH OIL) 1 GM CAP PO SCH (22:52)
[2020-01-14] MEDS: FOLIC ACID 1 MG TAB PO SCH (22:52)
[2020-01-14] MEDS: DOXYCYCLINE HYCLATE 100 MG CAP PO SCH (22:52)
[2020-01-15] MEDS: MELATONIN 3 MG TAB PO SCH ×2 (02:23→21:01)
[2020-01-15 04:17] LABS: Basophils # (auto) 0.03 K/uL (0-0.2); Basophils % (auto) 0.3 %; Eosinophils # (auto) 0.23 K/uL (0-0.5); Hematocrit (blood only) 25.3 % (37-47); Hemoglobin 8.8 g/dL (12.0-16.0); Immature Granulocytes # (auto) 0.07 K/uL (0.00-0.02); Immature Granulocytes % (auto) 0.6 %; Lymphocytes # (auto) 4.57 K/uL (1.2-3.4); Lymphocytes % (auto) 38.9 %; Mean Corpuscular Hemoglobin 32.2 pg (25-34); Mean Corpuscular Hgb Conc 34.8 g/dL (32-36); Mean Corpuscular Volume 92.7 fL (80-100); Monocytes # (auto) 0.82 K/uL (0.11-0.59); Neutrophils # (auto) 6.02 K/uL (1.4-6.5); Neutrophils % (auto) 51.2 %; Platelet Count 349 K/uL (130-400); RDW Coefficient of Variation 18.4 % (11.5-14.5); RDW Standard Deviation 62.1 fL (36.4-46.3); Red Blood Count 2.73 M/uL (4.2-5.4); White Blood Count 11.74 K/uL (4.8-10.8)
[2020-01-15 04:27] LABS: Partial Thromboplastin Ratio 1.2; Partial Thromboplastin Time 34.7 Seconds (21.0-31.0)
[2020-01-15 04:37] LABS: BUN Creatinine Ratio 25.6 (10-20); Calcium 7.7 mg/dl (8.5-10.1); Creatinine Clr Calc Pharmacy 53.8 ml/min; Est GFR (African American) 75.6; Est GFR (Non-African American) 65.2; Potassium 4.5 mmol/L (3.5-5.1)
[2020-01-15] MEDS ORDERED: HEPARIN IV BOLUS 4,500 UNITS in SYRINGE 0 ML IV ONE (04:50)
--- NOTE | 2020-01-15 06:59 | Ultrasound Report ---
US venous doppler LE BI HISTORY: Pain. Edema. leg edema, r/o dvt COMPARISON STUDY: None. FINDINGS: There is normal compressibility, flow, and augmentation within the bilateral lower extremit y deep venous systems. IMPRESSION: No DVT within the right or left lower extremity. ACT 112: Negative or not required by law. The above report was generated using voice recognition software. It may contain grammatical, syntax or spelling errors. Electronically signed by: Devon Dickerson M.D. 01/15/2020 6:57 AM
--- NOTE | 2020-01-15 07:17 | CT Scan Report ---
CT angio chest PE protocol CT DOSE: 439.96 mGycm HISTORY: Chest pain. Dyspnea. PE TECHNIQUE: Multiaxial CT images of the chest were performed following the intravenous administration of contrast to evaluate the pulmonary arteries. Maximal intensity projection images were also obtaine d. A dose lowering technique was utilized adhering to the principles of ALARA. COMPARISON STUDY: 03/31/2019 FINDINGS: Thoracic aorta shows mild left sclerotic change. The pulmonary vasculature enhances appropriately. Slight improvement of the left infrahilar masslike change versus consolidative change. Small bilateral pleural effusions. Emphysematous and a superimposed chronic interstitial change bilaterally. IMPRESSION: 1. No evidence for pulmonary embolus.. 2. Mild improvement of the consolidative process left infrahilar and left basilar region. 3. Interval development of small bilateral pleural effusions. 4. Baseline emphysematous and interstitial change. ACT 112: Negative or not required by law. The above report was generated using voice recognition software. It may contain grammatical, syntax or spelling errors. Electronically signed by: Devon Dickerson M.D. 01/15/2020 7:16 AM
[2020-01-15] MEDS: predniSONE 10 MG TABLET PO SCH (07:38)
[2020-01-15] MEDS: DOXYCYCLINE HYCLATE 100 MG CAP PO SCH ×2 (07:38→20:52)
[2020-01-15] MEDS: PANTOprazole 40 MG TAB PO SCH (07:38)
[2020-01-15] MEDS: OXYBUTYNIN CHLORIDE XL 5 MG TABCR PO SCH (07:38)
[2020-01-15] MEDS ORDERED: XOPENEX/ATROVENT 1.25mg/0.5MG NEB COMBO NEB SCH (08:55)
[2020-01-15] MEDS ORDERED: FUROSEMIDE 20 MG in SYRINGE 0 ML IV ONE (09:15)
--- NOTE | 2020-01-15 09:38 | Cardiology Consultation ---
Date of Consultation January 15, 2020 Assessment & Plan (1) Atrial ectopy: Although she is certainly at high risk for atrial fibrillation, EKG on presentation does NOT reveal new onset atrial fibrillation. She has asymptomatic frequent atrial ectopy. She is aware of her high risk for developing atrial fibrillation. Will attempt to suppress with low dose Toprol XL 12.5 mg/day. Discontinue heparin. Note: Risks of ocean transportation intermediary anticoagulation appear to be greater than the benefit if/when she does develop atrial fibrillation. DVT prophylaxis as per Hospitalist Service. Pleuritic chest pain. Await echo Peripheral edema. Multifactorial in etiology -> prednisone, anemia, hypoalbuminemia, ? diastolic heart failure. Agree with low dose furosemide for now. Left lower lobe pneumonia. As per Hospitalist Emphysematous and interstitial change. As per Hospitalist Non-Hodgkin's lymphoma. Hemolytic anemia. As per Hospitalized, Hematology/Oncology. Hypertension. BP OK. Follow. Supervising Physician Co-Signing Physician Notes Patient seen and examined, chart, medications, telemetry reviewed. Agree with assessment and plan as above Patient very complex recent history which includes hemolytic anemia with recent hospitalization. Patient referred for increasing lower extremity edema and dyspnea. EKG reveals sinus rhythm with frequent atrial ectopy, no atrial fibrillation on EKG or telemetry Echocardiogram on preliminary review reveals preserved LV systolic function As above we will add low-dose beta-willi to her regimen given frequent atrial ectopy and high risk for further atrial arrhythmias. No indications from cardiac standpoint for anticoagulation Edema multifactorial including marked hypoalbuminemia History of Present Illness Reason for Consultation: New onset atrial fibrillation Requesting Physician: Chilo Attending Physician: Chilo History of Present Illness Mrs. Tory Sagastume is a very pleasant 84 year old female who is being seen at the request of Dr. Woo. Reason for cardiology consultation is new onset atrial fibrillation. Mrs. Sagastume was referred to the [facility] ER on January 14, 2020 by her PCP due to progressive symptoms over the last few weeks including acute on chronic dyspnea, nonproductive cough, pleuritic type chest pain, and bilateral lower extremity peripheral edema since the initiation of prednisone at the end of November. She was notably hypoxemic at her PCP's office. EKG in the ER was felt to reveal new onset atrial fibrillation with a controlled ventricular response however personal review reveals the EKG to be poor in quality, dem onstrating sinus rhythm with frequent premature atrial complexes. Follow-up EKG this morning is of better quality and demonstrates sinus rhythm with 1st degree A-V block with premature atrial complexes with left axis deviation, low voltage QRS, possible anterolateral infarct. Review of her continuous hand buffer reveals sinus with a first degree AV block and frequent premature atrial complex es, possibly with very short bursts of PAT. No overt atrial fibrillation or flutter observed. No significant bradyarrhythmias or pauses. Chest x-ray showed by basilar parenchymal infiltrates. She was started on ceftriaxone IV. CT was negative of PE, revealing improvement in the consolidative process in the left infrahilar and left basilar region, small bilateral pleural effusions, and emphysematous as well as interstitial change. Venous duplex was negative for DVT bilaterally. Notable history includes non-Hodgkin's lymphoma with hemolytic anemia, currently prescribed Prednisone and with hypoalbuminemia, recent admission with GI bleeding without overt source identifiity, lupus anticoagulant disorder, hypertension, dyslipidemia, stage III CKD, dyslipidemia, pulmonary hypertension She denies prior cardiac history. She specifically denies history of atrial fibrillation, CAD, GA, CHF, heart murmur, rheumatic fever, or scarlet fever. Social History: Nonsmoker. No alcohol. No illegal drug use. . Four children. Seven grandchildren. Lives in [place]. Family History: Mother lived to be 97. Father with an GA at 56. Brother was killed in a MVA. Younger sister, 18 years younger, is alive without cardiac issues. Allergies Allergy/AdvReac Type Severity Reaction Status Date / Time No Known Allergies Allergy Verified 01/14/20 17:29 Home Medications Home Medications Medication Instructions Recorded Confirmed Type aspirin [Aspirin Low Dose] 81 mg PO QPM 04/25/18 01/14/20 History omega 9-xjg-orv-fish oil [Fish Oil] 2 cap PO QPM 04/25/18 01/14/20 History sertraline 100 mg PO QPM 03/31/19 01/14/20 History oxybutynin chloride 10 mg PO DAILY 11/02/19 01/14/20 History ascorbic acid (vitamin C) [Vitamin 500 mg PO BID 11/17/19 01/14/20 History C] calcium carbonate-vitamin D3 1 tab PO DAILY 11/17/19 01/14/20 History [Calcium 500 + D] melatonin 3 mg PO HS 11/17/19 01/14/20 History multivitamin 1 tab PO DAILY 11/17/19 01/14/20 History folic acid 1 mg PO QPM #30 tab 11/20/19 01/14/20 Rx cholecalciferol (vitamin D3) 2,000 unit PO DAILY 01/14/20 01/14/20 History [Vitamin D3] pantoprazole 40 mg PO QAM 01/14/20 01/14/20 History prednisone See Rx Instructions .ROUTE .COMPLEX 01/14/20 01/14/20 History Patient History Medical History Anemia (Acute) Anxiety (Chronic) B-cell lymphoma (Chronic) Chronic hip pain (Chronic) RIGHT CKD (chronic kidney disease), stage III (Chronic) Depression (Chronic) Exertional dyspnea (Chronic) GERD (gastroesophageal reflux disease) (Chronic) HLD (hyperlipidemia) (Chronic) 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) Hypertension (Chronic) Lupus anticoagulant disorder (Chronic) Osteoarthritis (Chronic) 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 leiomyoma (Chronic) Surgical History H/O colonoscopy (Chronic) "Diverticulosis 2010, repeat in 5 years " History of cataract surgery (Chronic) LEFT History of colonoscopy (Chronic) History of incision and drainage (Chronic) History of tonsillectomy (Chronic) History of total knee arthroplasty (Chronic) x 3; Right x 2; L x 1 Hx of tooth extraction (Chronic) S/P cataract surgery (Chronic) Tubal ligation status (Chronic) Family History Father , 52 Pulmonary embolism Mother Breast cancer Social History Preferred Language: [place] Islander Communication Ability: Effective Therapy Manager Required: No Beliefs That Will Affect Care: None marital status: Current Living Situation: Spouse Other Information That Helps Us Care for You: No Feels Safe at Home: Yes Safety Concerns: Feels Safe At This Time Smoking Status: Former smoker Hx Alcohol Use: No Hx Substance Use: No Review of Systems Review of Systems: All systems reviewed & are unremarkable except as noted in HPI & below Constitutional: + fatigue, + malaise and + weakness; no fever and no chills Ear, Nose, Mouth, Throat: no dizziness, no epistaxis, no sore throat and no dysphagia Respiratory: + cough, + chest congestion, + dyspnea, + dyspnea on exertion, + pain on inspiration and + pain with cough; no hemoptysis Cardiovascular: no chest pain with activity, no orthopnea, no paroxysmal nocturnal dyspnea, no palpitations, no syncope and no claudication Gastrointestinal: + nausea; no vomiting Integumentary: no rash Neurologic: + unsteadiness, + generalized weakness and + numbness Endocrine: + fatigue Physical Exam Physical Exam: General: A&Ox3. NAD. HEENT: Normocephalic. Atraumatic. PER. Conjunctiva pink, sclera clear. Neck: No carotid bruits. No JVD. No HJR. Heart: Distant heart sounds. No murmur appreciated. No rub. No gallop. PMI is nondisplaced. Lungs: Diminished. Dry crackles. No wheeze. Abdomen: +BS. Soft. Nontender. No masses or organomegaly. Extremities: 1-2+ nonpitting edema. No clubbing. No cyanosis. Limited neurological examination is without focal deficits. Pulses: radial=2/4, posterior tibial=1/4. Results & Data ([facility]) Vital Signs (Past 12 Hours) Vital Signs Temp Pulse Pulse Pulse Resp BP Pulse Ox 01/15/20 08:03 66 01/15/20 07:36 36.5 C 75 18 114/72 98 01/15/20 02:11 36.3 C L 85 20 144/72 H 96 01/14/20 22:54 96 01/14/20 22:49 37.1 C 70 20 133/81 92 Laboratory Results Laboratory Results - last 24 hr 01/14/20 01/14/20 01/14/20 16:45 16:45 16:45 WBC 11.28 H RBC 2.93 L Hgb 9.6 L Hct 27.3 L MCV 93.2 MCH 32.8 MCHC 35.2 RDW Std Deviation 62.7 H RDW Coeff of Marycruz 18.7 H Plt Count 369 MPV 8.4 Immature Gran % (Auto) 0.4 Neut % (Auto) 74.3 Lymph % (Auto) 21.8 [place] % (Auto) 3.4 Eos % (Auto) 0.0 Baso % (Auto) 0.1 Neut # (Auto) 8.39 H Lymph # (Auto) 2.46 [place] # (Auto) 0.38 Eos # (Auto) 0.00 Baso # (Auto) 0.01 Immature Gran # (Auto) 0.04 H APTT PTT Ratio D-Dimer Sodium 140 Potassium 4.5 Chloride 107 Carbon Dioxide 28 Anion Gap 5.0 BUN 23 H Creatinine 0.97 Est Cr Clr Drug Dosing Not Reportable Est GFR ( Amer) 62.6 Est GFR (Non-Af Amer) 54.0 BUN/Creatinine Ratio 24.1 H Glucose 153 H Calcium 8.0 L Magnesium 2.0 Total Bilirubin 1.5 H AST 28 ALT 28 Alkaline Phosphatase 80 Troponin I < 0.015 NT-Pro-B Natriuret Pep 298 Total Protein 6.5 Albumin 2.0 L Globulin 4.5 H Albumin/Globulin Ratio 0.4 L Procalcitonin 0.07 TSH 2.280 COVID-19 PCR SARS-CoV-2 RNA (RT-PCR) 01/14/20 01/14/20 01/14/20 16:45 16:45 21:50 WBC RBC Hgb Hct MCV MCH MCHC RDW Std Deviation RDW Coeff of Marycruz Plt Count MPV Immature Gran % (Auto) Neut % (Auto) Lymph % (Auto) [place] % (Auto) Eos % (Auto) Baso % (Auto) Neut # (Auto) Lymph # (Auto) [place] # (Auto) Eos # (Auto) Baso # (Auto) Immature Gran # (Auto) APTT 27.5 PTT Ratio 1.0 D-Dimer 8910 H* Sodium Potassium Chloride Carbon Dioxide Anion Gap BUN Creatinine Est Cr Clr Drug Dosing Est GFR ( Amer) Est GFR (Non-Af Amer) BUN/Creatinine Ratio Glucose Calcium Magnesium Total Bilirubin AST ALT Alkaline Phosphatase Troponin I NT-Pro-B Natriuret Pep Total Protein Albumin Globulin Albumin/Globulin Ratio Procalcitonin TSH COVID-19 PCR SARS-CoV-2 RNA (RT-PCR) Cancelled 01/14/20 01/15/20 01/15/20 21:50 03:52 03:52 WBC 11.74 H RBC 2.73 L Hgb 8.8 L Hct 25.3 L MCV 92.7 MCH 32.2 MCHC 34.8 RDW Std Deviation 62.1 H RDW Coeff of Marycruz 18.4 H Plt Count 349 MPV 8.0 Immature Gran % (Auto) 0.6 Neut % (Auto) 51.2 Lymph % (Auto) 38.9 [place] % (Auto) 7.0 Eos % (Auto) 2.0 Baso % (Auto) 0.3 Neut # (Auto) 6.02 Lymph # (Auto) 4.57 H [place] # (Auto) 0.82 H Eos # (Auto) 0.23 Baso # (Auto) 0.03 Immature Gran # (Auto) 0.07 H APTT PTT Ratio D-Dimer Sodium 142 Potassium 4.5 Chloride 109 H Carbon Dioxide 29 Anion Gap 4.0 BUN 21 H Creatinine 0.83 Est Cr Clr Drug Dosing 53.8 Est GFR ( Amer) 75.6 Est GFR (Non-Af Amer) 65.2 BUN/Creatinine Ratio 25.6 H Glucose 146 H Calcium 7.7 L Magnesium Total Bilirubin AST ALT Alkaline Phosphatase Troponin I NT-Pro-B Natriuret Pep Total Protein Albumin Globulin Albumin/Globulin Ratio Procalcitonin TSH COVID-19 PCR NEGATIVE SARS-CoV-2 RNA (RT-PCR) 01/15/20 03:52 WBC RBC Hgb Hct MCV MCH MCHC RDW Std Deviation RDW Coeff of Marycruz Plt Count MPV Immature Gran % (Auto) Neut % (Auto) Lymph % (Auto) [place] % (Auto) Eos % (Auto) Baso % (Auto) Neut # (Auto) Lymph # (Auto) [place] # (Auto) Eos # (Auto) Baso # (Auto) Immature Gran # (Auto) APTT 34.7 H PTT Ratio 1.2 D-Dimer Sodium Potassium Chloride Carbon Dioxide Anion Gap BUN Creatinine Est Cr Clr Drug Dosing Est GFR ( Amer) Est GFR (Non-Af Amer) BUN/Creatinine Ratio Glucose Calcium Magnesium Total Bilirubin AST ALT Alkaline Phosphatase Troponin I NT-Pro-B Natriuret Pep Total Protein Albumin Globulin Albumin/Globulin Ratio Procalcitonin TSH COVID-19 PCR SARS-CoV-2 RNA (RT-PCR)
--- NOTE | 2020-01-15 11:28 | Electrocardiogram Report ---
Test Reason : Blood Pressure : / mmHG Vent. Rate : 061 BPM Atrial Rate : 061 BPM P-R Int : 210 ms QRS Dur : 078 ms QT Int : 442 ms P-R-T Axes : 037 -31 003 degrees QTc Int : 444 ms Sinus rhythm with 1st degree A-V block with Premature atrial complexes Left axis deviation Low voltage QRS Poor R wave progression, consider anterior KS vs. lead placement vs. LVH Abnormal ECG When compared with ECG of 14-JAN-2020 16:18, (unconfirmed) Sinus rhythm has replaced Atrial fibrillation Confirmed by Michael Ramos ([id number]) on 01/15/2020 11:27:23 AM Referred By: Afia Baldwin Confirmed By:Jonathan Ramos
[2020-01-15] MEDS: METOPROLOL SUCC 25MG EXT REL TAB PO SCH (11:47)
--- NOTE | 2020-01-15 12:54 | Electrocardiogram Report ---
Test Reason : Blood Pressure : / mmHG Vent. Rate : 077 BPM Atrial Rate : 115 BPM P-R Int : 000 ms QRS Dur : 072 ms QT Int : 430 ms P-R-T Axes : 000 -24 003 degrees QTc Int : 486 ms Poor data quality, interpretation may be adversely affected Sinus rhythm with PACs Low voltage QRS Possible Anterolateral infarct (cited on or before 14-JAN-2020) Abnormal ECG When compared with ECG of 17-NOV-2019 16:03, Questionable change in initial forces of Lateral leads Confirmed by Michael Ramos ([id number] on 01/15/2020 12:54:25 PM Referred By: Afia Baldwin Confirmed By:Jonathan Ramos
[2020-01-15] MEDS: IPRATROPIUM BROMIDE NEB SOLN 0.02% 2.5 ML VIAL INH SCH ×2 (13:33→19:14)
[2020-01-15] MEDS: LEVALBUTEROL 1.25MG/0.5ML NEB INH SCH ×2 (13:33→19:14)
[2020-01-15] MEDS ORDERED: cefTRIAXone SODIUM 2,000 MG in DEXTROSE 5% 50 ML IV SCH (16:00)
--- NOTE | 2020-01-15 18:36 | Hospitalist Progress Note ---
Date of Service January 15, 2020 Assessment & Plan (1) Shortness of breath: 84-year-old female with history of non-Hodgkin's lymphoma, hemolytic anemia on prednisone taper, Lupus anticoagulant disorder, hypertension, CKD stage III, other problems noted below presenting with shortness of breath times few weeks. Shortness of breath, with hypoxia likely secondary to acute on chronic diastolic CHF exacerbation CT chest: 1. No evidence for pulmonary embolus.. 2. Mild improvement of the consolidative process left infrahilar and left basilar region. 3. Interval development of small bilateral pleural effusions. 4. Baseline emphysematous and interstitial change. Echocardiogram: EF 65 to 70%, grade 1 Dysfunction, aortic valve is mild, without significant aortic valvular stenosis, there is moderate tricuspid regurgitation, Doppler findings do not suggest pulmonary hypertension Lasix 20 mg IV 1 dose ordered Appreciate cardiology service recommendations Possible community-acquired pneumonia Less likely Procalcitonin normal Patient denies sputum production If afebrile, will discontinue antibiotics tomorrow Pulmonary embolism ruled out, CT angiogram negative COVID test negative Leg edema, likely secondary to acute on chronic diastolic CHF exacerbation Doppler studies negative Lasix 20 mg IV ordered Continue to monitor We will consult nutrition service for hypoalbuminemia Atrial fibrillation ruled out Echocardiogram as noted above Evaluated by cardiology service, felt to be secondary to frequent atrial ectopy Toprol-XL 12.5 mg/day ordered Emphysema, interstitial change Patient has no history of smoking or exposure to smoke, fumes, chemicals No wheezing on exam For now, patient will be given Lasix IV for pleural effusion, diastolic CHF Already on prednisone taper Monitor response, hopefully will be able to wean off oxygen Will need referral to pulmonary service as an outpatient Non-Hodgkin's lymphoma Hemolytic anemia on prednisone taper --Follows with [facility] oncologist Dr. Osorio According to oncologist, patient's hemoglobin has been improving with the prednisone taper, currently stable around 10 --Continue prednisone 30 mg daily Monitor hemoglobin History of hypertension Not on any medications, BP stable CKD stage III Stable Monitor creatinine History of lupus anticoagulant disorder CODE STATUS Full code as per patient Disposition Lives with her Anticipate discharge to home medically stable Admission and Anticipated Discharge Date Admission Date: January 14, 2020 Subjective Follow-up for shortness of breath, leg edema, hypoxia Seen resting in bed, comfortable, not in distress, on 2 L of oxygen by nasal cannula States she feels slightly improved today, still with dyspnea on exertion ambulating to the bathroom Denies chest pain, palpitations, dizziness, nausea vomiting Denies leg pain or any other pain No fevers or chills, no sputum production, no problems with urination or bowel movement No other symptoms Review of Systems Review of Systems: All systems reviewed & are unremarkable except as noted in HPI & below Physical Exam Physical Exam: General- oriented x 3, not in distress, speaks in sentences with no effort or accessory muscle use Eyes- anicteric Neck- no JVD Lungs-mild rales at the bases, no wheezing, good air entry bilaterally Heart- normal rate, regular rhythm; no murmurs Abdomen- normal bowel sounds, nondistended, soft, nontender Extremities-positive grade 1 lower leg edema, no erythema/warmth/tenderness Neuro- alert, oriented x 3; no gross focal neurologic deficits Skin- warm & dry Results & Data Results & Data ([facility]) Vital Signs (Past 12 Hours) Vital Signs Temp Pulse Pulse Pulse Resp BP Pulse Ox 01/15/20 15:38 88 01/15/20 15:13 36.6 C 71 16 111/72 99 01/15/20 13:33 63 16 99 01/15/20 11:03 36.5 C 83 20 134/72 92 01/15/20 08:03 66 01/15/20 07:36 36.5 C 75 18 114/72 98 Laboratory Results Laboratory Results - last 24 hr 01/14/20 01/14/20 01/14/20 16:45 16:45 21:50 WBC RBC Hgb Hct MCV MCH MCHC RDW Std Deviation RDW Coeff of Marycruz Plt Count MPV Immature Gran % (Auto) Neut % (Auto) Lymph % (Auto) [place] % (Auto) Eos % (Auto) Baso % (Auto) Neut # (Auto) Lymph # (Auto) [place] # (Auto) Eos # (Auto) Baso # (Auto) Immature Gran # (Auto) APTT 27.5 PTT Ratio 1.0 D-Dimer 8910 H* Sodium Potassium Chloride Carbon Dioxide Anion Gap BUN Creatinine Est Cr Clr Drug Dosing Est GFR ( Amer) Est GFR (Non-Af Amer) BUN/Creatinine Ratio Glucose Calcium COVID-19 PCR SARS-CoV-2 RNA (RT-PCR) Cancelled 01/14/20 01/15/20 01/15/20 21:50 03:52 03:52 WBC 11.74 H RBC 2.73 L Hgb 8.8 L Hct 25.3 L MCV 92.7 MCH 32.2 MCHC 34.8 RDW Std Deviation 62.1 H RDW Coeff of Marycruz 18.4 H Plt Count 349 MPV 8.0 Immature Gran % (Auto) 0.6 Neut % (Auto) 51.2 Lymph % (Auto) 38.9 [place] % (Auto) 7.0 Eos % (Auto) 2.0 Baso % (Auto) 0.3 Neut # (Auto) 6.02 Lymph # (Auto) 4.57 H [place] # (Auto) 0.82 H Eos # (Auto) 0.23 Baso # (Auto) 0.03 Immature Gran # (Auto) 0.07 H APTT PTT Ratio D-Dimer Sodium 142 Potassium 4.5 Chloride 109 H Carbon Dioxide 29 Anion Gap 4.0 BUN 21 H Creatinine 0.83 Est Cr Clr Drug Dosing 53.8 Est GFR ( Amer) 75.6 Est GFR (Non-Af Amer) 65.2 BUN/Creatinine Ratio 25.6 H Glucose 146 H Calcium 7.7 L COVID-19 PCR NEGATIVE SARS-CoV-2 RNA (RT-PCR) 01/15/20 03:52 WBC RBC Hgb Hct MCV MCH MCHC RDW Std Deviation RDW Coeff of Marycruz Plt Count MPV Immature Gran % (Auto) Neut % (Auto) Lymph % (Auto) [place] % (Auto) Eos % (Auto) Baso % (Auto) Neut # (Auto) Lymph # (Auto) [place] # (Auto) Eos # (Auto) Baso # (Auto) Immature Gran # (Auto) APTT 34.7 H PTT Ratio 1.2 D-Dimer Sodium Potassium Chloride Carbon Dioxide Anion Gap BUN Creatinine Est Cr Clr Drug Dosing Est GFR ( Amer) Est GFR (Non-Af Amer) BUN/Creatinine Ratio Glucose Calcium COVID-19 PCR SARS-CoV-2 RNA (RT-PCR)
[2020-01-15] MEDS: FOLIC ACID 1 MG TAB PO SCH (20:50)
[2020-01-15] MEDS: OMEGA-3 (PURIFIED FISH OIL) 1 GM CAP PO SCH (20:51)
[2020-01-15] MEDS: SERTRALINE HCL 100 MG TABLET PO SCH (20:53)
[2020-01-16] MEDS: IPRATROPIUM BROMIDE NEB SOLN 0.02% 2.5 ML VIAL INH SCH ×4 (01:20→19:14)
[2020-01-16] MEDS: LEVALBUTEROL 1.25MG/0.5ML NEB INH SCH ×4 (01:20→19:14)
[2020-01-16 05:35] LABS: Basophils # (auto) 0.01 K/uL (0-0.2); Basophils % (auto) 0.1 %; Eosinophils # (auto) 0.14 K/uL (0-0.5); Eosinophils % (auto) 1.3 %; Hematocrit (blood only) 25.6 % (37-47); Hemoglobin 8.9 g/dL (12.0-16.0); Immature Granulocytes # (auto) 0.06 K/uL (0.00-0.02); Immature Granulocytes % (auto) 0.5 %; Lymphocytes # (auto) 4.35 K/uL (1.2-3.4); Lymphocytes % (auto) 39.5 %; Mean Corpuscular Hemoglobin 32.7 pg (25-34); Mean Corpuscular Hgb Conc 34.8 g/dL (32-36); Mean Corpuscular Volume 94.1 fL (80-100); Mean Platelet Volume 8.3 fL (7.4-10.4); Monocytes # (auto) 0.88 K/uL (0.11-0.59); Neutrophils # (auto) 5.57 K/uL (1.4-6.5); Neutrophils % (auto) 50.6 %; Platelet Count 421 K/uL (130-400); RDW Coefficient of Variation 18.6 % (11.5-14.5); RDW Standard Deviation 62.6 fL (36.4-46.3); Red Blood Count 2.72 M/uL (4.2-5.4); White Blood Count 11.01 K/uL (4.8-10.8)
[2020-01-16 06:34] LABS: BUN Creatinine Ratio 21.1 (10-20); Calcium 7.8 mg/dl (8.5-10.1); Creatinine Clr Calc Pharmacy 44.5 ml/min; Est GFR (African American) 60.3; Est GFR (Non-African American) 52.1; Potassium 3.6 mmol/L (3.5-5.1)
[2020-01-16] MEDS: METOPROLOL SUCC 25MG EXT REL TAB PO SCH (09:22)
[2020-01-16] MEDS: predniSONE 10 MG TABLET PO SCH (09:23)
[2020-01-16] MEDS: DOXYCYCLINE HYCLATE 100 MG CAP PO SCH (09:23)
[2020-01-16] MEDS: OXYBUTYNIN CHLORIDE XL 5 MG TABCR PO SCH (09:23)
[2020-01-16] MEDS: PANTOprazole 40 MG TAB PO SCH (09:23)
--- NOTE | 2020-01-16 11:39 | Hospitalist Progress Note ---
Date of Service January 16, 2020 Assessment & Plan (1) Shortness of breath: 84-year-old female with history of non-Hodgkin's lymphoma, hemolytic anemia on prednisone taper, Lupus anticoagulant disorder, hypertension, CKD stage III, other problems noted below presenting with shortness of breath times few weeks. Shortness of breath, with hypoxia likely secondary to acute on chronic diastolic CHF exacerbation CT chest: 1. No evidence for pulmonary embolus.. 2. Mild improvement of the consolidative process left infrahilar and left basilar region. 3. Interval development of small bilateral pleural effusions. 4. Baseline emphysematous and interstitial change. Echocardiogram: EF 65 to 70%, grade 1 Dysfunction, aortic valve is mild, without significant aortic valvular stenosis, there is moderate tricuspid regurgitation, Doppler findings do not suggest pulmonary hypertension Lasix 20 mg IV 1 dose ordered with modest diuresis, still has significant dyspnea on exertion, leg edema Lasix 40mg IV 1 dose ordered in AM, will order another Lasix 20mg IV in the evening -- monitor I/O, weights Possible community-acquired pneumonia Less likely Procalcitonin normal Patient denies sputum production d/c Ceftri + Doxy Pulmonary embolism ruled out, CT angiogram negative COVID test negative Leg edema, likely secondary to acute on chronic diastolic CHF exacerbation Doppler studies negative Lasix IV ordered Continue to monitor We will consult nutrition service for hypoalbuminemia Boost TID ordered Atrial fibrillation ruled out Echocardiogram as noted above Evaluated by cardiology service, felt to be secondary to frequent atrial ectopy Toprol-XL 12.5 mg/day ordered Emphysema, interstitial change Patient has no history of smoking or exposure to smoke, fumes, chemicals No wheezing on exam For now, patient will be given Lasix IV for pleural effusion, diastolic CHF Already on prednisone taper Monitor response, hopefully will be able to wean off oxygen [employer] Dr. Montoya consulted Non-Hodgkin's lymphoma Hemolytic anemia on prednisone taper --Follows with [facility] oncologist Dr. Osorio According to oncologist, patient's hemoglobin has been improving with the prednisone taper, currently stable around 10 --Continue prednisone 30 mg daily Monitor hemoglobin History of hypertension Not on any medications, BP stable CKD stage III Stable Monitor creatinine History of lupus anticoagulant disorder CODE STATUS Full code as per patient Disposition Lives with her Anticipate discharge to home medically stable Admission and Anticipated Discharge Date Admission Date: January 14, 2020 Subjective ff up for hypoxia, CHF, leg edema seen resting in bed, not in distress per RN, patient desaturates to the 70s after walking back to her bed from the bathroom patient confirms and reports dyspnea with ambulation to the bathroom denies chest pain, cough, sputum, fever/chills no leg pain denies other symptoms Review of Systems Review of Systems: All systems reviewed & are unremarkable except as noted in HPI & below Physical Exam Physical Exam: General- oriented x 3, not in distress, speaks in sentences with no effort or accessory muscle use Eyes- anicteric Neck- no JVD Lungs- (+) crackles the bases no wheezing Heart- normal rate, regular rhythm; no murmurs Abdomen- normal bowel sounds, nondistended, soft, nontender Extremities- grade 2 lower leg edema- no warmth/tenderness/erythema Neuro- alert, oriented x 3; no gross focal neurologic deficits Skin- warm & dry Results & Data Results & Data ([facility]) Vital Signs (Past 12 Hours) Vital Signs Temp Pulse Pulse Pulse Resp BP Pulse Ox 01/16/20 09:35 75 01/16/20 07:53 36.7 C 66 18 132/63 96 01/16/20 07:07 67 18 92 01/16/20 03:54 36.4 C L 75 18 120/68 94 01/16/20 01:21 78 19 93 Laboratory Results Laboratory Results - last 24 hr 01/16/20 01/16/20 04:50 04:50 WBC 11.01 H RBC 2.72 L Hgb 8.9 L Hct 25.6 L MCV 94.1 MCH 32.7 MCHC 34.8 RDW Std Deviation 62.6 H RDW Coeff of Marycruz 18.6 H Plt Count 421 H MPV 8.3 Immature Gran % (Auto) 0.5 Neut % (Auto) 50.6 Lymph % (Auto) 39.5 [place] % (Auto) 8.0 Eos % (Auto) 1.3 Baso % (Auto) 0.1 Neut # (Auto) 5.57 Lymph # (Auto) 4.35 H [place] # (Auto) 0.88 H Eos # (Auto) 0.14 Baso # (Auto) 0.01 Immature Gran # (Auto) 0.06 H Sodium 142 Potassium 3.6 D Chloride 107 Carbon Dioxide 29 Anion Gap 6.0 BUN 21 H Creatinine 1.00 Est Cr Clr Drug Dosing 44.5 Est GFR ( Amer) 60.3 Est GFR (Non-Af Amer) 52.1 BUN/Creatinine Ratio 21.1 H Glucose 105 H Calcium 7.8 L
[2020-01-16] MEDS: FUROSEMIDE 40 MG in SYRINGE 0 ML IV SCH (12:23)
[2020-01-16] MEDS ORDERED: FUROSEMIDE 20 MG in SYRINGE 0 ML IV ONE (18:30)
[2020-01-16] MEDS: OMEGA-3 (PURIFIED FISH OIL) 1 GM CAP PO SCH (21:14)
[2020-01-16] MEDS: SERTRALINE HCL 100 MG TABLET PO SCH (21:14)
[2020-01-16] MEDS: FOLIC ACID 1 MG TAB PO SCH (21:15)
[2020-01-16] MEDS: MELATONIN 3 MG TAB PO SCH (21:20)
[2020-01-17] MEDS: IPRATROPIUM BROMIDE NEB SOLN 0.02% 2.5 ML VIAL INH SCH ×3 (01:28→13:19)
[2020-01-17] MEDS: LEVALBUTEROL 1.25MG/0.5ML NEB INH SCH ×3 (01:28→13:19)
[2020-01-17 06:59] LABS: Basophils # (auto) 0.02 K/uL (0-0.2); Basophils % (auto) 0.2 %; Eosinophils # (auto) 0.11 K/uL (0-0.5); Hematocrit (blood only) 25.7 % (37-47); Hemoglobin 8.9 g/dL (12.0-16.0); Immature Granulocytes # (auto) 0.11 K/uL (0.00-0.02); Lymphocytes % (auto) 39.5 %; Mean Corpuscular Hemoglobin 32.4 pg (25-34); Mean Corpuscular Hgb Conc 34.6 g/dL (32-36); Mean Corpuscular Volume 93.5 fL (80-100); Mean Platelet Volume 8.2 fL (7.4-10.4); Monocytes # (auto) 0.94 K/uL (0.11-0.59); Monocytes % (auto) 8.4 %; Neutrophils # (auto) 5.57 K/uL (1.4-6.5); Neutrophils % (auto) 49.9 %; Platelet Count 390 K/uL (130-400); RDW Coefficient of Variation 18.2 % (11.5-14.5); RDW Standard Deviation 61.4 fL (36.4-46.3); Red Blood Count 2.75 M/uL (4.2-5.4); White Blood Count 11.15 K/uL (4.8-10.8)
[2020-01-17 07:30] LABS: BUN Creatinine Ratio 23.3 (10-20); Calcium 7.9 mg/dl (8.5-10.1); Creatinine Clr Calc Pharmacy 48.2 ml/min; Est GFR (African American) 67.6; Est GFR (Non-African American) 58.3; Potassium 4.4 mmol/L (3.5-5.1)
[2020-01-17] MEDS: METOPROLOL SUCC 25MG EXT REL TAB PO SCH (08:29)
[2020-01-17] MEDS: OXYBUTYNIN CHLORIDE XL 5 MG TABCR PO SCH (08:30)
[2020-01-17] MEDS: predniSONE 10 MG TABLET PO SCH (08:30)
[2020-01-17] MEDS: PANTOprazole 40 MG TAB PO SCH (08:30)
[2020-01-17] MEDS: FUROSEMIDE 40 MG in SYRINGE 0 ML IV SCH (08:30)
--- NOTE | 2020-01-17 13:20 | Hospitalist Progress Note ---
Date of Service January 17, 2020 Assessment & Plan (1) Shortness of breath: 84-year-old female with history of non-Hodgkin's lymphoma, hemolytic anemia on prednisone taper, Lupus anticoagulant disorder, hypertension, CKD stage III, other problems noted below presenting with shortness of breath times few weeks. Shortness of breath, with hypoxia likely secondary to acute on chronic diastolic CHF exacerbation Possible underlying interstitial lung disease CT chest: 1. No evidence for pulmonary embolus.. 2. Mild improvement of the consolidative process left infrahilar and left basilar region. 3. Interval development of small bilateral pleural effusions. 4. Baseline emphysematous and interstitial change. Echocardiogram: EF 65 to 70%, grade 1 Dysfunction, aortic valve is mild, without significant aortic valvular stenosis, there is moderate tricuspid regurgitation, Doppler findings do not suggest pulmonary hypertension Patient clinically improving O2 sats normal at rest Continue Lasix 40 mg in a.m., 20 mg p.m. Monitor I's and O's Possible underlying interstitial lung disease Positive pulmonary service Dr. Najera CT chest reviewed, appears to have cystic changes intraparenchymally Patient has no history of smoking or exposure to smoke, fumes, chemicals No wheezing on exam Recommend possible underlying interstitial lung disease to be worked up as an outpatient Recommend to initiate Breo Already on prednisone taper Follow-up with Dr. Patel in 1 to 2 weeks Possible community-acquired pneumonia, unlikely Unlikely at this point Procalcitonin normal Patient denies sputum production d/c Ceftri + Doxy Pulmonary embolism ruled out, CT angiogram negative COVID test negative Leg edema, likely secondary to acute on chronic diastolic CHF exacerbation Doppler studies negative Lasix IV ordered Improving Continue to monitor We will consult nutrition service for hypoalbuminemia Boost TID ordered Atrial fibrillation ruled out Echocardiogram as noted above Evaluated by cardiology service, felt to be secondary to frequent atrial ectopy Toprol-XL 12.5 mg/day ordered, tolerating well Non-Hodgkin's lymphoma Hemolytic anemia on prednisone taper --Follows with [facility] oncologist Dr. Osorio According to oncologist, patient's hemoglobin has been improving with the prednisone taper, currently stable around 10 --Continue prednisone 30 mg daily Monitor hemoglobin History of hypertension Not on any medications, BP stable CKD stage III Stable Monitor creatinine History of lupus anticoagulant disorder CODE STATUS Full code as per patient Disposition Lives with her Anticipate discharge to home medically stable PT eval ordered Will likely need oxygen supplementation upon discharge, will order two-step test before discharge date Admission and Anticipated Discharge Date Admission Date: January 14, 2020 Subjective Follow-up for hypoxia, acute diastolic CHF exacerbation Resting in bed, comfortable, not in distress, appears brighter, in good spirits States she feels improved today compared to previous days Shortness of breath improving No cough, fevers or chills, sputum production No dizziness Ambulating to the bathroom with no problems Denies leg pain No other symptoms Review of Systems Review of Systems: All systems reviewed & are unremarkable except as noted in HPI & below Physical Exam Physical Exam: General- oriented x 3, not in distress, speaks in sentences with no effort or accessory muscle use Eyes- anicteric Neck- no JVD Lungs-very faint rales at the bases, no wheezing Good air entry bilaterally Heart- normal rate, regular rhythm; no murmurs Abdomen- normal bowel sounds, nondistended, soft, nontender Extremities-grade 1-2 lower leg edema, improving, no calf tenderness No erythema/warmth Neuro- alert, oriented x 3; no gross focal neurologic deficits Skin- warm & dry Results & Data Results & Data ([facility]) Vital Signs (Past 12 Hours) Vital Signs Temp Pulse Pulse Pulse Resp BP Pulse Ox 01/17/20 12:05 36.6 C 63 16 115/69 98 01/17/20 10:15 64 01/17/20 08:32 76 01/17/20 08:12 36.5 C 56 L 16 118/62 96 01/17/20 07:08 54 L 18 98 01/17/20 04:12 36.5 C 72 17 123/79 94 01/17/20 01:29 69 20 98 Laboratory Results Laboratory Results - last 24 hr 01/17/20 01/17/20 06:39 06:39 WBC 11.15 H RBC 2.75 L Hgb 8.9 L Hct 25.7 L MCV 93.5 MCH 32.4 MCHC 34.6 RDW Std Deviation 61.4 H RDW Coeff of Marycruz 18.2 H Plt Count 390 MPV 8.2 Immature Gran % (Auto) 1.0 Neut % (Auto) 49.9 Lymph % (Auto) 39.5 [place] % (Auto) 8.4 Eos % (Auto) 1.0 Baso % (Auto) 0.2 Neut # (Auto) 5.57 Lymph # (Auto) 4.40 H [place] # (Auto) 0.94 H Eos # (Auto) 0.11 Baso # (Auto) 0.02 Immature Gran # (Auto) 0.11 H Sodium 143 Potassium 4.4 D Chloride 106 Carbon Dioxide 34 H Anion Gap 3.0 BUN 21 H Creatinine 0.91 Est Cr Clr Drug Dosing 48.2 Est GFR ( Amer) 67.6 Est GFR (Non-Af Amer) 58.3 BUN/Creatinine Ratio 23.3 H Glucose 128 H Calcium 7.9 L
[2020-01-17] MEDS: FLUTICASONE/VILANTEROL 100/25MCG 14 PUFFS/INHALER INH SCH (14:30)
[2020-01-17] MEDS ORDERED: LEVALBUTEROL 1.25MG/0.5ML NEB INH PRN (15:58)
[2020-01-17] MEDS ORDERED: IPRATROPIUM BROMIDE NEB SOLN 0.02% 2.5 ML VIAL INH PRN (15:58)
[2020-01-17] MEDS ORDERED: FUROSEMIDE 20 MG in SYRINGE 0 ML IV ONE (16:00)
[2020-01-17] MEDS: SERTRALINE HCL 100 MG TABLET PO SCH (20:43)
[2020-01-17] MEDS: OMEGA-3 (PURIFIED FISH OIL) 1 GM CAP PO SCH (20:43)
[2020-01-17] MEDS: FOLIC ACID 1 MG TAB PO SCH (20:43)
[2020-01-17] MEDS: MELATONIN 3 MG TAB PO SCH (20:48)
[2020-01-18 07:55] LABS: BUN Creatinine Ratio 24.7 (10-20); Calcium 8.5 mg/dl (8.5-10.1); Creatinine Clr Calc Pharmacy 48.4 ml/min; Est GFR (African American) 67.6; Est GFR (Non-African American) 58.3; Potassium 3.6 mmol/L (3.5-5.1)
[2020-01-18] MEDS: METOPROLOL SUCC 25MG EXT REL TAB PO SCH (07:59)
[2020-01-18] MEDS: predniSONE 10 MG TABLET PO SCH (07:59)
[2020-01-18] MEDS: OXYBUTYNIN CHLORIDE XL 5 MG TABCR PO SCH (07:59)
[2020-01-18] MEDS: PANTOprazole 40 MG TAB PO SCH (07:59)
[2020-01-18] MEDS: FLUTICASONE/VILANTEROL 100/25MCG 14 PUFFS/INHALER INH SCH (07:59)
[2020-01-18] MEDS: FUROSEMIDE 40 MG in SYRINGE 0 ML IV SCH (08:00)
--- NOTE | 2020-01-18 13:05 | Cardiology Progress Note ---
Date of Service January 18, 2020 Assessment & Plan (1) Atrial ectopy: No episodes of atrial fibrillation on telemetry monitoring. Still with occasional PACs but definitely a lesser burden after metoprolol has been added. Remains asymptomatic. We will continue current dose of metoprolol on discharge. Okay to DC from telemetry or to home from a cardiac standpoint. Subjective Patient seen and examined, chart reviewed. Sitting out of bed in chair states that she is feeling relatively well. Denies any cardiac complaints of chest pain, shortness of breath, palpitations, lightheadedness, dizziness or syncope. Telemetry reviewed: Sinus rhythm with occasional PACs no sustained arrhythmias. Review of Systems Review of Systems: All systems reviewed & are unremarkable except as noted in HPI & below Physical Exam Physical Exam: General: Awake, alert and oriented x 3. No acute distress. HEENT: Normocephalic, atraumatic. Pupils equal, round and reactive to light and accommodation. Extraocular muscles are intact. Anicteric sclera. Moist mucous membranes. Neck: No JVD. No bruit. Cardiovascular: Regular. Positive S-4. Normal S-1 and S-2. No S-3. No murmurs or rubs. Pulmonary: Clear to auscultation B/L. No rales, rhonchi or wheezing Abdomen: Bowel sounds x 4, soft. No rebound, guarding or tenderness. No organomegaly. Extremities: No clubbing, cyanosis or edema. +2 pedal pulses bilaterally. Skin: Warm and dry. Results & Data Vital Signs (Past 12 Hours) Vital Signs Temp Pulse Resp BP BP Pulse Ox 01/18/20 11:35 37.0 C 69 18 107/59 L 99 01/18/20 07:58 72 18 126/53 L 91 01/18/20 04:00 36.6 C 54 L 18 125/56 L 90
[2020-01-18] MEDS: HEPARIN SOD 5,000 UNIT/0.5 ML VIAL SQ SCH ×2 (14:19→20:13)
[2020-01-18] MEDS ORDERED: FUROSEMIDE 20 MG in SYRINGE 0 ML IV ONE (19:00)
--- NOTE | 2020-01-18 19:11 | Hospitalist Progress Note ---
Date of Service January 18, 2020 Assessment & Plan (1) Shortness of breath: 84-year-old female with history of non-Hodgkin's lymphoma, hemolytic anemia on prednisone taper, Lupus anticoagulant disorder, hypertension, CKD stage III, other problems noted below presenting with shortness of breath times few weeks. Shortness of breath, with hypoxia likely secondary to acute on chronic diastolic CHF exacerbation Possible underlying interstitial lung disease CT chest: 1. No evidence for pulmonary embolus.. 2. Mild improvement of the consolidative process left infrahilar and left basilar region. 3. Interval development of small bilateral pleural effusions. 4. Baseline emphysematous and interstitial change. Echocardiogram: EF 65 to 70%, grade 1 Dysfunction, aortic valve is mild, without significant aortic valvular stenosis, there is moderate tricuspid regurgitation, Doppler findings do not suggest pulmonary hypertension Patient continues to diurese well O2 sats normal at rest Continue Lasix 40 mg in a.m., 20 mg p.m. Monitor I's and O's anticipate d/c home tomorrow Possible underlying interstitial lung disease Positive pulmonary service Dr. Najera CT chest reviewed, appears to have cystic changes intraparenchymally Patient has no history of smoking or exposure to smoke, fumes, chemicals No wheezing on exam Recommend possible underlying interstitial lung disease to be worked up as an outpatient Breo started Already on prednisone taper Follow-up with Dr. Patel in 1 to 2 weeks -- breathing continues to improve Possible community-acquired pneumonia, unlikely Unlikely at this point Procalcitonin normal Patient denies sputum production d/c Ceftri + Doxy Pulmonary embolism ruled out, CT angiogram negative COVID test negative Leg edema, likely secondary to acute on chronic diastolic CHF exacerbation Doppler studies negative Lasix IV ordered Improving Continue to monitor consult nutrition service for hypoalbuminemia Boost TID ordered Atrial fibrillation ruled out Echocardiogram as noted above Evaluated by cardiology service, felt to be secondary to frequent atrial ectopy Toprol-XL 12.5 mg/day ordered, tolerating well Non-Hodgkin's lymphoma Hemolytic anemia on prednisone taper --Follows with [facility] oncologist Dr. Osorio According to oncologist, patient's hemoglobin has been improving with the prednisone taper, currently stable around 10 --Continue prednisone 30 mg daily Monitor hemoglobin History of hypertension Not on any medications, BP stable CKD stage III Stable Monitor creatinine History of lupus anticoagulant disorder CODE STATUS Full code as per patient Disposition Lives with her Anticipate discharge to home medically stable PT eval ordered Will likely need oxygen supplementation upon discharge, will order two-step test before discharge date Admission and Anticipated Discharge Date Admission Date: January 14, 2020 Subjective ff up for hypoxia, diastolic CHF exacerbation seen resting in bed, comfortable states she continues to feel improved no dyspnea, chest pain ambulating better, no dyspnea on exertion leg swelling improving no other symptoms Review of Systems Review of Systems: All systems reviewed & are unremarkable except as noted in HPI & below Physical Exam Physical Exam: General- oriented x 3, not in distress, speaks in sentences with no effort or accessory muscle use Eyes- anicteric Neck- no JVD Lungs- very faint rales at the bases Heart- normal rate, regular rhythm; no murmurs Abdomen- normal bowel sounds, nondistended, soft, nontender Extremities- mild lower leg edema, no calf tenderness Neuro- alert, oriented x 3; no gross focal neurologic deficits Skin- warm & dry Results & Data Results & Data ([facility]) Vital Signs (Past 12 Hours) Vital Signs Temp Pulse Pulse Pulse Resp BP BP 01/18/20 16:40 74 01/18/20 15:29 36.5 C 70 17 123/58 L 01/18/20 11:35 37.0 C 69 18 107/59 L 01/18/20 07:58 72 18 126/53 L Pulse Ox 01/18/20 16:40 01/18/20 15:29 90 01/18/20 11:35 99 01/18/20 07:58 91 Laboratory Results Laboratory Results - last 24 hr 01/18/20 06:57 Sodium 142 Potassium 3.6 D Chloride 104 Carbon Dioxide 33 H Anion Gap 5.0 BUN 22 H Creatinine 0.91 Est Cr Clr Drug Dosing 48.4 Est GFR ( Amer) 67.6 Est GFR (Non-Af Amer) 58.3 BUN/Creatinine Ratio 24.7 H Glucose 78 Calcium 8.5
[2020-01-18] MEDS: OMEGA-3 (PURIFIED FISH OIL) 1 GM CAP PO SCH (20:12)
[2020-01-18] MEDS: SERTRALINE HCL 100 MG TABLET PO SCH (20:13)
[2020-01-18] MEDS: FOLIC ACID 1 MG TAB PO SCH (20:13)
[2020-01-18] MEDS: MELATONIN 3 MG TAB PO SCH (20:54)
[2020-01-19] MEDS: PANTOprazole 40 MG TAB PO SCH (07:28)
[2020-01-19] MEDS: METOPROLOL SUCC 25MG EXT REL TAB PO SCH (07:28)
[2020-01-19] MEDS: predniSONE 10 MG TABLET PO SCH (07:28)
[2020-01-19] MEDS: OXYBUTYNIN CHLORIDE XL 5 MG TABCR PO SCH (07:28)
[2020-01-19] MEDS: FLUTICASONE/VILANTEROL 100/25MCG 14 PUFFS/INHALER INH SCH (07:29)
[2020-01-19 08:04] LABS: BUN Creatinine Ratio 29.5 (10-20); Calcium 8.7 mg/dl (8.5-10.1); Creatinine Clr Calc Pharmacy 39.7 ml/min; Est GFR (African American) 53.2; Est GFR (Non-African American) 45.9; Potassium 3.5 mmol/L (3.5-5.1)
[2020-01-19] MEDS ORDERED: FUROSEMIDE 20 MG TAB PO SCH (09:00)
[2020-01-19] MEDS: HEPARIN SOD 5,000 UNIT/0.5 ML VIAL SQ SCH (09:17)
--- NOTE | 2020-01-19 13:55 | Hospitalist Progress Note ---
Date of Service January 19, 2020 Assessment & Plan (1) Shortness of breath: 84-year-old female with history of non-Hodgkin's lymphoma, hemolytic anemia on prednisone taper, Lupus anticoagulant disorder, hypertension, CKD stage III, other problems noted below presenting with shortness of breath times few weeks. Shortness of breath, with hypoxia likely secondary to acute on chronic diastolic CHF exacerbation Possible underlying interstitial lung disease CT chest: 1. No evidence for pulmonary embolus.. 2. Mild improvement of the consolidative process left infrahilar and left basilar region. 3. Interval development of small bilateral pleural effusions. 4. Baseline emphysematous and interstitial change. Echocardiogram: EF 65 to 70%, grade 1 Dysfunction, aortic valve is mild, without significant aortic valvular stenosis, there is moderate tricuspid regurgitation, Doppler findings do not suggest pulmonary hypertension Patient continues to diurese well O2 sats normal at rest given IV Lasix 40 mg in a.m., 20 mg p.m. diuresed well SOB resolved, leg edema almost resolved discharge on Lasix 20mg po daily titrate accordingly as outpatient ff up with PCP in 5-7 days repeat BMP on ff up with PCP and monitor regularly Possible underlying interstitial lung disease Positive pulmonary service Dr. Najrea CT chest reviewed, appears to have cystic changes intraparenchymally Patient has no history of smoking or exposure to smoke, fumes, chemicals No wheezing on exam Recommend possible underlying interstitial lung disease to be worked up as an outpatient Breo started Already on prednisone taper Follow-up with Dr. Patel in 1 to 2 weeks -- breathing continues to improve -- continue Breo daily establish care with [facility] Room Att[facility] Dr. Najera in 1-2 weeks for further work up and management Possible community-acquired pneumonia, unlikely Unlikely at this point Procalcitonin normal Patient denies sputum production d/c Ceftri + Doxy Pulmonary embolism ruled out, CT angiogram negative COVID test negative Leg edema, likely secondary to acute on chronic diastolic CHF exacerbation Doppler studies negative Lasix IV ordered resolving continue Lasix 20mg po daily Atrial fibrillation ruled out Echocardiogram as noted above Evaluated by cardiology service, felt to be secondary to frequent atrial ectopy Toprol-XL 12.5 mg/day ordered, tolerating well Non-Hodgkin's lymphoma Hemolytic anemia on prednisone taper --Follows with [facility] oncologist Dr. Osorio According to oncologist, patient's hemoglobin has been improving with the prednisone taper, currently stable around 10 --Continue Prednisone taper History of hypertension Not on any medications, BP stable CKD stage III Stable Monitor creatinine while on Lasixs History of lupus anticoagulant disorder CODE STATUS Full code as per patient Disposition d/c home with home health services ff up with PCP in 1 week ff up with Room Attendants Dr. Najera in 1-2 weeks Admission and Anticipated Discharge Date Admission Date: January 14, 2020 Subjective ff up for hypoxia, diastolic CHF exacerbation seen resting in chair, in good spirits comfortable states she feels much better overall ambulated in the hallways, no SOB, dizziness no chest pain, palpitations no cough, chills states she is ready and would like to be discharged today Review of Systems Review of Systems: All systems reviewed & are unremarkable except as noted in HPI & below Physical Exam Physical Exam: General- oriented x 3, not in distress, speaks in sentences with no effort or accessory muscle use Eyes- anicteric Neck- no JVD Lungs- clear breath sounds bilaterally, no rales/wheezes Heart- normal rate, regular rhythm; no murmurs Abdomen- normal bowel sounds, nondistended, soft, nontender Extremities- very mild pretibial edema, no calf tenderness Neuro- alert, oriented x 3; no gross focal neurologic deficits Skin- warm & dry Results & Data Results & Data ([facility]) Vital Signs (Past 12 Hours) Vital Signs Temp Pulse Pulse Pulse Pulse Resp Resp 01/19/20 11:04 36.5 C 57 L 18 01/19/20 09:00 102 H 89 85 20 01/19/20 07:08 36.4 C L 84 19 01/19/20 03:18 36.5 C 92 H 20 Resp Resp BP Pulse Ox Pulse Ox Pulse Ox Pulse Ox 01/19/20 11:04 118/47 L 90 01/19/20 09:00 20 16 91 90 92 01/19/20 07:08 111/64 92 01/19/20 03:18 127/51 L 91 Laboratory Results Laboratory Results - last 24 hr 01/19/20 07:03 Sodium 137 Potassium 3.5 Chloride 101 Carbon Dioxide 32 Anion Gap 5.0 BUN 33 H Creatinine 1.11 Est Cr Clr Drug Dosing 39.7 Est GFR ( Amer) 53.2 Est GFR (Non-Af Amer) 45.9 BUN/Creatinine Ratio 29.5 H Glucose 88 Calcium 8.7
--- NOTE | 2020-01-19 14:05 | Cardiology Progress Note ---
Date of Service January 19, 2020 Assessment & Plan (1) Atrial ectopy: No episodes of atrial fibrillation on telemetry monitoring. Still with occasional PACs but definitely a lesser burden after metoprolol has been added. Remains asymptomatic. We will continue current dose of metoprolol on discharge. Okay to DC from telemetry or to home from a cardiac standpoint. Subjective Patient seen and examined, chart reviewed. Sitting out of bed in chair states that she is feeling well. Denies any cardiac complaints of chest pain, shortness of breath, palpitations, lightheadedness, dizziness or syncope. Telemetry reviewed: Sinus rhythm with occasional PACs no sustained arrhythmias. Results & Data Vital Signs (Past 12 Hours) Vital Signs Temp Pulse Pulse Pulse Pulse Resp Resp 01/19/20 11:04 36.5 C 57 L 18 01/19/20 09:00 102 H 89 85 20 01/19/20 07:08 36.4 C L 84 19 01/19/20 03:18 36.5 C 92 H 20 Resp Resp BP Pulse Ox Pulse Ox Pulse Ox Pulse Ox 01/19/20 11:04 118/47 L 90 01/19/20 09:00 20 16 91 90 92 01/19/20 07:08 111/64 92 01/19/20 03:18 127/51 L 91
--- NOTE | 2020-01-19 14:12 | Discharge Summary ---
Date of Service January 19, 2020 Admission HPI Per Admitting Provider 84-year-old female with history of non-Hodgkin's lymphoma with hemolytic anemia, currently on prednisone taper, lupus anticoagulant disorder Hypertension, CKD stage III, dyslipidemia, pulmonary hypertension, other proble ms noted below presented with shortness of breath and leg swelling times few weeks. Patient follows with [facility] oncology and is currently on a prednisone taper secondary to hemolytic anemia in the setting of non-Hodgkin's lymphoma. Hemoglobin has been stable around 10 since last month. Patient reports about 1 month history of progressive shortness of breath, with intermittent dry cough, no fevers, or chills. She has intermittent chest discomfort associated with coughing as well. She denies having any palpitations, dizziness, syncope or presyncope. No known exposure with sick contacts, patient only stays at home and never goes outside since the pandemic started. Patient also reports increasing leg swelling since starting the prednisone taper at the end of November. She was sent in from primary care physician's office today the patient was noted to have an O2 saturation of 70 to 80%. At the ER, the patient was received with stable blood pressure and heart rate. She is 94% on room air while at rest, however when she walks to the bathroom her oxygen saturation drops to the 70s. Chest x-ray showed by basilar parenchymal infiltrates. She was started on ceftriaxone IV. EKG also showed atrial fibrillation, rate controlled. On exam, the patient is sitting up in bed, comfortable, alert, oriented x3, answers all questions appropriately, not in distress. Denies having any active shortness of breath, chest pain, dizziness, palpitations, abdominal pain, nausea or vomiting, during my interview. Admission Exam Per Admitting Provider General- oriented x 3, not in distress, speaks in sentences with no effort or accessory muscle use Head- atraumatic Eyes- PERRL, EOMI, anicteric ENT- oropharynx clear Neck- supple, no JVD, no adenopathy, no thyromegaly; carotids +2/2, no bruits appreciated Lungs-mild rales at the bases, no wheezing, good air entry bilaterally Heart- normal rate, irregularly irregular rhythm; no murmur, no gallop, no rub appreciated Abdomen- normal bowel sounds, nondistended, soft, nontender, no masses or hepatosplenomegaly Extremities-grade 2 lower leg edema, no calf tenderness; peripheral pulses intact Neuro- alert, oriented x 3; CN 2-12 grossly intact; motor 5/5 bilaterally;sensation 100% on all extremities; no other gross focal neurologic deficits Skin- warm & dry Principal Diagnosis SHORTNESS OF BREATH, HYPOXIA, SECONDARY TO DIASTOLIC CONGESTIVE HEART FAILURE; POSSIBLE UNDERLYING INTERSITIAL LUNG DISEASE Discharge Exam General- oriented x 3, not in distress, speaks in sentences with no effort or accessory muscle use Eyes- anicteric Neck- no JVD Lungs- clear breath sounds bilaterally, no rales/wheezes Heart- normal rate, regular rhythm; no murmurs Abdomen- normal bowel sounds, nondistended, soft, nontender Extremities- very mild pretibial edema, no calf tenderness Neuro- alert, oriented x 3; no gross focal neurologic deficits Skin- warm & dry Discharge Data Allergies Allergy/AdvReac Type Severity Reaction Status Date / Time No Known Allergies Allergy Verified 01/14/20 17:29 Consultations 01/14/20 17:57 ED Decision to Admit Stat 01/14/20 19:37 Consult Cardiology Routine Ordered Studies 01/14/20 20:35 CT angio chest PE protocol Urgent COMPARISON STUDY: 03/31/2019 FINDINGS: Thoracic aorta shows mild left sclerotic change. The pulmonary vasculature enhances appropriately. Slight improvement of the left infrahilar masslike change versus consolidative change. Small bilateral pleural effusions. Emphysematous and a superimposed chronic interstitial change bilaterally. IMPRESSION: 1. No evidence for pulmonary embolus.. 2. Mild improvement of the consolidative process left infrahilar and left basilar region. 3. Interval development of small bilateral pleural effusions. 4. Baseline emphysematous and interstitial change. 01/14/20 20:36 US venous doppler LE Urgent COMPARISON STUDY: None. FINDINGS: There is normal compressibility, flow, and augmentation within the bilateral lower extremity deep venous systems. IMPRESSION: No DVT within the right or left lower extremity. Hospital Course (1) Shortness of breath: 84-year-old female with history of non-Hodgkin's lymphoma, hemolytic anemia on prednisone taper, Lupus anticoagulant disorder, hypertension, CKD stage III, other problems noted below presenting with shortness of breath times few weeks. Shortness of breath, with Hypoxia likely secondary to Acute on Chronic Diastolic CHF exacerbation Possible underlying interstitial lung disease CT chest: 1. No evidence for pulmonary embolus.. 2. Mild improvement of the consolidative process left infrahilar and left basilar region. 3. Interval development of small bilateral pleural effusions. 4. Baseline emphysematous and interstitial change. Echocardiogram: EF 65 to 70%, grade 1 Dysfunction, aortic valve is mild, without significant aortic valvular stenosis, there is moderate tricuspid regurgitation, Doppler findings do not suggest pulmonary hypertension given IV Lasix 40 mg in a.m., 20 mg p.m. diuresed well SOB resolved, leg edema almost resolved discharge on Lasix 20mg po daily titrate accordingly as outpatient ff up with PCP in 5-7 days repeat BMP on ff up with PCP and monitor regularly Possible underlying interstitial lung disease discussed with pulmonary service Dr. Najera CT chest reviewed, appears to have cystic changes intraparenchymally Patient has no history of smoking or exposure to smoke, fumes, chemicals No wheezing on exam Recommend that possible underlying interstitial lung disease be worked up as an outpatient -- Breo Inhaler started Already on prednisone taper Follow-up with [employer] Dr. Patel in 1 to 2 weeks -- breathing continues to improve -- continue Breo daily need to establish care with [facility] [employer] Dr. Najera in 1-2 weeks for further work up and management - Possible community-acquired pneumonia, unlikely Unlikely at this point Procalcitonin normal Patient denies sputum production d/c Ceftri + Doxy Pulmonary embolism ruled out, CT angiogram negative COVID test negative Leg edema, likely secondary to acute on chronic diastolic CHF exacerbation Doppler studies negative Lasix IV ordered resolving continue Lasix 20mg po daily Atrial fibrillation ruled out Echocardiogram as noted above Evaluated by cardiology service Dr. Mccann, felt to be secondary to frequent atrial ectopy Toprol-XL 12.5 mg/day ordered, tolerating well Non-Hodgkin's lymphoma Hemolytic anemia on prednisone taper --Follows with [facility] oncologist Dr. Osorio According to oncologist, patient's hemoglobin has been improving with the prednisone taper, currently stable around 10 --Continue Prednisone taper History of hypertension Not on any medications, BP stable CKD stage III Stable Monitor creatinine while on Lasix History of lupus anticoagulant disorder CODE STATUS Full code as per patient Disposition d/c home with home health services ff up with PCP in 1 week ff up with [employer] Dr. Najera in 1-2 weeks Total Time Total Time Spent Total Time Spent (In Minutes): 45 minutes Discharge Plan Discharge Items Patient Disposition: Home - Home Health Services Reason For Visit: SHORTNESS OF BREATH,AFIB Discharge Diagnosis: SHORTNESS OF BREATH SECONDARY TO VOLUME OVERLOAD DIASTOLIC CONGESTIVE HEART FAILURE POSSIBLE INTERSTITIAL LUNG DISEASE Activity: Resume your previous activity Activity Comment: GRADUALLY TOLERATED, NO HEAVY EXERTION Lifting: Wait until after follow-up appointment Exercise/Sports: Wait until after follow-up appointment Driving/Machine Use: NO DRIVING UNTIL RE-EVALUATED AND ALLOWED BY PRIMARY CARE PHYSICIAN Non-emergency contact: Primary Care Provider Call non-emergency contact if: you have any medication questions, your symptoms worsen and you have a fever Follow-up/Referrals: Jigar Najera MD [Physician] - Afia Baldwin DO [Primary Care Provider] - 01/22/20 12:00 pm Diet: Heart Healthy and Low Sodium (2gm) Addtl Attending Provider Instructions: PLEASE REVIEW YOUR NEW MEDICATION LIST AND FOLLOW INSTRUCTIONS CAREFULLY. YOUR NEW MEDICATIONS ARE: LASIX- diuretic, to prevent fluid build in your lungs and legs BREO INHALER- to open lung airways PLEASE CALL YOUR PRIMARY CARE PHYSICIAN OR RETURN TO THE ER IMMEDIATELY IF WITH RECURRENCE OR WORSENING OF SYMPTOMS, SHORTNESS OF BREATH, COUGH, SPUTUM PRODUCTION, FEVER/CHILLS, LEG SWELLING, PALPITATIONS, DIZZINESS. FOLLOW UP WITH PRIMARY CARE PHYSICIAN OUTLINED ABOVE. YOU NEED TO BE EVALUATED BY A LUNG SPECIALIST- DR. NAJERA OF [facility], IN 1 2-WEEKS. PLEASE CALL HIS OFFICE TO SET UP AN APPOINTMENT. HIS CONTACT INFORMATION IS OUTLINED ABOVE. Pending Studies at Discharge: Yes Studies:: REPEAT BLOODWORK- BASIC METABOLIC PANEL- ON FOLLOW UP WITH PRIMARY CARE PHYSICIAN THIS WEEK. Stand-Alone Forms: My [facility] [place] [address], Smoking Cessation Medications and DC Order Prescriptions: New furosemide 20 mg Tablet 20 mg PO QAM Qty: 30 RF: 2 metoprolol succinate 25 mg Tablet Extended Release 24 Hr 12.5 mg PO QAM Qty: 30 RF: 2 Breo Ellipta 100-25 mcg/dose Blister With Device 1 ea inhalation DAILY Qty: 60 RF: 2 Continued aspirin [Aspirin Low Dose] 81 mg Tablet,Delayed Release (Dr/Ec) 81 mg PO QPM RF: 0 omega [id number] oil [Fish Oil] 1,000 mg (120 mg-180 mg) Capsule 2 cap PO QPM RF: 0 multivitamin Tablet 1 tab PO DAILY RF: 0 ascorbic acid (vitamin C) [Vitamin C] 500 mg Tablet 500 mg PO BID RF: 0 melatonin 1 mg Tablet 3 mg PO HS RF: 0 calcium carbonate-vitamin D3 [Calcium 500 + D] 500 mg(1,250mg) -400 unit Tablet 1 tab PO DAILY RF: 0 folic acid 1 mg tablet 1 mg PO QPM Qty: 30 RF: 0 prednisone 10 mg tablet See Rx Instructions .ROUTE .COMPLEX RF: 0 cholecalciferol (vitamin D3) [Vitamin D3] 50 mcg (2,000 unit) Capsule 2,000 unit PO DAILY RF: 0 pantoprazole 40 mg tablet,delayed release (DR/EC) 40 mg PO QAM RF: 0 sertraline 100 mg tablet 100 mg PO QPM RF: 0 oxybutynin chloride 10 mg tablet extended release 24hr 10 mg PO DAILY RF: 0 Discharge Orders: Discharge Order (Routine); Ordered 01/19/20 Ordered By: Kan Gunter/Other Patient Handouts: What Is Heart Failure, Heart Failure Signs of Flare-Up, Heart Failure: Tracking Your Weight, Coping with Heart Failure Admission Data Admit Date/Time: 01/14/20 18:11 Attending Provider: Kan Woo Admit Provider: Kan Woo Primary Care Provider: Afia Baldwin Other Providers: Kan Woo ; Eder Mccann ; [place] Other Interventions: Discharge Summary Assessment (RN) Last Done: 01/19/20 14:19 DC Date/Time DO NOT enter until pt leaves facility: 01/19/20 14:44
== END 2020-01-19 14:44 | disposition home health service (06) | DRG 291 ==
LOC: ED 15:41 → 2S 18:11

== ENCOUNTER 2021-02-14 22:08 | Inpatient (IN) ==
[2021-02-14] MEDS ORDERED: HYDROmorphone INJ 0.5 MG/0.5 ML SYR IV STA (23:17)
[2021-02-14] MEDS ORDERED: ONDANSETRON INJ 2 MG/ML 2 ML VIAL IV STA (23:17)
[2021-02-14] MEDS ORDERED: HYDROmorphone INJ 0.5 MG/0.5 ML SYR IV PRN (23:17)
[2021-02-14] MEDS ORDERED: ACETAMINOPHEN 1,000 MG/100 ML VIAL IV STA (23:17)
[2021-02-14 23:29] LABS: Basophils # (auto) 0.03 K/uL (0-0.2); Basophils % (auto) 0.2 %; Eosinophils # (auto) 0.13 K/uL (0-0.5); Hematocrit (blood only) 29.5 % (37-47); Hemoglobin 10.6 g/dL (12.0-16.0); Immature Granulocytes # (auto) 0.04 K/uL (0.00-0.02); Immature Granulocytes % (auto) 0.3 %; Lymphocytes # (auto) 2.97 K/uL (1.2-3.4); Mean Corpuscular Hgb Conc 35.9 g/dL (32-36); Mean Corpuscular Volume 89.1 fL (80-100); Monocytes # (auto) 0.81 K/uL (0.11-0.59); Monocytes % (auto) 6.3 %; Neutrophils # (auto) 8.94 K/uL (1.4-6.5); Neutrophils % (auto) 69.2 %; Platelet Count 468 K/uL (130-400); RDW Coefficient of Variation 16.5 % (11.5-14.5); Red Blood Count 3.31 M/uL (4.2-5.4); White Blood Count 12.92 K/uL (4.8-10.8)
[2021-02-14 23:37] LABS: Alanine Aminotransferase 63 U/L (12-78); Albumin Level 3.4 gm/dl (3.4-5.0); Aspartate Aminotransferase 28 U/L (15-37); BUN Creatinine Ratio 21.4 (10-20); Blood Urea Nitrogen 21 mg/dl (7-18); Calcium 9.6 mg/dl (8.5-10.1); Carbon Dioxide 21 mmol/L (21-32); Chloride 109 mmol/L (98-107); Creatinine Clr Calc Pharmacy 47.8 ml/min; Est GFR (African American) 59.9 ml/min; Est GFR (Non-African American) 51.7 ml/min; Glucose 135 mg/dl (70-99); Lipase 193 U/L (73-393); Sodium 139 mmol/L (136-145)
[2021-02-14 23:43] LABS: Albumin Globulin Ratio 0.7 (0.9-2); Alkaline Phosphatase 113 U/L (45-117); Bilirubin,Total 1.5 mg/dl (0.2-1); Creatine Kinase 24 U/L (26-192); Creatine Kinase MB < 1.0 ng/ml (0.5-3.6); Globulin 4.7 gm/dl (2.5-4.0); Total Protein 8.1 gm/dl (6.4-8.2); Troponin I < 0.015 ng/ml (0-0.045)
[2021-02-14 23:58] LABS: Appearance Urine Clear (Clear); Bacteria Urine Automated Negative (Negative); Bilirubin Urine Negative (Negative); Blood Urine Negative (Negative); Color Urine Yellow; Epithelial Cell Urine Auto >30 /lpf (0-5); Glucose Urine UA Negative (Negative); Ketones Urine Negative (Negative); Leukocyte Esterase Urine 2+ (Negative); Nitrite Urine Negative (Negative); Protein Urine Negative (Negative); RBC Urine Automated 0-4 /hpf (0-4); Specific Gravity Urine 1.011 (1.000-1.030); Urobilinogen Urine Negative (Negative)
[2021-02-15] MEDS ORDERED: OPTIRAY 320 100ml IV ONE (00:25)
[2021-02-15] MEDS ORDERED: cefOXitin 2,000 MG/60 ML BAG IV STA (00:45)
--- NOTE | 2021-02-15 01:16 | Surgery Consultation ---
Date of Consultation February 15, 2021 Assessment & Plan (1) Cholecystitis: Due to the patient's numerous medical comorbidities she will be admitted to the hospital by the hospitalist service. We recommend proceeding as follows: Keep the patient n.p.o. Hydrate gently with IV fluid Would recommend placing on antibiotics. She has received a dose of cefoxitin in the emergency department I recommend continuing this medication. Provide analgesics Provide antiemetics Patient does have a history of diastolic CHF.Most recent echo available for my review was from December 2019 which revealed an ejection fraction of 70% and grade 1 diastolic dysfunction. Patient does have chronic dyspnea on exertion and does have diuretics prescribed which she says that she has not been taking as prescribed. She does have noted lower extremity edema suggestive of some volume overload. Feel be prudent for patient to be medically optimized prior to entertaining any surgical intervention. We will continue to follow along while the patient is hospitalized with plans for potential surgery once patient is medically optimized. Dr. Watson-patient has evidence of acute cholecystitis with sludge and gallstones, distended gallbladder, gallbladder wall thickening I favor proceeding with laparoscopic cholecystectomy today if possible if it appears okay with the medical team Patient is also in favor of this plan History of Present Illness Reason for Consultation: Cholecystitis History of Present Illness This is an 85-year-old female who presents the emergency department at [facility] secondary to abdominal pain. Patient notes that the pain is primarily located in the epigastric and right upper quadrant. Thinking back the patient notes that she has had on and off right upper quadrant abdominal pain for several weeks. She says that the pain is unrelated to meals and usually self resolves after several minutes. She says that the pain changes in nature today becoming unbearable, more severe, and did not resolve as it usually does so she came to the emergency department. She says the pain does not radiate. She did have associated nausea vomiting. She does not identify any palliative or provocative factors and again notes that the pain was unrelated to eating any meals. In the emergency department the patient had labs and imaging which independently reviewed. A CBC revealed white blood cell count was 12.9. Hemoglobin and hematocrit were 10.6 and 29.5. This level of the hemoglobin and hematocrit were above her baseline levels. Platelet count was noted to be 468,000. Chemistry profile showed sodium and potassium within normal range. The patient's creatinine was noted to be normal. Patient did have a slight elevation of her total bilirubin at 1.5. Her transaminases and alkaline phosphatase were noted to be normal. Lipase was noted to be normal. Urinalysis did show 2+ leukocyte esterase along with 10-30 white blood cells per high-power field. A Covid test was performed and was noted to be negative. Patient had a CT scan abdomen pelvis. This showed a distended gallbladder with some gallstones and pericholecystic fluid suggestive of acute cholecystitis. A gallbladder ultrasound also showed a distended gallbladder with intraluminal gallstones as well as sludge. There was gallbladder wall thickening noted. This was suggestive of acute cholecystitis. Chest x-ray did not show any evidence of pneumonia or CHF. An EKG showed normal sinus rhythm without acute ischemic changes. I did question the patient on her activities of daily living and the patient notes that she is not very active at home. She says that she does negotiate steps in her house approximately once per day and this does cause significant shortness of breath. She does feel that her shortness of breath is chronic and has been stable. She does not get chest pain with her daily activity. Patient does have a history of congestive heart failure with her most recent admission to the hospital being in December 2019. Patient notes that she does take diuretics but stopped taking them as prescribed because they make her urinate too frequently. She does note some increased lower extremity swelling. At the time of my interview the patient was resting in bed she was in no distress. Allergies Allergy/AdvReac Type Severity Reaction Status Date / Time No Known Allergies Allergy Verified 02/14/21 23:56 Home Medications Medication Instructions Recorded Confirmed Type aspirin 81 mg tablet,delayed 81 mg PO QPM 04/25/18 02/14/21 History release (Aspirin Low Dose) omega 1-xqb-lii-fish oil 1,000 mg 2 cap PO QPM 04/25/18 02/14/21 History (120 mg-180 mg) capsule (Fish Oil) sertraline 100 mg tablet 100 mg PO QPM 03/31/19 02/14/21 History oxybutynin chloride 10 mg 10 mg PO DAILY 11/02/19 02/14/21 History tablet,extended release 24 hr ascorbic acid (vitamin C) 500 mg 500 mg PO BID 11/17/19 02/14/21 History tablet (Vitamin C) calcium carbonate 500 mg (1,250 1 tab PO DAILY 11/17/19 02/14/21 History mg)-vitamin D3 400 unit tablet (Calcium 500 + D) folic acid 1 mg tablet 1 mg PO QPM #30 tab 11/20/19 02/14/21 Rx cholecalciferol (vitamin D3) 50 2,000 unit PO DAILY 01/14/20 02/14/21 History mcg (2,000 unit) capsule (Vitamin D3) pantoprazole 40 mg tablet,delayed 40 mg PO QAM 01/14/20 02/14/21 History release fluticasone furoate 100 1 ea INHALATION DAILY #60 ea 01/19/20 02/14/21 Rx mcg-vilanterol 25 mcg/dose inhalation powder (Breo Ellipta) furosemide 20 mg tablet 20 mg PO QAM #30 tab 01/19/20 02/14/21 Rx metoprolol succinate 25 mg 12.5 mg PO QAM #30 tab 01/19/20 02/14/21 Rx tablet,extended release 24 hr multivitamin with minerals 1 tab PO DAILY 02/14/21 02/14/21 History (Multiple Vitamin-Minerals) prednisone 5 mg tablet 5 mg PO Q OTHER DAY 02/15/21 02/15/21 History Patient History Medical History (Updated 02/15/21 @ 01:14 by León Mary PA-C) Anemia Anxiety B-cell lymphoma Chronic hip pain RIGHT CKD (chronic kidney disease), stage III Depression Exertional dyspnea GERD (gastroesophageal reflux disease) HLD (hyperlipidemia) Homozygous MTHFR mutation [id number] Hypertension Lupus anticoagulant disorder Osteoarthritis 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 Uterine leiomyoma Surgical History H/O colonoscopy "Diverticulosis 2010, repeat in 5 years " History of cataract surgery LEFT History of colonoscopy History of incision and drainage History of tonsillectomy History of total knee arthroplasty x 3; Right x 2; L x 1 Hx of tooth extraction S/P cataract surgery Tubal ligation status Family History Father , 52 Pulmonary embolism Mother Breast cancer Social History Smoking Status: Never smoker Hx Alcohol Use: No Hx Substance Use: No Preferred Language: [place]arag[place] Communication Ability: Effective Fluorescent Lamp Replacer Required: No Beliefs That Will Affect Care: None marital status: Current Living Situation: Spouse Current Living Situation Comment: Lives with in two story home How many Children do You have: 4 Other Information That Helps Us Care for You: No Feels Safe at Home: Yes Safety Concerns: Feels Safe At This Time Assistive Devices: Cane, Denture - Upper and Denture - Lower Review of Systems Constitutional: no fever and no chills Eyes: no diplopia Ear, Nose, Mouth, Throat: no ear pain Respiratory: no cough and no dyspnea Cardiovascular: no chest pain Gastrointestinal: + abdominal pain, + nausea and + vomiting Genitourinary: no dysuria Musculoskeletal: no back pain Integumentary: no rash Neurologic: no localized weakness Physical Exam Constitutional: well developed and well nourished; no acute distress ENMT: Ears: no hearing impairment Neck: trachea midline Respiratory: normal respiratory effort; no respiratory distress and no labored breathing Cardiovascular: Rate/Rhythm: regular rate and regular rhythm 2+ lower extremity edema noted bilaterally. Gastrointestinal (Abdomen): Patient's abdomen is soft and nondistended with po sitive bowel sounds. She does not have any rebound tenderness or guarding. Patient did have marked tenderness to palpation in the right upper quadrant with a positive Ramirez sign and to a lesser degree the epigastric area. Musculoskeletal: No calf tenderness Skin: no rashes, warm and dry Neurologic: moves all extremities Psychiatric: A+Ox3, euthymic affect Results & Data ([facility]) Vital Signs (Past 12 Hours) Vital Signs Temp Pulse Pulse Resp BP BP Pulse Ox 02/14/21 23:54 92 H 16 150/85 H 96 02/14/21 23:27 100 02/14/21 22:37 36.8 C 99 02/14/21 22:32 92 H 20 173/80 H 88 L PG Care Time/CCT Total # of Minutes Spent Total Time Spent with Patient: Total time spent is greater than 50% in coordination of care (as documented) at patient's floor/unit and/or counseling patient: Coding Level of Care Code 61382 Inpt Consult Level 5 Diagnoses Cholecystitis K81.9
--- NOTE | 2021-02-15 04:49 | History and Physical Report ---
DATE OF ADMISSION: 02/15/21. CHIEF COMPLAINT: Abdominal pain. HISTORY OF PRESENT ILLNESS: This is an 85-year-old female with past medical history significant for hyperlipidemia, homozygous MTHFR mutation, hypertension, pulmonary hypertension, chronic diastolic CHF, GERD, history of uterine leiomyoma, chronic kidney disease stage III, cervical spondylosis, senile osteoporosis, lupus, anticoagulant disorder, low-grade B-cell lymphoma, hemolytic anemia, depression, presents with abdominal pain. The patient says since 4:00 p.m., she noticed abdominal pain on right side of the upper abdomen radiating to the lower abdomen associated with nausea. The pain is severe, not associated with any food intake. The patient says she noticed this abdominal pain for the last few weeks on and off, but today it was very severe. Denies any fever or chills. No diarrhea or constipation, no blood in stools or black stools. She says she is going frequent bathroom, but denies any hematuria or burning micturition. No chest pain, no shortness of breath, no palpitations. No cough. She has always had runny nose. Has some headache. Has some blurred visions, was feeling dizzy. No earache, no sore throat. Appetite is okay and no dysphagia. Currently complaining of pain. Otherwise, hemodynamically stable. ALLERGIES: No known drug allergies. PAST MEDICAL HISTORY: As mentioned above. PAST SURGICAL HISTORY: Knee arthroplasty, bronchoscopy, colonoscopy, EGDs, ligation of oviducts, cataracts, tonsillectomy, adenoidectomy, sacroiliac joint injection. MEDICATIONS: The patient is on vitamin C 500 mg p.o. b.i.d., aspirin 81 mg p.o. a.m., calcium carbonate one tablet p.o. daily, vitamin D 2000 units p.o. daily, Breo Ellipta one inhalation daily, folic acid 1 mg p.o. daily, Lasix 20 mg p.o. a.m., metoprolol succinate 12.5 mg p.o. a.m., multivitamins with minerals 1 tablet p.o. a.m., fish oil 2 capsules p.o. p.m., oxybutynin chloride 10 mg p.o. daily, Protonix 40 mg p.o. a.m., prednisone 5 mg p.o. every other day, sertraline 100 mg p.o. q. p.m. FAMILY HISTORY: Significant for mother had breast cancer, glaucoma. Father had PE. Daughter has MS. SOCIAL HISTORY: , no smoking, no alcohol, no drug use. REVIEW OF SYSTEMS: As per HPI. Rest of the review of systems is negative. PHYSICAL EXAMINATION: GENERAL: The patient is of moderate build, not in acute distress. VITAL SIGNS: Temperature 36.8, pulse is 92, respiratory rate 18, blood pressure 139/74, oxygen 98% on 2 liters. HEENT: Pupils equal, round and reactive to light. Oral mucosa moist. NECK: No JVD, no neck masses. HEART: S1 and S2 heard. Regular rate and rhythm. No murmur, no gallop. RESPIRATORY SYSTEM: Normal AP diameter. No accessory muscle use. No wheezing, no crackles. ABDOMEN: Soft, bowel sounds sluggish. Tenderness in the epigastric and right lower abdomen with guarding, no rigidity, no distention. CENTRAL NERVOUS SYSTEM: Cranial nerves II-XII grossly intact, nonfocal. EXTREMITIES: No bilateral lower extremity edema present, no erythema seen. LABORATORY DATA: WBC 12.9, hemoglobin 10.6, hematocrit 29.5, platelets 468. Sodium 139, potassium 4, chloride 109, bicarbonate 29, BUN 21, creatinine 1, serum glucose 135, calcium 9.6, total bilirubin 1.5, AST 28, ALT 63, alkaline phosphatase 113, total creatinine kinase 24, CK-MB less than 1, troponin less than 0.015. Lipase 103. Urinalysis, +2 leukocyte esterase. SARS-CoV-2 PCR negative. Chest x-ray, no acute findings seen. EKG: Sinus rhythm with first-degree AV block at a rate of 92, left axis deviation, no acute ST changes seen. IMAGING DATA: CT of the abdomen and pelvis on the preliminary report with contrast, distended gallbladder with intraluminal stones and pericholecystic inflammatory changes suggestive of acute cholecystitis, pulmonary nodule in the left lower lobe measuring 2.9 cm, calcified fibroid within the uterus. Colonic diverticulosis. Abdominal ultrasound, preliminary report, distended gallbladder, intraluminal sludge and stones, wall thickening and submucosal edema present. Appearance suggestive of acute cholecystitis. Liver and right kidney unremarkable. No free fluid. ASSESSMENT AND PLAN: This is an 85-year-old female who presents with abdominal pain and found to have acute cholecystitis. 1. Abdominal pain, acute cholecystitis on imaging studies. Bilirubin is 1.5. Repeat LFTs. Seen by surgery. ER started on cefoxitin which will be continued, keep her n.p.o., gentle fluids, pain control. Patient's labs are okay. Electrolytes okay. EKG seemed to be okay. The patient remains in acceptable risk to proceed with surgery. Monitor in the el? tele. 2. History of low-grade B-cell lymphoma, history of hemolytic anemia, status post chemo, currently on prednisone 5 mg p.o. every other day. Follows with Heme/Onc. We will hold the prednisone. We will place her on stress dose steroids, IV hydrocortisone 25 mg b.i.d.,for now and will marianne back to home prednisone 1-2 days after surgery. 3. History of chronic kidney disease stage III. Creatinine 1. We will follow the labs. 4. History of chronic diastolic congestive heart failure: Has some lower extremity edema. Getting fluids. On Lasix which we will continue. . Monitor for any volume overload. 5. Gastroesophageal reflux disease: We will continue Protonix. 6. Depression. Continue sertraline. 7. Possible UTI. Antibiotics as above. Will follow cultures. 8.. Deep venous thrombosis prophylaxis. Sequential compression devices for now in anticipation of procedures for cholecystitis.. DISPOSITION: Closely monitor in the el? tele. PT/OT prior to discharge. Social service to help with discharge planning. Level 1 full code as per my discussion with the patient. Job ID: [id number] MTDD
[2021-02-15] MEDS ORDERED: NITROGLYCERIN SL 0.4 MG/TAB TAB SL PRN (04:54)
[2021-02-15] MEDS ORDERED: ONDANSETRON INJ 2 MG/ML 2 ML VIAL IV PRN ×3 (04:54→13:25)
[2021-02-15] MEDS ORDERED: SODIUM CHLORIDE 0.9% 1000ML 1,000 ML IV SCH ×2 (04:54→13:25)
[2021-02-15] MEDS: HYDROmorphone INJ 0.5 MG/0.5 ML SYR IV PRN (05:10)
--- NOTE | 2021-02-15 07:17 | Ultrasound Report ---
ULTRASOUND RIGHT UPPER QUADRANT ABDOMEN CLINICAL HISTORY: Right upper quadrant abdominal pain. COMPARISON STUDY: Abdominal CT dated 03/31/2019. TECHNIQUE: Real-time, grayscale, and color flow sonography of the right upper quadrant of the abdomen was performed. Images are reviewed in the transverse and longitudinal planes. FINDINGS: Liver: The liver is normal in size and echotexture. There is no intrahepatic biliary ductal dilatatio n. The main portal vein is patent. Gallbladder: The gallbladder is distended. There are numerous shadowing calcified gallstones as well as biliary sludge. The gallbladder wall is thickened and edematous measuring up to 7 mm. There is tra ce pericholecystic fluid. A sonographic Ramirez's sign is reportedly absent. The common bile duct nhung ures up to 0.2 cm in diameter. Pancreas: Visualized portions of the pancreatic head and body are normal in appearance. The splenic v ein is patent. Right kidney: Survey images of the right kidney demonstrate mild cortical atrophy. Echotexture is nor mal. There is no hydronephrosis. Ascites: None. IMPRESSION: 1. Cholelithiasis with sonographic evidence of acute cholecystitis. Surgical consultation is advised. 2. There is no intra or extrahepatic biliary ductal dilatation. ACT 112: Negative or not required by law. Electronically signed by: Jamar Fitzpatrick M.D. 02/15/2021 7:15 AM
[2021-02-15 07:40] LABS: Hemoglobin 10.6 g/dL (12.0-16.0); Mean Corpuscular Hgb Conc 35.3 g/dL (32-36); Mean Corpuscular Volume 90.6 fL (80-100); Mean Platelet Volume 8.6 fL (7.4-10.4); Platelet Count 411 K/uL (130-400); RDW Coefficient of Variation 16.8 % (11.5-14.5); RDW Standard Deviation 54.3 fL (36.4-46.3); Red Blood Count 3.31 M/uL (4.2-5.4); White Blood Count 25.48 K/uL (4.8-10.8)
[2021-02-15] MEDS ORDERED: HYDROCORTISONE SOD SUCCINATE 100 MG/2 ML VIAL IV SCH (08:00)
[2021-02-15 08:06] LABS: BUN Creatinine Ratio 19.3 (10-20); Basophils # (auto) 0.02 K/uL (0-0.2); Basophils % (auto) 0.1 %; Bilirubin Direct 0.6 mg/dl (0-0.2); Creatinine Clr Calc Pharmacy 43.5 ml/min; Est GFR (African American) 55.2 ml/min; Est GFR (Non-African American) 47.6 ml/min; Immature Granulocytes # (auto) 0.13 K/uL (0.00-0.02); Immature Granulocytes % (auto) 0.5 %; Lymphocytes # (auto) 1.51 K/uL (1.2-3.4); Lymphocytes % (auto) 5.9 %; Magnesium 1.5 mg/dl (1.8-2.4); Monocytes # (auto) 1.46 K/uL (0.11-0.59); Monocytes % (auto) 5.7 %; Neutrophils # (auto) 22.36 K/uL (1.4-6.5); Neutrophils % (auto) 87.8 %; Polychromasia 1+; Potassium 4.5 mmol/L (3.5-5.1)
--- NOTE | 2021-02-15 08:07 | XRay Report ---
SINGLE VIEW CHEST CLINICAL HISTORY: Hypoxia. FINDINGS: An AP, portable, upright chest radiograph is compared to chest x-ray and chest CT dated 12/29. The heart is enlarged. The pulmonary vasculature is noncongested. Emphysema and chronic inter stitial thickening is similar to previous. Scarring/atelectasis is seen throughout both lungs. There is no airspace consolidation typical for pneumonia or large pleural effusion. A 2.5 cm density is see n at the left lung base in the retrocardiac region. No pneumothorax is seen. The skeletal structures are osteopenic. The bony thorax is grossly intact. IMPRESSION: 1. Cardiomegaly and emphysema with no active disease in the chest. 2. A 2.5 cm density is seen in the retrocardiac region. Correlation with a chest CT is recommended to assess for underlying neoplasm. ACT 112: Negative or not required by law. Electronically signed by: Jamar Fitzpatrick M.D. 02/15/2021 8:06 AM
[2021-02-15 08:08] LABS: Bilirubin,Total 1.7 mg/dl (0.2-1); Total Protein 7.5 gm/dl (6.4-8.2)
[2021-02-15] MEDS: ASCORBIC ACID 500 MG TAB PO SCH ×2 (08:20→20:02)
[2021-02-15] MEDS: CALCIUM 600MG + VIT D 400 IU TAB PO SCH (08:20)
[2021-02-15] MEDS: CHOLECALCIFEROL 1,000 UNITS 25 MCG TAB PO SCH (08:20)
[2021-02-15] MEDS: FUROSEMIDE 20 MG TAB PO SCH (08:20)
[2021-02-15] MEDS: METOPROLOL SUCC 25MG EXT REL TAB PO SCH (08:21)
[2021-02-15] MEDS: CEROVITE ADV FORMULA TAB PO SCH (08:21)
[2021-02-15] MEDS: OXYBUTYNIN CHLORIDE XL 5 MG TABCR PO SCH (08:21)
[2021-02-15] MEDS: PANTOprazole 40 MG TAB PO SCH (08:21)
[2021-02-15] MEDS: FLUTICASONE/VILANTEROL 100/25MCG 14 PUFFS/INHALER INH SCH (08:22)
[2021-02-15] MEDS: HYDROCORTISONE SOD 25 MG in SYRINGE 0 ML IV SCH ×2 (08:22→20:02)
[2021-02-15] MEDS: ACETAMINOPHEN 325 MG TAB PO PRN ×2 (08:24→15:25)
--- NOTE | 2021-02-15 09:07 | CT Scan Report ---
CT SCAN OF THE ABDOMEN AND PELVIS WITH IV CONTRAST CLINICAL HISTORY: Right lower quadrant abdominal pain. COMPARISON STUDY: Abdominal ultrasound dated 02/14/2021. Abdominal CT dated 03/31/2019. TECHNIQUE: Following the IV administration of 93 cc of Optiray 320, CT scan of the abdomen and pelvi s is performed from the lung bases to the proximal femora. Images are reviewed in the axial, sagittal , and coronal planes. IV contrast was administered without complication. A dose lowering technique wa s utilized adhering to the principles of ALARA. CT DOSE: 1042.31 mGy.cm FINDINGS: Lung bases: The heart is mildly enlarged and without pericardial effusion. There are coronary artery calcifications. There is a tiny hiatal hernia. Emphysematous change is noted at the lung bases. There are trace pleural effusions with bibasilar scarring/atelectasis. No airspace consolidation is seen t ypical for pneumonia. A 3.5 cm nodular density is seen in the left lower lobe on image #1. Liver: The contrast-enhanced liver is normal in size, contour, and attenuation. There is no intrahepa tic biliary ductal dilatation. The hepatic veins and portal veins are patent. Gallbladder: The gallbladder is distended. There are numerous gallstones. The gallbladder wall is thi ckened and edematous and there is pericholecystic inflammation and fluid. Findings are consistent wit h acute cholecystitis. Spleen: Normal in size and attenuation. Pancreas: Moderately atrophic and grossly unremarkable. Adrenal glands: Unremarkable. Kidneys: The contrast enhanced kidneys are atrophic and without hydronephrosis. The kidneys enhance s ymmetrically. There are 2 left renal cysts measure up to 1.5 cm. Abdominal vasculature: The abdominal aorta is normal in course and caliber noting advanced atheroscle rotic calcification. Vascular coils are noted along the course of the left gonadal vein. Bowel: There is mild to moderate colonic diverticulosis without CT evidence of acute diverticulitis. No bowel obstruction is seen. Imaged portions of the appendix are normal in appearance. Peritoneum: Trace free fluid is noted in the pelvis. There is also trace perihepatic ascites. No intr aperitoneal free air is seen. Lymphadenopathy: None. Pelvic viscera: The bladder is normal as visualized. There are calcified uterine fibroids. No adnexal lesion is seen. Skeletal structures: The skeletal structures are osteopenic. No lytic or blastic lesions are seen. Th ere is moderate to advanced lumbosacral spondylosis. Advanced arthritic change is seen in the hips. IMPRESSION: 1. Cholelithiasis with acute cholecystitis. 2. There is trace perihepatic and pelvic ascites. 3. Cardiomegaly and emphysema with trace pleural effusions. 4. There is a 3.5 cm nodular/masslike opacity partially visualized in the left lower lobe. This has b een seen on prior examinations. Correlate with results of previous workup. 5. Colonic diverticulosis without CT evidence of acute diverticulitis. 6. Additional findings as above. ACT 112: Negative or not required by law. Electronically signed by: Jamar Fitzpatrick M.D. 02/15/2021 9:06 AM
[2021-02-15] MEDS ORDERED: NEOSTIGMINE METHYLSULFATE 1 MG/ML 10ML VIAL ONE (09:56)
[2021-02-15] MEDS ORDERED: LIDOCAINE 2% 2 ML VIAL/AMP(20MG/ML) INFIL ONE (09:56)
[2021-02-15] MEDS ORDERED: ONDANSETRON INJ 2 MG/ML 2 ML VIAL ONE (09:56)
[2021-02-15] MEDS ORDERED: PROPOFOL IV EMULSION 10 MG/ML 20 ML VIAL IV ONE (09:56)
[2021-02-15] MEDS ORDERED: GLYCOPYRROLATE 0.2 MG/ML VIAL ONE (09:56)
[2021-02-15] MEDS ORDERED: fentaNYL citrate 100 MCG/2 ML VIAL ONE ×2 (09:57→12:28)
[2021-02-15] MEDS ORDERED: cefOXitin 2,000 MG in DEXTROSE 5% 50 ML IV SCH (10:00)
[2021-02-15] MEDS ORDERED: MAGNESIUM SULFATE 50% 4 GM in SODIUM CHLORIDE 0.9% 1000ML 1,000 ML IV SCH (10:15)
--- NOTE | 2021-02-15 10:28 | Anesthesiology Consultation ---
Date of Service February 15, 2021 Assessment & Plan (1) Encounter for pre-operative examination: Chart Review Chart Review: Acceptable Risk for Surgery (necessary) and Patient NOT seen in Pre Admission Testing Consults Requested none History Surgery Operation Date: 02/15/21 07:00 Proposed Procedures p Laparoscopic Cholecystectomy - Jg Watson MD, FACS Height/Weight Height: 5 ft 4 in Weight: 94 kg Allergies Allergy/AdvReac Type Severity Reaction Status Date / Time No Known Allergies Allergy Verified 02/14/21 23:56 Medications Home Medications Medication Instructions Recorded Confirmed Last Taken aspirin 81 mg tablet,delayed 81 mg PO QPM 04/25/18 02/14/21 11/16/19 release (Aspirin Low Dose) omega 9-rzo-ryp-fish oil 1,000 mg 2 cap PO QPM 04/25/18 02/14/21 11/16/19 (120 mg-180 mg) capsule (Fish Oil) sertraline 100 mg tablet 100 mg PO QPM 03/31/19 02/14/21 11/16/19 oxybutynin chloride 10 mg 10 mg PO DAILY 11/02/19 02/14/21 11/16/19 tablet,extended release 24 hr ascorbic acid (vitamin C) 500 mg 500 mg PO BID 11/17/19 02/14/21 11/16/19 tablet (Vitamin C) calcium carbonate 500 mg (1,250 1 tab PO DAILY 11/17/19 02/14/21 11/16/19 mg)-vitamin D3 400 unit tablet (Calcium 500 + D) folic acid 1 mg tablet 1 mg PO QPM #30 tab 11/20/19 02/14/21 Unknown cholecalciferol (vitamin D3) 50 2,000 unit PO DAILY 01/14/20 02/14/21 Unknown mcg (2,000 unit) capsule (Vitamin D3) pantoprazole 40 mg tablet,delayed 40 mg PO QAM 01/14/20 02/14/21 Unknown release fluticasone furoate 100 1 ea INHALATION DAILY #60 ea 01/19/20 02/14/21 Unknown mcg-vilanterol 25 mcg/dose inhalation powder (Breo Ellipta) furosemide 20 mg tablet 20 mg PO QAM #30 tab 01/19/20 02/14/21 Unknown metoprolol succinate 25 mg 12.5 mg PO QAM #30 tab 01/19/20 02/14/21 Unknown tablet,extended release 24 hr multivitamin with minerals 1 tab PO DAILY 02/14/21 02/14/21 Unknown (Multiple Vitamin-Minerals) prednisone 5 mg tablet 5 mg PO Q OTHER DAY 02/15/21 02/15/21 Unknown Active Medications Generic Name Dose Route Start Last Admin Trade Name Freq PRN Reason Stop Dose Admin Acetaminophen 650 mg 02/15/21 04:54 02/15/21 08:24 Acetaminophen 325 Mg Tab PO 03/17/21 04:53 650 mg Q4H PRN Administration Pain or Fever Ascorbic Acid 500 mg 02/15/21 09:00 02/15/21 08:20 Ascorbic Acid 500 Mg Tab PO 03/17/21 08:59 500 mg BID KALEN Administration Fluticasone/Vilanterol 1 puffs 02/15/21 09:00 02/15/21 08:22 Fluticasone/Vilanterol 100/25mcg 14 Puffs/Inhaler INH 03/17/21 08:59 1 puffs DAILY KALEN Administration Furosemide 20 mg 02/15/21 09:00 02/15/21 08:20 Furosemide 20 Mg Tab PO 03/17/21 08:59 20 mg QAM KALEN Administration Hydromorphone HCl 0.5 mg 02/15/21 04:54 02/15/21 05:10 Hydromorphone Inj 0.5 Mg/0.5 Ml Syr IV 03/01/21 04:53 0.5 mg Q4H PRN Administration Pain Hydrocortisone Sodium 0.5 mls @ 4 mls/min 02/15/21 08:00 02/15/21 08:22 Succinate 25 mg/ Syringe IV 03/17/21 07:59 4 mls/min Q12H KALEN Administration Metoprolol Succinate 12.5 mg 02/15/21 09:00 02/15/21 08:21 Metoprolol Succ 25mg Ext Rel Tab PO 03/17/21 08:59 12.5 mg QAM KALEN Administration Multivitamins/Minerals 1 tab 02/15/21 09:00 02/15/21 08:20 Calcium 600mg + Vit D 400 Iu Tab PO 03/17/21 08:59 1 tab DAILY KALEN Administration Multivitamins/Minerals 1 tab 02/15/21 09:00 02/15/21 08:21 Cerovite Adv Formula Tab PO 03/17/21 08:59 1 tab DAILY KALEN Administration Oxybutynin Chloride 10 mg 02/15/21 09:00 02/15/21 08:21 Oxybutynin Chloride Xl 5 Mg Tabcr PO 03/17/21 08:59 10 mg DAILY KALEN Administration Pantoprazole Sodium 40 mg 02/15/21 09:00 02/15/21 08:21 Pantoprazole 40 Mg Tab PO 03/17/21 08:59 40 mg QAM KALEN Administration Vitamin D 2,000 units 02/15/21 09:00 02/15/21 08:20 Cholecalciferol 1,000 Units 25 Mcg Tab PO 03/17/21 08:59 2,000 units DAILY KALEN Administration Past Medical History Medical History (Updated 02/15/21 @ 10:29 by Nickolas Winston MD) Anemia Anxiety B-cell lymphoma Chronic hip pain RIGHT CKD (chronic kidney disease), stage III Depression Exertional dyspnea GERD (gastroesophageal reflux disease) HLD (hyperlipidemia) Homozygous MTHFR mutation [id number] Hypertension Lupus anticoagulant disorder Osteoarthritis 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 Uterine leiomyoma Past Family History Family History Father , 52 Pulmonary embolism Mother Breast cancer Past Surgical History Surgical History H/O colonoscopy "Diverticulosis 2010, repeat in 5 years " History of cataract surgery LEFT History of colonoscopy History of incision and drainage History of tonsillectomy History of total knee arthroplasty x 3; Right x 2; L x 1 Hx of tooth extraction S/P cataract surgery Tubal ligation status Social History Smoking Status: Never smoker Hx Alcohol Use: No Hx Substance Use: No substance use type: does not use Physical Exam Vital Signs Last Vital Signs Temp 36.9 C 02/15/21 07:53 Pulse 102 H 02/15/21 07:53 Resp 16 02/15/21 07:53 BP 115/70 02/15/21 07:53 Pulse Ox 94 02/15/21 07:53 Testing Laboratory Results 02/15/21 07:22 02/15/21 07:22 Urine Color Yellow 02/14/21 22:15 Urine Appearance Clear (Clear) 02/14/21 22:15 Urine pH 5.0 (4.5-7.5) 02/14/21 22:15 Ur Specific [place] 1.011 (1.000-1.030) 02/14/21 22:15 Urine Protein Negative (Negative) 02/14/21 22:15 Urine Glucose (UA) Negative (Negative) 02/14/21 22:15 Urine Ketones Negative (Negative) 02/14/21 22:15 Urine Nitrite Negative (Negative) 02/14/21 22:15 Ur Leukocyte Esterase 2+ (Negative) H 02/14/21 22:15 Urine WBC (Auto) 10-30 /hpf (0-5) H 02/14/21 22:15 Urine RBC (Auto) 0-4 /hpf (0-4) 02/14/21 22:15 U Hyaline Cast (Auto) 1-5 /lpf (0-5) 02/14/21 22:15 U Epithel Cells (Auto) >30 /lpf (0-5) H 02/14/21 22:15 Urine Bacteria (Auto) Negative (Negative) 02/14/21 22:15 Electrocardiogram Date: 02/14/21 SR with 1st degree AV block, rate 92, L axis deviation, low voltage QRS, possible anterolateral infarct Chest X-Ray Date: 02/14/21 SINGLE VIEW CHEST CLINICAL HISTORY: Hypoxia. FINDINGS: An AP, portable, upright chest radiograph is compared to chest x-ray and chest CT dated 01/14/2020. The heart is enlarged. The pulmonary vasculature is noncongested. Emphysema and chronic interstitial thickening is similar to previous. Scarring/atelectasis is seen throughout both lungs. There is no airspace consolidation typical for pneumonia or large pleural effusion. A 2.5 cm density is seen at the left lung base in the retrocardiac region. No pneumothorax is seen. The skeletal structures are osteopenic. The bony thorax is grossly intact. IMPRESSION: 1. Cardiomegaly and emphysema with no active disease in the chest. 2. A 2.5 cm density is seen in the retrocardiac region. Correlation with a chest CT is recommended to assess for underlying neoplasm. ACT 112: Negative or not required by law. Electronically signed by: Jamar Fitzpatrick M.D. 02/15/2021 8:06 AM Dictated: 02/15/21800Transcribed: 02/15/21800 Echocardiogram Date: 07/17/20 EF: 65-70 Other Findings: + diastolic dysfunction (grade 1) moderate TR
[2021-02-15] MEDS ORDERED: HYDROmorphone INJ 1 MG/ML SYRINGE IV PRN ×2 (10:37→13:25)
[2021-02-15] MEDS ORDERED: LABETALOL HCL IV 5 MG/ML 20ML IV PRN (10:37)
[2021-02-15] MEDS ORDERED: ePHEDrine sulfate 50 MG/ML AMP IV PRN (10:37)
[2021-02-15] MEDS ORDERED: PHENYLEPHRINE 100MCG/ML 5ML SYR IV PRN (10:37)
[2021-02-15] MEDS ORDERED: ATROPINE SULFATE 0.1 MG/ML 10ML SYR IV PRN (10:37)
[2021-02-15] MEDS ORDERED: fentaNYL citrate 100 MCG/2 ML VIAL IV PRN (10:37)
[2021-02-15] MEDS ORDERED: BUPIVACAINE 0.5 % 5 MG/1 ML MPF 30ML VIAL ONE (11:00)
--- NOTE | 2021-02-15 12:20 | Post Operative Brief Note ---
PG Immediate Post Op with CF Date of Surgery February 15, 2021 Pre & Post Diagnosis Operation Date: 02/15/21 07:00 Pre-Op Diagnosis: Acute Cholecystitis Postop diagnosis-acute gangrenous/necrotizing cholecystitis Bilious ascites I identified the patient and participated in the time-out.: Yes Procedure Operation Date: 02/15/21 07:00 Actual Procedures p Laparoscopic Cholecystectomy(Not Applicable) - Jg Watson MD, FACS Surgeon Jg Watson MD, FACS [employer]mobile Mechan[employer] Abbi Avelar Estimated Blood Loss 30 Findings Consistent with Post-Op Diagnosis Gangrenous gallbladder with purulent fluid and hydrops Specimens Specimen Description: A. Gallbladder and contents
[2021-02-15] MEDS ORDERED: ACETAMINOPHEN 1,000 MG/100 ML VIAL IV ONE (12:22)
[2021-02-15] MEDS ORDERED: FLOSEAL HEMOSTATIC MATRIX 10ML TOP ONE (12:41)
--- NOTE | 2021-02-15 12:53 | Anesthesiology Progress Note ---
Date of Service February 15, 2021 Anesthesia Post Procedure Vital Signs Vital Signs: Temp Pulse Pulse Pulse Resp BP BP 02/15/21 12:45 90 18 117/55 L 02/15/21 12:33 37.6 C H 95 H 18 133/56 L 02/15/21 10:30 37.9 C H 92 H 18 112/63 02/15/21 07:53 36.9 C 102 H 16 115/70 02/15/21 04:55 37.1 C 108 H 102 H 20 119/74 02/15/21 04:02 89 16 143/78 H 02/15/21 02:55 92 H 18 139/74 02/15/21 01:00 90 16 130/76 02/14/21 23:54 92 H 16 150/85 H 02/14/21 23:27 02/14/21 22:37 36.8 C 02/14/21 22:32 92 H 20 173/80 H Pulse Ox 02/15/21 12:45 97 02/15/21 12:33 98 02/15/21 10:30 98 02/15/21 07:53 94 02/15/21 04:55 95 02/15/21 04:02 98 02/15/21 02:55 98 02/15/21 01:00 98 02/14/21 23:54 96 02/14/21 23:27 100 02/14/21 22:37 99 02/14/21 22:32 88 L Pain Intensity Right Lower Abdomen: Pain Intensity: 3 Transfer of Care Handoff Completed per policy Notes Mental Status: alert / awake / arousable Patient Amnestic to Procedure: Yes Nausea / Vomiting: adequately controlled Pain: adequately controlled Airway Patency, RR, SpO2: stable & adequate BP & HR: stable & adequate Hydration State: stable & adequate Anesthetic Complications: no major complications apparent and Pt Satisfied with anesthetic care Notes: The patient is awake and comfortable. Her vital signs are stable.
[2021-02-15] MEDS ORDERED: PIPERACILLIN/TAZOBACTAM 3.375 GM in DEXTROSE 5% 100 ML IV SCH (13:25)
[2021-02-15] MEDS ORDERED: ACETAMINOPHEN 325 MG TAB PO PRN (13:25)
[2021-02-15] MEDS ORDERED: PIPERACILL/TAZOBAC CONSULT ACTIVE PRN (13:25)
[2021-02-15] MEDS ORDERED: PROMETHAZINE HCL 12.5 MG in SODIUM CHLORIDE 0.9% 50 ML IV PRN (13:25)
[2021-02-15] MEDS ORDERED: PIPERACILLIN/TAZOBACTAM 4.5 GM in DEXTROSE 5% 100 ML IV ONE (13:45)
--- NOTE | 2021-02-15 13:56 | Operative Report (OR) ---
DATE OF PROCEDURE: 02/15/2021. NAME OF OPERATION: Laparoscopic cholecystectomy. PREOPERATIVE DIAGNOSIS: Acute cholecystitis. POSTOPERATIVE DIAGNOSES: Acute cholecystitis with acute necrotizing/gangrenous cholecystitis with hy drops and bilious ascites. STAFF SURGEON: Jg Watson MD. FOREST OFFICER: Noe Avelar PA-C. ANESTHESIA: General. DESCRIPTION OF PROCEDURE: The patient was brought in the operating room and placed on the operating table in supine position. Her abdomen was prepped and draped in the usual fashion. An incision was made above the umbilicus, carrying dissection down using 0.5% plain Marcaine to anesthetize all incis ions. Veress needle was placed. Pneumoperitoneum produced, 11 mm port placed at this level and then under visualization, three 5 mm ports were placed, one cephalad and two laterally. The gallbladder was severely inflamed consistent with a necrotizing cholecystitis with bilious ascites. The gallblad harry was aspirated of bile, part of which was clear. The remainder was purulent indicating hydrops. The gallbladder did perforate easily with grasping. We did suction the purulent fluid and placed sto mishel into an Endobag. Dissection was carried out with some difficulty at the asya hepatis, identifyi ng the cystic duct and cystic artery. These were clipped and transected and the gallbladder dissecte d away from the liver bed. The posterior wall was completely necrotic, it was placed into the Endoba g. After appropriate hemostasis and irrigation, a 19 round Jamal-Hayden drain was placed through th e right upper quadrant 5 mm port site into the subhepatic space, secured using 3-0 nylon suture. I a lso placed some FloSeal into the subhepatic space. At this point, all ports were removed. The gallb ladder and stones were removed through the umbilical site. I had to enlarge it significantly because the size of the gallbladder and the size of the stones. This site was closed using running 0 PDS frost ture. The skin was loosely reapproximated using 4-0 nylon suture. Drain placed to suction bulb. My assistant unit forester helped with prepping, draping, removal of the gallbladder and closure of the wounds. Job ID: [id number]
[2021-02-15 14:02] LABS: Hematocrit (blood only) 28.8 % (37-47); Hemoglobin 10.1 g/dL (12.0-16.0); Mean Corpuscular Hemoglobin 32.5 pg (25-34); Mean Corpuscular Hgb Conc 35.1 g/dL (32-36); Mean Corpuscular Volume 92.6 fL (80-100); Mean Platelet Volume 8.4 fL (7.4-10.4); Platelet Count 390 K/uL (130-400); RDW Coefficient of Variation 17.1 % (11.5-14.5); RDW Standard Deviation 56.4 fL (36.4-46.3); Red Blood Count 3.11 M/uL (4.2-5.4); White Blood Count 23.89 K/uL (4.8-10.8)
[2021-02-15 14:23] LABS: Basophils # (auto) 0.02 K/uL (0-0.2); Basophils % (auto) 0.1 %; Immature Granulocytes # (auto) 0.05 K/uL (0.00-0.02); Immature Granulocytes % (auto) 0.2 %; Lymphocytes # (auto) 0.64 K/uL (1.2-3.4); Lymphocytes % (auto) 2.7 %; Monocytes % (auto) 7.1 %; Neutrophils # (auto) 21.48 K/uL (1.4-6.5); Neutrophils % (auto) 89.9 %
[2021-02-15] MEDS ORDERED: Nursing to Pharmacy Communication SCH (15:45)
--- NOTE | 2021-02-15 15:55 | Hospitalist Progress Note ---
Date of Service February 15, 2021 Assessment & Plan (1) Acute cholecystitis: Plan: Acute gangrenous/necrotizing cholecystitis status post laparoscopic cholecystectomy, POD #0. Recovering well. Surgical dressings intact. Pain controlled. Tolerating p.o. Advance diet per surgery. Zosyn, blood cultures pending. (2) Postoperative state: Plan: As above. (3) NHL (non-Hodgkin's lymphoma): Plan: She has a history of low-grade B-cell lymphoma and hemolytic anemia status post chemotherapy currently on prednisone therapy consistently. Follows with hematology. Prednisone on hold and placed on stress dose steroids. Plan to convert back to oral prednisone 1 to 2 days after surgery. (4) Depression: Plan: sertraline per home regimen. (5) CKD (chronic kidney disease), stage III: (6) DVT prophylaxis: Plan: heparin full dispo- to home in next few days once cleared by Dr. Walter Gandara, [facility] Hospitalist Admission and Anticipated Discharge Date Admission Date: February 15, 2021 Subjective 85-year-old female admitted with acute cholecystitis s/p laparoscopic cholecystectomy. She was found to have acute necrotizing gangrenous cholecystitis with hydrops and bilious ascites. She is recovering well in her room and starting to feel better Afebrile Minimal pain Tolerating p.o. Review of Systems Review of Systems: At least ten systems were reviewed and negative except as indicated in HPI above. Physical Exam Physical Exam: CONSTITUTIONAL: WNWD, vitals as above, generally well- appearing EYES: normal conjunctivae, no scleral icterus ENT: external ear and nose normal, MMM RESPIRATORY: clear to auscultation bilaterally, no crackles, rales or wheezes, normal respiratory effort CARDIOVASCULAR: regular rate and rhythm, S1 and 2 heard without murmurs, gallops or rubs, no JVD, no peripheral edema GASTROINTESTINAL: soft, slightly tender around incisions as expected, surgical sites covered with dressings that are c/d/i, nondistended. MUSCULOSKELETAL: strength 5/5 throughout, head is normocephalic and atraumatic SKIN: warm and dry NEUROLOGIC: CN 2-12 grossly intact, no sensory deficit, normal cognition, normal speech, no tremor PSYCHIATRIC: alert cooperative and oriented to person, place and time. Results & Data Results & Data ([facility]) Vital Signs (Past 12 Hours) Vital Signs Temp Pulse Pulse Pulse Resp BP BP 02/15/21 14:30 36.9 C 83 18 110/66 02/15/21 14:00 37.1 C 86 16 109/64 02/15/21 13:30 37.2 C 87 100/51 L 02/15/21 13:15 36.9 C 87 123/61 02/15/21 13:05 86 20 110/51 L 02/15/21 12:55 36.7 C 90 20 98/57 L 02/15/21 12:45 90 18 117/55 L 02/15/21 12:33 37.6 C H 95 H 18 133/56 L 02/15/21 10:30 37.9 C H 92 H 18 112/63 02/15/21 07:53 36.9 C 102 H 16 115/70 02/15/21 04:55 37.1 C 108 H 102 H 20 119/74 02/15/21 04:02 89 16 143/78 H Pulse Ox 02/15/21 14:30 92 02/15/21 14:00 90 02/15/21 13:30 91 02/15/21 13:15 93 02/15/21 13:05 97 02/15/21 12:55 98 02/15/21 12:45 97 02/15/21 12:33 98 02/15/21 10:30 98 02/15/21 07:53 94 02/15/21 04:55 95 02/15/21 04:02 98 Laboratory Results Short CBC 02/14/21 02/15/21 02/15/21 Range/Units 22:06 07:22 13:48 WBC 12.92 H 25.48 H D 23.89 H (4.8-10.8) K/uL Hgb 10.6 L 10.6 L 10.1 L (12.0-16.0) g/dL Hct 29.5 L 30.0 L 28.8 L (37-47) % Plt Count 468 H 411 H 390 (130-400) K/uL BMP 02/14/21 02/15/21 22:06 07:22 Sodium 139 136 Potassium 4.0 4.5 Chloride 109 H 107 Carbon Dioxide 21 24 BUN 21 H 21 H Creatinine 1.00 1.07 Glucose 135 H 113 H Calcium 9.6 9.0 Cardiac Enzymes 02/14/21 Range/Units 22:06 Total Creatine Kinase 24 L (26-192) U/L CK-MB (CK-2) < 1.0 (0.5-3.6) ng/ml Troponin I < 0.015 (0-0.045) ng/ml Liver Function 02/14/21 02/15/21 Range/Units 22:06 07:22 Total Bilirubin 1.5 H 1.7 H (0.2-1) mg/dl Direct Bilirubin 0.6 H (0-0.2) mg/dl AST 28 27 (15-37) U/L ALT 63 56 (12-78) U/L Alkaline Phosphatase 113 93 (45-117) U/L Albumin 3.4 3.0 L (3.4-5.0) gm/dl Urine 02/14/21 Range/Units 22:15 Urine Color Yellow Urine Appearance Clear (Clear) Urine pH 5.0 (4.5-7.5) Ur Specific [place] 1.011 (1.000-1.030) Urine Protein Negative (Negative) Urine Glucose (UA) Negative (Negative) Medications Administered Current Inpatient Medications Acetaminophen (Acetaminophen 325 Mg Tab) 650 mg PO Q4H PRN PRN Reason: Pain or Fever Stop: 03/17/21 04:53 Last Admin: 02/15/21 15:25 Dose: 650 mg Documented by: Acetaminophen (Acetaminophen 325 Mg Tab) 650 mg PO Q4H PRN PRN Reason: Pain Stop: 03/17/21 13:24 Ascorbic Acid (Ascorbic Acid 500 Mg Tab) 500 mg PO BID KALEN Stop: 03/17/21 08:59 Last Admin: 02/15/21 08:20 Dose: 500 mg Documented by: Aspirin (Aspirin 81 Mg Ectab) 81 mg PO QPM KALEN Stop: 03/17/21 20:59 Fluticasone/Vilanterol (Fluticasone/Vilanterol 100/25mcg 14 Puffs/Inhaler) 1 puffs INH DAILY KALEN Stop: 03/17/21 08:59 Last Admin: 02/15/21 08:22 Dose: 1 puffs Documented by: Folic Acid (Folic Acid 1 Mg Tab) 1 mg PO QPM KALEN Stop: 03/17/21 20:59 Furosemide (Furosemide 20 Mg Tab) 20 mg PO QAM KALEN Stop: 03/17/21 08:59 Last Admin: 02/15/21 08:20 Dose: 20 mg Documented by: Heparin Sodium (Porcine) (Heparin Sod 5,000 Unit/0.5 Ml Vial) 5,000 units SQ Q12 KALEN Stop: 03/18/21 08:59 Hydromorphone HCl (Hydromorphone Inj 0.5 Mg/0.5 Ml Syr) 0.5 mg IV Q4H PRN PRN Reason: Pain Stop: 03/01/21 04:53 Last Admin: 02/15/21 05:10 Dose: 0.5 mg Documented by: Hydromorphone HCl (Hydromorphone Inj 1 Mg/Ml Syringe) 1 mg IV Q3HWA PRN PRN Reason: Pain Stop: 03/01/21 13:24 Hydrocortisone Sodium (Succinate 25 mg/ Syringe) 0.5 mls @ 4 mls/min IV Q12H KALEN Stop: 03/17/21 07:59 Last Admin: 02/15/21 08:22 Dose: 4 mls/min Documented by: Magnesium Sulfate 4 gm/ Sodium (Chloride) 1,008 mls @ 125 mls/hr IV .Q8H4M [facility] Stop: 02/15/21 18:18 Last Admin: 02/15/21 14:08 Dose: 125 mls/hr Documented by: Promethazine HCl 12.5 mg/ (Sodium Chloride) 50.5 mls @ 204 mls/hr IV Q6H PRN PRN Reason: Nausea And Vomiting Stop: 03/17/21 13:24 Piperacillin Sod/Tazobactam (Sod 4.5 gm/ Dextrose) 120 mls @ 30 mls/hr IV Q8H [facility]; Protocol Stop: 02/25/21 19:59 Sodium Chloride (Nss 1000ml) 1,000 mls @ 80 mls/hr IV .[id number] [facility] Stop: 03/17/21 21:59 Metoprolol Succinate (Metoprolol Succ 25mg Ext Rel Tab) 12.5 mg PO QAM [facility] Stop: 03/17/21 08:59 Last Admin: 02/15/21 08:21 Dose: 12.5 mg Documented by: Miscellaneous Information (Piperacill/Tazobac Consult Active) 1 ea N/A UD PRN PRN Reason: Consult Stop: 03/17/21 13:24 Multivitamins/Minerals (Calcium 600mg + Vit D 400 Iu Tab) 1 tab PO DAILY KALEN Stop: 03/17/21 08:59 Last Admin: 02/15/21 08:20 Dose: 1 tab Documented by: Multivitamins/Minerals (Cerovite Adv Formula Tab) 1 tab PO DAILY KALEN Stop: 03/17/21 08:59 Last Admin: 02/15/21 08:21 Dose: 1 tab Documented by: Nitroglycerin (Nitroglycerin Sl 0.4 Mg/Tab Tab) 0.4 mg SL UD PRN PRN Reason: Chest Pain Stop: 03/17/21 04:53 Ondansetron HCl (Ondansetron Inj 2 Mg/Ml 2 Ml Vial) 4 mg IV Q6H PRN PRN Reason: Nausea Stop: 03/17/21 04:53 Last Admin: 02/15/21 15:26 Dose: 4 mg Documented by: Ondansetron HCl (Ondansetron Inj 2 Mg/Ml 2 Ml Vial) 4 mg IV 4XDQ4H PRN PRN Reason: Nausea Stop: 03/17/21 13:24 Oxybutynin Chloride (Oxybutynin Chloride Xl 5 Mg Tabcr) 10 mg PO DAILY KALEN Stop: 03/17/21 08:59 Last Admin: 02/15/21 08:21 Dose: 10 mg Documented by: Oxycodone HCl (Oxycodone Hcl Ir 5 Mg Tab (Immediate Release)) 5 mg PO Q4HWA PRN PRN Reason: Pain Stop: 03/01/21 13:24 Pantoprazole Sodium (Pantoprazole 40 Mg Tab) 40 mg PO QAM KALEN Stop: 03/17/21 08:59 Last Admin: 02/15/21 08:21 Dose: 40 mg Documented by: Prednisone (Prednisone 5 Mg Tab) 5 mg PO Q2D@0900 KALEN Stop: 03/18/21 08:59 Sertraline HCl (Sertraline Hcl 100 Mg Tablet) 100 mg PO QPM KALEN Stop: 03/17/21 20:59 Vitamin D (Cholecalciferol 1,000 Units 25 Mcg Tab) 2,000 units PO DAILY KALEN Stop: 03/17/21 08:59 Last Admin: 02/15/21 08:20 Dose: 2,000 units Documented by: (1) NHL (non-Hodgkin's lymphoma) Lymphoma site: unspecified region Non-Hodgkin lymphoma type: unspecified type Qualified Code(s): C85.90 - Non-Hodgkin lymphoma, unspecified, unspecified site
[2021-02-15] MEDS: oxyCODONE HCL IR 5 MG TAB (IMMEDIATE RELEASE) PO PRN (16:38)
--- NOTE | 2021-02-15 16:59 | Electrocardiogram Report ---
Test Reason : Blood Pressure : / mmHG Vent. Rate : 092 BPM Atrial Rate : 092 BPM P-R Int : 272 ms QRS Dur : 084 ms QT Int : 350 ms P-R-T Axes : 033 -43 085 degrees QTc Int : 432 ms Sinus rhythm with 1st degree A-V block Left axis deviation Low voltage QRS Possible Anterolateral infarct (cited on or before 14-FEB-2021) Abnormal ECG When compared with ECG of 15-JAN-2020 05:34, Premature atrial complexes are no longer Present Vent. rate has increased BY 31 BPM Questionable change in initial forces of Lateral leads Confirmed by Dionte Cho ([id number]) on 02/15/2021 4:59:41 PM Referred By: REFERRED SELF Confirmed By:Dionte Cho
[2021-02-15] MEDS: PIPERACILLIN/TAZOBACTAM 4.5 GM in DEXTROSE 5% 100 ML IV SCH (20:02)
[2021-02-15] MEDS: SERTRALINE HCL 100 MG TABLET PO SCH (20:02)
[2021-02-15] MEDS: ASPIRIN 81 MG ECTAB PO SCH (20:02)
[2021-02-15] MEDS: FOLIC ACID 1 MG TAB PO SCH (20:02)
[2021-02-15] MEDS: SODIUM CHLORIDE 0.9% 1000ML 1,000 ML IV SCH (22:00)
[2021-02-16] MEDS: oxyCODONE HCL IR 5 MG TAB (IMMEDIATE RELEASE) PO PRN ×3 (03:05→21:35)
[2021-02-16] MEDS: PIPERACILLIN/TAZOBACTAM 4.5 GM in DEXTROSE 5% 100 ML IV SCH ×3 (05:58→21:35)
[2021-02-16] MEDS ORDERED: Nursing to Pharmacy Communication SCH (06:15)
[2021-02-16 07:19] LABS: Albumin Level 2.4 gm/dl (3.4-5.0); BUN Creatinine Ratio 20.8 (10-20); Bilirubin Direct 0.6 mg/dl (0-0.2); Calcium 8.4 mg/dl (8.5-10.1); Creatinine Clr Calc Pharmacy 34.4 ml/min; Est GFR (African American) 40.9 ml/min; Est GFR (Non-African American) 35.3 ml/min; Magnesium 2.7 mg/dl (1.8-2.4); Potassium 4.4 mmol/L (3.5-5.1)
[2021-02-16 07:22] LABS: Basophils # (auto) 0.01 K/uL (0-0.2); Basophils % (auto) 0.1 %; Eosinophils # (auto) 0.06 K/uL (0-0.5); Eosinophils % (auto) 0.4 %; Hematocrit (blood only) 25.7 % (37-47); Hemoglobin 8.9 g/dL (12.0-16.0); Immature Granulocytes # (auto) 0.04 K/uL (0.00-0.02); Immature Granulocytes % (auto) 0.2 %; Lymphocytes % (auto) 14.1 %; Mean Corpuscular Hemoglobin 31.8 pg (25-34); Mean Corpuscular Hgb Conc 34.6 g/dL (32-36); Mean Corpuscular Volume 91.8 fL (80-100); Mean Platelet Volume 8.7 fL (7.4-10.4); Monocytes # (auto) 1.04 K/uL (0.11-0.59); Monocytes % (auto) 6.4 %; Neutrophils # (auto) 12.92 K/uL (1.4-6.5); Neutrophils % (auto) 78.8 %; Platelet Count 350 K/uL (130-400); RDW Coefficient of Variation 17.4 % (11.5-14.5); RDW Standard Deviation 57.7 fL (36.4-46.3); White Blood Count 16.37 K/uL (4.8-10.8)
[2021-02-16 07:22] LABS: Albumin Globulin Ratio 0.6 (0.9-2); Bilirubin,Total 1.6 mg/dl (0.2-1); Globulin 4.1 gm/dl (2.5-4.0); Phosphorus 4.4 mg/dl (2.5-4.9); Total Protein 6.5 gm/dl (6.4-8.2)
--- NOTE | 2021-02-16 07:32 | Surgery Progress Note ---
Date of Service February 16, 2021 Assessment & Plan (1) Status post laparoscopic cholecystectomy: Plan: Patient with gangrenous/necrotizing cholecystitis Bilious ascites, purulent fluid within the gallbladder Drain placement-serous drainage Labs pending Patient is awake and alert with some pain but appears to be much improved Advance diet, continue IV antibiotics PT consult May need 2-3 additional days in the hospital Admission and Anticipated Discharge Date Admission Date: February 15, 2021 Results & Data ([facility]) Vital Signs (Past 12 Hours) Vital Signs Temp Pulse Pulse Resp BP Pulse Ox 02/16/21 07:00 36.7 C 80 20 112/67 98 02/16/21 00:00 77 02/15/21 23:00 36.8 C 77 18 96/61 L 95 02/15/21 19:44 36.8 C 81 18 92/56 L 95 PG Care Time/CCT Total # of Minutes Spent Total Time Spent with Patient: Total time spent is greater than 50% in coordination of care (as documented) at patient's floor/unit and/or counseling patient: Coding Level of Care Code None Diagnoses Status post laparoscopic cholecystectomy Z90.49
[2021-02-16] MEDS: CEROVITE ADV FORMULA TAB PO SCH (08:03)
[2021-02-16] MEDS: ASCORBIC ACID 500 MG TAB PO SCH ×2 (08:03→21:35)
[2021-02-16] MEDS: OXYBUTYNIN CHLORIDE XL 5 MG TABCR PO SCH (08:03)
[2021-02-16] MEDS: HYDROCORTISONE SOD 25 MG in SYRINGE 0 ML IV SCH (08:03)
[2021-02-16] MEDS: HEPARIN SOD 5,000 UNIT/0.5 ML VIAL SQ SCH ×2 (08:04→21:34)
[2021-02-16] MEDS: CALCIUM 600MG + VIT D 400 IU TAB PO SCH (08:04)
[2021-02-16] MEDS: PANTOprazole 40 MG TAB PO SCH (08:04)
[2021-02-16] MEDS: METOPROLOL SUCC 25MG EXT REL TAB PO SCH (08:04)
[2021-02-16] MEDS: FLUTICASONE/VILANTEROL 100/25MCG 14 PUFFS/INHALER INH SCH (08:05)
[2021-02-16] MEDS: CHOLECALCIFEROL 1,000 UNITS 25 MCG TAB PO SCH (08:05)
[2021-02-16] MEDS ORDERED: predniSONE 5 MG TAB PO SCH (09:00)
[2021-02-16] MEDS: SODIUM CHLORIDE 0.9% 1000ML 1,000 ML IV SCH (13:22)
[2021-02-16] MEDS ORDERED: MICONAZOLE NITRATE POWDER 43 GM EXT PRN (17:19)
[2021-02-16] MEDS: SERTRALINE HCL 100 MG TABLET PO SCH (21:35)
[2021-02-16] MEDS: ASPIRIN 81 MG ECTAB PO SCH (21:35)
[2021-02-16] MEDS: FOLIC ACID 1 MG TAB PO SCH (21:36)
--- NOTE | 2021-02-16 21:40 | Hospitalist Progress Note ---
Date of Service February 16, 2021 Assessment & Plan (1) Acute cholecystitis: Plan: Acute gangrenous/necrotizing cholecystitis status post laparoscopic cholecystectomy, POD #1. Recovering well. Surgical dressings intact. Pain controlled. Tolerating p.o. Advance diet per surgery. Zosyn, blood cultures growing GNB-will consult infectious disease to help wtih de-escalation of antibiotics. (2) Postoperative state: Plan: As above. (3) NHL (non-Hodgkin's lymphoma): Plan: She has a history of low-grade B-cell lymphoma and hemolytic anemia status post chemotherapy currently on prednisone therapy consistently. Follows with hematology. Stop hydrocortisone today and start daily prednisone tomorrow for a few days, then every other day per home regimen. (4) Depression: Plan: sertraline per home regimen. (5) CKD (chronic kidney disease), stage III: (6) DVT prophylaxis: Plan: heparin full dispo- to home in next few days once cleared by Dr. Walter Gandara, [facility]ist Admission and Anticipated Discharge Date Admission Date: February 15, 2021 Subjective 85-year-old female admitted with acute cholecystitis s/p laparoscopic cholecystectomy. She was found to have acute necrotizing gangrenous cholecystitis with hydrops and bilious ascites. She is recovering well in her room and starting to feel better afebrile able to eat entire meal tonight pain is improved. No flatus or BM yet. Review of Systems Review of Systems: All systems were reviewed and negative except as indicated in HPI above. Physical Exam Physical Exam: CONSTITUTIONAL: WNWD, vitals as above, generally well- appearing EYES: normal conjunctivae, no scleral icterus ENT: external ear and nose normal, MMM RESPIRATORY: clear to auscultation bilaterally, no crackles, rales or wheezes, normal respiratory effort CARDIOVASCULAR: regular rate and rhythm, S1 and 2 heard without murmurs, gall ops or rubs, no JVD, no peripheral edema GASTROINTESTINAL: soft, slightly tender around incisions as expected, surgical sites covered with dressings that are c/d/i, nondistended. MUSCULOSKELETAL: strength 5/5 throughout, head is normocephalic and atraumatic SKIN: warm and dry NEUROLOGIC: CN 2-12 grossly intact, no sensory deficit, normal cognition, normal speech, no tremor PSYCHIATRIC: alert cooperative and oriented to person, place and time. Results & Data Results & Data ([facility]) Vital Signs (Past 12 Hours) Vital Signs Temp Pulse Pulse Resp BP BP Pulse Ox 02/16/21 18:58 36.6 C 78 16 97/60 L 96 02/16/21 15:30 36.4 C L 82 18 103/53 L 97 02/16/21 11:19 36.3 C L 96 H 18 127/61 94 Laboratory Results Short CBC 02/16/21 Range/Units 06:09 WBC 16.37 H (4.8-10.8) K/uL Hgb 8.9 L (12.0-16.0) g/dL Hct 25.7 L (37-47) % Plt Count 350 (130-400) K/uL BMP 02/16/21 06:06 Sodium 139 Potassium 4.4 Chloride 108 H Carbon Dioxide 26 BUN 29 H Creatinine 1.37 H D Glucose 130 H Calcium 8.4 L Liver Function 02/16/21 Range/Units 06:06 Total Bilirubin 1.6 H (0.2-1) mg/dl Direct Bilirubin 0.6 H (0-0.2) mg/dl AST 26 (15-37) U/L ALT 42 (12-78) U/L Alkaline Phosphatase 73 (45-117) U/L Albumin 2.4 L (3.4-5.0) gm/dl Medications Administered Current Inpatient Medications Acetaminophen (Acetaminophen 325 Mg Tab) 650 mg PO Q4H PRN PRN Reason: Pain Stop: 03/17/21 13:24 Ascorbic Acid (Ascorbic Acid 500 Mg Tab) 500 mg PO BID [facility] Stop: 03/17/21 08:59 Last Admin: 02/16/21 08:03 Dose: 500 mg Documented by: Aspirin (Aspirin 81 Mg Ectab) 81 mg PO QPM [facility] Stop: 03/17/21 20:59 Last Admin: 02/15/21 20:02 Dose: 81 mg Documented by: Fluticasone/Vilanterol (Fluticasone/Vilanterol 100/25mcg 14 Puffs/Inhaler) 1 puffs INH DAILY [facility] Stop: 03/17/21 08:59 Last Admin: 02/16/21 08:05 Dose: 1 puffs Documented by: Folic Acid (Folic Acid 1 Mg Tab) 1 mg PO QPM [facility] Stop: 03/17/21 20:59 Last Admin: 08/18/21 20:02 Dose: 1 mg Documented by: Furosemide (Furosemide 20 Mg Tab) 20 mg PO QAM [facility] Stop: 03/17/21 08:59 Last Admin: 02/15/21 08:20 Dose: 20 mg Documented by: Heparin Sodium (Porcine) (Heparin Sod 5,000 Unit/0.5 Ml Vial) 5,000 units SQ Q12 [facility] Stop: 03/18/21 08:59 Last Admin: 02/16/21 08:04 Dose: 5,000 units Documented by: Hydromorphone HCl (Hydromorphone Inj 0.5 Mg/0.5 Ml Syr) 0.5 mg IV Q4H PRN PRN Reason: Pain Stop: 03/01/21 04:53 Last Admin: 02/15/21 05:10 Dose: 0.5 mg Documented by: Hydromorphone HCl (Hydromorphone Inj 1 Mg/Ml Syringe) 1 mg IV Q3HWA PRN PRN Reason: Pain Stop: 03/01/21 13:24 Promethazine HCl 12.5 mg/ (Sodium Chloride) 50.5 mls @ 204 mls/hr IV Q6H PRN PRN Reason: Nausea And Vomiting Stop: 03/17/21 13:24 Piperacillin Sod/Tazobactam (Sod 4.5 gm/ Dextrose) 120 mls @ 30 mls/hr IV Q8H [facility]; Protocol Stop: 02/25/21 19:59 Last Infusion: 02/16/21 19:21 Dose: Infused Documented by: Metoprolol Succinate (Metoprolol Succ 25mg Ext Rel Tab) 12.5 mg PO [facility] Stop: 03/17/21 08:59 Last Admin: 02/16/21 08:04 Dose: 12.5 mg Documented by: Miconazole Nitrate (Miconazole Nitrate Powder 43 Gm) 1 appln EXT PRN PRN PRN Reason: Affected Skin Folds Stop: 03/18/21 17:18 Miscellaneous Information (Piperacill/Tazobac Consult Active) 1 ea N/A UD PRN PRN Reason: Consult Stop: 03/17/21 13:24 Multivitamins/Minerals (Calcium 600mg + Vit D 400 Iu Tab) 1 tab PO DAILY [facility] Stop: 03/17/21 08:59 Last Admin: 02/16/21 08:04 Dose: 1 tab Documented by: Multivitamins/Minerals (Cerovite Adv Formula Tab) 1 tab PO DAILY [facility] Stop: 03/17/21 08:59 Last Admin: 02/16/21 08:03 Dose: 1 tab Documented by: Nitroglycerin (Nitroglycerin Sl 0.4 Mg/Tab Tab) 0.4 mg SL UD PRN PRN Reason: Chest Pain Stop: 03/17/21 04:53 Ondansetron HCl (Ondansetron Inj 2 Mg/Ml 2 Ml Vial) 4 mg IV Q6H PRN PRN Reason: Nausea Stop: 03/17/21 04:53 Last Admin: 02/15/21 15:26 Dose: 4 mg Documented by: Ondansetron HCl (Ondansetron Inj 2 Mg/Ml 2 Ml Vial) 4 mg IV 4XDQ4H PRN PRN Reason: Nausea Stop: 03/17/21 13:24 Oxybutynin Chloride (Oxybutynin Chloride Xl 5 Mg Tabcr) 10 mg PO DAILY [facility] Stop: 03/17/21 08:59 Last Admin: 02/16/21 08:03 Dose: 10 mg Documented by: Oxycodone HCl (Oxycodone Hcl Ir 5 Mg Tab (Immediate Release)) 5 mg PO Q4HWA PRN PRN Reason: Pain Stop: 03/01/21 13:24 Last Admin: 02/16/21 11:05 Dose: 5 mg Documented by: Pantoprazole Sodium (Pantoprazole 40 Mg Tab) 40 mg PO QAM [facility] Stop: 03/17/21 08:59 Last Admin: 02/16/21 08:04 Dose: 40 mg Documented by: Prednisone (Prednisone 5 Mg Tab) 5 mg PO DAILY [facility] Stop: 03/19/21 08:59 Sertraline HCl (Sertraline Hcl 100 Mg Tablet) 100 mg PO QPM [facility] Stop: 03/17/21 20:59 Last Admin: 02/15/21 20:02 Dose: 100 mg Documented by: Vitamin D (Cholecalciferol 1,000 Units 25 Mcg Tab) 2,000 units PO DAILY [facility] Stop: 03/17/21 08:59 Last Admin: 02/16/21 08:05 Dose: 2,000 units Documented by: (1) NHL (non-Hodgkin's lymphoma) Lymphoma site: unspecified region Non-Hodgkin lymphoma type: unspecified type Qualified Code(s): C85.90 - Non-Hodgkin lymphoma, unspecified, unspecified site
[2021-02-17] MEDS: PIPERACILLIN/TAZOBACTAM 4.5 GM in DEXTROSE 5% 100 ML IV SCH ×3 (06:20→21:14)
[2021-02-17] MEDS: OXYBUTYNIN CHLORIDE XL 5 MG TABCR PO SCH (07:20)
[2021-02-17] MEDS: ASCORBIC ACID 500 MG TAB PO SCH ×2 (07:20→21:13)
[2021-02-17] MEDS: PANTOprazole 40 MG TAB PO SCH (07:20)
[2021-02-17] MEDS: CHOLECALCIFEROL 1,000 UNITS 25 MCG TAB PO SCH (07:20)
[2021-02-17] MEDS: CEROVITE ADV FORMULA TAB PO SCH (07:21)
[2021-02-17] MEDS: CALCIUM 600MG + VIT D 400 IU TAB PO SCH (07:21)
[2021-02-17] MEDS: FLUTICASONE/VILANTEROL 100/25MCG 14 PUFFS/INHALER INH SCH (07:21)
[2021-02-17] MEDS: HEPARIN SOD 5,000 UNIT/0.5 ML VIAL SQ SCH ×2 (07:22→21:15)
[2021-02-17] MEDS: FUROSEMIDE 20 MG TAB PO SCH (07:22)
[2021-02-17] MEDS: METOPROLOL SUCC 25MG EXT REL TAB PO SCH (07:57)
[2021-02-17] MEDS: predniSONE 5 MG TAB PO SCH (07:58)
[2021-02-17 08:04] LABS: Hematocrit (blood only) 25.2 % (37-47); Hemoglobin 8.7 g/dL (12.0-16.0); Mean Corpuscular Hemoglobin 31.9 pg (25-34); Mean Corpuscular Hgb Conc 34.5 g/dL (32-36); Mean Corpuscular Volume 92.3 fL (80-100); Mean Platelet Volume 8.1 fL (7.4-10.4); Platelet Count 347 K/uL (130-400); RDW Standard Deviation 57.3 fL (36.4-46.3); Red Blood Count 2.73 M/uL (4.2-5.4); White Blood Count 11.82 K/uL (4.8-10.8)
[2021-02-17] MEDS: POLYETHYLENE (MIRALAX) 17 GM PACK PO SCH (08:16)
[2021-02-17 08:33] LABS: Calcium 8.4 mg/dl (8.5-10.1); Creatinine Clr Calc Pharmacy 43.9 ml/min; Est GFR (Non-African American) 46.6 ml/min; Potassium 3.9 mmol/L (3.5-5.1)
--- NOTE | 2021-02-17 11:04 | Surgery Progress Note ---
Date of Service February 17, 2021 Assessment & Plan (1) Status post laparoscopic cholecystectomy: Plan: Patient with a history of necrotizing/gangrenous cholecystitis with bilious ascites Purulent fluid within the gallbladder Continue IV antibiotics today and then I have written for Augmentin p.o. for at least 5 days She will need to keep her drain until next week She likely needs 1-2 more days in the hospital and likely a visiting nurse as I am not sure she has help at home I will leave the pain medicine to the medical team Dr. Leos is following the patient over the weekend Admission and Anticipated Discharge Date Admission Date: February 15, 2021 Results & Data ([facility]) Vital Signs (Past 12 Hours) Vital Signs Temp Pulse Pulse Pulse Resp BP BP 02/17/21 08:00 36.7 C 81 18 124/74 02/17/21 07:00 36.9 C 78 20 110/65 02/17/21 03:46 37 C 77 20 113/71 02/16/21 23:05 76 Pulse Ox 02/17/21 08:00 97 02/17/21 07:00 98 02/17/21 03:46 98 02/16/21 23:05 PG Care Time/CCT Total # of Minutes Spent Total Time Spent with Patient: Total time spent is greater than 50% in coordination of care (as documented) at patient's floor/unit and/or counseling patient: Coding Level of Care Code None Diagnoses Status post laparoscopic cholecystectomy Z90.49
--- NOTE | 2021-02-17 20:35 | Hospitalist Progress Note ---
Date of Service February 17, 2021 Assessment & Plan (1) Status post laparoscopic cholecystectomy: (2) Cholecystitis: (3) Gram-negative bacteremia: Plan: #. Necrotizing/gangrenous cholecystitis with bilious ascites Status post laparoscopic cholecystectomy 02/15 Is moving gas, has not moved bowels yet. Tolerating diet. Recovering well, pain controlled Management per surgery: We will maintain the JANAY drain until next week, needs 1-2 more days in the hospital and a visiting nurse upon discharge #. GNB bacteremia ID consulted to help with de-escalation of antibiotics #. Non-Hodgkin's lymphoma She has a history of low-grade B-cell lymphoma and hemolytic anemia status post chemotherapy currently on prednisone therapy consistently. Follows with hematology. On daily prednisone 02/17 for a few days, then every other day per home regimen. Received stress dose of hydrocortisone prior to surgery. #. Depression: sertraline per home regimen. #. DVT prophylaxis: heparin full dispo- to home in next few days once cleared by Sx. Admission and Anticipated Discharge Date Admission Date: February 15, 2021 Subjective Patient was sitting up in chair, NAD, on 2 L nasal cannula oxygen, no issues overnight. Patient reports that she has not moved bowels since surgery but has been moving gas. Pain at the site of lap jazmin is under control. Denies any other review of symptoms. Physical Exam Physical Exam: GENERAL: Alert and oriented x3. NAD, on 2 L HEENT: No pallor, no icterus. Pupils equal, round and reactive to light. Oral mucosa moist. NECK: No JVD, no neck masses. HEART: S1 and S2 heard. Regular rate and rhythm. No murmur, no gallop. RESPIRATORY SYSTEM: Normal AP diameter. No accessory muscle use. No wheezing, no crackles. ABDOMEN: Soft, bowel sounds present, clean dressing present over the right upper quadrant with JANAY drain in situ, no distention. CENTRAL NERVOUS SYSTEM: Alert and oriented x3. No facial droop. Speech is clear. Obeys simple commands. Moves extremities. EXTREMITIES: No edema, no erythema seen. Results & Data Results & Data ([facility]) Vital Signs (Past 12 Hours) Vital Signs Temp Pulse Resp BP BP Pulse Ox 02/17/21 19:00 36.5 C 101 H 20 151/73 H 90 02/17/21 15:23 36.7 C 74 18 122/73 95 02/17/21 12:00 37 C 78 19 114/62 95
[2021-02-17] MEDS: oxyCODONE HCL IR 5 MG TAB (IMMEDIATE RELEASE) PO PRN (21:12)
[2021-02-17] MEDS: FOLIC ACID 1 MG TAB PO SCH (21:14)
[2021-02-17] MEDS: ASPIRIN 81 MG ECTAB PO SCH (21:14)
[2021-02-17] MEDS: SERTRALINE HCL 100 MG TABLET PO SCH (21:14)
[2021-02-18] MEDS: PIPERACILLIN/TAZOBACTAM 4.5 GM in DEXTROSE 5% 100 ML IV SCH ×2 (06:14→13:35)
[2021-02-18 07:52] LABS: Hematocrit (blood only) 25.6 % (37-47); Mean Corpuscular Hemoglobin 32.1 pg (25-34); Mean Corpuscular Hgb Conc 35.2 g/dL (32-36); Mean Corpuscular Volume 91.4 fL (80-100); Mean Platelet Volume 8.5 fL (7.4-10.4); Platelet Count 417 K/uL (130-400); RDW Coefficient of Variation 16.3 % (11.5-14.5); RDW Standard Deviation 54.3 fL (36.4-46.3)
[2021-02-18 08:08] LABS: BUN Creatinine Ratio 17.4 (10-20); Calcium 8.7 mg/dl (8.5-10.1); Creatinine Clr Calc Pharmacy 46.5 ml/min; Est GFR (African American) 59.2 ml/min; Est GFR (Non-African American) 51.1 ml/min; Potassium 4.1 mmol/L (3.5-5.1)
[2021-02-18 08:13] LABS: Ferritin 886.7 ng/ml (8-388)
[2021-02-18] MEDS: CEROVITE ADV FORMULA TAB PO SCH (08:17)
[2021-02-18] MEDS: ASCORBIC ACID 500 MG TAB PO SCH ×2 (08:17→21:32)
[2021-02-18] MEDS: predniSONE 5 MG TAB PO SCH (08:17)
[2021-02-18] MEDS: PANTOprazole 40 MG TAB PO SCH (08:17)
[2021-02-18] MEDS: CALCIUM 600MG + VIT D 400 IU TAB PO SCH (08:17)
[2021-02-18] MEDS: METOPROLOL SUCC 25MG EXT REL TAB PO SCH (08:18)
[2021-02-18] MEDS: OXYBUTYNIN CHLORIDE XL 5 MG TABCR PO SCH (08:18)
[2021-02-18] MEDS: FUROSEMIDE 20 MG TAB PO SCH (08:19)
[2021-02-18] MEDS: FLUTICASONE/VILANTEROL 100/25MCG 14 PUFFS/INHALER INH SCH (08:19)
[2021-02-18] MEDS: POLYETHYLENE (MIRALAX) 17 GM PACK PO SCH (08:20)
[2021-02-18] MEDS: HEPARIN SOD 5,000 UNIT/0.5 ML VIAL SQ SCH ×2 (08:20→21:32)
[2021-02-18 08:39] LABS: Folate (Folic Acid) > 20.00 ng/ml (>5.38); Vitamin B12 774 pg/ml (193-986)
[2021-02-18] MEDS: CHOLECALCIFEROL 1,000 UNITS 25 MCG TAB PO SCH (08:47)
--- NOTE | 2021-02-18 12:10 | Surgery Progress Note ---
Date of Service February 18, 2021 Assessment & Plan (1) Cholecystitis: Plan: Advance diet as wishes Slow progress Discharge per medical team once medically fit Drain will go home with patient Admission and Anticipated Discharge Date Admission Date: February 15, 2021 Subjective Eating only OK Still weak Drain serosanguinous Review of Systems Constitutional: + fatigue and + anorexia; no fever and no chills Respiratory: no dyspnea Cardiovascular: no chest pain Gastrointestinal: + abdominal pain; no nausea, no vomiting and no change in bowel habits Musculoskeletal: no back pain Physical Exam Constitutional: well developed and well nourished; no acute distress Neck: trachea midline Respiratory: normal respiratory effort, lungs clear to auscultation Cardiovascular: RRR, no murmur, no edema Gastrointestinal (Abdomen): Inspection/Auscultation: abdomen normal to inspection, normal bowel sounds and + abdominal surgical incision; abdomen not distended Percussion/Palpation: + abdomen tender (Mild) and abdomen soft Drain in place Musculoskeletal: Head/Neck/Chest: normocephalic and head atraumatic Skin: no rashes, warm and dry Psychiatric: Orientation: alert and oriented x 3 Results & Data ([facility]) Vital Signs (Past 12 Hours) Vital Signs Temp Pulse Pulse Resp BP BP Pulse Ox 02/18/21 12:03 36.7 C 69 20 121/72 97 02/18/21 07:56 36.6 C 73 20 147/67 H 95 02/18/21 07:35 72 02/18/21 04:00 36.5 C 84 18 130/65 95
[2021-02-18] MEDS: HYDROmorphone INJ 0.5 MG/0.5 ML SYR IV PRN (13:42)
--- NOTE | 2021-02-18 15:29 | Hospitalist Progress Note ---
Date of Service February 18, 2021 Assessment & Plan (1) Status post laparoscopic cholecystectomy: (2) Cholecystitis: (3) Gram-negative bacteremia: Plan: #. Necrotizing/gangrenous cholecystitis with bilious ascites Status post laparoscopic cholecystectomy 02/15 Is moving gas/bowels. Tolerating diet. Recovering well, pain controlled Management per surgery: Surgery okay with DC, drain will go home with patient. #. GNB bacteremia We will change her Zosyn 02/15 to ciprofloxacin 02/15 and start her on metron 02/15 Await ID recommendation. #. Non-Hodgkin's lymphoma She has a history of low-grade B-cell lymphoma and hemolytic anemia status post chemotherapy currently on prednisone therapy consistently. Follows with hematology. On daily prednisone 02/17 for a few days, then every other day per h ome regimen. Received stress dose of hydrocortisone prior to surgery. #. Depression: sertraline per home regimen. #. DVT prophylaxis: heparin full dispo- Needs 2-step test prior to DC. to home in next few days once ID evaluates her. Admission and Anticipated Discharge Date Admission Date: February 15, 2021 Subjective Patient was sitting up in bed, NAD, on 2 L nasal cannula oxygen, no issues overnight. Patient reports that she has moved bowels yesterday and has been eating good. Pain at the site of lap jazmin is under control. Denies any other review of symptoms. Physical Exam Physical Exam: GENERAL: Alert and oriented x3. NAD, on 2 L HEENT: No pallor, no icterus. Pupils equal, round and reactive to light. Oral mucosa moist. NECK: No JVD, no neck masses. HEART: S1 and S2 heard. Regular rate and rhythm. No murmur, no gallop. RESPIRATORY SYSTEM: Normal AP diameter. No accessory muscle use. No wheezing, no crackles. ABDOMEN: Soft, bowel sounds present, clean dressing present over the right upper quadrant with JANAY drain in situ, no distention. CENTRAL NERVOUS SYSTEM: Alert and oriented x3. No facial droop. Speech is clear. Obeys simple commands. Moves extremities. EXTREMITIES: 1+ edema, no erythema seen. Results & Data Results & Data ([facility]) Vital Signs (Past 12 Hours) Vital Signs Temp Pulse Pulse Resp BP BP Pulse Ox 02/18/21 12:03 36.7 C 69 20 121/72 97 02/18/21 07:56 36.6 C 73 20 147/67 H 95 02/18/21 07:35 72 02/18/21 04:00 36.5 C 84 18 130/65 95
[2021-02-18] MEDS: metroNIDAZOLE 500 MG TAB PO SCH (21:31)
[2021-02-18] MEDS: oxyCODONE HCL IR 5 MG TAB (IMMEDIATE RELEASE) PO PRN (21:31)
[2021-02-18] MEDS: SERTRALINE HCL 100 MG TABLET PO SCH (21:32)
[2021-02-18] MEDS: ASPIRIN 81 MG ECTAB PO SCH (21:33)
[2021-02-18] MEDS: FOLIC ACID 1 MG TAB PO SCH (21:34)
[2021-02-18] MEDS: CIPROFLOXACIN 500 MG TAB PO SCH (21:34)
[2021-02-19] MEDS: FLUTICASONE/VILANTEROL 100/25MCG 14 PUFFS/INHALER INH SCH (08:44)
[2021-02-19] MEDS: CHOLECALCIFEROL 1,000 UNITS 25 MCG TAB PO SCH (08:44)
[2021-02-19] MEDS: PANTOprazole 40 MG TAB PO SCH (08:45)
[2021-02-19] MEDS: CIPROFLOXACIN 500 MG TAB PO SCH ×2 (08:45→21:12)
[2021-02-19] MEDS: CALCIUM 600MG + VIT D 400 IU TAB PO SCH (08:45)
[2021-02-19] MEDS: predniSONE 5 MG TAB PO SCH (08:45)
[2021-02-19] MEDS: metroNIDAZOLE 500 MG TAB PO SCH ×3 (08:45→21:11)
[2021-02-19] MEDS: ASCORBIC ACID 500 MG TAB PO SCH ×2 (08:45→21:12)
[2021-02-19] MEDS: HEPARIN SOD 5,000 UNIT/0.5 ML VIAL SQ SCH ×2 (08:45→21:14)
[2021-02-19] MEDS: CEROVITE ADV FORMULA TAB PO SCH (08:45)
[2021-02-19] MEDS: METOPROLOL SUCC 25MG EXT REL TAB PO SCH (08:45)
[2021-02-19] MEDS: FUROSEMIDE 20 MG TAB PO SCH (08:45)
[2021-02-19] MEDS: OXYBUTYNIN CHLORIDE XL 5 MG TABCR PO SCH (08:45)
[2021-02-19] MEDS: POLYETHYLENE (MIRALAX) 17 GM PACK PO SCH (08:46)
--- NOTE | 2021-02-19 09:41 | Surgery Progress Note ---
Date of Service February 19, 2021 Assessment & Plan (1) Status post laparoscopic cholecystectomy: Plan: discharge per medical team drain home with patient Plan: discharge per medical team home with drain Admission and Anticipated Discharge Date Admission Date: February 15, 2021 Subjective feels better eating OK Review of Systems Constitutional: no fever and no chills Respiratory: no dyspnea Cardiovascular: no chest pain Gastrointestinal: + abdominal pain (mild); no nausea and no vomiting Physical Exam Constitutional: WD/WN, vitals as above Neck: trachea midline Respiratory: normal respiratory effort, lungs clear to auscultation Cardiovascular: RRR, no murmur, no edema Gastrointestinal (Abdomen): Inspection/Auscultation: abdomen normal to inspection and normal bowel sounds; abdomen not distended Percussion/Palpation: + abdomen tender and abdomen soft; no guarding and abdomen not rigid Results & Data ([facility]) Vital Signs (Past 12 Hours) Vital Signs Temp Pulse Pulse Pulse Resp BP BP 02/19/21 07:57 36.9 C 79 18 127/71 02/19/21 04:00 36.6 C 70 18 133/67 02/18/21 23:00 37.0 C 78 18 111/71 02/18/21 22:20 63 Pulse Ox 02/19/21 07:57 99 02/19/21 04:00 97 02/18/21 23:00 99 02/18/21 22:20
--- NOTE | 2021-02-19 15:31 | Emergency Department Note ---
Impression & Plan Acute cholecystitis, Gram-negative bacteremia ED Provider Note NAME: HENRIK LIMON AGE: 85 SEX: F : 1935 ARRIVES VIA: Ambulance INFORMANT: Patient, ED PROVIDER(S): Emmett Carbajal MD CHIEF COMPLAINT: Abd pain HPI: This is an 85-year-old female brought in by family over concerns that the patient is having severe abdominal pain. The patient reports she ate lunch today at 3 PM and approximately 2 hours later began having severe abdominal pain to the point that it is causing her to vomit. She describes the pain as a piercing aching sensation with radiation into her back. She reports nothing appears to make the pain better or worse. She has taken Tylenol for the pain without any relief. ROS: See above HPI for pertinent positives & negatives. A total of 10 systems reviewed and were otherwise negative. PAST MEDICAL HISTORY: See Below PAST SURGICAL HISTORY: See Below FAMILY HISTORY: See Below SOCIAL HISTORY: See Below HOME MEDICATIONS: See Below ALLERGIES: See Below VITALS: See Below PHYSICAL EXAMINATION: VITAL SIGNS - Vital signs and nursing notes were reviewed. GENERAL - 85-year-old female appearing stated age who is in no acute distress. Communicates well with provider and answers questions appropriately. SKIN - Without rashes. HEAD - NC/AT. EYES - PERRL with EOMI bilaterally. Sclera anicteric. Palpebral conjunctiva pink and moist with no injection noted. EARS - No deformities of external structures noted on gross examination bilaterally. NOSE - Midline and without cyanosis. No epistaxis or purulent drainage noted. Septum midline without deviation or septal hematoma noted. MOUTH/OROPHARYNX - Without perioral cyanosis. Buccal mucosa pink and moist and without leukoplakia. Tongue midline with equal elevation of palate bilaterally. No tonsillar hypertrophy, erythema, or exudates noted. NECK - Neck with FROM. Supple to palpation. lymphadenopathy noted. No nuchal rigidity. LUNGS - Chest wall symmetric without accessory muscle use, intercostals retractions, or central cyanosis. Normal vesicular breath sounds CTA B/L. No wheezes, rales, or rhonchi appreciated. CARDIAC - RRR with S1/S2. No murmur, rubs, or gallops appreciated. ABDOMEN - Abdominal contour without pulsations or visible masses. Tender to RUQ abd EXTREMITIES - No clubbing or peripheral cyanosis. No pretibial edema present. +3/5 radial, posterior tibial, and dorsalis pedis pulses palpated throughout. +5/5 strength noted in UE/LE bilaterally. NEUROLOGIC - Cranial nerves II through XII grossly intact. Sensory intact to light touch throughout. Patellar reflexes +2/4. PSYCH - A&Ox3 and cooperates fully with examiner. Pt is very pleasant and interacts well with examiner. MEDICAL DECISION MAKING: Patient was seen and evaluated as above in room A2. Review was performed of nursing notes and vital signs. I did review pertinent previous visits and patien t history. After obtaining a thorough history and physical examination the above work up was performed. 75-year-old female who presents emergency department complaining of right upper quadrant abdominal pain an IV was established, the patient given a normal saline bolus Tylenol as well as Dilaudid. Repeat examination revealed improving the patient's symptoms. The patient does have an elevation in her white blood cell count however her LFTs and lipase are normal. She was started on broad-spectrum antibiotics and sent for a CAT scan of the abdomen pelvis. This is concerning for acute cholecystitis. Based on this I did discuss the case with the surgeon on-call who asked that the patient be admitted to the medicine service. Patient was discussed with the medicine service. CT scan of the abdomen pelvis was interpreted by me and is concerning for acute cholecystitis. While in the department, I personally reevaluated the patient several times and each time the patient was found to be resting comfortably. The patient was educated upon management, educated upon todays findings/results, educated upon importance of follow up from today's visit, educated upon symptoms in which to return, had questions answered prior to discharge, verbalized understanding, and was discharged home in good condition. An order was placed for continuous cardiac monitoring. The monitor shows a rate of 64 with Normal SInus rhythm. The patient was evaluated during a period of high volume and high acuity during the global COVID-19 pandemic, and that diagnosis was suspected/considered upon their initial presentation. Their evaluation, treatment and testing was consistent with current guidelines for patients who present with complaints or symptoms that may be related to COVID-19. Patient was seen while provider was wearing PPE. Triage Nursing notes reviewed. Prior medical records reviewed Vital Signs: reviewed and remarkable for no significant abnormalities Differential diagnosis: Appendicitis, ovarian cyst, ovarian torsion, ectopic , TOA, PID, infections, diverticulitis, UTI, obstruction, mesenteric ischemia, aortic pathology, inflammatory bowel disease, renal colic, PUD, pancreatitis, biliary pathology, hernia, volvulus, constipation, as well as other pathologies. ER treatment provided: See below Diagnostics interpreted by me: ECG: Sinus rhythm with first-degree AV block left axis deviation no ST elevation or depression QTC is 432 ventricular rate is 92 Laboratory studies: As stated above and show below. Imaging studies: See below Consultation(s): Gen Surg Internal Medicine I have personally spent greater than 30 minutes of critical care time in the direct management of this patient. This includes bedside care, interpretation of diagnostic studies, and testing, discussion with consultants, patient, and family members, and other required patient management activities. This 30 minutes is in excess of all separately billable procedures. 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 Dr. Watson 02/15/2021 Hx of tooth extraction S/P cataract surgery Tubal ligation status Family History Father , 52 Pulmonary embolism Mother Breast cancer Social History Smoking Status: Never smoker Hx Alcohol Use: No Hx Substance Use: No Preferred Language: Irish Communication Ability: Effective [place] [employer] Operator Required: No Beliefs That Will Affect Care: None marital status: Current Living Situation: Spouse Current Living Situation Comment: Lives with in two story home How many Children do You have: 4 Other Information That Helps Us Care for You: No Feels Safe at Home: Yes Safety Concerns: Feels Safe At This Time Assistive Devices: Cane and Walker Allergies Allergies Allergy/AdvReac Type Severity Reaction Status Date / Time No Known Allergies Allergy Verified 02/14/21 23:56 Home Meds Home Medications Medication Instructions Recorded Confirmed aspirin 81 mg tablet,delayed 81 mg PO QPM 04/25/18 02/14/21 release (Aspirin Low Dose) omega [id number] oil 1,000 mg 2 cap PO QPM 04/25/18 02/14/21 (120 mg-180 mg) capsule (Fish Oil) sertraline 100 mg tablet 100 mg PO QPM 03/31/19 02/14/21 oxybutynin chloride 10 mg 10 mg PO DAILY 11/02/19 02/14/21 tablet,extended release 24 hr ascorbic acid (vitamin C) 500 mg 500 mg PO BID 11/17/19 02/14/21 tablet (Vitamin C) calcium carbonate 500 mg (1,250 1 tab PO DAILY 11/17/19 02/14/21 mg)-vitamin D3 400 unit tablet (Calcium 500 + D) cholecalciferol (vitamin D3) 50 2,000 unit PO DAILY 01/14/20 02/14/21 mcg (2,000 unit) capsule (Vitamin D3) pantoprazole 40 mg tablet,delayed 40 mg PO QAM 01/14/20 02/14/21 release multivitamin with minerals 1 tab PO DAILY 02/14/21 02/14/21 (Multiple Vitamin-Minerals) prednisone 5 mg tablet 5 mg PO Q OTHER DAY 02/15/21 02/15/21 Previous Rx's Medication Instructions Recorded folic acid 1 mg tablet 1 mg PO QPM #30 tab 11/20/19 fluticasone furoate 100 1 ea INHALATION DAILY #60 ea 01/19/20 mcg-vilanterol 25 mcg/dose inhalation powder (Breo Ellipta) furosemide 20 mg tablet 20 mg PO QAM #30 tab 01/19/20 metoprolol succinate 25 mg 12.5 mg PO QAM #30 tab 01/19/20 tablet,extended release 24 hr Results & Data (ED) Home Medications Current Medication List: was personally reviewed by me Laboratory Data Attestation: I reviewed the patient's lab results. Result diagrams: 02/18/21 07:25 02/18/21 07:25 Lab Results 08/17/21 08/17/21 08/17/21 Range/Units 22:06 22:06 22:15 WBC 12.92 H (4.8-10.8) K/uL RBC 3.31 L (4.2-5.4) M/uL Hgb 10.6 L (12.0-16.0) g/dL Hct 29.5 L (37-47) % MCV 89.1 (80-100) fL MCH 32.0 (25-34) pg MCHC 35.9 (32-36) g/dL RDW Std Deviation 53.0 H (36.4-46.3) fL RDW Coeff of Marycruz 16.5 H (11.5-14.5) % Plt Count 468 H (130-400) K/uL MPV 9.0 (7.4-10.4) fL Immature Gran % (Auto) 0.3 % Neut % (Auto) 69.2 % Lymph % (Auto) 23.0 % Benson % (Auto) 6.3 % Eos % (Auto) 1.0 % Baso % (Auto) 0.2 % Neut # (Auto) 8.94 H (1.4-6.5) K/uL Lymph # (Auto) 2.97 (1.2-3.4) K/uL Benson # (Auto) 0.81 H (0.11-0.59) K/uL Eos # (Auto) 0.13 (0-0.5) K/uL Baso # (Auto) 0.03 (0-0.2) K/uL Immature Gran # (Auto) 0.04 H (0.00-0.02) K/uL Sodium 139 (136-145) mmol/L Potassium 4.0 (3.5-5.1) mmol/L Chloride 109 H (98-107) mmol/L Carbon Dioxide 21 (21-32) mmol/L Anion Gap 8.0 (3-11) BUN 21 H (7-18) mg/dl Creatinine 1.00 (0.6-1.2) mg/dl Est Cr Clr Drug Dosing 47.8 ml/min Est GFR ( Amer) 59.9 ml/min Est GFR (Non-Af Amer) 51.7 ml/min BUN/Creatinine Ratio 21.4 H (10-20) Glucose 135 H (70-99) mg/dl Calcium 9.6 (8.5-10.1) mg/dl Total Bilirubin 1.5 H (0.2-1) mg/dl AST 28 (15-37) U/L ALT 63 (12-78) U/L Alkaline Phosphatase 113 (45-117) U/L Total Creatine Kinase 24 L (26-192) U/L CK-MB (CK-2) < 1.0 (0.5-3.6) ng/ml CK/CKMB % Calc TNP Troponin I < 0.015 (0-0.045) ng/ml Total Protein 8.1 (6.4-8.2) gm/dl Albumin 3.4 (3.4-5.0) gm/dl Globulin 4.7 H (2.5-4.0) gm/dl Albumin/Globulin Ratio 0.7 L (0.9-2) Lipase 193 (73-393) U/L Urine Color Yellow Urine Appearance Clear (Clear) Urine pH 5.0 (4.5-7.5) Ur Specific [place] 1.011 (1.000-1.030) Urine Protein Negative (Negative) Urine Glucose (UA) Negative (Negative) Urine Ketones Negative (Negative) Urine Blood Negative (Negative) Urine Nitrite Negative (Negative) Urine Bilirubin Negative (Negative) Urine Urobilinogen Negative (Negative) Ur Leukocyte Esterase 2+ H (Negative) Urine WBC (Auto) 10-30 H (0-5) /hpf Urine RBC (Auto) 0-4 (0-4) /hpf U Hyaline Cast (Auto) 1-5 (0-5) /lpf U Epithel Cells (Auto) >30 H (0-5) /lpf Urine Bacteria (Auto) Negative (Negative) COVID-19 Eval Order SARS-CoV-2 (PCR) (Negative) 02/14/21 02/14/21 Range/Units 23:41 23:41 WBC (4.8-10.8) K/uL RBC (4.2-5.4) M/uL Hgb (12.0-16.0) g/dL Hct (37-47) % MCV (80-100) fL MCH (25-34) pg MCHC (32-36) g/dL RDW Std Deviation (36.4-46.3) fL RDW Coeff of Marycruz (11.5-14.5) % Plt Count (130-400) K/uL MPV (7.4-10.4) fL Immature Gran % (Auto) % Neut % (Auto) % Lymph % (Auto) % Benson % (Auto) % Eos % (Auto) % Baso % (Auto) % Neut # (Auto) (1.4-6.5) K/uL Lymph # (Auto) (1.2-3.4) K/uL Benson # (Auto) (0.11-0.59) K/uL Eos # (Auto) (0-0.5) K/uL Baso # (Auto) (0-0.2) K/uL Immature Gran # (Auto) (0.00-0.02) K/uL Sodium (136-145) mmol/L Potassium (3.5-5.1) mmol/L Chloride (98-107) mmol/L Carbon Dioxide (21-32) mmol/L Anion Gap (3-11) BUN (7-18) mg/dl Creatinine (0.6-1.2) mg/dl Est Cr Clr Drug Dosing ml/min Est GFR ( Amer) ml/min Est GFR (Non-Af Amer) ml/min BUN/Creatinine Ratio (10-20) Glucose (70-99) mg/dl Calcium (8.5-10.1) mg/dl Total Bilirubin (0.2-1) mg/dl AST (15-37) U/L ALT (12-78) U/L Alkaline Phosphatase (45-117) U/L Total Creatine Kinase (26-192) U/L CK-MB (CK-2) (0.5-3.6) ng/ml CK/CKMB % Calc Troponin I (0-0.045) ng/ml Total Protein (6.4-8.2) gm/dl Albumin (3.4-5.0) gm/dl Globulin (2.5-4.0) gm/dl Albumin/Globulin Ratio (0.9-2) Lipase (73-393) U/L Urine Color Urine Appearance (Clear) Urine pH (4.5-7.5) Ur Specific [place] (1.000-1.030) Urine Protein (Negative) Urine Glucose (UA) (Negative) Urine Ketones (Negative) Urine Blood (Negative) Urine Nitrite (Negative) Urine Bilirubin (Negative) Urine Urobilinogen (Negative) Ur Leukocyte Esterase (Negative) Urine WBC (Auto) (0-5) /hpf Urine RBC (Auto) (0-4) /hpf U Hyaline Cast (Auto) (0-5) /lpf U Epithel Cells (Auto) (0-5) /lpf Urine Bacteria (Auto) (Negative) COVID-19 Eval Order Covid19 at [facility] SARS-CoV-2 (PCR) NEGATIVE (Negative) Administered Medications Ascorbic Acid (Ascorbic Acid 500 Mg Tab) 500 mg PO BID [facility] Stop: 03/17/21 08:59 Last Admin: 02/19/21 08:45 Dose: 500 mg Documented by: [id number] Admin: 02/18/21 21:32 Dose: 500 mg Documented by: [id number] Admin: 02/18/21 08:17 Dose: 500 mg Documented by: [id number] Admin: 02/17/21 21:13 Dose: 500 mg Documented by: [id number] Admin: 02/17/21 07:20 Dose: 500 mg Documented by: [id number] Admin: 02/16/21 21:35 Dose: 500 mg Documented by: [id number] Admin: 02/16/21 08:03 Dose: 500 mg Documented by: [id number] Admin: 02/15/21 20:02 Dose: 500 mg Documented by: [id number] Admin: 02/15/21 08:20 Dose: 500 mg Documented by: [id number] Aspirin (Aspirin 81 Mg Ectab) 81 mg PO QPM [facility] Stop: 03/17/21 20:59 Last Admin: 02/18/21 21:33 Dose: 81 mg Documented by: [id number] Admin: 02/17/21 21:14 Dose: 81 mg Documented by: [id number] Admin: 02/16/21 21:35 Dose: 81 mg Documented by: [id number] Admin: 02/15/21 20:02 Dose: 81 mg Documented by: [id number] Ciprofloxacin (Ciprofloxacin 500 Mg Tab) 500 mg PO BID [facility]; Protocol Stop: 03/04/21 20:59 Last Admin: 02/19/21 08:45 Dose: 500 mg Documented by: [id number] Admin: 02/18/21 21:34 Dose: 500 mg Documented by: [id number] Fluticasone/Vilanterol (Fluticasone/Vilanterol 100/25mcg 14 Puffs/Inhaler) 1 puffs INH DAILY [facility] Stop: 03/17/21 08:59 Last Admin: 02/19/21 08:44 Dose: 1 puffs Documented by: [id number] Admin: 02/18/21 08:19 Dose: 1 puffs Documented by: [id number] Admin: 02/17/21 07:21 Dose: 1 puffs Documented by: [id number] Admin: 02/16/21 08:05 Dose: 1 puffs Documented by: [id number] Admin: 02/15/21 08:22 Dose: 1 puffs Documented by: [id number] Folic Acid (Folic Acid 1 Mg Tab) 1 mg PO QPM [facility] Stop: 03/17/21 20:59 Last Admin: 02/18/21 21:34 Dose: 1 mg Documented by: [id number] Admin: 02/17/21 21:14 Dose: 1 mg Documented by: [id number] Admin: 02/16/21 21:36 Dose: 1 mg Documented by: [id number] Admin: 02/15/21 20:02 Dose: 1 mg Documented by: [id number] Furosemide (Furosemide 20 Mg Tab) 20 mg PO QAM [facility] Stop: 03/17/21 08:59 Last Admin: 02/19/21 08:45 Dose: 20 mg Documented by: [id number] Admin: 02/18/21 08:19 Dose: 20 mg Documented by: [id number] Admin: 02/17/21 07:22 Dose: Not Given Documented by: [id number] Admin: 02/15/21 08:20 Dose: 20 mg Documented by: [id number] Heparin Sodium (Porcine) (Heparin Sod 5,000 Unit/0.5 Ml Vial) 5,000 units SQ Q12 [facility] Stop: 03/18/21 08:59 Last Admin: 02/19/21 08:45 Dose: 5,000 units Documented by: [id number] Admin: 02/18/21 21:32 Dose: 5,000 units Documented by: [id number] Admin: 02/18/21 08:20 Dose: 5,000 units Documented by: [id number] Admin: 02/17/21 21:15 Dose: 5,000 units Documented by: [id number] Admin: 02/17/21 07:22 Dose: 5,000 units Documented by: [id number] Admin: 02/16/21 21:34 Dose: 5,000 units Documented by: [id number] Admin: 02/16/21 08:04 Dose: 5,000 units Documented by: [id number] Hydromorphone HCl (Hydromorphone Inj 0.5 Mg/0.5 Ml Syr) 0.5 mg IV Q4H PRN PRN Reason: Pain Stop: 03/01/21 04:53 Last Admin: 02/18/21 13:42 Dose: 0.5 mg Documented by: [id number] Admin: 02/15/21 05:10 Dose: 0.5 mg Documented by: [id number] Metoprolol Succinate (Metoprolol Succ 25mg Ext Rel Tab) 12.5 mg PO QAM [facility] Stop: 03/17/21 08:59 Last Admin: 02/19/21 08:45 Dose: 12.5 mg Documented by: [id number] Admin: 02/18/21 08:18 Dose: 12.5 mg Documented by: [id number] Admin: 02/17/21 07:57 Dose: 12.5 mg Documented by: [id number] Admin: 02/16/21 08:04 Dose: 12.5 mg Documented by: [id number] Admin: 02/15/21 08:21 Dose: 12.5 mg Documented by: [id number] Metronidazole (Metronidazole 500 Mg Tab) 500 mg PO TID [facility] Stop: 02/28/21 20:59 Last Admin: 02/19/21 08:45 Dose: 500 mg Documented by: [id number] Admin: 02/18/21 21:31 Dose: 500 mg Documented by: [id number] Multivitamins/Minerals (Calcium 600mg + Vit D 400 Iu Tab) 1 tab PO DAILY [facility] Stop: 03/17/21 08:59 Last Admin: 02/19/21 08:45 Dose: 1 tab Documented by: [id number] Admin: 02/18/21 08:17 Dose: 1 tab Documented by: [id number] Admin: 02/17/21 07:21 Dose: 1 tab Documented by: [id number] Admin: 02/16/21 08:04 Dose: 1 tab Documented by: [id number] Admin: 02/15/21 08:20 Dose: 1 tab Documented by: [id number] Multivitamins/Minerals (Cerovite Adv Formula Tab) 1 tab PO DAILY [facility] Stop: 03/17/21 08:59 Last Admin: 02/19/21 08:45 Dose: 1 tab Documented by: [id number] Admin: 02/18/21 08:17 Dose: 1 tab Documented by: [id number] Admin: 02/17/21 07:21 Dose: 1 tab Documented by: [id number] Admin: 02/16/21 08:03 Dose: 1 tab Documented by: [id number] Admin: 02/15/21 08:21 Dose: 1 tab Documented by: [id number] Ondansetron HCl (Ondansetron Inj 2 Mg/Ml 2 Ml Vial) 4 mg IV Q6H PRN PRN Reason: Nausea Stop: 03/17/21 04:53 Last Admin: 02/15/21 15:26 Dose: 4 mg Documented by: [id number] Oxybutynin Chloride (Oxybutynin Chloride Xl 5 Mg Tabcr) 10 mg PO DAILY [facility] Stop: 03/17/21 08:59 Last Admin: 02/19/21 08:45 Dose: 10 mg Documented by: [id number] Admin: 02/18/21 08:18 Dose: 10 mg Documented by: [id number] Admin: 02/17/21 07:20 Dose: 10 mg Documented by: [id number] Admin: 02/16/21 08:03 Dose: 10 mg Documented by: [id number] Admin: 02/15/21 08:21 Dose: 10 mg Documented by: [id number] Oxycodone HCl (Oxycodone Hcl Ir 5 Mg Tab (Immediate Release)) 5 mg PO Q4HWA PRN PRN Reason: Pain Stop: 03/01/21 13:24 Last Admin: 02/18/21 21:31 Dose: 5 mg Documented by: [id number] Admin: 02/17/21 21:12 Dose: 5 mg Documented by: [id number] Admin: 02/16/21 21:35 Dose: 5 mg Documented by: [id number] Admin: 02/16/21 11:05 Dose: 5 mg Documented by: [id number] Admin: 02/16/21 03:05 Dose: 5 mg Documented by: [id number] Admin: 02/15/21 16:38 Dose: 5 mg Documented by: [id number] Pantoprazole Sodium (Pantoprazole 40 Mg Tab) 40 mg PO QAM [facility] Stop: 03/17/21 08:59 Last Admin: 02/19/21 08:45 Dose: 40 mg Documented by: [id number] Admin: 02/18/21 08:17 Dose: 40 mg Documented by: [id number] Admin: 02/17/21 07:20 Dose: 40 mg Documented by: [id number] Admin: 02/16/21 08:04 Dose: 40 mg Documented by: [id number] Admin: 02/15/21 08:21 Dose: 40 mg Documented by: [id number] Polyethylene Glycol (Polyethylene (Miralax) 17 Gm Pack) 17 gm PO DAILY [facility] Stop: 03/19/21 08:59 Last Admin: 02/19/21 08:46 Dose: Not Given Documented by: [id number] Admin: 02/18/21 08:20 Dose: Not Given Documented by: [id number] Admin: 02/17/21 08:16 Dose: 17 gm Documented by: [id number] Prednisone (Prednisone 5 Mg Tab) 5 mg PO DAILY [facility] Stop: 03/19/21 08:59 Last Admin: 02/19/21 08:45 Dose: 5 mg Documented by: [id number] Admin: 02/18/21 08:17 Dose: 5 mg Documented by: [id number] Admin: 02/17/21 07:58 Dose: 5 mg Documented by: [id number] Sertraline HCl (Sertraline Hcl 100 Mg Tablet) 100 mg PO QPM [facility] Stop: 03/17/21 20:59 Last Admin: 02/18/21 21:32 Dose: 100 mg Documented by: [id number] Admin: 02/17/21 21:14 Dose: 100 mg Documented by: [id number] Admin: 02/16/21 21:35 Dose: 100 mg Documented by: [id number] Admin: 02/15/21 20:02 Dose: 100 mg Documented by: [id number] Vitamin D (Cholecalciferol 1,000 Units 25 Mcg Tab) 2,000 units PO DAILY [facility] Stop: 03/17/21 08:59 Last Admin: 02/19/21 08:44 Dose: 2,000 units Documented by: [id number] Admin: 02/18/21 08:47 Dose: 2,000 units Documented by: [id number] Admin: 02/17/21 07:20 Dose: 2,000 units Documented by: [id number] Admin: 02/16/21 08:05 Dose: 2,000 units Documented by: [id number] Admin: 02/15/21 08:20 Dose: 2,000 units Documented by: [id number] Discontinued Medications Acetaminophen (Acetaminophen 325 Mg Tab) 650 mg PO Q4H PRN PRN Reason: Pain or Fever Stop: 03/17/21 04:53 Last Admin: 02/15/21 15:25 Dose: 650 mg Documented by: [id number] Admin: 02/15/21 08:24 Dose: 650 mg Documented by: [id number] Bupivacaine HCl (Bupivacaine 0.5 % 5 Mg/1 Ml Mpf 30ml Vial) Confirm Administered Dose 30 ml .ROUTE .K-MED ONE Stop: 02/15/21 11:01 Last Admin: 02/15/21 12:20 Dose: 10 ml Documented by: [id number] Hydromorphone HCl (Hydromorphone Inj 0.5 Mg/0.5 Ml Syr) 0.25 mg IV NOW STA Stop: 02/14/21 23:18 Last Admin: 02/14/21 23:47 Dose: 0.25 mg Documented by: [id number] Acetaminophen (Ofirmev) 1,000 mg in 100 mls @ 400 mls/hr IV NOW STA Stop: 02/14/21 23:31 Last Infusion: 02/15/21 03:49 Dose: 0 mls/hr Documented by: [id number] Admin: 02/14/21 23:47 Dose: 400 mls/hr Documented by: [id number] Cefoxitin Sodium (Mefoxin) 2,000 mg in 60 mls @ 100 mls/hr IV NOW STA Stop: 02/15/21 01:20 Last Infusion: 02/15/21 03:49 Dose: 0 mls/hr Documented by: [id number] Admin: 02/15/21 01:25 Dose: 100 mls/hr Documented by: [id number] Cefoxitin Sodium 2,000 mg/ (Dextrose) 60 mls @ 100 mls/hr IV Q8H [facility]; Protocol Stop: 02/25/21 09:59 Last Infusion: 02/15/21 13:48 Dose: 0 mls/hr Documented by: [id number] Admin: 02/15/21 11:06 Dose: 100 mls/hr Documented by: [id number] Sodium Chloride (Nss 1000ml) 1,000 mls @ 80 mls/hr IV .[id number] [facility] Stop: 03/17/21 04:53 Last Infusion: 02/15/21 10:13 Dose: 0 mls/hr Documented by: [id number] Admin: 02/15/21 05:11 Dose: 80 mls/hr Documented by: [id number] Hydrocortisone Sodium (Succinate 25 mg/ Syringe) 0.5 mls @ 4 mls/min IV Q12H [facility] Stop: 03/17/21 07:59 Last Admin: 02/16/21 08:03 Dose: 4 mls/min Documented by: [id number] Admin: 02/15/21 20:02 Dose: 4 mls/min Documented by: [id number] Admin: 02/15/21 08:22 Dose: 4 mls/min Documented by: [id number] Magnesium Sulfate 4 gm/ Sodium (Chloride) 1,008 mls @ 125 mls/hr IV .Q8H4M [facility] Stop: 02/15/21 18:18 Last Infusion: 02/15/21 22:01 Dose: 0 mls/hr Documented by: [id number] Admin: 02/15/21 14:08 Dose: 125 mls/hr Documented by: [id number] Acetaminophen (Ofirmev) 1,000 mg in 100 mls @ 400 mls/hr IV NOW ONE; Protocol Stop: 02/15/21 12:36 Last Admin: 02/15/21 12:39 Dose: Not Given Documented by: [id number] Piperacillin Sod/Tazobactam (Sod 4.5 gm/ Dextrose) 120 mls @ 200 mls/hr IV NOW ONE; Protocol Stop: 02/15/21 14:20 Last Infusion: 02/15/21 16:17 Dose: 0 mls/hr Documented by: [id number] Admin: 02/15/21 15:40 Dose: 200 mls/hr Documented by: [id number] Piperacillin Sod/Tazobactam (Sod 4.5 gm/ Dextrose) 120 mls @ 30 mls/hr IV Q8H [facility]; Protocol Stop: 02/25/21 19:59 Last Infusion: 02/18/21 15:35 Dose: 0 mls/hr Documented by: [id number] Admin: 02/18/21 13:35 Dose: 30 mls/hr Documented by: [id number] Infusion: 02/18/21 10:14 Dose: 0 mls/hr Documented by: [id number] Admin: 02/18/21 06:14 Dose: 30 mls/hr Documented by: [id number] Infusion: 02/18/21 01:15 Dose: 0 mls/hr Documented by: [id number] Admin: 02/17/21 21:14 Dose: 30 mls/hr Documented by: [id number] Infusion: 02/17/21 17:50 Dose: 0 mls/hr Documented by: [id number] Admin: 02/17/21 13:33 Dose: 30 mls/hr Documented by: [id number] Infusion: 02/17/21 10:29 Dose: 0 mls/hr Documented by: [id number] Admin: 02/17/21 06:20 Dose: 30 mls/hr Documented by: [id number] Infusion: 02/17/21 01:35 Dose: 0 mls/hr Documented by: [id number] Admin: 02/16/21 21:35 Dose: 30 mls/hr Documented by: [id number] Infusion: 02/16/21 19:21 Dose: 0 mls/hr Documented by: [id number] Admin: 02/16/21 15:21 Dose: 30 mls/hr Documented by: [id number] Infusion: 02/16/21 10:04 Dose: 0 mls/hr Documented by: [id number] Admin: 02/16/21 05:58 Dose: 30 mls/hr Documented by: [id number] Infusion: 02/16/21 00:02 Dose: 0 mls/hr Documented by: [id number] Admin: 02/15/21 20:02 Dose: 30 mls/hr Documented by: [id number] Sodium Chloride (Nss 1000ml) 1,000 mls @ 50 mls/hr IV .Q20H KALEN Stop: 03/17/21 21:59 Last Infusion: 02/16/21 18:08 Dose: 0 mls/hr Documented by: [id number] Admin: 02/16/21 13:22 Dose: 50 mls/hr Documented by: [id number] Infusion: 02/16/21 12:43 Dose: 0 mls/hr Documented by: [id number] Admin: 02/15/21 22:00 Dose: 80 mls/hr Documented by: [id number] Ioversol (Optiray 320 100ml) 100 ml IV ONCE ONE Stop: 02/15/21 00:26 Last Admin: 02/15/21 00:26 Dose: 93 ml Documented by: [id number] Miscellaneous ( Floseal Hemostatic Matrix 10ml) 10 ml TOP ONCE ONE Stop: 02/15/21 12:42 Last Admin: 02/15/21 12:00 Dose: 10 ml Documented by: [id number] Miscellaneous Information (Piperacill/Tazobac Consult Active) 1 ea N/A UD PRN PRN Reason: Consult Stop: 03/17/21 13:24 Last Admin: 02/17/21 06:20 Dose: 1 ea Documented by: [id number] Ondansetron HCl (Ondansetron Inj 2 Mg/Ml 2 Ml Vial) 4 mg IV NOW STA Stop: 02/14/21 23:18 Last Admin: 02/14/21 23:47 Dose: 4 mg Documented by: [id number] Prednisone (Prednisone 5 Mg Tab) 5 mg PO Q2D@0900 KALEN Stop: 03/18/21 08:59 Last Admin: 02/16/21 08:03 Dose: 5 mg Documented by: [id number] Imaging Data Radiologist's Impression: Abdomen/Pelvis CT 02/14/21 23:12 CT SCAN OF THE ABDOMEN AND PELVIS WITH IV CONTRAST CLINICAL HISTORY: Right lower quadrant abdominal pain. COMPARISON STUDY: Abdominal ultrasound dated 02/14/2021. Abdominal CT dated 03/31/2019. TECHNIQUE: Following the IV administration of 93 cc of Optiray 320, CT scan of the abdomen and pelvis is performed from the lung bases to the proximal femora. Images are reviewed in the axial, sagittal, and coronal planes. IV contrast was administered without complication. A dose lowering technique was utilized adhering to the principles of ALARA. CT DOSE: 1042.31 mGy.cm FINDINGS: Lung bases: The heart is mildly enlarged and without pericardial effusion. There are coronary artery calcifications. There is a tiny hiatal hernia. Emphysematous change is noted at the lung bases. There are trace pleural effusions with bibasilar scarring/atelectasis. No airspace consolidation is seen typical for pneumonia. A 3.5 cm nodular density is seen in the left lower lobe on image #1. Liver: The contrast-enhanced liver is normal in size, contour, and attenuation. There is no intrahepatic biliary ductal dilatation. The hepatic veins and portal veins are patent. Gallbladder: The gallbladder is distended. There are numerous gallstones. The gallbladder wall is thickened and edematous and there is pericholecystic inflammation and fluid. Findings are consistent with acute cholecystitis. Spleen: Normal in size and attenuation. Pancreas: Moderately atrophic and grossly unremarkable. Adrenal glands: Unremarkable. Kidneys: The contrast enhanced kidneys are atrophic and without hydronephrosis. The kidneys enhance symmetrically. There are 2 left renal cysts measure up to 1.5 cm. Abdominal vasculature: The abdominal aorta is normal in course and caliber noting advanced atherosclerotic calcification. Vascular coils are noted along the course of the left gonadal vein. Bowel: There is mild to moderate colonic diverticulosis without CT evidence of acute diverticulitis. No bowel obstruction is seen. Imaged portions of the appendix are normal in appearance. Peritoneum: Trace free fluid is noted in the pelvis. There is also trace perihepatic ascites. No intraperitoneal free air is seen. Lymphadenopathy: None. Pelvic viscera: The bladder is normal as visualized. There are calcified uterine fibroids. No adnexal lesion is seen. Skeletal structures: The skeletal structures are osteopenic. No lytic or blastic lesions are seen. There is moderate to advanced lumbosacral spondylosis. Advanced arthritic change is seen in the hips. IMPRESSION: 1. Cholelithiasis with acute cholecystitis. 2. There is trace perihepatic and pelvic ascites. 3. Cardiomegaly and emphysema with trace pleural effusions. 4. There is a 3.5 cm nodular/masslike opacity partially visualized in the left lower lobe. This has been seen on prior examinations. Correlate with results of previous workup. 5. Colonic diverticulosis without CT evidence of acute diverticulitis. 6. Additional findings as above. ACT 112: Negative or not required by law. Electronically signed by: Jamar Fitzpatrick M.D. 02/15/2021 9:06 AM Chest X-Ray 02/14/21 23:13 SINGLE VIEW CHEST CLINICAL HISTORY: Hypoxia. FINDINGS: An AP, portable, upright chest radiograph is compared to chest x-ray and chest CT dated 01/14/2020. The heart is enlarged. The pulmonary vasculature is noncongested. Emphysema and chronic interstitial thickening is similar to previous. Scarring/atelectasis is seen throughout both lungs. There is no airspace consolidation typical for pneumonia or large pleural effusion. A 2.5 cm density is seen at the left lung base in the retrocardiac region. No pneumothorax is seen. The skeletal structures are osteopenic. The bony thorax is grossly intact. IMPRESSION: 1. Cardiomegaly and emphysema with no active disease in the chest. 2. A 2.5 cm density is seen in the retrocardiac region. Correlation with a chest CT is recommended to assess for underlying neoplasm. ACT 112: Negative or not required by law. Electronically signed by: Jamar Fitzpatrick M.D. 02/15/2021 8:06 AM Abdomen Ultrasound 02/14/21 23:17 ULTRASOUND RIGHT UPPER QUADRANT ABDOMEN CLINICAL HISTORY: Right upper quadrant abdominal pain. COMPARISON STUDY: Abdominal CT dated 03/31/2019. TECHNIQUE: Real-time, grayscale, and color flow sonography of the right upper quadrant of the abdomen was performed. Images are reviewed in the transverse and longitudinal planes. FINDINGS: Liver: The liver is normal in size and echotexture. There is no intrahepatic biliary ductal dilatation. The main portal vein is patent. Gallbladder: The gallbladder is distended. There are numerous shadowing calcified gallstones as well as biliary sludge. The gallbladder wall is thickened and edematous measuring up to 7 mm. There is trace pericholecystic fluid. A sonographic Ramirez's sign is reportedly absent. The common bile duct measures up to 0.2 cm in diameter. Pancreas: Visualized portions of the pancreatic head and body are normal in appearance. The splenic vein is patent. Right kidney: Survey images of the right kidney demonstrate mild cortical atrophy. Echotexture is normal. There is no hydronephrosis. Ascites: None. IMPRESSION: 1. Cholelithiasis with sonographic evidence of acute cholecystitis. Surgical consultation is advised. 2. There is no intra or extrahepatic biliary ductal dilatation. ACT 112: Negative or not required by law. Electronically signed by: Jamar Fitzpatrick M.D. 02/15/2021 7:15 AM Discharge Plan Visit Data Chief Complaint: Abdominal Pain Stated Complaint: RLQ Abd pain ED Provider: Emmett Carbajal Discharge Problem: Acute cholecystitis, Gram-negative bacteremia Patient Disposition: Admitted As Inpatient Discharge Instructions Interventions: ED Discharge Assessment Last Done: 02/15/21 04:02
--- NOTE | 2021-02-19 16:34 | Hospitalist Progress Note ---
Date of Service February 19, 2021 Assessment & Plan (1) Status post laparoscopic cholecystectomy: (2) Cholecystitis: (3) Gram-negative bacteremia: Plan: #. Necrotizing/gangrenous cholecystitis with bilious ascites Status post laparoscopic cholecystectomy 02/15 Is moving gas/bowels. Tolerating diet. Recovering well, pain controlled Management per surgery: Surgery okay with DC, drain will go home with patient. #. GNB bacteremia Initially on Zosyn 02/15, changed to ciprofloxacin 02/15 and metron 02/15 Await ID recommendation. #. Anemia Hemoglobin stable around 9. iron profile suggestive of anemia of chronic disease with adequate ferritin storage. #. Non-Hodgkin's lymphoma She has a history of low-grade B-cell lymphoma and hemolytic anemia status post chemotherapy currently on prednisone therapy consistently. Follows with hematology. On daily prednisone 02/17 for a few days, then every other day per home regimen. Received stress dose of hydrocortisone prior to surgery. Change to home dose from 02/21 #. Depression: sertraline per home regimen. #. DVT prophylaxis: heparin full dispo- Needs 2-step test prior to DC. to home in next few days once ID evaluates her. Admission and Anticipated Discharge Date Admission Date: February 15, 2021 Subjective Patient was sitting up in bed, NAD, on 2 L nasal cannula oxygen, no issues overnight. Eating and moving bowels okay. Pain at the site of lap jazmin is under control. Denies any other review of symptoms. Physical Exam 2 Physical Exam: GENERAL: Alert and oriented x3. NAD, on 2 L HEENT: No pallor, no icterus. Pupils equal, round and reactive to light. Oral mucosa moist. NECK: No JVD, no neck masses. HEART: S1 and S2 heard. Regular rate and rhythm. No murmur, no gallop. RESPIRATORY SYSTEM: Normal AP diameter. No accessory muscle use. No wheezing, no crackles. ABDOMEN: Soft, bowel sounds present, clean dressing present over the right upper quadrant with JANAY drain in situ, no distention. CENTRAL NERVOUS SYSTEM: Alert and oriented x3. No facial droop. Speech is clear. Obeys simple commands. Moves extremities. EXTREMITIES: 1+ edema, no erythema seen. Results & Data Results & Data ([facility]) Vital Signs (Past 12 Hours) Vital Signs Temp Pulse Pulse Resp BP BP Pulse Ox 02/19/21 15:29 36.5 C 64 18 137/74 98 02/19/21 14:58 61 02/19/21 11:33 36.4 C L 66 18 121/75 100 02/19/21 07:57 36.9 C 79 18 127/71 99 02/19/21 07:30 60
[2021-02-19] MEDS: oxyCODONE HCL IR 5 MG TAB (IMMEDIATE RELEASE) PO PRN (21:11)
[2021-02-19] MEDS: FOLIC ACID 1 MG TAB PO SCH (21:12)
[2021-02-19] MEDS: ASPIRIN 81 MG ECTAB PO SCH (21:13)
[2021-02-19] MEDS: SERTRALINE HCL 100 MG TABLET PO SCH (21:13)
[2021-02-20] MEDS: FUROSEMIDE 20 MG TAB PO SCH (07:36)
[2021-02-20] MEDS: predniSONE 5 MG TAB PO SCH (07:36)
[2021-02-20] MEDS: CEROVITE ADV FORMULA TAB PO SCH (07:36)
[2021-02-20] MEDS: OXYBUTYNIN CHLORIDE XL 5 MG TABCR PO SCH (07:36)
[2021-02-20] MEDS: ASCORBIC ACID 500 MG TAB PO SCH (07:36)
[2021-02-20] MEDS: PANTOprazole 40 MG TAB PO SCH (07:36)
[2021-02-20] MEDS: METOPROLOL SUCC 25MG EXT REL TAB PO SCH (07:37)
[2021-02-20] MEDS: CIPROFLOXACIN 500 MG TAB PO SCH (07:37)
[2021-02-20] MEDS: CHOLECALCIFEROL 1,000 UNITS 25 MCG TAB PO SCH (07:37)
[2021-02-20] MEDS: CALCIUM 600MG + VIT D 400 IU TAB PO SCH (07:37)
[2021-02-20] MEDS: metroNIDAZOLE 500 MG TAB PO SCH ×2 (07:38→14:31)
[2021-02-20] MEDS: FLUTICASONE/VILANTEROL 100/25MCG 14 PUFFS/INHALER INH SCH (07:38)
[2021-02-20] MEDS: POLYETHYLENE (MIRALAX) 17 GM PACK PO SCH ×2 (07:39→07:45)
[2021-02-20] MEDS: HEPARIN SOD 5,000 UNIT/0.5 ML VIAL SQ SCH (07:39)
--- NOTE | 2021-02-20 08:21 | Surgery Progress Note ---
Date of Service February 20, 2021 Assessment & Plan (1) Status post laparoscopic cholecystectomy: Plan: Patient with severe necrotizing/gangrenous cholecystitis She appears to be doing relatively well and tolerating her diet Her drain has serous drainage She will need to be on oral antibiotics for possibly an additional 7 to 10 days and possibly longer Apparently awaiting ID input We will have the nurses remove her JANAY drain Admission and Anticipated Discharge Date Admission Date: February 15, 2021 Results & Data ([facility]) Vital Signs (Past 12 Hours) Vital Signs Temp Pulse Pulse Pulse Resp BP BP 02/20/21 07:48 36.8 C 71 18 121/68 02/20/21 07:22 59 L 02/20/21 04:00 36.7 C 63 18 106/64 02/19/21 23:00 36.6 C 73 18 123/66 02/19/21 22:24 73 Pulse Ox 02/20/21 07:48 90 02/20/21 07:22 02/20/21 04:00 99 02/19/21 23:00 97 02/19/21 22:24 PG Care Time/CCT Total # of Minutes Spent Total Time Spent with Patient: Total time spent is greater than 50% in coordination of care (as documented) at patient's floor/unit and/or counseling patient: Coding Level of Care Code None Diagnoses Status post laparoscopic cholecystectomy Z90.49
[2021-02-20 08:28] LABS: Hematocrit (blood only) 26.9 % (37-47); Hemoglobin 9.3 g/dL (12.0-16.0); Mean Corpuscular Hemoglobin 31.7 pg (25-34); Mean Corpuscular Hgb Conc 34.6 g/dL (32-36); Mean Corpuscular Volume 91.8 fL (80-100); Mean Platelet Volume 8.4 fL (7.4-10.4); Platelet Count 450 K/uL (130-400); RDW Coefficient of Variation 15.9 % (11.5-14.5); RDW Standard Deviation 52.4 fL (36.4-46.3); Red Blood Count 2.93 M/uL (4.2-5.4); White Blood Count 13.33 K/uL (4.8-10.8)
--- NOTE | 2021-02-20 19:38 | Discharge Summary ---
Date of Service February 20, 2021 Admission HPI Per Admitting Provider CHIEF COMPLAINT: Abdominal pain. HISTORY OF PRESENT ILLNESS: This is an 85-year-old female with past medical history significant for hyperlipidemia, homozygous MTHFR mutation, hypertension, pulmonary hypertension, chronic diastolic CHF, GERD, history of uterine leiomyoma, chronic kidney disease stage III, cervical spondylosis, senile osteoporosis, lupus, anticoagulant disorder, low-grade B-cell lymphoma, hemolytic anemia, depression, presents with abdominal pain. The patient says since 4:00 p.m., she noticed abdominal pain on right side of the upper abdomen radiating to the lower abdomen associated with nausea. The pain is severe, not associated with any food intake. The patient says she noticed this abdominal pain for the last few weeks on and off, but today it was very severe. Denies any fever or chills. No diarrhea or constipation, no blood in stools or black stools. She says she is going frequent bathroom, but denies any hematuria or burning micturition. No chest pain, no shortness of breath, no palpitations. No cough. She has always had runny nose. Has some headache. Has some blurred visions, was feeling dizzy. No earache, no sore throat. Appetite is okay and no dysphagia. Currently complaining of pain. Otherwise, hemodynamically stable. ALLERGIES: No known drug allergies. PAST MEDICAL HISTORY: As mentioned above. PAST SURGICAL HISTORY: Knee arthroplasty, bronchoscopy, colonoscopy, EGDs, ligation of oviducts, cataracts, tonsillectomy, adenoidectomy, sacroiliac joint injection. MEDICATIONS: The patient is on vitamin C 500 mg p.o. b.i.d., aspirin 81 mg p.o. a.m., calcium carbonate one tablet p.o. daily, vitamin D 2000 units p.o. daily, Breo Ellipta one inhalation daily, folic acid 1 mg p.o. daily, Lasix 20 mg p.o. a.m., metoprolol succinate 12.5 mg p.o. a.m., multivitamins with minerals 1 tablet p.o. a.m., fish oil 2 capsules p.o. p.m., oxybutynin chloride 10 mg p.o. daily, Protonix 40 mg p.o. a.m., prednisone 5 mg p.o. every other day, sertraline 100 mg p.o. q. p.m. FAMILY HISTORY: Significant for mother had breast cancer, glaucoma. Father had PE. Daughter has MS. SOCIAL HISTORY: , no smoking, no alcohol, no drug use. REVIEW OF SYSTEMS: As per HPI. Rest of the review of systems is negative. Admission Exam Per Admitting Provider GENERAL: The patient is of moderate build, not in acute distress. VITAL SIGNS: Temperature 36.8, pulse is 92, respiratory rate 18, blood pressure 139/74, oxygen 98% on 2 liters. HEENT: Pupils equal, round and reactive to light. Oral mucosa moist. NECK: No JVD, no neck masses. HEART: S1 and S2 heard. Regular rate and rhythm. No murmur, no gallop. RESPIRATORY SYSTEM: Normal AP diameter. No accessory muscle use. No wheezing, no crackles. ABDOMEN: Soft, bowel sounds sluggish. Tenderness in the epigastric and right lower abdomen with guarding, no rigidity, no distention. CENTRAL NERVOUS SYSTEM: Cranial nerves II-XII grossly intact, nonfocal. EXTREMITIES: No bilateral lower extremity edema present, no erythema seen. Principal Diagnosis Acute gangrenous/necrotizing cholecystitis Gram negative Bacteremia Anemia of Chronic Disease Non-Hodgkin's lymphoma on Steroid Discharge Exam GENERAL: Alert and oriented x3. NAD, on 2 L HEENT: No pallor, no icterus. Pupils equal, round and reactive to light. Oral mucosa moist. NECK: No JVD, no neck masses. HEART: S1 and S2 heard. Regular rate and rhythm. No murmur, no gallop. RESPIRATORY SYSTEM: Normal AP diameter. No accessory muscle use. No wheezing, no crackles. ABDOMEN: Soft, bowel sounds present, clean dressing present over the right upper quadrant with JANAY drain in situ, no distention. CENTRAL NERVOUS SYSTEM: Alert and oriented x3. No facial droop. Speech is clear. Obeys simple commands. Moves extremities. EXTREMITIES: 1+ edema, no erythema seen. Discharge Data Allergies Allergy/AdvReac Type Severity Reaction Status Date / Time No Known Allergies Allergy Verified 02/14/21 23:56 Consultations 02/15/21 01:06 Consult General Surgery Stat 02/15/21 02:29 ED Decision to Admit Stat 02/16/21 18:12 Consult Infectious Diseases Routine Procedures Performed Operation Date: 02/15/21 07:00 Actual Procedures p Laparoscopic Cholecystectomy(Not Applicable) - Jg Watson MD, FACS Ordered Studies 02/14/21 23:12 CT abd pelvis IV con only Urgent 02/14/21 23:17 US abdomen limited Urgent Hospital Course (1) Status post laparoscopic cholecystectomy: (2) Cholecystitis: (3) Gram-negative bacteremia: #. Necrotizing/gangrenous cholecystitis with bilious ascites Status post laparoscopic cholecystectomy 02/15 Is moving gas/bowels. Tolerating diet. Recovering well, pain controlled Management per surgery: Surgery okay with DC, JANAY drain removed 02/20 #. GNB bacteremia Initially on Zosyn 02/15, changed to ciprofloxacin 02/15 and metron 02/15 per ID recommendations. #. Anemia Hemoglobin stable around 9. iron profile suggestive of anemia of chronic disease with adequate ferritin storage. #. Non-Hodgkin's lymphoma She has a history of low-grade B-cell lymphoma and hemolytic anemia status post chemotherapy currently on prednisone therapy consistently. Follows with hematology. On daily prednisone 02/17 for a few days, then every other day per home regimen. Received stress dose of hydrocortisone prior to surgery. Change to home dose from 02/21, patient aware. #. Depression: sertraline per home regimen. #. DVT prophylaxis: heparin Full code Patient discharged to home with home health with oxygen. Following instructions were communicated at the time of discharge: Continue antibiotics as directed. Continue taking your home steroid dose from tomorrow as usual. Follow-up with your PCP Within a week's time. Get blood work done CBC/BMP in 3 to 4 days. Total Time Total Time Spent Total Time Spent (In Minutes): 40 Discharge Plan Discharge Items Patient Disposition: Home - Home Health Services Reason For Visit: ABDOMINAL PAIN Discharge Diagnosis: Acute gangrenous/necrotizing cholecystitis Gram negative Bacteremia Anemia of Chronic Disease Non-Hodgkin's lymphoma on Steroid Activity: Resume your previous activity Activity Comment: Light activity for 3 weeks Lifting: No more than 10 pounds Bathing Comment: May shower Exercise Comment: Weight 3 weeks Driving/Machine Use: 1 week Non-emergency contact: Primary Care Provider and Surgeon Call non-emergency contact if: your pain is not controlled, your temperature is above 101 and your wound has increased drainage Follow-up/Referrals: Jg Watson MD, FACS [Physician] - 03/07/21 8:30 am ([address] [facility] [id number] ) Afia Baldwin DO [Primary Care Provider] - (Date & Time 02/27/2021 11:00 AM Provider Afia Baldwin DO [facility] ) Diet: Regular and Carb Consistent or DM2 Addtl Attending Provider Instructions: SPECIAL CARE INSTRUCTIONS: * Cover incisions and change daily for comfort/drainage. * Empty drain 2-3 times per day and record. * May use ibuprofen for pain as tolerated. * Expect some swelling and bruising. Call your doctor if: * Temperature above 101 degrees * Pain not relieved by pain medicine ordered * There is increased drainage or redness from any incision * You have any unanswered questions or concerns [phone]. FOLLOW UP VISIT: If not already scheduled, please call the office for a follow-up visit. For next weekdrain removal OFFICE PHONE NUMBER: Dr. Watson Office Other instructions: Continue antibiotics as directed. Continue taking your home steroid dose from tomorrow as usual. Follow-up with your PCP Within a week's time. Get blood work done CBC/BMP in 3 to 4 days. Pending Studies at Discharge: No Stand-Alone Forms: My [facility] [employer], Smoking Cessation Medications and DC Order Prescriptions: New ciprofloxacin HCl 500 mg Tablet 500 mg PO BID 12 Days Qty: 24 RF: 0 metronidazole 500 mg Tablet 500 mg PO TID 12 Days Qty: 36 RF: 0 acetaminophen 325 mg Tablet 650 mg PO Q6H PRN (Reason: fever or pain) 7 Days Qty: 56 RF: 0 oxycodone 5 mg Tablet 5 mg PO Q8H PRN (Reason: pain) 3 Days Qty: 9 RF: 0 Continued aspirin [Aspirin Low Dose] 81 mg Tablet,Delayed Release (Dr/Ec) 81 mg PO QPM RF: 0 omega [id number] oil [Fish Oil] 1,000 mg (120 mg-180 mg) Capsule 2 cap PO QPM RF: 0 ascorbic acid (vitamin C) [Vitamin C] 500 mg Tablet 500 mg PO BID RF: 0 calcium carbonate-vitamin D3 [Calcium 500 + D] 500 mg(1,250mg) -400 unit Tablet 1 tab PO DAILY RF: 0 folic acid 1 mg tablet 1 mg PO QPM Qty: 30 RF: 0 cholecalciferol (vitamin D3) [Vitamin D3] 50 mcg (2,000 unit) Capsule 2,000 unit PO DAILY RF: 0 pantoprazole 40 mg tablet,delayed release (DR/EC) 40 mg PO QAM RF: 0 furosemide 20 mg Tablet 20 mg PO QAM Qty: 30 RF: 2 metoprolol succinate 25 mg Tablet Extended Release 24 Hr 12.5 mg PO QAM Qty: 30 RF: 2 Breo Ellipta 100-25 mcg/dose Blister With Device 1 ea inhalation DAILY Qty: 60 RF: 2 sertraline 100 mg tablet 100 mg PO QPM RF: 0 oxybutynin chloride 10 mg tablet extended release 24hr 10 mg PO DAILY RF: 0 multivitamin with minerals [Multiple Vitamin-Minerals] Tablet 1 tab PO DAILY RF: 0 prednisone 5 mg Tablet 5 mg PO Q OTHER DAY RF: 0 Discharge Orders: Discharge Order (Routine); Ordered 02/20/21 Ordered By: Johnny Leigh Admission Data Admit Date/Time: 02/15/21 03:17 Attending Provider: Johnny Leigh Admit Provider: Rolly Kennedy Primary Care Provider: Afia Baldwin Other Providers: Jg Watson ; Rolly Kennedy ; [place] ; Keyshawn Kruse ; Marcin Zamora ; José Manuel Domingo I. ; Ascencion Baxter II ; Kate Zambrano ; Devon Manning Other Interventions: Discharge Summary Assessment (RN) Last Done: 02/20/21 10:43
--- NOTE | 2021-03-08 13:52 | Coding Query ---
SEPSIS To promote full compliance with coding requirements relating to patient care, physician participation is requested in all cases of surveillance monitor uncertainty. Please assist us with the question(s) below: In responding to this query, please exercise your independent professional judgement. The fact that a question is asked does not imply that any particular answer is desired or expected. We appreciate your clarification on this issue. Throughout the medical record, you have clearly documented a localized infection and your patient has clinical evidence of a generalized sepsis or severe sepsis. The term urosepsis is a nonspecific entity and is coded as an UTI. If the patient has sepsis, severe sepsis, from an urinary source or some other source, please clarify in your response below. The medical record reflects the following clinical findings: Patient admitted with acute cholecystitis . 02/17 progress note addendum (Hospitalist) states "met sepsis criteria on admission with tachycardia and elevated WBC with acute cholecystitis". Discharge Summary stated acute bacteremia. Please clarify Bacteremia vs: Sepsis - diagnosis treated and responsible for this inpatient stay. Thank you ! Ron Pollard [employer] [facility] ____ ( )Bacteremia (Nonspecific laboratory finding of bacteria in the blood) Specify Organism ( ) Present on Admission ( ) Not present on admission ( ) Unable to clinically determine ( ) Septicemia (Systemic disease associated with the presence of pathogenic microorganisms in the blood): Specify Organism ( ) Present on Admission ( ) Not present on admission ( ) Unable to clinically determine ( ) Sepsis Specify Organism Specify Associated Condition/Diagnosis ( ) Present on Admission ( ) Not present on admission ( ) Unable to clinically determine ( ) Severe Sepsis (Sepsis associated with acute organ dysfunction) Specify Organism Specify Associated Condition/Diagnosis ( ) Present on Admission ( ) Not present on admission ( ) Unable to clinically determine ( ) Septic Shock (Severe sepsis with acute circulatory failure, unexplained by other causes) ( ) Present on Admission ( ) Not present on admission ( ) Unable to clinically determine ( ) Other, patient has: sepsis 2/2 cholecystitis MTDD
== END 2021-02-20 14:46 | disposition home health service (06) | DRG 854 ==
LOC: ED 22:08 → SUATTDRO 02-15 03:17 → 2W 02-15 03:17
DX: M47.892 Other spondylosis, cervical region; K82.1 Hydrops of gallbladder; D63.8 Anemia in other chronic diseases classified elsewhere; K81.0 Acute cholecystitis; M81.0 Age-related osteoporosis without current pathological fracture; D68.62 Lupus anticoagulant syndrome; I50.32 Chronic diastolic (congestive) heart failure; Z79.82 Long term (current) use of aspirin; A41.9 Sepsis, unspecified organism; Z83.2 Family history of diseases of the blood and blood-forming organs and certain disorders involving the immune mechanism; N18.30 Chronic kidney disease, stage 3 unspecified; C85.90 Non-Hodgkin lymphoma, unspecified, unspecified site; R18.8 Other ascites; K21.9 Gastro-esophageal reflux disease without esophagitis; I44.0 Atrioventricular block, first degree; E72.12 Methylenetetrahydrofolate reductase deficiency; E78.5 Hyperlipidemia, unspecified; Z96.659 Presence of unspecified artificial knee joint; I27.20 Pulmonary hypertension, unspecified; N39.0 Urinary tract infection, site not specified; F32.9 Major depressive disorder, single episode, unspecified

== ENCOUNTER 2022-12-18 17:10 | Inpatient (IN) ==
--- NOTE | 2022-12-18 17:32 | Emergency Department Note ---
Impression & Plan Weakness, CKD (chronic kidney disease), stage III, Anemia, Bradycardia ED Provider Note NAME: HENRIK LIMON AGE: 87 SEX: F : 1935 ARRIVES VIA: Ambulance INFORMANT: Patient, ED PROVIDER(S): Yony Baca MD CHIEF COMPLAINT: Dizziness, weakness, bradycardia, hypotension MEDICAL DECISION MAKING: Patient had presented due to concern for dizziness and associated bradycardia and hypotension. Patient's bradycardia and hypotension did improve here in the department. The patient did receive IV fluids. IV was established blood work obtained along with an EKG. Patient does have a white count of 11.6 with a hemoglobin 8.6. Platelet count is slightly elevated at 402. Kidney function with a creatinine 1.4. Patient's troponin is not elevated. TSH is normal. Lyme is negative. BNP is slightly elevated. Patient does wear 3 L at all times. I did speak the on-call hospitalist service Terra Domingo PA-C and the patient was admitted by Dr. Rothman. Prior /Outside records reviewed: Patient discharge summary from Dr. Leigh in January 2021 shows the patient has known history of hyperlipidemia MTHFR mutation hypertension pulmonary hypertension chronic diastolic CHF GERD uterine leiomyoma CKD lupus antic oagulant disorder low-grade B-cell lymphoma hemolytic anemia and depression Did review an echocardiogram that was completed December 2019 which showed the patient had EF of 65 to 70% with grade 1 diastolic dysfunction. Mild mitral regurg and moderate tricuspid regurg noted. Differential diagnosis: Infection, dehydration, metabolic abnormality, hypo/hyperglycemia, electrolyte disturbance, anemia, hypoxia, cardiac sources, intracerebral event, toxicologic, neurologic, as well as other pathologies. Diagnostics, as interpreted by me: ECG: Sinus bradycardia with first-degree AV block, rate of 54, prolonged PA, left axis deviation T wave inversion in lead III and aVF as well as anteriorly and laterally. Cardiac monitoring: An order was placed for continuous cardiac monitoring. The monitor shows a rate of 57 with sinus rhythm. Patient was placed on pulse oximetry Medical decision rules: None Imaging studies: See below HPI: Patient does present with associated fatigue and shortness of breath for approximate 3 days in duration without any chest pain. The patient has noticed that she has had a buzzing noise in the ears but no ringing or hearing loss. The patient was seen by [facility] and found to be bradycardic hypotensive and weak. Patient denies any recent falls or trauma no abdominal pain diarrhea. Patient has been compliant with her medications but has noticed some increasing urinary frequency. Patient has not noticed any obvious weight gain or swelling. Patient does ambulate with a walker. Patient still states that she feels dizziness currently at this time. PAST MEDICAL HISTORY: See Below PAST SURGICAL HISTORY: See Below SOCIAL HISTORY: See Below HOME MEDICATIONS: See Below ALLERGIES: See Below VITALS: See Below PHYSICAL EXAMINATION: GENERAL: NAD, non-toxic. EYE EXAM: Normal conjunctiva. PERRL, no anisocoria and EOM's grossly intact w/o pain. NECK: Supple, no nuchal rigidity, no adenopathy, non-tender. No signs of meningismus. FROM of the neck with good chin to chest and neck extension. No stridor. LUNGS: Clear to auscultation. Normal chest wall mechanics. HEART: Bradycardic and regular, no MRG. ABDOMEN: Abdomen soft, non-tender, no masses, no rebound or guarding. BACK: No CVA TTP. SKIN: No rashes and no bruising. UPPER EXTREMITIES: Upper extremities are grossly normal. LOWER EXTREMITIES: Grossly normal, no edema. NEURO EXAM: A&O x3, cranial nerves II-XII grossly intact, normal speech, moves all 4 extremities. 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 Dr. 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: No Beliefs That Will Affect Care: None marital status: Current Living Situation: Spouse Current Living Situation Comment: Lives with in two story home How many Children do You have: 4 Feels Safe at Home: Yes Assistive Devices: Oxygen - Continuous and Walker Allergies Allergies Allergy/AdvReac Type Severity Reaction Status Date / Time No Known Allergies Allergy Verified 12/18/22 17:50 Home Meds Home Medications Medication Instructions Recorded Confirmed aspirin 81 mg tablet,delayed 81 mg PO QPM 04/25/18 12/18/22 release (Mira Low Dose Aspirin) omega 3-mlq-wos-fish oil 1,000 mg 2 cap PO QAM 04/25/18 12/18/22 (120 mg-180 mg) capsule (Fish Oil) sertraline 100 mg tablet 100 mg PO QAM 03/31/19 12/18/22 oxybutynin chloride 10 mg 10 mg PO DAILY 11/02/19 12/18/22 tablet,extended release 24 hr ascorbic acid (vitamin C) 500 mg 500 mg PO AMHS 11/17/19 12/18/22 tablet (Vitamin C) calcium carbonate 500 mg-vitamin 1 tab PO DAILY 11/17/19 12/18/22 D3 10 mcg (400 unit) tablet (Calcium 500 + D) cholecalciferol (vitamin D3) 50 2,000 unit PO DAILY 01/14/20 12/18/22 mcg (2,000 unit) capsule (Vitamin D3) pantoprazole 40 mg tablet,delayed 40 mg PO QAM 01/14/20 12/18/22 release multivitamin with minerals 1 tab PO DAILY 02/14/21 12/18/22 (Multiple Vitamin-Minerals tablet) epoetin raysa-epbx 10,000 unit/mL 10,000 unit subcut .EVERY OTHER 12/18/22 12/18/22 injection solution (Retacrit) WEEK folic acid 1 mg tablet 1 mg PO QAM 12/18/22 12/18/22 Previous Rx's Medication Instructions Recorded furosemide 20 mg tablet 20 mg PO QAM #30 tabs 01/19/20 Results & Data (ED) Vital Signs Vital Signs - 24 hr 12/18/22 17:24 12/18/22 17:24 12/18/22 17:30 Temperature 36.9 C Temperature Source Oral Pulse Rate 53 L 54 L Respiratory Rate 21 19 Respiratory Effort / Characteristics SOB on Exertion Blood Pressure 121/49 L 105/71 Blood Pressure Mean 73 82 Pulse Oximetry 98 100 Oxygen Delivery Method Room Air Nasal Cannula Nasal Cannula Oxygen Flow Rate 3 3 Sepsis Recent Fever Within 48 Hours No Sepsis New/Unexplained Change in Mental Status N/A Sepsis Action Taken by Nursing No Action Required 12/18/22 17:35 Temperature Temperature Source Pulse Rate 55 L Respiratory Rate Respiratory Effort / Characteristics Blood Pressure Blood Pressure Mean Pulse Oximetry Oxygen Delivery Method Oxygen Flow Rate Sepsis Recent Fever Within 48 Hours Sepsis New/Unexplained Change in Mental Status Sepsis Action Taken by Alf Medications Current Medication List: was personally reviewed by me Laboratory Data Attestation: I reviewed the patient's lab results. 12/18/22 17:25 12/18/22 17:25 Lab Results 12/18/22 12/18/22 12/18/22 Range/Units 17:25 17:25 17:25 WBC 11.60 H (4.8-10.8) K/ul RBC 2.75 L (4.20-5.40) M/uL Hgb 8.6 L (12.0-16.0) g/dl Hct 23.8 L (37.0-47.0) % MCV 86.5 (80.0-100.0) fL MCH 31.3 (25.0-34.0) pg MCHC 36.1 H (32.0-36.0) g/dL RDW Std Deviation 45.5 (36.4-46.3) fL RDW Coeff of Marycruz 14.6 H (11.5-14.5) % Plt Count 402 H (130-400) K/uL MPV 9.2 L (9.4-12.4) fL Immature Gran % (Auto) 0.3 % Neut % (Auto) 43.8 % Lymph % (Auto) 46.7 % Blanco % (Auto) 6.0 % Eos % (Auto) 2.8 % Baso % (Auto) 0.4 % Neut # (Auto) 5.07 (1.40-6.50) K/uL Lymph # (Auto) 5.42 H (1.2-3.4) K/uL Blanco # (Auto) 0.70 H (0.11-0.59) K/uL Eos # (Auto) 0.32 (0-0.50) K/uL Baso # (Auto) 0.05 (0-0.2) K/uL Immature Gran # (Auto) 0.04 (0.01-0.20) K/uL Sodium 136 (136-145) mmol/L Potassium 4.3 (3.5-5.1) mmol/L Chloride 100 (98-107) mmol/L Carbon Dioxide 28 (21-32) mmol/L Anion Gap 8 (3-11) BUN 40 H (6-23) mg/dl Creatinine 1.43 H (0.6-1.2) mg/dl Est Cr Clr Drug Dosing Not Reportable Est GFR ( Amer) 38.3 ml/min Est GFR (Non-Af Amer) 33.1 ml/min BUN/Creatinine Ratio 28.0 H (10-20) Glucose 87 (70-99(Fasting)) mg/dl Calcium 9.7 (8.6-10.3) mg/dl Phosphorus 3.8 (2.5-4.9) mg/dl Magnesium 1.8 (1.7-2.4) mg/dl Total Bilirubin 0.8 (0.2-1.0) mg/dl AST 18 (13-39) U/L ALT 10 (7-52) U/L Alkaline Phosphatase 58 (34-104) U/L Troponin I High Sens 7.0 (0-14) pg/ml B-Natriuretic Peptide (0-100) pg/ml Total Protein 7.6 (6.0-8.3) gm/dl Albumin 3.4 (3.4-5.0) gm/dl Globulin 4.2 H (2.5-4.0) gm/dl Albumin/Globulin Ratio 0.8 L (0.9-2) TSH 3.125 (0.300-4.500) uIu/ml Lyme Disease IgG Ab (Negative) Lyme Disease IgM Ab (Negative) 12/18/22 12/18/22 Range/Units 17:25 18:39 WBC (4.8-10.8) K/ul RBC (4.20-5.40) M/uL Hgb (12.0-16.0) g/dl Hct (37.0-47.0) % MCV (80.0-100.0) fL MCH (25.0-34.0) pg MCHC (32.0-36.0) g/dL RDW Std Deviation (36.4-46.3) fL RDW Coeff of Marycruz (11.5-14.5) % Plt Count (130-400) K/uL MPV (9.4-12.4) fL Immature Gran % (Auto) % Neut % (Auto) % Lymph % (Auto) % Blanco % (Auto) % Eos % (Auto) % Baso % (Auto) % Neut # (Auto) (1.40-6.50) K/uL Lymph # (Auto) (1.2-3.4) K/uL Blanco # (Auto) (0.11-0.59) K/uL Eos # (Auto) (0-0.50) K/uL Baso # (Auto) (0-0.2) K/uL Immature Gran # (Auto) (0.01-0.20) K/uL Sodium (136-145) mmol/L Potassium (3.5-5.1) mmol/L Chloride (98-107) mmol/L Carbon Dioxide (21-32) mmol/L Anion Gap (3-11) BUN (6-23) mg/dl Creatinine (0.6-1.2) mg/dl Est Cr Clr Drug Dosing Est GFR ( Amer) ml/min Est GFR (Non-Af Amer) ml/min BUN/Creatinine Ratio (10-20) Glucose (70-99(Fasting)) mg/dl Calcium (8.6-10.3) mg/dl Phosphorus (2.5-4.9) mg/dl Magnesium (1.7-2.4) mg/dl Total Bilirubin (0.2-1.0) mg/dl AST (13-39) U/L ALT (7-52) U/L Alkaline Phosphatase (34-104) U/L Troponin I High Sens (0-14) pg/ml B-Natriuretic Peptide 201 H (0-100) pg/ml Total Protein (6.0-8.3) gm/dl Albumin (3.4-5.0) gm/dl Globulin (2.5-4.0) gm/dl Albumin/Globulin Ratio (0.9-2) TSH (0.300-4.500) uIu/ml Lyme Disease IgG Ab Negative (Negative) Lyme Disease IgM Ab Negative (Negative) Administered Medications Discontinued Medications Ascorbic Acid (Ascorbic Acid 500 Mg Tab) 500 mg PO AMHS [facility] Stop: 01/18/23 08:59 Last Admin: 12/20/22 09:05 Dose: 500 mg Documented By: Admin: 12/19/22 20:30 Dose: 500 mg Documented By: Admin: 12/19/22 08:12 Dose: 500 mg Documented By: DLF Aspirin (Aspirin 81 Mg Ectab) 81 mg PO QPM [facility] Stop: 01/18/23 20:59 Last Admin: 12/19/22 20:30 Dose: 81 mg Documented By: ESG Calcium/Vitamin D (Calcium 600mg + Vit D 400 Iu Tab) 1 tab PO DAILY [facility] Stop: 01/18/23 08:59 Last Admin: 12/20/22 09:08 Dose: 1 tab Documented By: Admin: 12/19/22 08:12 Dose: 1 tab Documented By: DLF Fish Oil (Fletcher-3 (Purified Fish Oil) 1 Gm Cap) [facility] [place] Stop: 01/18/23 08:59 Last Admin: 12/20/22 09:05 Dose: 2 gm Documented By: Admin: 12/19/22 08:13 Dose: 2 gm Documented By: DLF Folic Acid (Folic Acid 1 Mg Tab) 1 [facility] [place] Stop: 01/18/23 08:59 Last Admin: 12/20/22 09:07 Dose: 1 mg Documented By: Admin: 12/19/22 08:12 Dose: 1 mg Documented By: DLF Furosemide (Furosemide Inj 20 Mg/2 Ml Vial) 20 mg IV ONE ONE Stop: 12/18/22 20:46 Last Admin: 12/18/22 22:31 Dose: 20 mg Documented By: MERLIN Furosemide (Furosemide 20 Mg Tab) 20 mg PO QAM [facility] Stop: 01/18/23 08:59 Last Admin: 12/20/22 09:06 Dose: 20 mg Documented By: Admin: 12/19/22 08:12 Dose: 20 mg Documented By: DLF Heparin Sodium (Porcine) (Heparin Sod 5,000 Unit/0.5 Ml Vial) 5,000 units SQ Q8 [facility] Stop: 01/17/23 21:59 Last Admin: 12/20/22 13:15 Dose: 5,000 units Documented By: Admin: 12/20/22 06:29 Dose: 5,000 units Documented By: Admin: 12/19/22 20:31 Dose: 5,000 units Documented By: Admin: 12/19/22 13:05 Dose: 5,000 units Documented By: Admin: 12/19/22 05:43 Dose: 5,000 units Documented By: Admin: 12/18/22 22:32 Dose: 5,000 units Documented By: MERLIN Ceftriaxone Sodium 2,000 mg/ (Dextrose) 70 mls @ 100 mls/hr IV Q24H [facility]; Protocol Stop: 12/23/22 20:44 Last Infusion: 12/19/22 21:23 Dose: 0 mls/hr Documented By: Admin: 12/19/22 20:39 Dose: 100 mls/hr Documented By: Infusion: 12/18/22 23:09 Dose: 0 mls/hr Documented By: Admin: 12/18/22 22:27 Dose: 100 mls/hr Documented By: MERLIN Metoprolol Succinate (Metoprolol Succ 25mg Ext Rel Tab) 12.5 mg PO QAM [facility] Stop: 01/18/23 08:59 Last Admin: 12/19/22 08:12 Dose: 12.5 mg Documented By: OMER Multivitamins/Minerals (Cerovite Adv Formula Tab) 1 tab PO DAILY [facility] Stop: 01/18/23 08:59 Last Admin: 12/20/22 09:08 Dose: 1 tab Documented By: Admin: 12/19/22 08:13 Dose: 1 tab Documented By: OMER Oxybutynin Chloride (Oxybutynin Chloride Xl 5 Mg Tabcr) 10 mg PO DAILY [facility] Stop: 01/18/23 08:59 Last Admin: 12/20/22 09:06 Dose: 10 mg Documented By: Admin: 12/19/22 08:13 Dose: 10 mg Documented By: OMER Pantoprazole Sodium (Pantoprazole 40 Mg Tab) 40 mg PO QAM [facility] Stop: 01/18/23 08:59 Last Admin: 12/20/22 09:06 Dose: 40 mg Documented By: Admin: 12/19/22 08:13 Dose: 40 mg Documented By: DLF Sertraline HCl (Sertraline Hcl 100 Mg Tablet) 100 mg PO QAM [facility] Stop: 01/17/23 21:04 Last Admin: 12/20/22 09:06 Dose: 100 mg Documented By: Admin: 12/19/22 08:12 Dose: 100 mg Documented By: Admin: 12/18/22 22:31 Dose: 100 mg Documented By: DLRenée Vitamin D (Cholecalciferol 1,000 Units 25 Mcg Tab) 2,000 units PO DAILY [facility] Stop: 01/18/23 08:59 Last Admin: 12/20/22 09:07 Dose: 2,000 units Documented By: Admin: 12/19/22 08:12 Dose: 2,000 units Documented By: BRIANNAF Imaging Data Radiologist's Impression: Chest X-Ray 12/18/22 17:20 XR chest 1V portable HISTORY: 87 years-old Female weakness acute weakness COMPARISON: 02/14/2021, 02/15/2021, 03/31/2019. TECHNIQUE: AP view of the chest FINDINGS: Cardiac silhouette is enlarged. Pulmonary vascular congestion with mild chronic interstitial coarsening of the lung bases and lateral left midlung. No pneumothorax, large pleural effusion or lobar airspace consolidation. Degenerative changes of the shoulders and spine. 3.5 cm retrocardiac left lower lobe lesion again noted. IMPRESSION: 1. Cardiomegaly with pulmonary vascular congestion. 2. Chronic interstitial coarsening of the lung bases. 3. Chronic left lower lobe mass. ACT 112: Negative or not required by law. The above report was generated using voice recognition software. It may contain grammatical, syntax or spelling errors. Electronically signed by: Lauro Gurrola M.D. 12/18/2022 5:45 PM Discharge Plan Visit Data Chief Complaint: Bradycardia ED Provider: Yony Baca Discharge Problem: Weakness, CKD (chronic kidney disease), stage III, Anemia, Bradycardia Patient Disposition: Admitted As Inpatient Condition: Fair Discharge Instructions Interventions: ED Discharge Assessment Last Done: 12/18/22 20:39
--- NOTE | 2022-12-18 17:47 | XRay Report ---
XR chest 1V portable HISTORY: 87 years-old Female weakness acute weakness COMPARISON: 02/14/2021, 02/15/2021, 03/31/2019. TECHNIQUE: AP view of the chest FINDINGS: Cardiac silhouette is enlarged. Pulmonary vascular congestion with mild chronic interstitial coarseni ng of the lung bases and lateral left midlung. No pneumothorax, large pleural effusion or lobar airsp tony consolidation. Degenerative changes of the shoulders and spine. 3.5 cm retrocardiac left lower lo be lesion again noted. IMPRESSION: 1. Cardiomegaly with pulmonary vascular congestion. 2. Chronic interstitial coarsening of the lung bases. 3. Chronic left lower lobe mass. ACT 112: Negative or not required by law. The above report was generated using voice recognition software. It may contain grammatical, syntax o r spelling errors. Electronically signed by: Lauro Gurrola M.D. 12/18/2022 5:45 PM
[2022-12-18 17:50] LABS: Hematocrit (blood only) 23.8 % (37.0-47.0); Hemoglobin 8.6 g/dl (12.0-16.0); Mean Corpuscular Hemoglobin 31.3 pg (25.0-34.0); Mean Corpuscular Hgb Conc 36.1 g/dL (32.0-36.0); Mean Corpuscular Volume 86.5 fL (80.0-100.0); Mean Platelet Volume 9.2 fL (9.4-12.4); Platelet Count 402 K/uL (130-400); RDW Coefficient of Variation 14.6 % (11.5-14.5); RDW Standard Deviation 45.5 fL (36.4-46.3); Red Blood Count 2.75 M/uL (4.20-5.40)
[2022-12-18 18:05] LABS: Alanine Aminotransferase 10 U/L (7-52); Albumin Globulin Ratio 0.8 (0.9-2); Albumin Level 3.4 gm/dl (3.4-5.0); Alkaline Phosphatase 58 U/L (34-104); Anion Gap 8 (3-11); Aspartate Aminotransferase 18 U/L (13-39); Bilirubin,Total 0.8 mg/dl (0.2-1.0); Blood Urea Nitrogen 40 mg/dl (6-23); Calcium 9.7 mg/dl (8.6-10.3); Carbon Dioxide 28 mmol/L (21-32); Chloride 100 mmol/L (98-107); Est GFR (African American) 38.3 ml/min; Est GFR (Non-African American) 33.1 ml/min; Globulin 4.2 gm/dl (2.5-4.0); Glucose 87 mg/dl (70-99(Fasting)); Magnesium 1.8 mg/dl (1.7-2.4); Phosphorus 3.8 mg/dl (2.5-4.9); Potassium 4.3 mmol/L (3.5-5.1); Sodium 136 mmol/L (136-145); Total Protein 7.6 gm/dl (6.0-8.3)
--- NOTE | 2022-12-18 18:42 | History & Physical Report ---
Date of Service December 18, 2022 Assessment & Plan (1) Lethargy: (2) UTI (urinary tract infection), uncomplicated: (3) Bradycardia: (4) Chronic diastolic heart failure: (5) Homozygous MTHFR mutation C677T: (6) Lupus anticoagulant disorder: (7) B-cell lymphoma: (8) CKD (chronic kidney disease), stage III: (9) Anxiety: (10) HLD (hyperlipidemia): (11) Depression: (12) Hypertension: Plan This is an 87-year-old female with PMH for hyperlipidemia, homozygous MTHFR mutation, hypertension, pulmonary hypertension, chronic diastolic CHF, hemolytic anemia, CKD III, lupus anticoagulant disorder, low-grade B-cell lymphoma, depression, presents with fatigue and short of breath x 3 days. Lethargy Uncomplicated UTI WBC 11.6k, UA abnormal + urinary symptoms, starting empirically on Rocephin. Follow urine culture Lyme serology negative, no evidence of infection on CXR SOB Acute decompensated diastolic HF Chronic hypoxic resp failure on 3L NC O2 SOB x 3 days, trace BLE edema, 2-3lb weight gain from outpatient records BNP 201, EKG pending, CXR with cardiomegaly with pulmonary vascular congestion, chronic interstitial coarsening of the lung bases Most recent echo in system from 2019 with preserved EF - repeating 2D echo Lasix 20mg IV x 1 in ED. Strict I&Os, low sodium diet, daily weights Routine cards consult Bradycardia Reported in outpatient setting, HR 53-60 bpm since arrival EKG with SR with 1st degree AV block Plan to continue beta willi with hold parameters, monitor on tele, repeat EKG in AM Hemolytic anemia H/o epoetin injections, most recently yesterday Hemoglobin at baseline ~8-9 Monitor with daily CBC CKD III Cr 1.43 on admission (baseline ~1.2). Continue to monitor with daily BMP Non-Hodgkin's lymphoma History of low-grade B-cell lymphoma s/p chemotherapy. Follows with hematology Depression Sertraline HS DVT Ppx: SQ heparin Code status: FULL Dispo: Admitted to PCU Patient seen in collaboration with Dr. Ruiz. Please see addendum. I spent a total of 75 minutes coordinating, documenting, and providing care for this patient excluding time spent in the performance of separately billed services. History of Present Illness Chief Complaint: lethargy, bradycardia Primary Care Provider: Afia Baldwin DO This is an 87-year-old female with PMH for hyperlipidemia, homozygous MTHFR mutation, hypertension, pulmonary hypertension, chronic diastolic CHF, hemolytic anemia, CKD III, lupus anticoagulant disorder, low-grade B-cell lymphoma, depression, presents with fatigue and short of breath x 3 days. No associated CP. Also notes some fogginess with thought, "buzzing" noise in ears and frontal headache. Sent in when [facility] found patient to be bradycardic, hypotensive and weak at home. No F/C, N/V, abdominal pain,dysuria, diarrhea or constipation. Has been urinating more frequently than usual. Has been taking her usualy 20mg PO daily lasix. No weight gain or swelling in extremities noted. Lives at home with in [place] and ambulates with walker. No recent falls. Received Retacrit shot yesterday. Allergies Allergy/AdvReac Type Severity Reaction Status Date / Time No Known Allergies Allergy Verified 12/18/22 17:50 Home Medications Medication Instructions Recorded Confirmed Type aspirin 81 mg tablet,delayed 81 mg PO QPM 04/25/18 12/18/22 History release (Mira Low Dose Aspirin) omega 3-lvb-olq-fish oil 1,000 mg 2 cap PO QAM 04/25/18 12/18/22 History (120 mg-180 mg) capsule (Fish Oil) sertraline 100 mg tablet 100 mg PO QAM 03/31/19 12/18/22 History oxybutynin chloride 10 mg 10 mg PO DAILY 11/02/19 12/18/22 History tablet,extended release 24 hr ascorbic acid (vitamin C) 500 mg 500 mg PO AMHS 11/17/19 12/18/22 History tablet (Vitamin C) calcium carbonate 500 mg-vitamin 1 tab PO DAILY 11/17/19 12/18/22 History D3 10 mcg (400 unit) tablet (Calcium 500 + D) cholecalciferol (vitamin D3) 50 2,000 unit PO DAILY 01/14/20 12/18/22 History mcg (2,000 unit) capsule (Vitamin D3) pantoprazole 40 mg tablet,delayed 40 mg PO QAM 01/14/20 12/18/22 History release furosemide 20 mg tablet 20 mg PO QAM #30 tabs 01/19/20 12/18/22 Rx multivitamin with minerals 1 tab PO DAILY 02/14/21 12/18/22 History (Multiple Vitamin-Minerals tablet) epoetin raysa-epbx 10,000 unit/mL 10,000 unit subcut .EVERY OTHER 12/18/22 12/18/22 History injection solution (Retacrit) WEEK folic acid 1 mg tablet 1 mg PO QAM 12/18/22 12/18/22 History Past Med/Surg History Medical History Anemia Anxiety B-cell lymphoma Chronic diastolic heart failure Chronic hip pain RIGHT CKD (chronic kidney disease), stage III Depression Exertional dyspnea GERD (gastroesophageal reflux disease) HLD (hyperlipidemia) Homozygous MTHFR mutation C677T Hypertension Lupus anticoagulant disorder Osteoarthritis 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 Dr. Watson 02/15/2021 Hx of tooth extraction S/P cataract surgery Tubal ligation status Family History Father , 52 Pulmonary embolism Mother Breast cancer Social History Smoking Status: Never smoker Hx Alcohol Use: No Hx Substance Use: No Preferred Language: Azeri Communication Ability: Effective Manager [employer] Required: No Beliefs That Will Affect Care: None marital status: Current Living Situation: Spouse Current Living Situation Comment: Lives with in two story home How many Children do You have: 4 Feels Safe at Home: Yes Assistive Devices: Oxygen - Continuous and Walker Review of Systems Review of Systems: At least ten systems reviewed and negative except as noted in the HPI. Physical Exam Physical Exam: Please see Dr. Ruiz's addendum for physical exam. Results & Data Results & Data Vital Signs (Past 12 Hours) Vital Signs Temp Pulse Resp BP Pulse Ox O2 Del Method O2 Flow Rate 12/18/22 18:30 62 18 99 Nasal Cannula 3 12/18/22 18:00 55 L 18 133/61 100 Nasal Cannula 3 12/18/22 17:35 55 L 12/18/22 17:30 54 L 19 105/71 100 Nasal Cannula 3 12/18/22 17:24 Nasal Cannula 3 12/18/22 17:24 36.9 C 53 L 21 121/49 L 98 Room Air Laboratory Results Short CBC 12/18/22 Range/Units 17:25 WBC 11.60 H (4.8-10.8) K/ul Hgb 8.6 L (12.0-16.0) g/dl Hct 23.8 L (37.0-47.0) % Plt Count 402 H (130-400) K/uL BMP 12/18/22 17:25 Sodium 136 Potassium 4.3 Chloride 100 Carbon Dioxide 28 BUN 40 H Creatinine 1.43 H Glucose 87 Calcium 9.7 Liver Function 12/18/22 Range/Units 17:25 Total Bilirubin 0.8 (0.2-1.0) mg/dl AST 18 (13-39) U/L ALT 10 (7-52) U/L Alkaline Phosphatase 58 (34-104) U/L Albumin 3.4 (3.4-5.0) gm/dl Diagnostic Findings Chest X-Ray 12/18/22 17:20 XR chest 1V portable HISTORY: 87 years-old Female weakness acute weakness COMPARISON: 02/14/2021, 02/15/2021, 03/31/2019. TECHNIQUE: AP view of the chest FINDINGS: Cardiac silhouette is enlarged. Pulmonary vascular congestion with mild chronic interstitial coarsening of the lung bases and lateral left midlung. No pneumothorax, large pleural effusion or lobar airspace consolidation. Degenerative changes of the shoulders and spine. 3.5 cm retrocardiac left lower lobe lesion again noted. IMPRESSION: 1. Cardiomegaly with pulmonary vascular congestion. 2. Chronic interstitial coarsening of the lung bases. 3. Chronic left lower lobe mass. ACT 112: Negative or not required by law. The above report was generated using voice recognition software. It may contain grammatical, syntax or spelling errors. Electronically signed by: Lauro Gurrola M.D. 12/18/2022 5:45 PM Supervising Physician Co-Signing Physician Notes Pt is a 87 y/o F with hx of HFpEF, MTHFR mutation, Lymphoma, Hemolytic anemia (on epo), chronic respiratory failure on 3L, CKD III, HTN, Depression admitted for worsening SOB and fatigue. PE: NAD, NC in place (3L) Lungs: good air entry b/l with lower lobe rales Cardiac: normal S1/S2, no murmur Abd: ND, NT, soft MSK: trace b/l LE pitting edema Psych: AAOX3, normal affect A/P: SOB and Fatigue: -CXR: showed pulm vascular congestion --- pt did not appeared to be fluid overloaded on exam however due to worsening SOB and elevated BNP will do one dose of Lasix 20mg IV -obtain echo -cardiology consult -pts HR was slightly low --- will continue metoprolol but hold <60 -admit to tele -lyme neg - PT/OT referral UTI: -started the pt on ceftriaxone - UCx sent
[2022-12-18 18:50] LABS: Basophils # (auto) 0.05 K/uL (0-0.2); Basophils % (auto) 0.4 %; Eosinophils # (auto) 0.32 K/uL (0-0.50); Eosinophils % (auto) 2.8 %; Immature Granulocytes # (auto) 0.04 K/uL (0.01-0.20); Immature Granulocytes % (auto) 0.3 %; Lymphocytes # (auto) 5.42 K/uL (1.2-3.4); Lymphocytes % (auto) 46.7 %; Neutrophils # (auto) 5.07 K/uL (1.40-6.50); Neutrophils % (auto) 43.8 %
[2022-12-18 19:47] LABS: Lyme Ab IgG w/WB Rflx Negative (Negative); Lyme Ab IgM w/WB Rflx Negative (Negative)
[2022-12-18 19:48] LABS: Appearance Urine Clear (Clear); Bacteria Urine Automated Negative (Negative); Bilirubin Urine Negative (Negative); Blood Urine Negative (Negative); Color Urine Yellow; Glucose Urine UA Negative (Negative); Ketones Urine Negative (Negative); Leukocyte Esterase Urine 1+ (Negative); Nitrite Urine Negative (Negative); Protein Urine Negative (Negative); RBC Urine Automated 0-4 /hpf (0-4); Specific Gravity Urine 1.011 (1.000-1.030); Urobilinogen Urine Negative (Negative); pH Urine 7.5 (4.5-7.5)
[2022-12-18] MEDS ORDERED: FUROSEMIDE INJ 20 MG/2 ML VIAL IV ONE (20:45)
[2022-12-18] MEDS ORDERED: ONDANSETRON INJ 2 MG/ML 2 ML VIAL IV PRN (21:11)
[2022-12-18] MEDS ORDERED: ACETAMINOPHEN 325 MG TAB PO PRN (21:11)
[2022-12-18] MEDS ORDERED: POLYETHYLENE (MIRALAX) 17 GM PACK PO PRN (21:11)
[2022-12-18] MEDS: cefTRIAXone SODIUM 2,000 MG in DEXTROSE 5% 50 ML IV SCH (22:27)
[2022-12-18] MEDS: SERTRALINE HCL 100 MG TABLET PO SCH (22:31)
[2022-12-18] MEDS: HEPARIN SOD 5,000 UNIT/0.5 ML VIAL SQ SCH (22:32)
[2022-12-19] MEDS: HEPARIN SOD 5,000 UNIT/0.5 ML VIAL SQ SCH ×3 (05:43→20:31)
[2022-12-19 05:49] LABS: Hematocrit (blood only) 25.1 % (37.0-47.0); Hemoglobin 8.8 g/dl (12.0-16.0); Mean Corpuscular Hemoglobin 30.9 pg (25.0-34.0); Mean Corpuscular Hgb Conc 35.1 g/dL (32.0-36.0); Mean Corpuscular Volume 88.1 fL (80.0-100.0); Mean Platelet Volume 9.3 fL (9.4-12.4); Platelet Count 397 K/uL (130-400); RDW Coefficient of Variation 14.7 % (11.5-14.5); RDW Standard Deviation 47.1 fL (36.4-46.3); Red Blood Count 2.85 M/uL (4.20-5.40); White Blood Count 11.39 K/ul (4.8-10.8)
[2022-12-19 06:04] LABS: Calcium 9.5 mg/dl (8.6-10.3); Creatinine Clr Calc Pharmacy 26.5 ml/min; Est GFR (African American) 35.1 ml/min; Est GFR (Non-African American) 30.2 ml/min; Potassium 4.1 mmol/L (3.5-5.1)
[2022-12-19] MEDS: FUROSEMIDE 20 MG TAB PO SCH (08:12)
[2022-12-19] MEDS: FOLIC ACID 1 MG TAB PO SCH (08:12)
[2022-12-19] MEDS: ASCORBIC ACID 500 MG TAB PO SCH ×2 (08:12→20:30)
[2022-12-19] MEDS: SERTRALINE HCL 100 MG TABLET PO SCH (08:12)
[2022-12-19] MEDS: CHOLECALCIFEROL 1,000 UNITS 25 MCG TAB PO SCH (08:12)
[2022-12-19] MEDS: CALCIUM 600MG + VIT D 400 IU TAB PO SCH (08:12)
[2022-12-19] MEDS: OMEGA-3 (PURIFIED FISH OIL) 1 GM CAP PO SCH (08:13)
[2022-12-19] MEDS: OXYBUTYNIN CHLORIDE XL 5 MG TABCR PO SCH (08:13)
[2022-12-19] MEDS: PANTOprazole 40 MG TAB PO SCH (08:13)
[2022-12-19] MEDS: CEROVITE ADV FORMULA TAB PO SCH (08:13)
[2022-12-19] MEDS ORDERED: METOPROLOL SUCC 25MG EXT REL TAB PO SCH (09:00)
--- NOTE | 2022-12-19 11:17 | Cardiology Consultation ---
Date of Consultation December 19, 2022 Assessment & Plan (1) UTI (urinary tract infection), uncomplicated: (2) Lethargy: (3) Generalized weakness: (4) Chronic diastolic heart failure: (5) Bradycardia: (6) Atrial ectopy: Plan Hold metoprolol succinate (12.5 mg/day) Await resting echocardiography Discontinue IV furosemide Resume oral furosemide Maintain telemetry while hospitalized Outpatient Zio monitor. Supervising Physician Co-Signing Physician Notes 87-year-old female referred to the emergency department by [facility] at home due to bradycardia and borderline hypotension. Denies chest pain or shortness of breath. Jaxon in sinus rhythm in the 70s since admission. Received a.m. dose of metoprolol today, however, scheduled to hold in a.m. tomorrow 01/20/2023. No orthopnea, PND, lower extremity edema. PE: VSS. gen: NAD, AAo x3. Heart: Regular rhythm, normal S1-S2. No murmur. Lungs: Clear bilateral, no rales, rhonchi, wheeze. Extremities: No edema. A/P: Agree with above PA-C history, physical exam, assessment and plan. Low pulse rate in the outpatient setting possibly related to supraventricular ectopy. We will continue telemetry monitoring hold metoprolol while hospitalized. Agree with resumption of oral diuretic therapy. Outpatient ZIO monitor upon discharge. History of Present Illness Reason for Consultation: Symptomatic bradycardia Requesting Physician: Jose L Attending Physician: Joaquim History of Present Illness Mrs. Tory Sagastume is a very pleasant 87-year-old female who was referred to the [facility] ER via [email or web address] [email or web address] after observing hypotension and bradycardia with a heart rate of 44 bpm. Patient noted feeling lousy, increased fatigue, increased shortness of breath. EKG on presentation revealed sinus bradycardia at 54 bpm with a first-degree AV block with premature atrial complexes, left axis deviation, low voltage QRS. Cannot rule out an old anterior infarct. ER provider documentation not available for review at the time of cardiology consultation. Work-up has revealed a UTI and possible acute decompensated diastolic heart failure with chest x-ray reported by the radiologist as demonstrating cardiomegaly with pulmonary vascular congestion, chronic interstitial coarsening of the lung bases, chronic left lower lobe mass. Patient received 20 mg of IV furosemide in the ER. BNP 201 pg/mL. High- sensitivity troponin I normal at 7.0 pg/mL. TSH normal at 3.125 uIu/mL. Lyme screen negative. EKG the morning of December 19, 2022 revealed sinus rhythm at 60 bpm with a first-degree AV block, left axis deviation, old anterior lateral infarct. Continuous telemetry monitoring reveals sinus/mild sinus bradycardia with heart rates ranging from the 50s to the 70s, with occasional premature atrial complexes. No significant pauses. No atrial fibrillation/flutter. No ventricular tachycardia. Patient denies chest pain, palpitations, unusual shortness of breath, cough, orthopnea, PND, or increased edema. No excessive fatigue, unusual tiredness, lightheadedness, dizziness, near syncope, or syncope. No fevers or chills. Patient prescribed metoprolol succinate 12.5 mg/day in December 2019 after being observed to have frequent asymptomatic atrial ectopy Past Medical and Surgical History: Low-grade B-cell lymphoma Hemolytic anemia CKD III Homozygous MTHFR mutation Lupus anticoagulant disorder Hypertension Dyslipidemia Pulmonary hypertension Chronic diastolic CHF GERD Gastritis Depression Osteoarthritis Osteoporosis Urinary incontinence Diverticulosis Colonic polyps Uterine leiomyoma Lung mass Knee arthroplasty Bilateral cataract extraction SI joint injections T/A as a child Tubal ligation Social History: Nonsmoker. No alcohol. No illegal drug use. . Four children. Seven grandchildren. Lives in [place]. Granddaughter, a Corporal with the [employer], present for my evaluation. Family History: Mother lived to be 97. Father with an DC at 56. Brother was killed in a MVA. Complete Review of Systems: On Procrit. Increased urination. Chronic arthritis pain. Headaches. Ambulation is with a walker. No recent falls. Complete Review of Systems is as stated above, negative, or noncontributory. Allergies Allergy/AdvReac Type Severity Reaction Status Date / Time No Known Allergies Allergy Verified 12/18/22 17:50 Home Medications Medication Instructions Recorded Confirmed Type aspirin 81 mg tablet,delayed 81 mg PO QPM 04/25/18 12/18/22 History release (Mira Low Dose Aspirin) omega 3-ciw-sbu-fish oil 1,000 mg 2 cap PO QAM 04/25/18 12/18/22 History (120 mg-180 mg) capsule (Fish Oil) sertraline 100 mg tablet 100 mg PO QAM 03/31/19 12/18/22 History oxybutynin chloride 10 mg 10 mg PO DAILY 11/02/19 12/18/22 History tablet,extended release 24 hr ascorbic acid (vitamin C) 500 mg 500 mg PO AMHS 11/17/19 12/18/22 History tablet (Vitamin C) calcium carbonate 500 mg-vitamin 1 tab PO DAILY 11/17/19 12/18/22 History D3 10 mcg (400 unit) tablet (Calcium 500 + D) cholecalciferol (vitamin D3) 50 2,000 unit PO DAILY 01/14/20 12/18/22 History mcg (2,000 unit) capsule (Vitamin D3) pantoprazole 40 mg tablet,delayed 40 mg PO QAM 01/14/20 12/18/22 History release furosemide 20 mg tablet 20 mg PO QAM #30 tabs 01/19/20 12/18/22 Rx metoprolol succinate 25 mg 12.5 mg PO QAM #30 tabs 01/19/20 12/18/22 Rx tablet,extended release 24 hr multivitamin with minerals 1 tab PO DAILY 02/14/21 12/18/22 History (Multiple Vitamin-Minerals tablet) epoetin raysa-epbx 10,000 unit/mL 10,000 unit subcut .EVERY OTHER 12/18/22 12/18/22 History injection solution (Retacrit) WEEK folic acid 1 mg tablet 1 mg PO QAM 12/18/22 12/18/22 History Patient History Medical History Anemia Anxiety B-cell lymphoma Chronic diastolic heart failure Chronic hip pain RIGHT CKD (chronic kidney disease), stage III Depression Exertional dyspnea GERD (gastroesophageal reflux disease) HLD (hyperlipidemia) Homozygous MTHFR mutation C677T Hypertension Lupus anticoagulant disorder Osteoarthritis 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 Dr. Watson 02/15/2021 Hx of tooth extraction S/P cataract surgery Tubal ligation status Family History Father , 52 Pulmonary embolism Mother Breast cancer Social History Smoking Status: Never smoker Hx Alcohol Use: No Hx Substance Use: No Preferred Language: Nepali Communication Ability: Effective Pipelayer Required: No Beliefs That Will Affect Care: None marital status: Current Living Situation: Spouse Current Living Situation Comment: Lives with in two story home How many Children do You have: 4 Feels Safe at Home: Yes Safety Concerns: Feels Safe At This Time Assistive Devices: Oxygen - Continuous and Walker Review of Systems Review of Systems: All systems reviewed & are unremarkable except as noted in Subjective Physical Exam Physical Exam: General: A&Ox3. NAD. + Pallor HENT: Normocephalic. Atraumatic. PER. Eyes: Conjunctiva pink, sclera clear. Neck: No carotid bruits. No JVD. Heart: Distant heart sounds. Irregular at 64 bpm, with occasional ectopy. No murmur. Lungs: Clear to auscultation. Abdomen: +BS. Soft. Nontender. No masses or organomegaly. Extremities: No clubbing, cyanosis, or edema. Limited neurological examination is without focal deficits. Pulses: radial=2/4, posterior tibial=2/4. Results & Data Vital Signs (Past 12 Hours) Vital Signs Temp Pulse Pulse Resp BP Pulse Ox O2 Del Method 12/19/22 09:55 55 L 12/19/22 09:55 Nasal Cannula 12/19/22 07:57 36.6 C 61 18 115/69 100 Nasal Cannula 12/19/22 03:16 36.6 C 55 L 19 125/65 100 Oxymask 12/19/22 00:21 58 L O2 Flow Rate 12/19/22 09:55 12/19/22 09:55 4 12/19/22 07:57 2 12/19/22 03:16 4 12/19/22 00:21 Laboratory Results Cardiac Enzymes 12/18/22 12/18/22 Range/Units 17:25 18:39 AST 18 (13-39) U/L Troponin I High Sens 7.0 (0-14) pg/ml B-Natriuretic Peptide 201 H (0-100) pg/ml Coagulation 12/18/22 Range/Units 18:39 B-Natriuretic Peptide 201 H (0-100) pg/ml CBC 12/18/22 12/19/22 Range/Units 17:25 05:13 WBC 11.60 H 11.39 H (4.8-10.8) K/ul RBC 2.75 L 2.85 L (4.20-5.40) M/uL Hgb 8.6 L 8.8 L (12.0-16.0) g/dl Hct 23.8 L 25.1 L (37.0-47.0) % Plt Count 402 H 397 (130-400) K/uL Neut # (Auto) 5.07 (1.40-6.50) K/uL Lymph # (Auto) 5.42 H (1.2-3.4) K/uL [place] # (Auto) 0.70 H (0.11-0.59) K/uL Eos # (Auto) 0.32 (0-0.50) K/uL Baso # (Auto) 0.05 (0-0.2) K/uL Comprehensive Metabolic Panel 12/18/22 12/19/22 Range/Units 17:25 05:13 Sodium 136 138 (136-145) mmol/L Potassium 4.3 4.1 (3.5-5.1) mmol/L Chloride 100 101 (98-107) mmol/L Carbon Dioxide 28 29 (21-32) mmol/L BUN 40 H 40 H (6-23) mg/dl Creatinine 1.43 H 1.54 H (0.6-1.2) mg/dl Glucose 87 102 H (70-99(Fasting)) mg/dl Calcium 9.7 9.5 (8.6-10.3) mg/dl AST 18 (13-39) U/L ALT 10 (7-52) U/L Alkaline Phosphatase 58 (34-104) U/L Total Protein 7.6 (6.0-8.3) gm/dl Albumin 3.4 (3.4-5.0) gm/dl Intake and Output 12/18/22 12/19/22 12/19/22 22:59 06:59 14:59 Intake Total 370 / 370 Output Total 300 / 300 / Balance 70 / 70 - Intake: IV 70 / 70 cefTRIAXone SODIUM 2,000 mg In 70 / 70 Dextrose 5% 50 ml @ 100 mls/hr IV Q24H [facility] Rx#:[id number] Oral 300 / 300 Output: Urine Amount (Catheter) 300 / 300 Fem Cath 300 / 300 # Bowel Movements Other: # Unmeasured Voids 2 1 Weight 78.1 kg 78.2 kg Weight Measurement Method Built in [facility] Built in [facility]
--- NOTE | 2022-12-19 15:33 | Electrocardiogram Report ---
Test Reason : Blood Pressure : / mmHG Vent. Rate : 054 BPM Atrial Rate : 054 BPM P-R Int : 246 ms QRS Dur : 084 ms QT Int : 478 ms P-R-T Axes : 070 -36 -25 degrees QTc Int : 453 ms Sinus bradycardia with 1st degree A-V block with Premature atrial complexes Left axis deviation Low voltage QRS Cannot rule out Anterior infarct (cited on or before Nonspecific T wave abnormality Abnormal ECG When compared with ECG of 14-FEB-2021 23:34, Premature atrial complexes are now Present Vent. rate has decreased BY 38 BPM Questionable change in initial forces of Lateral leads T wave inversion now evident in Inferior leads Confirmed by Dionte Cho ([id number]) on 12/19/2022 3:33:32 PM Referred By: REFERRED SELF Confirmed By:Dionte Cho
--- NOTE | 2022-12-19 15:44 | Electrocardiogram Report ---
Test Reason : Blood Pressure : / mmHG Vent. Rate : 060 BPM Atrial Rate : 060 BPM P-R Int : 252 ms QRS Dur : 086 ms QT Int : 470 ms P-R-T Axes : 078 -41 -29 degrees QTc Int : 470 ms Sinus rhythm with 1st degree A-V block Left axis deviation Anterolateral infarct (cited on or before 14-FEB-2021) Abnormal ECG When compared with ECG of 18-DEC-2022 17:20, (unconfirmed) Premature atrial complexes are no longer Present Confirmed by Dionte Cho ([id number]) on 12/19/2022 3:43:47 PM Referred By: REFERRED SELF Confirmed By:Dionte Cho
--- NOTE | 2022-12-19 17:26 | Hospitalist Progress Note ---
Date of Service December 19, 2022 Assessment & Plan (1) Lethargy: (2) UTI (urinary tract infection), uncomplicated: (3) Bradycardia: (4) Chronic diastolic heart failure: (5) Homozygous MTHFR mutation C677T: (6) Lupus anticoagulant disorder: (7) B-cell lymphoma: (8) CKD (chronic kidney disease), stage III: (9) Anxiety: (10) HLD (hyperlipidemia): (11) Depression: (12) Hypertension: Plan This is an 87-year-old female with PMH for hyperlipidemia, homozygous MTHFR mutation, hypertension, pulmonary hypertension, chronic diastolic CHF, hemolytic anemia, CKD III, lupus anticoagulant disorder, low-grade B-cell lymphoma, depression, presents with fatigue and short of breath x 3 days. Lethargy Uncomplicated UTI WBC 11.6k, UA abnormal + urinary symptoms, starting empirically on Rocephin. Follow urine culture-urine culture has been negative We will continue antibiotic for 3 days in total Lyme serology negative, no evidence of infection on CXR She has been feeling much better and will get PT and OT evaluation SOB Acute decompensated diastolic HF Chronic hypoxic resp failure on 3L NC O2 SOB x 3 days, trace BLE edema, 2-3lb weight gain from outpatient records BNP 201, EKG pending, CXR with cardiomegaly with pulmonary vascular congestion, chronic interstitial coarsening of the lung bases Most recent echo in system from 2019 with preserved EF - Repeating 2D echo showsLV systolic function is normal with EF 60 to 65%, LV wall motion is normal, grade 1 diastolic dysfunction aortic valve sclerosis mild without significant stenosis, mild TR mild MR Doppler findings does not support pulmonary hypertension Lasix 20mg IV x 1 in ED. Strict I&Os, low sodium diet, daily weights Routine cards consult -appreciate input and recommendation Lasix has been changed to oral Bradycardia Reported in outpatient setting, HR 53-60 bpm since arrival EKG with SR with 1st degree AV block Plan to continue beta willi with hold parameters, monitor on tele, repeat EKG in AM Metoprolol has been discontinued No more bradycardia arrhythmia noted in the hospital Hemolytic anemia H/o epoetin injections, most recently yesterday Hemoglobin at baseline ~8-9 Monitor with daily CBC CKD III Cr 1.43 on admission (baseline ~1.2). Continue to monitor with daily BMP Non-Hodgkin's lymphoma History of low-grade B-cell lymphoma s/p chemotherapy. Follows with hematology Depression Sertraline HS DVT Ppx: SQ heparin Code status: FULL Dispo: Admitted to PCU Admission and Anticipated Discharge Date Admission Date: December 18, 2022 Subjective 12/19/2022 Patient was seen and examined in telemetry unit She has been feeling much better today denies any significant shortness of breath, palpitation or shortness of breath Denies any other significant symptoms Review of Systems Review of Systems: All systems reviewed and are unremarkable except as noted below Physical Exam Physical Exam: Lying in the bed without any acute distress Constitutional: well developed, well nourished, + ill appearing and average body habitus Eyes: PERRL, conjunctivae normal, anicteric sclerae ENMT: external ear and nose normal, oropharynx normal Neck: trachea midline, no thyromegaly Respiratory: no respiratory distress Auscultation: + diminished lung sounds and + crackles (Minimal crackles at the bases) Gastrointestinal (Abdomen): Inspection/Auscultation: normal bowel sounds; abdomen not distended Percussion/Palpation: abdomen soft; abdomen nontender Musculoskeletal: No acute arthritis involving any of the joint Neurologic: Alert, awake and oriented x3. No focal sensory deficit appreciated Lymphatic: no cervical or axillary lymphadenopathy Results & Data Results & Data Vital Signs (Past 12 Hours) Vital Signs Temp Pulse Pulse Resp BP Pulse Ox O2 Del Method 12/19/22 15:58 60 12/19/22 15:41 36.9 C 61 15 125/76 96 Nasal Cannula 12/19/22 12:16 36.6 C 56 L 20 120/69 100 Room Air 12/19/22 09:55 55 L 12/19/22 09:55 Nasal Cannula 12/19/22 07:57 36.6 C 61 18 115/69 100 Nasal Cannula O2 Flow Rate 12/19/22 15:58 12/19/22 15:41 4 12/19/22 12:16 12/19/22 09:55 12/19/22 09:55 4 12/19/22 07:57 2 Laboratory Results Short CBC 12/18/22 12/19/22 Range/Units 17:25 05:13 WBC 11.60 H 11.39 H (4.8-10.8) K/ul Hgb 8.6 L 8.8 L (12.0-16.0) g/dl Hct 23.8 L 25.1 L (37.0-47.0) % Plt Count 402 H 397 (130-400) K/uL BMP 12/18/22 12/19/22 17:25 05:13 Sodium 136 138 Potassium 4.3 4.1 Chloride 100 101 Carbon Dioxide 28 29 BUN 40 H 40 H Creatinine 1.43 H 1.54 H Glucose 87 102 H Calcium 9.7 9.5 Liver Function 12/18/22 Range/Units 17:25 Total Bilirubin 0.8 (0.2-1.0) mg/dl AST 18 (13-39) U/L ALT 10 (7-52) U/L Alkaline Phosphatase 58 (34-104) U/L Albumin 3.4 (3.4-5.0) gm/dl Urine 12/18/22 Range/Units 19:33 Urine Color Yellow Urine Appearance Clear (Clear) Urine pH 7.5 (4.5-7.5) Ur Specific [place] 1.011 (1.000-1.030) Urine Protein Negative (Negative) Urine Glucose (UA) Negative (Negative) Medications Administered Current Inpatient Medications Acetaminophen (Acetaminophen 325 Mg Tab) 650 mg PO Q4H PRN PRN Reason: Pain or Fever Stop: 01/17/23 21:10 Ascorbic Acid (Ascorbic Acid 500 Mg Tab) 500 mg PO AMHS [facility] Stop: 01/18/23 08:59 Last Admin: 12/19/22 08:12 Dose: 500 mg Aspirin (Aspirin 81 Mg Ectab) 81 mg PO QPM [facility] Stop: 01/18/23 20:59 Calcium/Vitamin D (Calcium 600mg + Vit D 400 Iu Tab) 1 tab PO DAILY [facility] Stop: 01/18/23 08:59 Last Admin: 12/19/22 08:12 Dose: 1 tab Fish Oil ([place]-3 (Purified Fish Oil) 1 Gm Cap) 2 gm PO QAM [facility] Stop: 01/18/23 08:59 Last Admin: 12/19/22 08:13 Dose: 2 gm Folic Acid (Folic Acid 1 Mg Tab) 1 mg PO QAM [facility] Stop: 01/18/23 08:59 Last Admin: 12/19/22 08:12 Dose: 1 mg Furosemide (Furosemide 20 Mg Tab) 20 mg PO QAM [facility] Stop: 01/18/23 08:59 Last Admin: 12/19/22 08:12 Dose: 20 mg Heparin Sodium (Porcine) (Heparin Sod 5,000 Unit/0.5 Ml Vial) 5,000 units SQ Q8 [facility] Stop: 01/17/23 21:59 Last Admin: 12/19/22 13:05 Dose: 5,000 units Ceftriaxone Sodium 2,000 mg/ (Dextrose) 70 mls @ 100 mls/hr IV Q24H [facility]; Protocol Stop: 12/23/22 20:44 Last Infusion: 12/18/22 23:09 Dose: Infused Multivitamins/Minerals (Cerovite Adv Formula Tab) 1 tab PO DAILY [facility] Stop: 01/18/23 08:59 Last Admin: 12/19/22 08:13 Dose: 1 tab Ondansetron HCl (Ondansetron Inj 2 Mg/Ml 2 Ml Vial) 4 mg IV Q6H PRN PRN Reason: Nausea Stop: 01/17/23 21:10 Oxybutynin Chloride (Oxybutynin Chloride Xl 5 Mg Tabcr) 10 mg PO DAILY [facility] Stop: 01/18/23 08:59 Last Admin: 12/19/22 08:13 Dose: 10 mg Pantoprazole Sodium (Pantoprazole 40 Mg Tab) 40 mg PO QAM [facility] Stop: 01/18/23 08:59 Last Admin: 12/19/22 08:13 Dose: 40 mg Polyethylene Glycol (Polyethylene (Miralax) 17 Gm Pack) 17 gm PO DAILY PRN PRN Reason: Constipation Stop: 01/17/23 21:10 Sertraline HCl (Sertraline Hcl 100 Mg Tablet) 100 mg PO QAM [facility] Stop: 01/17/23 21:04 Last Admin: 12/19/22 08:12 Dose: 100 mg Vitamin D (Cholecalciferol 1,000 Units 25 Mcg Tab) 2,000 units PO DAILY [facility] Stop: 01/18/23 08:59 Last Admin: 12/19/22 08:12 Dose: 2,000 units
[2022-12-19] MEDS: cefTRIAXone SODIUM 2,000 MG in DEXTROSE 5% 50 ML IV SCH (20:39)
[2022-12-19] MEDS ORDERED: ASPIRIN 81 MG ECTAB PO SCH (21:00)
[2022-12-20 06:14] LABS: Basophils # (auto) 0.03 K/uL (0-0.2); Basophils % (auto) 0.3 %; Eosinophils # (auto) 0.41 K/uL (0-0.50); Eosinophils % (auto) 3.9 %; Hematocrit (blood only) 22.9 % (37.0-47.0); Hemoglobin 8.1 g/dl (12.0-16.0); Immature Granulocytes # (auto) 0.05 K/uL (0.01-0.20); Immature Granulocytes % (auto) 0.5 %; Lymphocytes # (auto) 3.67 K/uL (1.2-3.4); Lymphocytes % (auto) 34.8 %; Mean Corpuscular Hemoglobin 30.6 pg (25.0-34.0); Mean Corpuscular Hgb Conc 35.4 g/dL (32.0-36.0); Mean Corpuscular Volume 86.4 fL (80.0-100.0); Mean Platelet Volume 9.4 fL (9.4-12.4); Monocytes # (auto) 0.74 K/uL (0.11-0.59); Neutrophils # (auto) 5.64 K/uL (1.40-6.50); Neutrophils % (auto) 53.5 %; Platelet Count 359 K/uL (130-400); RDW Coefficient of Variation 14.9 % (11.5-14.5); RDW Standard Deviation 45.9 fL (36.4-46.3); Red Blood Count 2.65 M/uL (4.20-5.40); White Blood Count 10.54 K/ul (4.8-10.8)
[2022-12-20 06:27] LABS: Calcium 9.1 mg/dl (8.6-10.3); Magnesium 1.8 mg/dl (1.7-2.4); Potassium 3.9 mmol/L (3.5-5.1)
[2022-12-20] MEDS: HEPARIN SOD 5,000 UNIT/0.5 ML VIAL SQ SCH ×2 (06:29→13:15)
[2022-12-20 06:33] LABS: BUN Creatinine Ratio 22.4 (10-20); Creatinine Clr Calc Pharmacy 24.8 ml/min; Est GFR (African American) 32.2 ml/min; Est GFR (Non-African American) 27.8 ml/min
[2022-12-20] MEDS: ASCORBIC ACID 500 MG TAB PO SCH (09:05)
[2022-12-20] MEDS: OMEGA-3 (PURIFIED FISH OIL) 1 GM CAP PO SCH (09:05)
[2022-12-20] MEDS: FUROSEMIDE 20 MG TAB PO SCH (09:06)
[2022-12-20] MEDS: SERTRALINE HCL 100 MG TABLET PO SCH (09:06)
[2022-12-20] MEDS: PANTOprazole 40 MG TAB PO SCH (09:06)
[2022-12-20] MEDS: OXYBUTYNIN CHLORIDE XL 5 MG TABCR PO SCH (09:06)
[2022-12-20] MEDS: FOLIC ACID 1 MG TAB PO SCH (09:07)
[2022-12-20] MEDS: CHOLECALCIFEROL 1,000 UNITS 25 MCG TAB PO SCH (09:07)
[2022-12-20] MEDS: CALCIUM 600MG + VIT D 400 IU TAB PO SCH (09:08)
[2022-12-20] MEDS: CEROVITE ADV FORMULA TAB PO SCH (09:08)
--- NOTE | 2022-12-20 14:37 | Hospitalist Progress Note ---
Date of Service December 20, 2022 Assessment & Plan (1) Lethargy: (2) UTI (urinary tract infection), uncomplicated: (3) Bradycardia: (4) Chronic diastolic heart failure: (5) Homozygous MTHFR mutation C677T: (6) Lupus anticoagulant disorder: (7) B-cell lymphoma: (8) CKD (chronic kidney disease), stage III: (9) Anxiety: (10) HLD (hyperlipidemia): (11) Depression: (12) Hypertension: Plan This is an 87-year-old female with PMH for hyperlipidemia, homozygous MTHFR mutation, hypertension, pulmonary hypertension, chronic diastolic CHF, hemolytic anemia, CKD III, lupus anticoagulant disorder, low-grade B-cell lymphoma, depression, presents with fatigue and short of breath x 3 days. Lethargy Uncomplicated UTI WBC 11.6k, UA abnormal + urinary symptoms, starting empirically on Rocephin. Follow urine culture-urine culture has been negative We will continue antibiotic for 3 days in total Lyme serology negative, no evidence of infection on CXR She has been feeling much better and will get PT and OT evaluation Has had PT evaluation and recommended home Patient remained stable and denies any significant symptoms today Discharged home this afternoon SOB Acute decompensated diastolic HF Chronic hypoxic resp failure on 3L NC O2 SOB x 3 days, trace BLE edema, 2-3lb weight gain from outpatient records BNP 201, EKG pending, CXR with cardiomegaly with pulmonary vascular congestion, chronic interstitial coarsening of the lung bases Most recent echo in system from 2019 with preserved EF - Repeating 2D echo showsLV systolic function is normal with EF 60 to 65%, LV wall motion is normal, grade 1 diastolic dysfunction aortic valve sclerosis mild without significant stenosis, mild TR mild MR Doppler findings does not support pulmonary hypertension Lasix 20mg IV x 1 in ED. Strict I&Os, low sodium diet, daily weights Routine cards consult -appreciate input and recommendation Lasix has been changed to oral No signs and or symptoms of fluid overload Bradycardia Reported in outpatient setting, HR 53-60 bpm since arrival EKG with SR with 1st degree AV block Plan to continue beta willi with hold parameters, monitor on tele, repeat EKG in AM Metoprolol has been discontinued No more bradycardia arrhythmia noted in the hospital She will have outpatient Holter monitor Hemolytic anemia H/o epoetin injections, most recently yesterday Hemoglobin at baseline ~8-9 Monitor with daily CBC CKD III Cr 1.43 on admission (baseline ~1.2). Continue to monitor with daily BMP Non-Hodgkin's lymphoma History of low-grade B-cell lymphoma s/p chemotherapy. Follows with hematology Depression Sertraline HS DVT Ppx: SQ heparin Code status: FULL Dispo: Admitted to PCU She wanted to go home and she remains stable to be discharged Admission and Anticipated Discharge Date Admission Date: December 18, 2022 Subjective 12/19/2022 Patient was seen and examined in telemetry unit She has been feeling much better today denies any significant shortness of breath, palpitation or shortness of breath Denies any other significant symptoms 12/20/2022 The patient was seen and examined in telemetry unit She has been feeling much better and denies any more shortness of breath and her palpitation Her heart rate remains stable and did not have any more bradycardia arrhythmias Review of Systems Review of Systems: All systems reviewed and are unremarkable except as noted below Physical Exam Physical Exam: Lying in the bed without any acute distress Constitutional: well developed, well nourished, + ill appearing and average body habitus Eyes: PERRL, conjunctivae normal, anicteric sclerae ENMT: external ear and nose normal, oropharynx normal Neck: trachea midline, no thyromegaly Respiratory: no respiratory distress Auscultation: + diminished lung sounds and + crackles (Minimal crackles at the bases) Gastrointestinal (Abdomen): Inspection/Auscultation: normal bowel sounds; abdomen not distended Percussion/Palpation: abdomen soft; abdomen nontender Musculoskeletal: No acute arthritis involving any of the joint Neurologic: Alert, awake and oriented x3. No focal sensory or no motor deficit appreciated Lymphatic: no cervical or axillary lymphadenopathy Results & Data Results & Data Vital Signs (Past 12 Hours) Vital Signs Temp Pulse Pulse Resp BP BP Pulse Ox 12/20/22 08:00 59 L 12/20/22 08:00 12/20/22 11:56 36.9 C 67 20 121/55 L 100 12/20/22 08:14 36.7 C 60 16 109/64 100 12/20/22 04:21 36.7 C 66 19 125/69 100 O2 Del Method O2 Flow Rate 12/20/22 08:00 12/20/22 08:00 Nasal Cannula 3 12/20/22 11:56 Nasal Cannula 3 12/20/22 08:14 Nasal Cannula 3 12/20/22 04:21 Nasal Cannula 3 Laboratory Results Short CBC 12/20/22 Range/Units 05:39 WBC 10.54 (4.8-10.8) K/ul Hgb 8.1 L (12.0-16.0) g/dl Hct 22.9 L (37.0-47.0) % Plt Count 359 (130-400) K/uL BMP 12/20/22 05:39 Sodium 135 L Potassium 3.9 Chloride 101 Carbon Dioxide 26 BUN 37 H Creatinine 1.65 H Glucose 105 H Calcium 9.1 Medications Administered Current Inpatient Medications Acetaminophen (Acetaminophen 325 Mg Tab) 650 mg PO Q4H PRN PRN Reason: Pain or Fever Stop: 01/17/23 21:10 Ascorbic Acid (Ascorbic Acid 500 Mg Tab) 500 mg PO [facility] Stop: 01/18/23 08:59 Last Admin: 12/20/22 09:05 Dose: 500 mg Aspirin (Aspirin 81 Mg Ectab) 81 mg PO QPM [facility] Stop: 01/18/23 20:59 Last Admin: 12/19/22 20:30 Dose: 81 mg Calcium/Vitamin D (Calcium 600mg + Vit D 400 Iu Tab) 1 tab PO DAILY [facility] Stop: 01/18/23 08:59 Last Admin: 12/20/22 09:08 Dose: 1 tab Fish Oil ([place]-3 (Purified Fish Oil) 1 Gm Cap) 2 gm PO QAM [facility] Stop: 01/18/23 08:59 Last Admin: 12/20/22 09:05 Dose: 2 gm Folic Acid (Folic Acid 1 Mg Tab) 1 mg PO QAM [facility] Stop: 01/18/23 08:59 Last Admin: 12/20/22 09:07 Dose: 1 mg Furosemide (Furosemide 20 Mg Tab) 20 mg PO QAM [facility] Stop: 01/18/23 08:59 Last Admin: 12/20/22 09:06 Dose: 20 mg Heparin Sodium (Porcine) (Heparin Sod 5,000 Unit/0.5 Ml Vial) 5,000 units SQ Q8 [facility] Stop: 01/17/23 21:59 Last Admin: 12/20/22 13:15 Dose: 5,000 units Ceftriaxone Sodium 2,000 mg/ (Dextrose) 70 mls @ 100 mls/hr IV Q24H [facility]; Protocol Stop: 12/23/22 20:44 Last Infusion: 12/19/22 21:23 Dose: Infused Multivitamins/Minerals (Cerovite Adv Formula Tab) 1 tab PO DAILY [facility] Stop: 01/18/23 08:59 Last Admin: 12/20/22 09:08 Dose: 1 tab Ondansetron HCl (Ondansetron Inj 2 Mg/Ml 2 Ml Vial) 4 mg IV Q6H PRN PRN Reason: Nausea Stop: 01/17/23 21:10 Oxybutynin Chloride (Oxybutynin Chloride Xl 5 Mg Tabcr) 10 mg PO DAILY [facility] Stop: 01/18/23 08:59 Last Admin: 12/20/22 09:06 Dose: 10 mg Pantoprazole Sodium (Pantoprazole 40 Mg Tab) 40 mg PO QAM [facility] Stop: 01/18/23 08:59 Last Admin: 12/20/22 09:06 Dose: 40 mg Polyethylene Glycol (Polyethylene (Miralax) 17 Gm Pack) 17 gm PO DAILY PRN PRN Reason: Constipation Stop: 01/17/23 21:10 Sertraline HCl (Sertraline Hcl 100 Mg Tablet) 100 mg PO QAM [facility] Stop: 01/17/23 21:04 Last Admin: 12/20/22 09:06 Dose: 100 mg Vitamin D (Cholecalciferol 1,000 Units 25 Mcg Tab) 2,000 units PO DAILY [facility] Stop: 01/18/23 08:59 Last Admin: 12/20/22 09:07 Dose: 2,000 units
--- NOTE | 2022-12-20 16:02 | Cardiology Progress Note ---
Date of Service December 20, 2022 Assessment & Plan (1) UTI (urinary tract infection), uncomplicated: (2) Lethargy: (3) Generalized weakness: (4) Chronic diastolic heart failure: (5) Bradycardia: (6) Atrial ectopy: Plan Metoprolol succinate (12.5 mg/day) discontinued this admission due to mild bradycardia Asymptomatic atrial ectopy. No atrial fibrillation observed this admission. Mild mitral and tricuspid regurgitation. Volume: Normovolemic. Preserved LV systolic function Doppler findings do not suggest pulmonary hypertension. Outpatient Zio monitor Admission and Anticipated Discharge Date Admission Date: December 18, 2022 Supervising Physician Co-Signing Physician Notes 87-year-old female referred to the emergency department by Norm at home due to bradycardia and borderline hypotension. Denies chest pain or shortness of breath. Sinus rhythm in the 70s since admission. Metoprolol on hold. No significant bradycardia on telemetry. PE: VSS. gen: NAD, AAo x3. Heart: Regular rhythm, normal S1-S2. No murmur. Lungs: Clear bilateral, no rales, rhonchi, wheeze. Extremities: No edema. A/P: Agree with above PA-C history, physical exam, assessment and plan. Low pulse rate in the outpatient setting possibly related to supraventricular ectopy. Continue to hold metoprolol. Outpatient ZIO monitor upon discharge. Subjective Patient seen and examined. Chart, medications, and telemetry reviewed. Granddaughter at bedside. Telemetry with sinus throughout, with frequent atrial ectopy. No atrial fibrillation. No significant bradycardia. No pauses. No ventricular arrhythmias. Feeling better overall. Anxious for discharge. No chest pain. No new or worsening shortness of breath. No palpitations. No dizziness or lightheadedness. No subjective fevers or chills. December 19, 2022 TTE Interpretation Summary ([facility], Dr. Hendrickson): Compared to prior study, there is no significant change. Normal LV systolic function. Ejection fraction 60 to 65%. Normal LV wall motion. Grade 1 diastolic dysfunction. Mild aortic valve sclerosis without significant stenosis. Mild mitral and tricuspid regurgitation. Doppler findings do not suggest pulmonary hypertension. Physical Exam Physical Exam: General: A&Ox3. NAD. + Pallor HENT: Normocephalic. Atraumatic. PER. Eyes: Conjunctiva pink, sclera clear. Neck: No carotid bruits. No JVD. Heart: Regular, 66 bpm. No murmur. Lungs: Clear to auscultation. Abdomen: +BS. Soft. Nontender. No masses or organomegaly. Extremities: No clubbing, cyanosis, or edema. Limited neurological examination is without focal deficits. Pulses: radial=2/4, posterior tibial=2/4. Results & Data Vital Signs (Past 12 Hours) Vital Signs Temp Pulse Pulse Resp BP BP Pulse Ox 12/20/22 15:36 36.6 C 62 17 111/53 L 100 12/20/22 08:00 59 L 12/20/22 08:00 12/20/22 11:56 36.9 C 67 20 121/55 L 100 12/20/22 08:14 36.7 C 60 16 109/64 100 12/20/22 04:21 36.7 C 66 19 125/69 100 O2 Del Method O2 Flow Rate 12/20/22 15:36 Nasal Cannula 3 12/20/22 08:00 12/20/22 08:00 Nasal Cannula 3 12/20/22 11:56 Nasal Cannula 3 12/20/22 08:14 Nasal Cannula 3 12/20/22 04:21 Nasal Cannula 3 Laboratory Results CBC 12/20/22 Range/Units 05:39 WBC 10.54 (4.8-10.8) K/ul RBC 2.65 L (4.20-5.40) M/uL Hgb 8.1 L (12.0-16.0) g/dl Hct 22.9 L (37.0-47.0) % Plt Count 359 (130-400) K/uL Neut # (Auto) 5.64 (1.40-6.50) K/uL Lymph # (Auto) 3.67 H (1.2-3.4) K/uL [place] # (Auto) 0.74 H (0.11-0.59) K/uL Eos # (Auto) 0.41 (0-0.50) K/uL Baso # (Auto) 0.03 (0-0.2) K/uL Comprehensive Metabolic Panel 12/20/22 Range/Units 05:39 Sodium 135 L (136-145) mmol/L Potassium 3.9 (3.5-5.1) mmol/L Chloride 101 (98-107) mmol/L Carbon Dioxide 26 (21-32) mmol/L BUN 37 H (6-23) mg/dl Creatinine 1.65 H (0.6-1.2) mg/dl Glucose 105 H (70-99(Fasting)) mg/dl Calcium 9.1 (8.6-10.3) mg/dl Intake and Output 12/20/22 12/20/22 12/20/22 06:59 14:59 22:59 Output Total 500 / 500 Balance -500 / -500 Output: Urine Amount (Catheter) 500 / 500 Fem Cath 500 / 500
--- NOTE | 2022-12-20 16:48 | Discharge Summary ---
Date of Service December 20, 2022 Admission HPI Per Admitting Provider This is an 87-year-old female with PMH for hyperlipidemia, homozygous MTHFR mutation, hypertension, pulmonary hypertension, chronic diastolic CHF, hemolytic anemia, CKD III, lupus anticoagulant disorder, low-grade B-cell lymphoma, depression, presents with fatigue and short of breath x 3 days. No associated CP. Also notes some fogginess with thought, "buzzing" noise in ears and frontal headache. Sent in when [facility] found patient to be bradycardic, hypotensive and weak at home. No F/C, N/V, abdominal pain,dysuria, diarrhea or constipation. Has been urinating more frequently than usual. Has been taking her usualy 20mg PO daily lasix. No weight gain or swelling in extremities noted. Lives at home with in [place] and ambulates with walker. No recent falls. Received Retacrit shot yesterday. Admission Exam Per Admitting Provider ERAN ISRAEL in place (3L) Lungs: good air entry b/l with lower lobe rales Cardiac: normal S1/S2, no murmur Abd: ND, NT, soft MSK: trace b/l LE pitting edema Psych: AAOX3, normal affect Principal Diagnosis Bradycardia arrhythmia, acute decompensated diastolic CHF Discharge Exam Lying in the bed without any acute distress Constitutional well developed, well nourished, + ill appearing and average body habitus Eyes PERRL, conjunctivae normal, anicteric sclerae ENMT external ear and nose normal, oropharynx normal Neck trachea midline, no thyromegaly Respiratory no respiratory distress Auscultation: + diminished lung sounds and + crackles (Minimal crackles at the bases) Gastrointestinal (Abdomen) Inspection/Auscultation: normal bowel sounds; abdomen not distended Percussion/Palpation: abdomen soft; abdomen nontender Lymphatic no cervical or axillary lymphadenopathy Discharge Data Allergies Allergy/AdvReac Type Severity Reaction Status Date / Time No Known Allergies Allergy Verified 12/18/22 17:50 Consultations 12/18/22 18:19 ED Decision to Admit Stat 12/18/22 21:11 Consult Cardiology Routine Hospital Course (1) Lethargy: (2) UTI (urinary tract infection), uncomplicated: (3) Bradycardia: (4) Chronic diastolic heart failure: (5) Homozygous MTHFR mutation [id number]: (6) Lupus anticoagulant disorder: (7) B-cell lymphoma: (8) CKD (chronic kidney disease), stage III: (9) Anxiety: (10) HLD (hyperlipidemia): (11) Depression: (12) Hypertension: Plan This is an 87-year-old female with PMH for hyperlipidemia, homozygous MTHFR mutation, hypertension, pulmonary hypertension, chronic diastolic CHF, hemolytic anemia, CKD III, lupus anticoagulant disorder, low-grade B-cell lymphoma, depre ssion, presents with fatigue and short of breath x 3 days. Lethargy Uncomplicated UTI WBC 11.6k, UA abnormal + urinary symptoms, starting empirically on Rocephin. Follow urine culture-urine culture has been negative We will continue antibiotic for 3 days in total Lyme serology negative, no evidence of infection on CXR She has been feeling much better and will get PT and OT evaluation Has had PT evaluation and recommended home Patient remained stable and denies any significant symptoms today Discharged home this afternoon SOB Acute decompensated diastolic HF Chronic hypoxic resp failure on 3L NC O2 SOB x 3 days, trace BLE edema, 2-3lb weight gain from outpatient records BNP 201, EKG pending, CXR with cardiomegaly with pulmonary vascular congestion, chronic interstitial coarsening of the lung bases Most recent echo in system from 2019 with preserved EF - Repeating 2D echo showsLV systolic function is normal with EF 60 to 65%, LV wall motion is normal, grade 1 diastolic dysfunction aortic valve sclerosis mild without significant stenosis, mild TR mild MR Doppler findings does not support pulmonary hypertension Lasix 20mg IV x 1 in ED. Strict I&Os, low sodium diet, daily weights Routine cards consult -appreciate input and recommendation Lasix has been changed to oral No signs and or symptoms of fluid overload Bradycardia Reported in outpatient setting, HR 53-60 bpm since arrival EKG with SR with 1st degree AV block Plan to continue beta willi with hold parameters, monitor on tele, repeat EKG in AM Metoprolol has been discontinued No more bradycardia arrhythmia noted in the hospital She will have outpatient Holter monitor Hemolytic anemia H/o epoetin injections, most recently yesterday Hemoglobin at baseline ~8-9 Monitor with daily CBC CKD III Cr 1.43 on admission (baseline ~1.2). Continue to monitor with daily BMP Non-Hodgkin's lymphoma History of low-grade B-cell lymphoma s/p chemotherapy. Follows with hematology Depression Sertraline HS DVT Ppx: SQ heparin Code status: FULL Dispo: Admitted to PCU She wanted to go home and she remains stable to be discharged Total Time Total Time Spent Total Time Spent (In Minutes): 35 minutes Discharge Plan Discharge Items Patient Disposition: Home - Self-Care Reason For Visit: BRADYCARDIA Discharge Diagnosis: Bradycardia arrhythmia, acute decompensated diastolic CHF Condition on Discharge: Fair Activity: Resume your previous activity Non-emergency contact: Primary Care Provider Call non-emergency contact if: you have any medication questions and your symptoms worsen Follow-up/Referrals: Coleen Strong PA-C [Physician [employer] Security [employer]ener] - (The [facility] [place] team will call you with an appointment for follow up. Please call them at if you have any questions. ) Diet: Heart Healthy Addtl Attending Provider Instructions: Please take precautions to avoid falls Usual walking device to move around at home Keep taking your oxygen as advised before Will need to have a Holter put on from your doctor's office Please keep appointment with your healthcare providers Pending Studies at Discharge: No Stand-Alone Forms: My [facility] [employer], Smoking Cessation Medications and DC Order Prescriptions: Continued aspirin [Mira Low Dose Aspirin] 81 mg Tablet,Delayed Release (Dr/Ec) 81 mg PO QPM omega 8-wfs-xbi-fish oil [Fish Oil] 1,000 mg (120 mg-180 mg) Capsule 2 cap PO QAM ascorbic acid (vitamin C) [Vitamin C] 500 mg Tablet 500 mg PO AMHS calcium carbonate-vitamin D3 [Calcium 500 + D] 500 mg(1,250mg) -400 unit Tablet 1 tab PO DAILY cholecalciferol (vitamin D3) [Vitamin D3] 50 mcg (2,000 unit) Capsule 2,000 unit PO DAILY pantoprazole 40 mg tablet,delayed release (DR/EC) 40 mg PO QAM furosemide 20 mg Tablet 20 mg PO QAM Qty: 30 2RF Rx Instructions: listed in [facility] but not filled lately metoprolol succinate 25 mg Tablet Extended Release 24 Hr 12.5 mg PO QAM Qty: 30 2RF sertraline 100 mg tablet 100 mg PO QAM oxybutynin chloride 10 mg tablet extended release 24hr 10 mg PO DAILY Multiple Vitamin-Minerals Tablet 1 tab PO DAILY folic acid 1 mg tablet 1 mg PO QAM Retacrit 10,000 unit/mL solution 10,000 unit subcut .EVERY OTHER WEEK Rx Instructions: if HGB < 11.0 Discharge Orders: Discharge Order (Routine); Ordered 12/20/22 Ordered By: Isauro March Discharge Order- CHF (Routine); Ordered 12/20/22 Ordered By: Isauro March Admission Data Admit Date/Time: 12/18/22 19:10 Attending Provider: Isauro March Admit Provider: Mckenna Ruiz Primary Care Provider: Afia Baldwin Other Providers: Mckenna Ruiz ; Keanu Hendrickson ; [place],[facility]
== END 2022-12-20 18:15 | disposition home health service (06) | DRG 683 ==
LOC: ED 17:10 → 4W 19:10 → SUATTDRO 19:10 → 4W 20:39 → 1E 12-20 09:39
DX: I95.9 Hypotension, unspecified; Z79.82 Long term (current) use of aspirin; R00.1 Bradycardia, unspecified; M19.90 Unspecified osteoarthritis, unspecified site; F32.A Depression, unspecified; C85.10 Unspecified B-cell lymphoma, unspecified site; Z99.81 Dependence on supplemental oxygen; I50.32 Chronic diastolic (congestive) heart failure; E72.12 Methylenetetrahydrofolate reductase deficiency; D68.312 Antiphospholipid antibody with hemorrhagic disorder; D58.9 Hereditary hemolytic anemia, unspecified; J96.11 Chronic respiratory failure with hypoxia; E78.5 Hyperlipidemia, unspecified; N39.0 Urinary tract infection, site not specified; Z79.899 Other long term (current) drug therapy; R53.83 Other fatigue; I49.1 Atrial premature depolarization; F41.9 Anxiety disorder, unspecified; I12.9 Hypertensive chronic kidney disease with stage 1 through stage 4 chronic kidney disease, or unspecified chronic kidney disease; Z20.822 Contact with and (suspected) exposure to COVID-19; K21.9 Gastro-esophageal reflux disease without esophagitis; N18.30 Chronic kidney disease, stage 3 unspecified; Z82.49 Family history of ischemic heart disease and other diseases of the circulatory system